=== PATIENT | female | born 1965 | race Caucasian/White ===

== ENCOUNTER 2019-08-25 14:05 | Emergency (ER) | payer BC, SELFPAY ==
[2019-08-25 14:15] VITALS: BP 172/109; PULSE 99; RESP 18; TEMP 37.1; O2SAT 95; BMI 30.7
[2019-08-25 14:26] VITALS: O2SAT 95
--- NOTE | 2019-08-25 14:27 | XRR_ITS ---
PROCEDURE INFORMATION: Exam: XR Chest, 1 View Exam date and time: 08/25/2019 2:28 PM Age: 54 years old Clinical indication: Cough and fever and shortness of breath; Additional info: Fever and productive cough TECHNIQUE: Imaging protocol: XR of the chest Views: 1 view. COMPARISON: CR Chest 1 [place] [id number] 02/24/2019 4:14 PM FINDINGS: Lungs: Unremarkable. No consolidation. Pleural space: Unremarkable. No pleural effusion. No pneumothorax. Heart/Mediastinum: Unremarkable. No cardiomegaly. Bones/joints: Unremarkable. XR/XR chest 1V portable [id number] IMPRESSION: No acute findings.
[2019-08-25 14:41] LABS: Basophils % 0.5 %; Eosinophils # 0.2 10^3/uL (0.0-0.8); Eosinophils % 2.4 %; Hematocrit 46.8 % (37.0-47.0); Hemoglobin 15.8 g/dL (11.5-15.3); Lymphocytes % 23.1 %; Mean Corpuscular HGB Conc 33.8 g/dL (30.0-36.0); Mean Corpuscular Volume 85.9 fL (81-99); Mean Platelet Volume 10.6 fL (7.4-10.4); Monocytes # 0.8 10^3/uL (0.2-0.9); Monocytes % 9.4 %; Neutrophils # 5.6 10^3/uL (1.8-7.7); Neutrophils % 64.5 %; Nucleated Red Blood Cells % 0 %; Platelet Count 261 10^3/cmm (130-400); Red Blood Count 5.45 10^6/uL (4.1-5.3); Red Cell Distribution Width 13.2 % (12.1-15.1); White Blood Count 8.7 10^3/uL (4.0-10.0)
--- NOTE | 2019-08-25 14:46 | ED_ITS ---
Entered by Chelo Baldwin, acting as scribe for Felipe Guzmán DO Aug 25, 2019 14:05 HPI - URI/Sore Throat General: Chief Complaint: Upper Respiratory Infection Stated Complaint: cough Time Seen by Provider: 08/25/19 14:28 Source: patient Mode of arrival: ambulatory Limitations: no limitations History of Present Illness: HPI Narrative: 54 yo Female presents to ED with complaint of upper respiratory symptoms. Pt states that she has been getting sick for a couple of weeks but her symptoms got worse on Monday. Pt states that she has been coughing and had some nasal draining that started on Monday. Pt states that she has been running a fever. Pt states that she had a temp of 103.2 this morning. Pt states that she has had green sputum. MD elicited complaint: fever, cough and rhinorrhea Onset (ago): day(s) Consistency: progressively worsening Pain scale (0-10): 0 Description of mucous: green Able to tolerate fluids by mouth: Yes Exacerbating factors: deep breaths Relieving factors: nothing Associated symptoms: Reports cough, fever(s), rhinorrhea and short of breath; Deny chills or sore throat Treatments prior to arrival: none Review of Systems General: Reports: 10 or more systems reviewed and unremarkable except in HPI and below Const: Reports: fever; Denies: chills ENMT: Reports: nasal discharge Resp: Reports: shortness of breath, productive cough and change in phlegm color [facility] ED PFSH: Medical History (Updated 08/25/19 @ 15:40 by Felipe Guzmán DO) HTN (hypertension) Surgical History (Updated 08/25/19 @ 15:00 by Chelo Baldwin) History of partial hysterectomy S/P ablation of atrial fibrillation Social History Smoking and tobacco status: never smoked Physical Exam Const: COMMON NORMALS: no apparent distress, average body habitus, oriented x3, no limitations, healthy appearing, alert and well nourished HENMT: COMMON NORMALS: normocephalic, head/scalp atraumatic, hearing grossly normal bilaterally, external ears normal, EAC's normal, TM's normal bilaterally, external nose normal, nasal mucous membranes and turbinates normal, moist oral mucous membranes, oropharynx normal, dentition normal and gingiva normal HEAD & SCALP: normocephalic and atraumatic NOSE: external nose normal and nasal mucous membranes and turbinates normal EXTERNAL EAR: Yes external ears normal EXTERNAL AUDITORY CANAL: EAC's normal TYMPANIC MEMBRANE: TM's normal bilaterally Eye: COMMON NORMALS: PERRL, EOMs intact bilaterally, conjunctivae normal, no scleral icterus, no papilledema, normal visual remy by confrontation and fundi normal bilaterally CONJUNCTIVA: Yes conjunctivae normal PUPIL: Yes PERRL DIRECT OPHTHALMOSCOPY: Yes no papilledema and Yes fundi normal bilaterally Neck/C-Spine: COMMON NORMALS: full ROM, no lymphadenopathy, supple, no meningeal signs, no JVD, thyroid normal and no carotid bruits THYROID: thyroid normal Chest: COMMONS NORMALS: inspection of chest normal and palpation of chest normal Resp: COMMON NORMALS: normal respiratory effort, no retractions, no use of accessory muscles, clear to auscultation bilaterally and percussion normal AUSCULTATION: clear to auscultation bilaterally PERCUSSION: percussion normal Cardio: COMMON NORMALS: no JVD, regular rate, regular rhythm, S1 normal heart sound, S2 normal heart sound, no gallops, no clicks, no murmurs, no rub and peripheral pulses 2+ throughout RATE: regular rate RHYTHM: regular rhythm HEART SOUNDS: S1 normal and S2 normal PERIPHERAL PULSES: pulses 2+ throughout GI: COMMON NORMALS: normal to inspection, nondistended, normoactive bowel sounds, soft to palpation, non-tender, no hepatosplenomegaly, no masses and no bruits PALPATION: Yes soft and Yes no hepatosplenomegaly : COMMON NORMALS: Yes no CVA tenderness and Yes external appearance normal BLADDER/KIDNEY EXAM: Yes no CVA tenderness Back/Pelvis: COMMON NORMALS: no CVA tenderness, thoracic and lumbar spine normal to inspection, no thoracic nor lumbar tenderness, thoraco-lumbar ROM normal and straight leg raise negative bilaterally Extremity: COMMON NORMALS: normal to inspection, full ROM, normal capillary refill, no joint enlargement, no clubbing, cyanosis or edema, no calf tenderness and no pedal edema Neuro: COMMON NORMALS: oriented x3 SENSORIUM/ORIENTATION: Yes alert MENINGEAL SIGNS: Yes no meningeal signs Skin: COMMON NORMALS: no rashes or lesions noted, no wounds, skin turgor normal, no jaundice, no petechiae and no mottling GENERAL SKIN EXAM: no rashes or lesions noted and turgor normal Course Vital Signs: Vital signs: Vital Signs Temperature 98.8 F 08/25/19 14:15 Pulse Rate 99 08/25/19 14:15 Respiratory Rate 18 08/25/19 14:15 Blood Pressure 172/109 08/25/19 14:15 Pulse Oximetry 95 08/25/19 14:26 MDM - URI/Sore Throat Lab Data: Labs: Lab Results 08/25/19 08/25/19 08/25/19 Range/Units 14:35 14:35 14:39 WBC 8.7 (4.0-10.0) 10^3/ uL RBC 5.45 H (4.1-5.3) 10^6/u L Hgb 15.8 H (11.5-15.3) g/dL Hct 46.8 (37.0-47.0) % MCV 85.9 (81-99) fL MCH 29.0 (28.0-34.0) pg MCHC 33.8 (30.0-36.0) g/dL RDW 13.2 (12.1-15.1) % Plt Count 261 (130-400) 10^3/c mm MPV 10.6 H (7.4-10.4) fL Neut % (Auto) 64.5 % Lymph % (Auto) 23.1 % [place] % (Auto) 9.4 % Eos % (Auto) 2.4 % Baso % (Auto) 0.5 % Neut # (Auto) 5.6 (1.8-7.7) 10^3/u L Lymph # (Auto) 2.0 (0.8-4.8) 10^3/u L [place] # (Auto) 0.8 (0.2-0.9) 10^3/u L Eos # (Auto) 0.2 (0.0-0.8) 10^3/u L Baso # (Auto) 0.0 (0.0-0.1) 10^3/u L Nucleated RBC % (a uto) 0 % Nucleated RBCs # 0.0 /100WBC Sodium 142 (136-145) mmol/L Potassium 3.5 (3.5-5.1) mmol/L Chloride 103 (98-107) mmol/L Carbon Dioxide 27 (22-29) mmol/L Anion Gap 15.5 (5-19) BUN 11 (6-20) mg/dL Creatinine 0.6 (0.5-0.9) mg/dL GFR Calculation 103.4 (90-130) mL/min Glucose 116 H (65-115) mg/dL Calculated Osmolal ity 291 (285-295) mOsm/k g Calcium 10.2 (8.5-10.5) mg/dL Total Bilirubin 0.6 (0.15-1.2) mg/dL AST 14 (0-32) U/L ALT 18 (0-33) U/L Alkaline Phosphata se 106 H (35-105) IU/L Total Protein 7.2 (6.6-8.7) g/dL Albumin 4.7 (3.5-5.2) g/dL Globulin 2.5 (1.3-4.6) g/dL Influenza Type A A g Negative (Negative) POC Influenza B Ag Negative (Negative) Discharge Plan Discharge Patient Disposition: Home, Self-Care Clinical Impression: Bronchitis Upper respiratory infection Qualifiers: URI type: unspecified URI Qualified Code(s): J06.9 - Acute upper respiratory infection, unspecified Sinusitis Qualifiers: Sinusitis location: maxillary Chronicity: acute Recurrence: non-recurrent Qualified Code(s): J01.00 - Acute maxillary sinusitis, unspecified Condition: Stable Prescriptions: New Augmentin 875-125 mg tablet 1 tab PO Q12H Qty: 20 RF: 0 prednisone 10 mg tablets,dose pack See Rx Instructions .ROUTE .COMPLEX Qty: 21 RF: 0 benzonatate 200 mg capsule 200 mg PO TID PRN (Reason: cough) Qty: 20 RF: 0 Augmentin 875-125 mg tablet 1 tab PO Q12H Qty: 20 RF: 0 No Action Multiple Vitamins Tablet 1 tab PO DAILY RF: 0 losartan 50 mg tablet 50 mg PO QAM RF: 0 triamcinolone acetonide 0.5 % ointment 1 applic TOPICAL BID PRN (Reason: UNKNOWN) RF: 0 amlodipine 5 mg tablet 5 mg PO DAILY RF: 0 Aspir-81 81 mg Tablet,Delayed Release (Dr/Ec) 81 mg PO DAILY RF: 0 Tylenol Extra Strength 500 mg Tablet 500 mg PO PRN RF: 0 metoprolol tartrate 50 mg tablet 50 mg PO BID RF: 0 ibuprofen 200 mg Tablet 400 mg PO PRN RF: 0 rosuvastatin 40 mg tablet 40 mg PO QPM RF: 0 Discharge Orders: Discharge Order (Routine); Ordered 08/25/19 Ordered By: Felipe Guzmán Referrals: Joselito Sylvester DO [Family Provider] - Coding Level of Care Code ED Toll Booth Operator for Chg Fwd Exam Comprehensive The documentation recorded by the Denny doshi Carmen, accurately reflects the service I personally performed and the decisions made by Ramirez sol Donald P, DO Aug 25, 2019 14:05
[2019-08-25 14:56] LABS: Alanine Aminotransferase 18 U/L (0-33); Albumin Level 4.7 g/dL (3.5-5.2); Alkaline Phosphatase 106 IU/L (35-105); Anion Gap 15.5 (5-19); Aspartate Amino Transferase 14 U/L (0-32); Blood Urea Nitrogen 11 mg/dL (6-20); Calcium 10.2 mg/dL (8.5-10.5); Carbon Dioxide 27 mmol/L (22-29); Chloride 103 mmol/L (98-107); Creatinine Clr Calc Pharmacy 115.7824; Globulin 2.5 g/dL (1.3-4.6); Glomerular Filtration Rate 103.4 mL/min (90-130); Glucose 116 mg/dL (65-115); Osmolality Calculated 291 mOsm/kg (285-295); Potassium 3.5 mmol/L (3.5-5.1); Sodium 142 mmol/L (136-145); Total Bilirubin 0.6 mg/dL (0.15-1.2); Total Protein 7.2 g/dL (6.6-8.7)
[2019-08-25 15:24] LABS: Influenza A by IFA Negative (Negative); Influenza B by IFA Negative (Negative)
[2019-08-25] MEDS: sodium chloride 0.9% 1,000 ML 999 ML IV (15:34)
[2019-08-25] MEDS: cefTRIAXone 1,000 MG in sodium chloride 0.9% (plus) 50 ML 100 MG IV (15:56)
[2019-08-25 16:00] VITALS: BP 166/120; PULSE 93; O2SAT 97
[2019-08-25 16:30] VITALS: BP 144/90; PULSE 96; O2SAT 97
== END 2019-08-25 16:30 | disposition home or self-care (01) ==
PROVIDERS: Physician Assistant; Emergency Provider Family Medicine; Family Provider Electrodiagnostic Medicine
DX: J40 Bronchitis, not specified as acute or chronic (principal); J06.9 Acute upper respiratory infection, unspecified; J32.9 Chronic sinusitis, unspecified; I10 Essential (primary) hypertension
CPT/HCPCS: 12345; 36415; 71045; 80053; 85025; 87804; 96360; 96361; 96365; 96375; 99283; J0696; J2930; J7030

== ENCOUNTER 2019-12-15 15:04 | Observation (INO) | payer BC, SELFPAY ==
[2019-12-15] VITALS (8 sets, daily range): BP systolic 128–189; BP diastolic 65–119; PULSE 65–89; RESP 16–18; TEMP 36.1–36.8; O2SAT 95–97; BMI 30.2
--- NOTE | 2019-12-15 15:28 | W.ED.CHESTPA ---
HPI - Chest Pain General: Chief Complaint: Chest Pain Stated Complaint: cp Time Seen by Provider: 12/15/19 15:22 Source: patient Mode of arrival: ambulatory Limitations: no limitations History of Present Illness: HPI narrative: Jessica is a nice 54-year-old female who comes in complaining of chest pain. She describes the chest pain as a pressure sensation that started in her back but then also started in the front and came to meet in the middle. She describes it as a pressure. She has associated nausea and diaphoresis. She denies any shortness of breath, vomiting, radiation on her arms, or near syncopal type symptoms. The patient states that she is had similar symptoms in the past and she has been admitted twice before for cardiac evaluations but both times her stress tests have been negative. Patient states that the pain started just 2 hours ago she is not had anything similar. She is unaware of any exacerbating or alleviating factors. Associated symptoms: Deny abdominal pain, diaphoresis, dyspnea, fever(s), nausea, palpitations, syncope or vomiting Review of Systems Const: Denies: fever(s), chills, body aches, fatigue, malaise or diaphoresis Eyes: Denies: change in vision, blurry vision, blind spots, photophobia, eye discharge or eye redness ENMT: Denies: throat pain, odynophagia, hoarseness, swelling of lips/tongue, oral sores, ear or mastoid pain, ear discharge, change in hearing or nasal discharge Card: Reports: chest pain; Denies: palpitations, irregular heart rhythm, edema, lightheadedness, syncope, pre-syncope, dyspnea on exertion or orthopnea Resp: Denies: dyspnea, productive cough, non-productive cough, wheezing, hemoptysis or chest congestion GI: Denies: abdominal pain, nausea, vomiting, hematemesis, coffee ground emesis, heartburn, diarrhea, constipation, GI cramping, hematochezia or melena : Denies: flank pain, dysuria, urinary frequency, urinary urgency or hematuria Musc: Denies: neck pain, back pain, extremity pain, extremity swelling, joint pain, joint swelling, joint redness, joint warmth or joint stiffness Skin/Breast: Denies: rash, pruritus, erythema, skin tenderness or jaundice Neuro: Denies: headache(s), numbness in extremities, weakness in extremities, sensory changes, lack of coordination, difficulty walking, dizziness, vertigo, confusion, Slurred speech present or seizure-like activity [place]/Lymph: Denies: easy bruising, easy bleeding, petechiae, purpura or enlarged lymph nodes All/Imm: Denies: urticaria, throat swelling, tongue swelling, facial swelling or acute wheezing PFSH ED PFSH: Medical History (Updated 12/15/19 @ 16:54 by Padmini Ledesma) Carotid artery stenosis Bilateral less than 50% from February 2019 CVA (cerebral vascular accident) HTN (hypertension) Hyperlipidemia SVT (supraventricular tachycardia) Surgical History History of partial hysterectomy S/P ablation of atrial fibrillation Social History Smoking and tobacco status: never smoked Physical Exam Const: COMMON NORMALS: no acute distress, patient oriented x3, no limitations, healthy appearing and well nourished GENERAL APPEARANCE: cooperative, well kempt and well developed HENMT: COMMON NORMALS: normocephalic, atraumatic, external ears normal, EAC's normal and Normal external nose present HEAD & SCALP: normal to inspection, normocephalic and atraumatic FACE & SINUS: normal facial exam and face symmetric NOSE: Normal external nose present and Normal nares present EXTERNAL EAR: Yes external ears normal EXTERNAL AUDITORY CANAL: EAC's normal MOUTH: Normal oral and palatal mucosa present, lip normal and tongue normal Eye: COMMON NORMALS: Equal, round and reactive pupils present and conjunctivae normal GENERAL EYE: appearance normal, both eyes and all related structures ALIGNMENT: Yes alignment normal PERIORBITAL: periorbital findings normal EYELID: eyelids normal CONJUNCTIVA: Yes conjunctivae normal SCLERA: sclerae normal PUPIL: Yes Equal, round and reactive pupils present Neck/C-Spine: COMMON NORMALS: full ROM, no lymphadenopathy, supple, no meningeal signs and no JVD GENERAL: Yes normal visual inspection and Yes trachea midline Chest: COMMONS NORMALS: normal inspection of the chest and normal palpation of entire chest wall Resp: COMMON NORMALS: normal respiratory effort, No retractions and No use of accessory muscles EFFORT & INSPECTION: Yes able to speak in complete sentences and Yes symmetric chest movement AUSCULTATION: no crackles, no rales, no rhonchi and no wheezes Cardio: COMMON NORMALS: no JVD, regular rate, regular rhythm, S1 normal heart sound present and S2 normal heart sound present RATE: regular rate RHYTHM: regular rhythm HEART SOUNDS: S1 normal heart sound present, S2 normal heart sound present, no click, no gallops, no murmurs, no rubs and abnormal split S2 GI: COMMON NORMALS: Soft to palpation and No hepatosplenomegaly present PALPATION: Yes Soft to palpation, No Tenderness to palpation present (GI), No Guarding due to palpation present (GI), No Rigid due to palpation, Yes No hepatosplenomegaly present, No Hernia present, No Palpable mass present and No Pulsatile mass present : COMMON NORMALS: Yes no CVA tenderness BLADDER/KIDNEY EXAM: Yes no CVA tenderness EXTERNAL FEMALE EXAM: No Hernia present Back/Pelvis: COMMON NORMALS: no CVA tenderness, thoracic and lumbar spine normal to inspection, no thoracic nor lumbar tenderness and thoraco-lumbar ROM normal Extremity: COMMON NORMALS: normal to inspection, full ROM, capillary refill normal, no joint enlargement, no clubbing, cyanosis or edema and no calf tenderness Neuro: COMMON NORMALS: patient oriented x3, CN's II-XII intact bilaterally, moves all extremities, no focal motor deficits and no sensory deficits noted MENINGEAL SIGNS: Yes no meningeal signs SPEECH: speech normal Psych: COMMON NORMALS: mental status grossly normal, Normal thought process present, cooperative, normal affect, speech normal and activity/motor behavior normal APPEARANCE: Yes well kempt SPEECH: Yes normal speech THOUGHT PROCESS: Normal thought process present Skin: COMMON NORMALS: no rashes or lesions noted, turgor normal, no jaundice, no petechiae and no mottling GENERAL SKIN EXAM: no rashes or lesions noted and turgor normal Course ED course: 1624 -patient was informed that her heart score is 4 and I have formally recommended she stay in the hospital for cardiac rule out and stress testing. At this time she is going to consider this but is informing me at this time she believes she would rather go home. I have informed her of the risks and benefits including the risk of ultimately or severe. Disability after heart attack if she goes home. She is going to talk with her but at this time she is wanting to leave. Vital Signs: Vital signs: Vital Signs Temperature 98.2 F 12/15/19 15:10 Pulse Rate 70 12/15/19 16:20 Respiratory Rate 17 12/15/19 16:20 Blood Pressure 158/88 12/15/19 16:20 Pulse Oximetry 96 12/15/19 16:20 MDM - Chest Pain MDM Narrative: Medical decision making narrative: The patient is decided to go ahead and stay for formal cardiac rule out and stress testing. I reviewed the case in full with Dr. Rosey is agreeable to admission for definitive management and care. Lab Data: Attestation: I reviewed the patient's lab results. Labs: Lab Results 12/15/19 12/15/19 12/15/19 Range/Units 15:45 15:45 15:45 WBC 5.3 (4.0-10.0) 10^3/ uL RBC 4.81 (4.1-5.3) 10^6/u L Hgb 14.0 (11.5-15.3) g/dL Hct 42.3 (37.0-47.0) % MCV 87.9 (81-99) fL MCH 29.1 (28.0-34.0) pg MCHC 33.1 (30.0-36.0) g/dL RDW 13.2 (12.1-15.1) % Plt Count 246 (130-400) 10^3/c mm MPV 10.3 (7.4-10.4) fL Neut % (Auto) 62.6 % Lymph % (Auto) 28.2 % [place] % (Auto) 5.6 % Eos % (Auto) 3.0 % Baso % (Auto) 0.4 % Neut # (Auto) 3.3 (1.8-7.7) 10^3/u L Lymph # (Auto) 1.5 (0.8-4.8) 10^3/u L [place] # (Auto) 0.3 (0.2-0.9) 10^3/u L Eos # (Auto) 0.2 (0.0-0.8) 10^3/u L Baso # (Auto) 0.0 (0.0-0.1) 10^3/u L Nucleated RBC % (a uto) 0 % Nucleated RBCs # 0.0 /100WBC Sodium 144 (136-145) mmol/L Potassium 3.4 L (3.5-5.1) mmol/L Chloride 107 (98-107) mmol/L Carbon Dioxide 24 (22-29) mmol/L Anion Gap 16.4 (5-19) BUN 15 (6-20) mg/dL Creatinine 0.8 (0.5-0.9) mg/dL GFR Calculation 74.2 L (90-130) mL/min Glucose 120 H (65-115) mg/dL Calculated Osmolal ity 295 (285-295) mOsm/k g Calcium 9.6 (8.5-10.5) mg/dL Magnesium 2.1 (1.7-2.3) mg/dL Total Bilirubin 0.2 (0.15-1.2) mg/dL AST 17 (0-32) U/L ALT 19 (0-33) U/L Alkaline Phosphata se 94 (35-105) IU/L Troponin T Baselin e 6 (0-10) ng/L Total Protein 6.1 L (6.6-8.7) g/dL Albumin 4.3 (3.5-5.2) g/dL Globulin 1.8 (1.3-4.6) g/dL Lipase 24 (13-60) U/L Urine Color (Yellow) Urine Appearance (CLEAR) Urine pH (5-7) Ur Specific Gravit y (1.005-1.030) Urine Protein (Negative) Urine Glucose (UA) (Normal) Urine Ketones (Negative) Urine Blood (Negative) Urine Nitrate (Negative) Urine Bilirubin (NEGATIVE) Urine Urobilinogen (Negative) mg/dL Ur Leukocyte Sandie ase (Negative) Urine RBC (0-2) /hpf Urine WBC (0-5) /hpf Ur Squamous Epith Cells (0-5) Urine Bacteria (NONE) Urine Opiates Scre en (Negative) ng/mL Ur Barbiturates Sc reen (Negative) ng/mL Ur Phencyclidine S crn (Negative) ng/mL Ur Amphetamines Sc reen (Negative) ng/mL U Benzodiazepines Scrn (Negative) ng/mL Urine Cocaine Scre en (Negative) ng/mL U Marijuana (THC) Screen (Negative) ng/mL 12/15/19 12/15/19 Range/Units 16:00 16:00 WBC (4.0-10.0) 10^3/ uL RBC (4.1-5.3) 10^6/u L Hgb (11.5-15.3) g/dL Hct (37.0-47.0) % MCV (81-99) fL MCH (28.0-34.0) pg MCHC (30.0-36.0) g/dL RDW (12.1-15.1) % Plt Count (130-400) 10^3/c mm MPV (7.4-10.4) fL Neut % (Auto) % Lymph % (Auto) % [place] % (Auto) % Eos % (Auto) % Baso % (Auto) % Neut # (Auto) (1.8-7.7) 10^3/u L Lymph # (Auto) (0.8-4.8) 10^3/u L [place] # (Auto) (0.2-0.9) 10^3/u L Eos # (Auto) (0.0-0.8) 10^3/u L Baso # (Auto) (0.0-0.1) 10^3/u L Nucleated RBC % (a uto) % Nucleated RBCs # /100WBC Sodium (136-145) mmol/L Potassium (3.5-5.1) mmol/L Chloride (98-107) mmol/L Carbon Dioxide (22-29) mmol/L Anion Gap (5-19) BUN (6-20) mg/dL Creatinine (0.5-0.9) mg/dL GFR Calculation (90-130) mL/min Glucose (65-115) mg/dL Calculated Osmolal ity (285-295) mOsm/k g Calcium (8.5-10.5) mg/dL Magnesium (1.7-2.3) mg/dL Total Bilirubin (0.15-1.2) mg/dL AST (0-32) U/L ALT (0-33) U/L Alkaline Phosphata se (35-105) IU/L Troponin T Baselin e (0-10) ng/L Total Protein (6.6-8.7) g/dL Albumin (3.5-5.2) g/dL Globulin (1.3-4.6) g/dL Lipase (13-60) U/L Urine Color Yellow (Yellow) Urine Appearance Clear (CLEAR) Urine pH 6.5 (5-7) Ur Specific Gravit y 1.020 (1.005-1.030) Urine Protein Neg (Negative) Urine Glucose (UA) Norm (Normal) Urine Ketones Negative (Negative) Urine Blood Neg (Negative) Urine Nitrate Negative (Negative) Urine Bilirubin Neg (NEGATIVE) Urine Urobilinogen Norm (Negative) mg/dL Ur Leukocyte Sandie ase Negative (Negative) Urine RBC None (0-2) /hpf Urine WBC 0-4 H (0-5) /hpf Ur Squamous Epith Cells 0-4 H (0-5) Urine Bacteria Trace (NONE) Urine Opiates Scre en Negative (Negative) ng/mL Ur Barbiturates Sc reen Negative (Negative) ng/mL Ur Phencyclidine S crn Negative (Negative) ng/mL Ur Amphetamines Sc reen Negative (Negative) ng/mL U Benzodiazepines Scrn Negative (Negative) ng/mL Urine Cocaine Scre en Negative (Negative) ng/mL U Marijuana (THC) Screen Negative (Negative) ng/mL Imaging Data^: CXR: My impression: No acute cardiopulmonary findings. EKG Data^: EKG 1: Attestation: I personally reviewed and interpreted this EKG as follows: EKG interpretation date: 12/15/19 EKG interpretation time: 15:22 Interpretation: Normal sinus rhythm at 69 beats a minute, no blocks, normal intervals, no acute ST or T wave changes. Discharge Plan Discharge Patient Disposition: Placed in Observation Admit Provider: Bradley Bejarano Clinical Impression: Chest pain Qualifiers: Chest pain type: unspecified Qualified Code(s): R07.9 - Chest pain, unspecified Condition: Stable Referrals: Joselito Sylvester DO [Primary Care Provider] - Coding Level of Care Code ED Construction Driller for Chg Fwd Exam Comprehensive
--- NOTE | 2019-12-15 15:35 | XRR_ITS ---
PROCEDURE INFORMATION: Exam: XR Chest, 1 View Exam date and time: 12/15/2019 3:37 PM Age: 54 years old Clinical indication: Chest pain TECHNIQUE: Imaging protocol: XR of the chest Views: 1 view. COMPARISON: CR XR chest 1V portable [id number] 08/25/2019 2:49 PM FINDINGS: Lungs: Stable mild COPD . Pleural space: Unremarkable. No pleural effusion. No pneumothorax. Heart/Mediastinum: Unremarkable. No cardiomegaly. Bones/joints: Unremarkable. XR/XR chest 1V portable [id number] IMPRESSION: Stable mild COPD .
[2019-12-15] MEDS: aspirin 325 mg Tablet PO (15:36)
--- NOTE | 2019-12-15 15:36 | ECG_ITS ---
[facility] Test Date: 2019-12-15 Pat Name: Jessica Moon Department: Room: Gender: Female Credit Risk Analyst: : 1965 Requested By: Padmini Doty Order Number: [id number] Deny MD: Tereso Chaudhary M.D. Measurements Intervals [place] Rate: 69 P: 44 MS: 180 QRS: 14 QRSD: 97 T: 24 QT: 407 QTc: 437 Interpretive Statements SINUS RHYTHM Compared to ECG 04/14/2019 00:16:49 Sinus bradycardia no longer present Electronically Signed On 12-15-2019 19:59:51 CDT by Tereso Chaudhary M.D. [id number]
[2019-12-15 15:52] LABS: Basophils % 0.4 %; Eosinophils # 0.2 10^3/uL (0.0-0.8); Hematocrit 42.3 % (37.0-47.0); Lymphocytes # 1.5 10^3/uL (0.8-4.8); Lymphocytes % 28.2 %; Mean Corpuscular HGB Conc 33.1 g/dL (30.0-36.0); Mean Corpuscular Hemoglobin 29.1 pg (28.0-34.0); Mean Corpuscular Volume 87.9 fL (81-99); Mean Platelet Volume 10.3 fL (7.4-10.4); Monocytes # 0.3 10^3/uL (0.2-0.9); Monocytes % 5.6 %; Neutrophils # 3.3 10^3/uL (1.8-7.7); Neutrophils % 62.6 %; Nucleated Red Blood Cells % 0 %; Platelet Count 246 10^3/cmm (130-400); Red Blood Count 4.81 10^6/uL (4.1-5.3); Red Cell Distribution Width 13.2 % (12.1-15.1); White Blood Count 5.3 10^3/uL (4.0-10.0)
[2019-12-15 16:11] LABS: Alanine Aminotransferase 19 U/L (0-33); Albumin Level 4.3 g/dL (3.5-5.2); Alkaline Phosphatase 94 IU/L (35-105); Anion Gap 16.4 (5-19); Aspartate Amino Transferase 17 U/L (0-32); Blood Urea Nitrogen 15 mg/dL (6-20); Calcium 9.6 mg/dL (8.5-10.5); Carbon Dioxide 24 mmol/L (22-29); Chloride 107 mmol/L (98-107); Globulin 1.8 g/dL (1.3-4.6); Glomerular Filtration Rate 74.2 mL/min (90-130); Glucose 120 mg/dL (65-115); Lipase 24 U/L (13-60); Magnesium 2.1 mg/dL (1.7-2.3); Osmolality Calculated 295 mOsm/kg (285-295); Potassium 3.4 mmol/L (3.5-5.1); Sodium 144 mmol/L (136-145); Total Bilirubin 0.2 mg/dL (0.15-1.2); Total Protein 6.1 g/dL (6.6-8.7)
[2019-12-15 16:14] LABS: Troponin(5th) Baseline 6 ng/L (0-10)
[2019-12-15] MEDS: sodium chloride 0.9% 1,000 ML 100 ML IV ×2 (16:18→19:52)
[2019-12-15] MEDS: potassium chloride ER 10 mEq Tablet 40 MEQ PO (16:24)
--- NOTE | 2019-12-15 16:43 | P.HP_ITS ---
Providers/Chief Complaint Primary Care Provider: Joselito Sylvester DO Chief Complaint: cp History of Present Illness Jessica Moon is a 54 year old female past medical history of ischemic CVA, carotid artery stenosis, hypertension noncompliant with medications who presents to the emergency room for complaints of chest pain. She states pain started retrosternal on the left side radiating to back along with dizziness and nausea but no vomiting. During the episode she also had mild diaphoresis. She states last she had pain was in February 2019 when she was checked out and everything came back normal. Since then she has not had similar pain. She denies of having any increased pain on exertion or walking around. She denies of any smoking. Patient does have family history of early CAD in both her parents. She denies of having any difficulty in breathing at rest or on exertion. She is fairly noncompliant with her medications. She states she has not been taking her statins regularly as she started having muscle aches. She states she does not take any aspirin because of concerns of ulcer but she is compliant with Plavix. She states she has been forgetting her antihypertensives for last 2 to 3 days. She denies of having any flulike symptoms, cough, exposure to COVID-19 patients, recent travels, fevers. Review of Systems General: Reports: 10 or more systems reviewed and unremarkable except in HPI and below Const: Denies: fever(s), chills, body aches, change in appetite, malaise, night sweats, diaphoresis, change in sleep pattern, daytime sleepiness or snoring Eyes: Denies: change in vision, blurry vision, photophobia, eye discomfort or eye discharge ENMT: Denies: throat pain, enlarged tonsils, hoarseness, mouth pain, oral sores, dry mouth, tinnitus, nasal congestion or post nasal drip Card: Reports: chest pain; Denies: palpitations, irregular heart rhythm, edema, swelling of feet/ankles, lightheadedness, syncope, pre-syncope, dyspnea on exertion, orthopnea, leg pain with exertion or acrocyanosis Resp: Denies: dyspnea, productive cough, non-productive cough, wheezing, stridor, pain on inspiration, change in phlegm color, hemoptysis or chest congestion GI: Reports: nausea; Denies: abdominal pain, vomiting, hematemesis, coffee ground emesis, dysphagia, heartburn, diarrhea, constipation, bloating, GI cramping, change in bowel habits, pain on defecation, hematochezia or melena : Denies: flank pain, dysuria, urinary frequency, urinary urgency, urinary hesitancy, nocturia or hematuria Musc: Denies: neck pain, back pain, extremity pain, joint pain, joint swelling, joint redness, joint stiffness or limited range of motion Neuro: Denies: headache(s), numbness in extremities, weakness in extremities, sensory changes, lack of coordination, difficulty walking, frequent falls, dizziness, vertigo, confusion, Slurred speech present, difficulty communicating thoughts or seizure-like activity Psych: Denies: anxiety, depression, mood swings, panic attacks, hopelessness or irritability Endo: Denies: polyuria, polydipsia, tired all the time, cold intolerance, excessive sweating, flushing or heat intolerance Jarrell/Lymph: Denies: easy bruising or easy bleeding All/Imm: Denies: tongue swelling, facial swelling or acute wheezing Medications/Allergies Home Medications Medication Instructions Recorded Confirmed Last Taken Type amlodipine 5 mg PO DAILY 08/25/19 12/15/19 12/13/19 History losartan 50 mg PO QAM 08/25/19 12/15/19 12/13/19 History metoprolol tartrate 50 mg PO BID 08/25/19 12/15/19 12/15/19 History clopidogrel [Plavix] 75 mg PO DAILY 12/15/19 12/15/19 12/15/19 History Allergies Allergy/AdvReac Type Severity Reaction Status Date / Time tramadol [From Ultram] Allergy ALGY-Hives Verified 08/25/19 14:21 PFSH Acute PFSH: Medical History Carotid artery stenosis Bilateral less than 50% from February 2019 CVA (cerebral vascular accident) HTN (hypertension) Hyperlipidemia SVT (supraventricular tachycardia) Surgical History History of partial hysterectomy S/P ablation of atrial fibrillation Social History Smoking and tobacco status: never smoked Vitals/I&O/Wt Last Vital Signs Temp 98.2 F 12/15/19 15:10 Pulse 70 12/15/19 16:20 Resp 17 12/15/19 16:20 BP 158/88 12/15/19 16:20 Pulse Ox 96 12/15/19 16:20 Weight last 48 hrs Weight 87.543 kg Physical Exam Narrative: EXAM NARRATIVE: General: No acute distress, AO x3 HEENT: PERRLA, pupils bilaterally equal and reactive Chest: Normal vesicular breath sounds, no added sounds, equal good air entry bilaterally CVS: S1-S2 regular, no murmurs, no tachycardia, no gallops, no rubs Abdomen: Soft, nontender, no organomegaly, bowel sounds present Neuro: No focal deficits, no facial deformity, AO x3, power 5/5 in all limbs Data : 12/15/19 15:45 12/15/19 15:45 A&P Assessment and plan (1) Chest pain: Status: Acute (2) Hyperlipidemia: Status: Acute (3) HTN (hypertension): Status: Acute (4) Carotid artery stenosis: Status: Acute (5) CVA (cerebral vascular accident): Status: Acute Additional A&P Information Chest pain under evaluation: Patient was last admitted with similar complaint in February 2019. Last tested on 2018 was within normal limits without any active signs of ischemia. Echocardiogram 2019 shows an EF 56%, grade 1 diastolic dysfunction, no regional wall Schmorl abnormality, normal pulmonary artery pressures. Patient has been fairly noncompliant with her medications. She is not been taking her antihypertensives for last couple of days. Continue with Plavix and statins for now. Patient already received full dose of aspirin in the ER. First troponin has been a normal limits. Will do every 2 hours and every 6 hours to see delta. If delta is positive will start on full dose Lovenox. It is quite possible that patient symptoms are most likely because of acid hypertension because of noncompliance to medications. But given her significant family history, personal history we will have to rule out CAD so will do stress test tomorrow morning. N.p.o. from midnight. Check lipid panel, TSH, HbA1c, iron panel. Hypertension: Start her on home medication of Lopressor and losartan. It is reported that she also takes amlodipine. For now we will start her on losartan metoprolol and if the blood pressures are more than goal of 140/90 mmHg we will start her on amlodipine. Full code. Cardiac diet, n.p.o. after midnight Low probability of DVT as PERFECTO score is low Attestations Medical Necessity Statement*: Less than 2 midnights for chest pain rule out Time Spent in Patient Care: Greater than 35 minutes (>than 50% of time spent in counselling and/or direct pt care on unit) . 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
[2019-12-15 16:45] LABS: Add Urine Culture? No; Bacteria Urine TRACE; Bilirubin Urine Neg (NEGATIVE); Blood Urine Neg (Negative); Glucose Urine UA Norm (Normal); Ketones Urine Negative (Negative); Leukocyte Esterase Urine Negative (Negative); Nitrate Urine Negative (Negative); Protein Urine Neg (Negative); Squamous Epithelial Cell Urine 0-4 (0-5); Urine Appearance Clear (CLEAR); Urine Color Yellow (Yellow); Urobilinogen Urine Norm (Negative); WBC Urine 0-4 /hpf (0-5); pH Urine 6.5 (5-7)
[2019-12-15 16:53] LABS: Amphetamines Screen Urine Negative (Negative); Barbiturates Screen Urine Negative (Negative); Benzodiazepines Screen Urine Negative (Negative); Cocaine Screen Urine Negative (Negative); Opiate Screen Urine Negative (Negative); PCP Screen Urine Negative (Negative); THC Screen Urine Negative (Negative)
--- NOTE | 2019-12-15 17:36 | ECG_ITS ---
[facility] Test Date: 2019-12-15 Pat Name: Jessica Moon Department: Room: 112 Gender: Female Grants Officer: : 1965 Requested By: Padmini Doty Order Number: [id number] Deny MD: Tereso Chaudhary M.D. Measurements Intervals [place] Rate: 59 P: 52 ME: 178 QRS: 15 QRSD: 93 T: 16 QT: 419 QTc: 415 Interpretive Statements SINUS BRADYCARDIA WITH SINUS ARRHYTHMIA Compared to ECG 12/15/2019 15:22:26 Sinus rhythm no longer present Electronically Signed On 12-15-2019 20:06:46 CDT by Tereso Chaudhary M.D. [id number]
--- NOTE | 2019-12-15 18:00 | PC.NURSE ---
From ER Received pt via wheelchair. Pt is alert, oriented, awake. Denies any pain or discomfort. Up ad yarely to the bathroom x2. voided x2. VS taken. checked orthostatic VS per order. noted orthostatic hypotension. informed of the orthostatic VS. oriented pt to nurse, telemetry. call light within reach. informed her of the cardiac stress test procedure tomorrow. pt verbalizes understanding.
[2019-12-15 19:12] LABS: Troponin 5 2HR Delta 0 ABS# (0-10)
[2019-12-15 19:15] LABS: Ferritin 207 ng/mL (15-150); Iron 39 ug/dL (37-145); NT Pro B Type Natriuretic Pept 268 pg/mL (0-125); Percent Saturation 16.1 % (20-50); Total Iron Binding Capacity 241 mcg/dl; Unsaturated Iron Binding 202 ug/dL (112-347)
[2019-12-15 19:33] LABS: Thyroid Stimulating Hormone 2.41 uIU/mL (0.27-4.20)
[2019-12-15] MEDS: metoprolol tartrate 50 mg Tablet PO (19:52)
[2019-12-15] MEDS: losartan 50 mg Tablet PO (19:53)
--- NOTE | 2019-12-15 20:23 | PC.NURSE ---
Patient complains of pain in neck and head stating I hurt my neck years ago and I take Tylenol and Motrin for it at home. PRN Tylenol given. Patient does not complain of any chest pain. Will monitor.
[2019-12-15] MEDS: acetaminophen 325 mg Tablet 650 MG PO (20:24)
--- NOTE | 2019-12-15 21:36 | ECG_ITS ---
[facility] Test Date: 2019-12-15 Pat Name: Jessica Moon Department: Room: 112 Gender: Female Blast Furnace Supervisor: DORIAN ISAAC: 1965 Requested By: Padmini Doty Order Number: [id number] Deny MD: Tereso Chaudhary M.D. Measurements Intervals [place] Rate: 60 P: 55 AK: 188 QRS: 25 QRSD: 93 T: 31 QT: 421 QTc: 423 Interpretive Statements SINUS RHYTHM Compared to ECG 12/15/2019 17:24:08 Sinus bradycardia no longer present Sinus arrhythmia no longer present Electronically Signed On 12-16-2019 21:45:13 CDT by Tereso Chaudhary M.D. [id number]
[2019-12-15 22:39] LABS: Troponin 5 6HR Delta 0 ng/L (0-12)
--- NOTE | 2019-12-15 23:17 | PC.NURSE ---
Patient states that she does not have any chest pain at this time. Patient states the pain in my neck has eased up. Will monitor.
[2019-12-16] VITALS (10 sets, daily range): BP systolic 125–165; BP diastolic 77–100; PULSE 52–94; RESP 12–18; TEMP 36.4–36.9; O2SAT 94–97
[2019-12-16 03:56] LABS: Basophils % 0.4 %; Eosinophils # 0.2 10^3/uL (0.0-0.8); Eosinophils % 3.6 %; Lymphocytes # 1.6 10^3/uL (0.8-4.8); Lymphocytes % 34.5 %; Mean Corpuscular HGB Conc 32.5 g/dL (30.0-36.0); Mean Corpuscular Hemoglobin 28.6 pg (28.0-34.0); Mean Corpuscular Volume 88.1 fL (81-99); Mean Platelet Volume 10.2 fL (7.4-10.4); Monocytes # 0.4 10^3/uL (0.2-0.9); Monocytes % 7.9 %; Neutrophils # 2.5 10^3/uL (1.8-7.7); Neutrophils % 53.6 %; Nucleated Red Blood Cells % 0 %; Platelet Count 219 10^3/cmm (130-400); Red Blood Count 4.54 10^6/uL (4.1-5.3); Red Cell Distribution Width 13.2 % (12.1-15.1); White Blood Count 4.7 10^3/uL (4.0-10.0)
[2019-12-16 04:13] LABS: Chol HDL Ratio 4.86 mg/dL (0.0-4.40); Cholesterol 204 mg/dL (0-200); HDL Cholesterol 42 mg/dL (60-100); LDL Cholesterol Calculated 138 mg/dL (50-129); Triglycerides 119 mg/dL (0-150); VLDL Cholestrol Calculation 24 mg/dL (0-30)
[2019-12-16 04:16] LABS: Alanine Aminotransferase 17 U/L (0-33); Albumin Level 3.8 g/dL (3.5-5.2); Alkaline Phosphatase 78 IU/L (35-105); Anion Gap 13.9 (5-19); Aspartate Amino Transferase 13 U/L (0-32); Blood Urea Nitrogen 15 mg/dL (6-20); Calcium 9.3 mg/dL (8.5-10.5); Carbon Dioxide 24 mmol/L (22-29); Chloride 110 mmol/L (98-107); Globulin 1.8 g/dL (1.3-4.6); Glomerular Filtration Rate 103.4 mL/min (90-130); Glucose 106 mg/dL (65-115); Osmolality Calculated 295 mOsm/kg (285-295); Potassium 3.9 mmol/L (3.5-5.1); Sodium 144 mmol/L (136-145); Total Bilirubin 0.2 mg/dL (0.15-1.2); Total Protein 5.6 g/dL (6.6-8.7)
[2019-12-16 04:17] LABS: Estmated Average Glucose 100; Hemoglobin A1C 5.1 % (4.0-6.0)
[2019-12-16] MEDS: losartan 50 mg Tablet PO (05:14)
[2019-12-16] MEDS: sodium chloride 0.9% 1,000 ML 100 ML IV (05:14)
--- NOTE | 2019-12-16 06:00 | ECG_ITS ---
[facility] Test Date: 2019-12-16 Pat Name: Jessica Moon Department: Room: 112 Gender: Female College Service Officer: Karyna Lucas : 1965 Requested By: Bradley Bejarano Order Number: [id number] Deny MD: Corby El M.D. Interpretive Statements NAME OF STUDY: LEXISCAN SESTAMIBI STRESS TEST INDICATION: Chest Pain, LEXISCAN STRESS TEST ORDERING PHYSICIAN: Hospitalist CLINICAL INFORMATION: Chest pain INTERPRETATION: 1. The patient was brought to the laboratory where Lexiscan was infused over 20 seconds. The resting blood pressure was 145/75. Maximum blood pressure was 159/93. The resting heart rate was 70 beats per minute. The maximum heart rate is 108 beats per minute. 2. The baseline electrocardiogram reveals sinus rhythm and has a normal tracing 3. With Lexiscan infusion, there were no ST segment changes to suggest ischemia. 4. The patient experienced no symptoms or arrhythmias during the examination. CONCLUSION: 1. Unremarkable Lexiscan infusion. 2. Nuclear imaging to follow. Electronically Signed On 12-16-2019 17:21:29 CDT by Corby El M.D. [id number]
--- NOTE | 2019-12-16 08:26 | PC.NURSE ---
Patient to stress test. VS stable. No needs identified at this time.
[2019-12-16] MEDS: regadenoson 0.4 Mg/5 ml Syringe IVP (09:36)
[2019-12-16] MEDS: metoprolol tartrate 50 mg Tablet PO (09:48)
[2019-12-16] MEDS: clopidogrel 75 mg Tablet PO (09:48)
--- NOTE | 2019-12-16 09:52 | PC.CHAP ---
Pastoral Care Encounter/Spiritual Assessment Type of Contact [] Declined motorcycle mechanic apprentice visit [] Patient/Family/Request visit [] Outpatient visit [] Follow-up visit [] Physician referral [] Code/Alert [x] Routine visit [] Staff referral [] Actively dying [] Patient sleeping [] Family support [] [x] Out of room [] Palliative care [] [] Receiving care in room [] Pre-surgical visit [] Trauma [] Long length of stay [] ICU visit [] Other: stress test Relational/Emotional Strength [] Patient feels connected with others/family/visitors/staff [] Distress [] Loneliness/isolation [] Abandonment Spirituality of Patient [] Person of Khloe [] Attends Rastafarian of their Khloe [] Believes in Prayer [] Reads Bible or Yarsani materials [] There are Spiritual issues to be addressed Generation Mechanic Helper Interventions [] Prayer [] Active listening [] Non-anxious presence [] Spiritual/emotional support [] Crisis/trauma care [] Spiritual counseling [] Bereavement support [] Provided bereavement packet [] Provided Bible/devotional materials [] Provided toy/stuffed animal, coloring book to patient or family member [] Provided Communion [] Anointing/[place] [] Salvation [x] Completed spiritual assessment [] Other: Impact on Illness or Injury [] Angry [] Fearful [] Anxious [] Often cries [] Exhaustion [] Unable to work [] Unable to attend moravian [] Unable to walk/stand [] Unable to read [] Unable to drive [] Unable to eat/drink [] Unable to sleep [] Unable to be with family [] Patient intubated [] Other: Summary Time spent with patient
--- NOTE | 2019-12-16 09:57 | ECG_ITS ---
[facility] Test Date: 2019-12-16 Pat Name: Jessica Moon Department: Room: 112 Gender: Female Patient Care Provider: : 1965 Requested By: Bradley Bejarano Order Number: [id number] Deny MD: Tereso Chaudhary M.D. Measurements Intervals [place] Rate: 69 P: 46 TX: 182 QRS: 11 QRSD: 90 T: 19 QT: 424 QTc: 455 Interpretive Statements SINUS RHYTHM Compared to ECG 12/15/2019 21:20:55 No significant changes Electronically Signed On 12-16-2019 21:45:40 CDT by Tereso Chaudhary M.D. [id number]
--- NOTE | 2019-12-16 10:12 | PC.NURSE ---
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 Patient states that she is having chest pressure similar to what she came to ER for. BP 160/91. Nurse called Dr. Bejarano to notify of findings. 12 lead EKG obtained. Patient now states that pressure in chest has subsided and states it is barely there. BP reassessed, 147/96. Nurse to continue to monitor.
--- NOTE | 2019-12-16 11:08 | PC.NURSE ---
Patient reports having 3 loose stools this morning and requests something for diarrhea. Dr. Bejarano notified via secure messaging. No interventions at this time.
--- NOTE | 2019-12-16 12:05 | PC.NURSE ---
Addendum entered by Priya Sosa 12/16/19 12:25: Dr. Bejarano notified of event. Physician ordered a one time dose of xanax. Nurse to continue to monitor. Original Note: Patient returned from second set of imaging for stress test. Patient states that she had a panic attack while on the table because she was laying on her stomach and felt like she couldn't breathe. Patient currently hypertensive. Nurse to recheck BP and continue to monitor.
[2019-12-16] MEDS: ALPRAZolam 0.25 mg Tablet PO (12:24)
--- NOTE | 2019-12-16 13:58 | P.DS_ITS ---
Discharge Providers Date of Admission: 12/15/19 16:41 Date of Discharge: December 16, 2019 Attending Provider at Admission: rBadley Bejarano MD Attending Provider at Discharge: Bradley Bejarano MD Primary Care Provider: Joselito Sylvester DO Diagnoses at Discharge Discharge Diagnosis (1) Chest pain: Status: Acute Qualifiers: Chest pain type: unspecified Qualified Code(s): R07.9 - Chest pain, unspecified (2) Hyperlipidemia: Status: Acute (3) HTN (hypertension): Status: Acute (4) Carotid artery stenosis: Status: Acute Problem details: Bilateral less than 50% from February 2019 (5) CVA (cerebral vascular accident): Status: Acute Reason for Visit Reason for Visit: cp Hospital Course Discharge Summary: Jessica Moon is a 54 year old female past medical history of ischemic CVA, carotid artery stenosis, hypertension noncompliant with medications who presents to the emergency room for complaints of chest pain. She states pain started retrosternal on the left side radiating to back along with dizziness and nausea but no vomiting. During the episode she also had mild diaphoresis. She states last she had pain was in February 2019 when she was checked out and everything came back normal. Since then she has not had similar pain. She denies of having any increased pain on exertion or walking around. She denies of any smoking. Patient does have family history of early CAD in both her parents. She denies of having any difficulty in breathing at rest or on exertion. She is fairly noncompliant with her medications. She states she has not been taking her statins regularly as she started having muscle aches. She states she does not take any aspirin because of concerns of ulcer but she is compliant with Plavix. She states she has been forgetting her antihypertensives for last 2 to 3 days. She denies of having any flulike symptoms, cough, exposure to COVID-19 patients, recent travels, fevers. She was admitted to the hospital and underwent stress test on December 16, 2019 which was negative for any active ischemia. It is quite possible that her symptoms are because of noncompliance causing her blood pressure to be on the higher side. Once her blood pressures are controlled her symptoms are also relieved. She also suffers from severe anxiety for which she has been asked to follow-up with her primary care provider. She has been started on escitalopram for anxiety. She is been discharged hemodynamically stable condition with advised to follow- up with a primary care provider within next 7 to 10 days. Physical Exam Narrative: EXAM NARRATIVE: General: No acute distress, AO x3 HEENT: PERRLA, pupils bilaterally equal and reactive Chest: Normal vesicular breath sounds, no added sounds, equal good air entry bilaterally CVS: S1-S2 regular, no murmurs, no tachycardia, no gallops, no rubs Abdomen: Soft, nontender, no organomegaly, bowel sounds present Neuro: No focal deficits, no facial deformity, AO x3, power 5/5 in all limbs Discharge Data Data Completed and Pending: Completed Studies During Hospitalization Category Date Time Status Sestamibi Stress Test Request Routi ne Exams 12/16/19 06:00 Draft XR chest 1V ian ble [id number] Stat Exams 12/15/19 15:35 Completed NM vidya perf SPECT r/s* [id number] Routin e Nuc Med 12/16/19 18:24 Completed Pending at discharge Category Date Time Status Sestamibi Stress Test Request Routi ne Exams 12/15/19 18:24 Stop Req Labs from last 24 hours 12/16/19 12/16/19 12/16/19 03:42 03:42 03:42 WBC 4.7 RBC 4.54 Hgb 13.0 Hct 40.0 MCV 88.1 MCH 28.6 MCHC 32.5 RDW 13.2 Plt Count 219 MPV 10.2 Neut % (Auto) 53.6 Lymph % (Auto) 34.5 Hartley % (Auto) 7.9 Eos % (Auto) 3.6 Baso % (Auto) 0.4 Neut # (Auto) 2.5 Lymph # (Auto) 1.6 Hartley # (Auto) 0.4 Eos # (Auto) 0.2 Baso # (Auto) 0.0 Nucleated RBC % (a uto) 0 Nucleated RBCs # 0.0 Sodium Potassium Chloride Carbon Dioxide Anion Gap BUN Creatinine GFR Calculation Glucose Estimat Average Gl ucose 100 Hemoglobin A1c 5.1 Calculated Osmolal ity Calcium Magnesium Iron TIBC % Saturation Unsat Iron Binding Ferritin Total Bilirubin AST ALT Alkaline Phosphata se Troponin I 6 Hour Troponin I Hi Sens Del Troponin T Baselin e Troponin T 120 Min [place] Delta Troponin T NT-Pro-B Natriuret Pep Total Protein Albumin Globulin Triglycerides 119 Cholesterol 204 H LDL Cholesterol, C alc 138 H Total VLDL Cholest edson 24 HDL Cholesterol 42 L Cholesterol/HDL Ra shayy 4.86 H Lipase TSH Urine Color Urine Appearance Urine pH Ur Specific Gravit y Urine Protein Urine Glucose (UA) Urine Ketones Urine Blood Urine Nitrate Urine Bilirubin Urine Urobilinogen Ur Leukocyte Sandie ase Urine RBC Urine WBC Ur Squamous Epith Cells Urine Bacteria Urine Opiates Scre en Ur Barbiturates Sc reen Ur Phencyclidine S crn Ur Amphetamines Sc reen U Benzodiazepines Scrn Urine Cocaine Scre en U Marijuana (THC) Screen 12/16/19 12/15/19 12/15/19 03:42 22:11 18:36 WBC RBC Hgb Hct MCV MCH MCHC RDW Plt Count MPV Neut % (Auto) Lymph % (Auto) Hartley % (Auto) Eos % (Auto) Baso % (Auto) Neut # (Auto) Lymph # (Auto) Hartley # (Auto) Eos # (Auto) Baso # (Auto) Nucleated RBC % (a uto) Nucleated RBCs # Sodium 144 Potassium 3.9 Chloride 110 H Carbon Dioxide 24 Anion Gap 13.9 BUN 15 Creatinine 0.6 GFR Calculation 103.4 Glucose 106 Estimat Average Gl ucose Hemoglobin A1c Calculated Osmolal ity 295 Calcium 9.3 Magnesium Iron TIBC % Saturation Unsat Iron Binding Ferritin Total Bilirubin 0.2 AST 13 ALT 17 Alkaline Phosphata se 78 Troponin I 6 Hour 6.00 Troponin I Hi Sens Del 0 Troponin T Baselin e Troponin T 120 Min [place] Delta Troponin T NT-Pro-B Natriuret Pep Total Protein 5.6 L Albumin 3.8 Globulin 1.8 Triglycerides Cholesterol LDL Cholesterol, C alc Total VLDL Cholest edson HDL Cholesterol Cholesterol/HDL Ra shayy Lipase TSH 2.41 Urine Color Urine Appearance Urine pH Ur Specific Gravit y Urine Protein Urine Glucose (UA) Urine Ketones Urine Blood Urine Nitrate Urine Bilirubin Urine Urobilinogen Ur Leukocyte Sandie ase Urine RBC Urine WBC Ur Squamous Epith Cells Urine Bacteria Urine Opiates Scre en Ur Barbiturates Sc reen Ur Phencyclidine S crn Ur Amphetamines Sc reen U Benzodiazepines Scrn Urine Cocaine Scre en U Marijuana (THC) Screen 12/15/19 12/15/19 12/15/19 18:36 16:00 16:00 WBC RBC Hgb Hct MCV MCH MCHC RDW Plt Count MPV Neut % (Auto) Lymph % (Auto) Hartley % (Auto) Eos % (Auto) Baso % (Auto) Neut # (Auto) Lymph # (Auto) Hartley # (Auto) Eos # (Auto) Baso # (Auto) Nucleated RBC % (a uto) Nucleated RBCs # Sodium Potassium Chloride Carbon Dioxide Anion Gap BUN Creatinine GFR Calculation Glucose Estimat Average Gl ucose Hemoglobin A1c Calculated Osmolal ity Calcium Magnesium Iron TIBC % Saturation Unsat Iron Binding Ferritin Total Bilirubin AST ALT Alkaline Phosphata se Troponin I 6 Hour Troponin I Hi Sens Del Troponin T Baselin e Troponin T 120 Min [place] 6.00 Delta Troponin T 0 NT-Pro-B Natriuret Pep Total Protein Albumin Globulin Triglycerides Cholesterol LDL Cholesterol, C alc Total VLDL Cholest edson HDL Cholesterol Cholesterol/HDL Ra shayy Lipase TSH Urine Color Yellow Urine Appearance Clear Urine pH 6.5 Ur Specific Gravit y 1.020 Urine Protein Neg Urine Glucose (UA) Norm Urine Ketones Negative Urine Blood Neg Urine Nitrate Negative Urine Bilirubin Neg Urine Urobilinogen Norm Ur Leukocyte Sandie ase Negative Urine RBC None Urine WBC 0-4 H Ur Squamous Epith Cells 0-4 H Urine Bacteria Trace Urine Opiates Scre en Negative Ur Barbiturates Sc reen Negative Ur Phencyclidine S crn Negative Ur Amphetamines Sc reen Negative U Benzodiazepines Scrn Negative Urine Cocaine Scre en Negative U Marijuana (THC) Screen Negative 12/15/19 12/15/19 12/15/19 15:45 15:45 15:45 WBC RBC Hgb Hct MCV MCH MCHC RDW Plt Count MPV Neut % (Auto) Lymph % (Auto) Hartley % (Auto) Eos % (Auto) Baso % (Auto) Neut # (Auto) Lymph # (Auto) Hartley # (Auto) Eos # (Auto) Baso # (Auto) Nucleated RBC % (a uto) Nucleated RBCs # Sodium 144 Potassium 3.4 L Chloride 107 Carbon Dioxide 24 Anion Gap 16.4 BUN 15 Creatinine 0.8 GFR Calculation 74.2 L Glucose 120 H Estimat Average Gl ucose Hemoglobin A1c Calculated Osmolal ity 295 Calcium 9.6 Magnesium 2.1 Iron 39 TIBC 241 % Saturation 16.1 L Unsat Iron Binding 202 Ferritin 207 H Total Bilirubin 0.2 AST 17 ALT 19 Alkaline Phosphata se 94 Troponin I 6 Hour Troponin I Hi Sens Del Troponin T Baselin e 6 Troponin T 120 Min [place] Delta Troponin T NT-Pro-B Natriuret Pep 268 H Total Protein 6.1 L Albumin 4.3 Globulin 1.8 Triglycerides Cholesterol LDL Cholesterol, C alc Total VLDL Cholest edson HDL Cholesterol Cholesterol/HDL Ra shayy Lipase 24 TSH Urine Color Urine Appearance Urine pH Ur Specific Gravit y Urine Protein Urine Glucose (UA) Urine Ketones Urine Blood Urine Nitrate Urine Bilirubin Urine Urobilinogen Ur Leukocyte Sandie ase Urine RBC Urine WBC Ur Squamous Epith Cells Urine Bacteria Urine Opiates Scre en Ur Barbiturates Sc reen Ur Phencyclidine S crn Ur Amphetamines Sc reen U Benzodiazepines Scrn Urine Cocaine Scre en U Marijuana (THC) Screen 12/15/19 15:45 WBC 5.3 RBC 4.81 Hgb 14.0 Hct 42.3 MCV 87.9 MCH 29.1 MCHC 33.1 RDW 13.2 Plt Count 246 MPV 10.3 Neut % (Auto) 62.6 Lymph % (Auto) 28.2 Hartley % (Auto) 5.6 Eos % (Auto) 3.0 Baso % (Auto) 0.4 Neut # (Auto) 3.3 Lymph # (Auto) 1.5 Hartley # (Auto) 0.3 Eos # (Auto) 0.2 Baso # (Auto) 0.0 Nucleated RBC % (a uto) 0 Nucleated RBCs # 0.0 Sodium Potassium Chloride Carbon Dioxide Anion Gap BUN Creatinine GFR Calculation Glucose Estimat Average Gl ucose Hemoglobin A1c Calculated Osmolal ity Calcium Magnesium Iron TIBC % Saturation Unsat Iron Binding Ferritin Total Bilirubin AST ALT Alkaline Phosphata se Troponin I 6 Hour Troponin I Hi Sens Del Troponin T Baselin e Troponin T 120 Min [place] Delta Troponin T NT-Pro-B Natriuret Pep Total Protein Albumin Globulin Triglycerides Cholesterol LDL Cholesterol, C alc Total VLDL Cholest edson HDL Cholesterol Cholesterol/HDL Ra shayy Lipase TSH Urine Color Urine Appearance Urine pH Ur Specific Gravit y Urine Protein Urine Glucose (UA) Urine Ketones Urine Blood Urine Nitrate Urine Bilirubin Urine Urobilinogen Ur Leukocyte Sandie ase Urine RBC Urine WBC Ur Squamous Epith Cells Urine Bacteria Urine Opiates Scre en Ur Barbiturates Sc reen Ur Phencyclidine S crn Ur Amphetamines Sc reen U Benzodiazepines Scrn Urine Cocaine Scre en U Marijuana (THC) Screen Vitals: Last Vital Signs Temp 98.4 F 12/16/19 12:04 Pulse 64 12/16/19 12:04 Resp 16 12/16/19 12:04 BP 134/77 12/16/19 12:18 Pulse Ox 97 12/16/19 12:04 Discharge Plan Discharge Patient Disposition: Home, Self-Care Condition: Stable Prescriptions: New escitalopram oxalate 5 mg tablet 5 mg PO DAILY Qty: 14 RF: 0 lovastatin 40 mg tablet 40 mg PO QPM Qty: 30 RF: 0 Continued losartan 50 mg tablet 50 mg PO QAM RF: 0 amlodipine 5 mg tablet 5 mg PO DAILY RF: 0 metoprolol tartrate 50 mg tablet 50 mg PO BID RF: 0 clopidogrel [Plavix] 75 mg Tablet 75 mg PO DAILY RF: 0 Discharge Orders: Discharge Order (Routine); Ordered 12/16/19 Ordered By: Bradley Bejarano Referrals: Joselito Sylvester DO [Primary Care Provider] - 2 weeks Discharge Diet: Cardiac and Low Fat Discharge Activity: Resume usual activity Discharge Attestations Time Spent in Discharge Care*: greater than 30 min Specific Discharge Activities: Specific discharge activities: educating patient, discussing with case investigator/social workers/dc planners, documenting/other paperwork and evaluating patient/reviewing data Status at Discharge: Cognitive status at discharge: cognitively intact , Behavioral status at discharge: cooperative , Functional status at discharge: independent ambulation Overall status at discharge: patient is back to baseline Quality Metrics Clinical Quality Measures During this hospital stay, did patient experience: None Coding Level of Care Code Acute Honing Machine Operator Tool for Jossue Mitchell Diagnoses Chest pain R07.9 Chest pain type: unspecified Hyperlipidemia E78.5 HTN (hypertension) I10 Carotid artery stenosis I65.29 CVA (cerebral vascular accident) I63.9
--- NOTE | 2019-12-16 14:38 | PC.NURSE ---
Discharge instructions given per the physician's orders. Patient verbalized understanding of information and didn't have any further questions. Patient verbalized understanding of the importance of taking medications as prescribed and verbalized compliance to regimen. Patient has already contacted for discharge. Patient up in room dressing self.
--- NOTE | 2019-12-16 18:24 | NMCV_ITS ---
NM vidya perf SPECT r/s* [id number] Jessica Moon Age: 54 Gender: F : 1965 Exam Date: 12/16/2019 08:05 Ordering Phys: Bradley Bejarano MD Technologist: STEPHANI Haddad Exam Location: [facility] Indications: CHEST PAIN STRESS TEST Please see separate stress test report in [facility] for full findings IMAGE PROTOCOL Rest/Stress 1 Lexiscan Day Radiopharmaceutical Dose (mCi) Administration Site Administered by Rest: Tc-99m 10.9 IV Jaleesa Hernandez, MUTUEL DEPARTMENT MANAGER Sestamibi Stress:Tc-99m 32.5 IV Jaleesa Hernandez, MUTUEL DEPARTMENT MANAGER Sestamibi Rest: 16-Dec-2019 60 Discovery 630 Stress: 16-Dec-2019 30 Discovery 630 0.4mg Lexiscan. Images obtained in supine and prone position. SPECT RESULTS Technical Quality: Excellent Raw Data Analysis: Normal Image Corrections: Patient motion artifact - motion correction applied to prone images. Summed Stress Score: 0 Summed Rest Score: 0 Summed Difference Score: 0 PERFUSION FINDINGS SPECT images demonstrate homogeneous tracer distribution throughout the myocardium. FUNCTIONAL RESULTS (calculated via Gated SPECT) Stress Image LV EF (%): 66 Stress EDV (mL):93 TID: 0.98 Stress ESV (mL):32 Rest Image LV EF (%): 66 FUNCTIONAL FINDINGS: There is normal left ventricular systolic function. IMPRESSIONS Myocardial perfusion imaging is normal low probability for obstructive coronary artery disease. EKG segment will be documented separately. Yair Banad MD (Electronically Signed) Final Date: 16 December 2019 13:10 S
== END 2019-12-16 15:32 | disposition home or self-care (01) ==
LOC: ER 17:08 → CSU 17:14
PROVIDERS: Emergency Medicine; Admitting Provider Student in an Organized Health Care Education/Training Program; PCP Electrodiagnostic Medicine; Visit Provider Student in an Organized Health Care Education/Training Program
DX: R07.9 Chest pain, unspecified (principal); E78.5 Hyperlipidemia, unspecified; I10 Essential (primary) hypertension; I65.29 Occlusion and stenosis of unspecified carotid artery; Z86.73 Personal history of transient ischemic attack (TIA), and cerebral infarction without residual deficits; Z91.14 Patient's other noncompliance with medication regimen; Z82.49 Family history of ischemic heart disease and other diseases of the circulatory system; Z79.02 Long term (current) use of antithrombotics/antiplatelets
CPT/HCPCS: 12345; 36415; 71045; 78452; 80053; 80061; 80306; 81001; 82728; 83036; 83540; 83550; 83690; 83735; 83880; 84443; 84484; 85025; 93005; 93017; 96360; 96361; 99284; 99285; A9500; G0378; J2785; J7030

== ENCOUNTER 2020-01-03 07:49 | Outpatient (CLI) | payer BC, SELFPAY ==
--- NOTE | 2020-01-03 07:57 | MR_ITS ---
WS: [id number] MRI BRAIN WITH AND WITHOUT CONTRAST HISTORY: PARESTHESIA, MEMORY LOSS, CVA, CAROTID ARTER STENOSIS COMPARISON: 04/13/2019 and 10/17/2016 TECHNIQUE: Multiplanar imaging performed through the brain with Prohance 17 ml's IV. No acute infarcts are seen. Alford-white matter differentiation is well preserved. Minimal T2 and FLAIR signal hyperintensities in subcortical white matter. No significant progression. No enhancement. No susceptibility artifacts or prior lacunar infarcts. Ventricles and extra-axial spaces are normal. Clivus and pituitary gland are normal. Visualized posterior fossa and brainstem are also normal. Postcontrast images are negative for masses or vascular malformations. Dural venous sinuses are normal. Paranasal sinuses: Well aerated with no significant disease. Mastoid air cells: Normal. Calvarium and scalp: Normal. MR/MR head wo/w con [id number] IMPRESSION: 1. No acute infarct or mass. 2. Mild chronic microvascular ischemic disease similar to the prior study. No progression.
== END 2020-01-03 07:50 | disposition home or self-care (01) ==
LOC: RADSHAW 07:54
PROVIDERS: PCP Electrodiagnostic Medicine; Visit Provider Electrodiagnostic Medicine
DX: R20.9 Unspecified disturbances of skin sensation (principal); R41.3 Other amnesia; I63.9 Cerebral infarction, unspecified; I65.23 Occlusion and stenosis of bilateral carotid arteries; I25.9 Chronic ischemic heart disease, unspecified
CPT/HCPCS: 70553; A9579

== ENCOUNTER 2021-02-02 11:19 | Outpatient (CLI) | payer OTHER, SELFPAY ==
--- NOTE | 2021-02-02 11:31 | XR_ITS ---
WS: [id number] Exam: XR lumbar spine 2-3V* [id number] Date/Time of Exam: 02/02/2021 11:36 AM Reason For Exam: LUMBAR BACK PAIN W/RADICULOPATHY/CHRONIC R HIP PAIN No acute fracture or dislocation. Disc spaces are preserved. Osteopenia. Posterior elements are intac t. Minimal spondylosis. XR/XR lumbar spine 2-3V* [id number] IMPRESSION: 1. No fracture or malalignment. 2. Minimal degenerative change and osteopenia
== END 2021-02-02 11:20 | disposition home or self-care (01) ==
LOC: RAD 11:28
PROVIDERS: PCP Electrodiagnostic Medicine; Visit Provider Electrodiagnostic Medicine
DX: M54.16 Radiculopathy, lumbar region (principal); G62.9 Polyneuropathy, unspecified; R20.9 Unspecified disturbances of skin sensation; M25.551 Pain in right hip; M85.88 Other specified disorders of bone density and structure, other site
CPT/HCPCS: 72100

== ENCOUNTER 2021-03-08 14:45 | Outpatient (CLI) | payer OTHER, SELFPAY ==
--- NOTE | 2021-03-08 14:55 | XR_ITS ---
WS: [id number] Exam: XR abdomen 1V* [id number] Date/Time of Exam: 03/08/2021 2:55 PM Reason For Exam: CHRONIC DIARRHEA, ABD PAIN-EPIGASTRIC ;PUD Comparison 03/08/2021. No sign of bowel obstruction or free air. Mild ileus noted. Signs of prior cholecystectomy. No sign o f organ enlargement. Surgical sutures in the right and left pelvis. Regional bony structures are inta ct. XR/XR abdomen 1V* [id number] IMPRESSION: 1. Mild ileus. No acute abdominal process noted.
== END 2021-03-08 14:46 | disposition home or self-care (01) ==
LOC: RAD 14:52
PROVIDERS: PCP Electrodiagnostic Medicine; Visit Provider Electrodiagnostic Medicine
DX: K52.9 Noninfective gastroenteritis and colitis, unspecified (principal); R10.13 Epigastric pain; K25.9 Gastric ulcer, unspecified as acute or chronic, without hemorrhage or perforation; K29.70 Gastritis, unspecified, without bleeding; N20.0 Calculus of kidney; K56.7 Ileus, unspecified
CPT/HCPCS: 74018

== ENCOUNTER 2021-03-10 11:06 | Outpatient (CLI) | payer OTHER, SELFPAY ==
--- NOTE | 2021-03-10 11:15 | MM_ITS ---
WS: [id number] BILATERAL SCREENING DIGITAL MAMMOGRAM WITH CAD HISTORY: SCREENING COMPARISON: 03/19/2019 and 09/12/2017 Bilateral CC and MLO views submitted. Computer aided detection analyzed. Breast composition: There are scattered areas of fibroglandular density. No suspicious masses, microc alcifications or architectural distortion. Stable calcifications in each breast. MM/[place] [id number] IMPRESSION: BI-RADS: 2-Benign FOLLOW UP: 1 Year Follow-up
== END 2021-03-10 11:07 | disposition home or self-care (01) ==
LOC: RADSHAW 11:12
PROVIDERS: PCP Electrodiagnostic Medicine; Visit Provider Electrodiagnostic Medicine
DX: Z12.31 Encounter for screening mammogram for malignant neoplasm of breast (principal)
CPT/HCPCS: 77067

== ENCOUNTER 2021-03-26 08:33 | Outpatient (CLI) | payer OTHER, SELFPAY ==
--- NOTE | 2021-03-26 08:42 | US_ITS ---
WS: [id number] Complete ABDOMINAL ULTRASOUND HISTORY: CHRONIC PANCREATITIS/EPIGASTRIC ABD PAIN/CHRONIC DIARRHEA COMPARISON: None available. Liver: 17.2 cm in length. Liver is normal size and echogenicity with no mass or intrahepatic dilatati on. Gallbladder: Prior cholecystectomy. Pancreas: Normal size and echogenicity. CBD: 0.4 cm. Right kidney: 12.4 cm x 5.0 cm x 4.4 cm. No mass, cortical thickening or hydronephrosis. Left kidney: 12.6 cm x 4.9 cm x 4.5 cm. No mass, cortical thickening or hydronephrosis. Spleen: Normal size and echogenicity. Abdominal aorta and IVC are within normal limits. No ascites. US/US abdomen complete* [id number] IMPRESSION: 1. Prior cholecystectomy. No bile duct dilatation. 2. Normal pancreas.
== END 2021-03-26 08:34 | disposition home or self-care (01) ==
LOC: US 08:37
PROVIDERS: PCP Electrodiagnostic Medicine; Visit Provider Electrodiagnostic Medicine
DX: K86.1 Other chronic pancreatitis (principal); K56.0 Paralytic ileus; R10.13 Epigastric pain; R19.7 Diarrhea, unspecified
CPT/HCPCS: 76700

== ENCOUNTER 2021-04-16 06:00 | Outpatient (RCR) | payer OTHER, SELFPAY | END 2021-05-11 23:59 | disposition home or self-care (01) | LOC: SPT 06:00 | PROVIDERS: PCP Electrodiagnostic Medicine; Referring Provider Pain Medicine Interventional Pain Medicine; Visit Provider Pain Medicine Interventional Pain Medicine | DX: M54.50 Low back pain, unspecified (principal) | CPT/HCPCS: 97110; 97162 ==

== ENCOUNTER 2021-05-12 06:00 | Outpatient (RCR) | payer OTHER, SELFPAY | END 2021-06-11 23:59 | disposition home or self-care (01) | LOC: SPT 06:00 | PROVIDERS: PCP Electrodiagnostic Medicine; Referring Provider Pain Medicine Interventional Pain Medicine; Visit Provider Pain Medicine Interventional Pain Medicine | DX: M54.50 Low back pain, unspecified (principal) | CPT/HCPCS: 97110 ==

== ENCOUNTER 2021-09-03 12:23 | Outpatient (CLI) | payer OTHER, SELFPAY ==
--- NOTE | 2021-09-03 12:39 | XR_ITS ---
WS: [id number] Right shoulder, 2 views, 09/03/2021 Clinical Data: PAIN IN R SHOULDER Comparison: None. Findings: No fractures or dislocations are seen. The AC joint is normal. The adjacent right clavicle, right sca pula and ribs are normal. The soft tissues are unremarkable. XR/XR shoulder RT min 2V* [id number] Impression: Negative right shoulder.
== END 2021-09-03 12:24 | disposition home or self-care (01) ==
PROVIDERS: PCP Electrodiagnostic Medicine; Visit Provider Clinical Nurse Specialist Adult Health
DX: M25.511 Pain in right shoulder (principal)
CPT/HCPCS: 73030

== ENCOUNTER 2021-12-08 22:36 | Emergency (ER) | payer OTHER, SELFPAY ==
[2021-12-08 22:43] VITALS: BP 225/144; PULSE 128; RESP 20; TEMP 37; O2SAT 97
[2021-12-08] MEDS: famotidine 20 mg/2 mL INJ 40 MG IVP (22:45)
[2021-12-08] MEDS: diphenhydrAMINE 50 mg/mL SDV 1mL IVP (22:45)
--- NOTE | 2021-12-08 22:45 | ED_ITS ---
HPI - Allergic Reaction General: Chief complaint: Allergic Reaction Stated complaint: Allergic Reaction Time Seen by Provider: 12/08/21 22:42 Source: patient and EMS Mode of arrival: EMS Limitations: no limitations History of Present Illness: HPI narrative: 56-year-old female states that roughly 1 year ago started getting in full body rash along with some shortness of breath states that multiple allergic reactions in the past states she is unsure what she came into contact with that is like her previous allergic reaction states she does have epinephrine at home but she did not use it. She took 2 Benadryl and states her rash has been improving. Associated symptoms: Deny abdominal pain, nausea or vomiting Review of Systems Const: Denies: fever(s), chills, body aches or change in appetite Eyes: Denies: blurry vision or eye discomfort ENMT: Denies: throat pain or dental pain Card: Denies: chest pain Resp: Denies: dyspnea GI: Denies: abdominal pain, nausea, vomiting or diarrhea : Denies: dysuria Musc: Denies: neck pain or back pain Skin/Breast: Reports: rash and pruritus Neuro: Denies: headache(s) Psych: Denies: depression Jarrell/Lymph: Denies: easy bruising All/Imm: Denies: urticaria PFSH ED PFSH: Medical History (Updated 12/08/21 @ 23:46 by Fred Duran MD) Carotid artery stenosis Bilateral less than 50% from February 2019 CVA (cerebral vascular accident) HTN (hypertension) Hyperlipidemia SVT (supraventricular tachycardia) Surgical History History of partial hysterectomy S/P ablation of atrial fibrillation Social History Smoking and tobacco status: never smoked Physical Exam Const: COMMON NORMALS: patient oriented x3 HENMT: COMMON NORMALS: normocephalic and atraumatic HEAD & SCALP: normocephalic and atraumatic MOUTH: Normal oral and palatal mucosa present THROAT: posterior oropharynx normal Eye: COMMON NORMALS: Equal, round and reactive pupils present and EOMs intact bilaterally PUPIL: Yes Equal, round and reactive pupils present Neck/C-Spine: COMMON NORMALS: full ROM and supple Chest: COMMONS NORMALS: normal inspection of the chest and normal palpation of entire chest wall Resp: COMMON NORMALS: normal respiratory effort, No retractions, No use of accessory muscles and clear to auscultation bilaterally AUSCULTATION: clear to auscultation bilaterally Cardio: COMMON NORMALS: regular rate, regular rhythm and No murmurs present (Cardio) RATE: regular rate RHYTHM: regular rhythm GI: COMMON NORMALS: Normal to inspection, nondistended, normoactive bowel sounds present, Soft to palpation, non-tender and no masses PALPATION: Yes Soft to palpation Extremity: COMMON NORMALS: normal to inspection and full ROM Neuro: COMMON NORMALS: patient oriented x3, moves all extremities and no focal motor deficits Psych: COMMON NORMALS: mental status grossly normal, Normal thought process present and cooperative THOUGHT PROCESS: Normal thought process present Skin: NARRATIVE SKIN EXAM: urticarial rash to trunk and arms Course Vital Signs: Vital signs: Vital Signs Temperature 98.6 F 12/08/21 22:43 Pulse Rate 128 H 12/08/21 22:43 Respiratory Rate 20 H 12/08/21 22:43 Blood Pressure 225/144 12/08/21 22:43 Pulse Oximetry 97 12/08/21 22:43 MDM - Allergic Reaction Medical Decision Making Patient presents here with an allergic reaction she is much improved here her rash is completely resolved she had no airway involvement she is stable for discharge at this time she is to follow-up with PCP and return if worsening she understands and agrees to plan. Discharge Plan Discharge Patient Disposition: Home Clinical Impression: Allergic reaction Qualifiers: Encounter type: initial encounter Qualified Code(s): T78.40XA - Allergy, unspecified, initial encounter Condition: Stable Prescriptions: New EpiPen 2-Shree 0.3 mg/0.3 mL auto-injector 0.3 mg IM Q15M PRN (Reason: anaphylaxis) Qty: 2 0RF Rx Instructions: not to exceed 6 doses per episode No Action losartan 50 mg tablet 50 mg PO QAM 0RF amlodipine 5 mg tablet 5 mg PO DAILY 0RF metoprolol tartrate 50 mg tablet 50 mg PO BID 0RF clopidogrel [Plavix] 75 mg Tablet 75 mg PO DAILY 0RF Rx Instructions: (PT STATES SHE STARTED TAKING HER OLD SCRIPT FOR ABOUT 6 WEEKS) lovastatin 40 mg tablet 40 mg PO QPM Qty: 30 0RF escitalopram oxalate 5 mg tablet 5 mg PO DAILY Qty: 14 0RF Discharge Orders: Discharge ED (Routine); Ordered 12/08/21 Ordered By: Fred Duran Referrals: Joselito Sylvester, [Primary Care Provider] - 1-3 days Discharge Diet: Advance as tolerated Discharge Activity: Resume usual activity Patient Instructions: General Allergic Reaction (ED) Coding Level of Care Code 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
[2021-12-08 23:15] VITALS: BP 181/139; PULSE 89; RESP 20; O2SAT 98
[2021-12-08 23:45] VITALS: BP 161/105; PULSE 89; RESP 20; O2SAT 98
[2021-12-09 00:14] VITALS: BP 161/105; PULSE 89; RESP 20; O2SAT 98
== END 2021-12-09 00:18 | disposition home or self-care (01) ==
PROVIDERS: Emergency Provider Emergency Medicine; PCP Electrodiagnostic Medicine
DX: T78.40XA Allergy, unspecified, initial encounter (principal); Z79.02 Long term (current) use of antithrombotics/antiplatelets; Z86.73 Personal history of transient ischemic attack (TIA), and cerebral infarction without residual deficits; I10 Essential (primary) hypertension; E78.5 Hyperlipidemia, unspecified
CPT/HCPCS: 96374; 96375; 99284; J1200; J2930; J3490

== ENCOUNTER 2022-07-20 09:24 | Outpatient (CLI) | payer BC, MEDICAID, SELFPAY ==
--- NOTE | 2022-07-20 | US_ITS ---
WS: [id number] Complete ABDOMINAL ULTRASOUND HISTORY: LUQ AND EPIGASTRIC PAIN COMPARISON: 03/26/2021 Liver: 16.1 cm in length. Normal size liver with very mild coarse echotexture. Surface of the liver i s very slightly nodular. No mass or bile duct dilatation. Portal Vein: Normal hepatopetal flow with monophasic waveform. Gallbladder: Prior cholecystectomy. Pancreas: Normal size and echogenicity. CBD: 0.4 cm. Right kidney: 11.6 cm x 5.8 cm x 4.7 cm. No mass, cortical thickening or hydronephrosis. Left kidney: 8.4 cm x 5.9 cm x 4.0 cm. Kidney measures small. No cortical thinning or hydronephrosis . Kidneys probably incompletely imaged and visualized due to obscuration of portion of the kidney. Spleen: Normal size and echogenicity. Abdominal aorta and IVC are within normal limits. No ascites. US/US abdomen complete* [id number] IMPRESSION: 1. Prior cholecystectomy. 2. Mild coarse echotexture throughout the liver. Surface is very slightly nodu lar. 3. Normal size spleen. 4. LEFT kidney is measuring small but this is probably due to incomplete visua lization of the kidney due to position and body habitus.
== END 2022-07-20 09:25 | disposition home or self-care (01) ==
PROVIDERS: PCP Electrodiagnostic Medicine; Visit Provider Nurse Practitioner
DX: R10.13 Epigastric pain (principal)
CPT/HCPCS: 76700

== ENCOUNTER → 2022-11-17 13:58 | Outpatient (BNVA) | payer BC, MEDICAID, SELFPAY | PROVIDERS: PCP Electrodiagnostic Medicine; Visit Provider Internal Medicine | DX: R76.8 Other specified abnormal immunological findings in serum (principal); M25.50 Pain in unspecified joint; R53.83 Other fatigue; R07.9 Chest pain, unspecified | CPT/HCPCS: 36415; 80053; 81003; 82306; 82550; 82607; 83516; 83735; 84100; 84425; 84439; 84443; 85025; 85651; 86140; 86160; 86162; 86235; 86255; 86376; 86704; 86803; 87340 ==

== ENCOUNTER → 2023-03-21 10:31 | Outpatient (BNVA) | payer BC, MEDICAID, SELFPAY | PROVIDERS: PCP Electrodiagnostic Medicine; Referring Provider Nurse Practitioner Family; Visit Provider Student in an Organized Health Care Education/Training Program | DX: G56.01 Carpal tunnel syndrome, right upper limb (principal) | CPT/HCPCS: 73110 ==

== ENCOUNTER 2023-03-24 13:45 | Outpatient (CLI) | payer BC, MEDICAID, SELFPAY ==
--- NOTE | 2023-03-24 13:49 | MM_ITS ---
WS: [id number] BILATERAL 3D TOMOSYNTHESIS DIGITAL SCREENING MAMMOGRAPHY WITH CAD CLINICAL INFORMATION: SCREENING HISTORY: Screening mammogram. No current complaints. COMPARISON: 2020 TECHNIQUE: Bilateral CC and MLO views. FINDINGS: Scattered fibroglandular densities bilaterally. No suspicious focal mass, asymmetry, calcifications, or architectural distortion. No evidence of malignancy. Incidental punctate calcifications. Vascular calcifications. IMPRESSION: MM/[place] [id number] BI-RADS: 2-Benign FOLLOW UP: 1 Year Follow-up Recommend return to annual screening mammography.
== END 2023-03-24 13:46 | disposition home or self-care (01) ==
PROVIDERS: PCP Electrodiagnostic Medicine; Visit Provider Electrodiagnostic Medicine
DX: Z12.31 Encounter for screening mammogram for malignant neoplasm of breast (principal)
CPT/HCPCS: 77063; 77067

== ENCOUNTER 2023-04-19 10:15 | Day surgery (SDC) | payer BC, MEDICAID, SELFPAY ==
[2023-04-19] VITALS (7 sets, daily range): BP systolic 120–167; BP diastolic 74–96; PULSE 57–80; RESP 16–20; TEMP 36.1–36.6; O2SAT 95–97; BMI 30.7
[2023-04-19] MEDS: acetaminophen 1,000 MG/100 ML PIGGYBACK 400 MG IV (10:48)
[2023-04-19] MEDS: sodium chloride 0.9% 1,000 ML 30 ML IV (10:48)
[2023-04-19] MEDS: ketorolac 30 mg/mL INJ IVP (10:48)
--- NOTE | 2023-04-19 11:20 | W.PM.OPSUD ---
Surgery/Procedure H&P Update DATE OF PROCEDURE: April 19, 2023 DATE H&P PERFORMED: 03/21/23 H&P UPDATE INFORMATION: I have reviewed H&P completed within last 30 days, I have examined patient prior to procedure and No changes to prior documentation PREOP DIAGNOSIS: right Carpal Tunnel syndrome PRIMARY INDICATION FOR PROCEDURE: Right carpal tunnel syndrome PLANNED PROCEDURE: Operation Date: 04/19/23 12:00 Proposed Procedures p Carpal Tunnel Release(Right) - Elvin Ramírez DO
[2023-04-19] MEDS: ceFAZolin 2,000 MG in sodium chloride 0.9% (plus) 50 ML 100 MG IV (11:41)
[2023-04-19] MEDS: lidocaine-epi 2% 20 mL INJ 5 ML INJECTION (12:13)
--- NOTE | 2023-04-19 12:13 | P.BOP_ITS ---
Date of Procedure: 04/19/2023 Surgeon: Elvin Ramírez DO Petroleum Refinery Operator(s): Krish Ramírez PA-C Procedure(s) performed: Right carpal tunnel release Findings of the procedure(s): Right carpal tunnel syndrome, procedure went as planned for right carpal tunnel release surgery without complications Estimated blood loss: 1 mL Specimen(s) removed: None Post-operative diagnosis: Right carpal tunnel syndrome
[2023-04-19] MEDS: ROPivacaine 0.5% SDV 30 mL 25 MG INJECTION (12:17)
--- NOTE | 2023-04-19 12:20 | PM.OP ---
Operative Report Date of procedure: April 19, 2023 Surgeon: Elvin Ramírez DO Swimming Coach Or Instructor: Krish Ramírez PA-C: PA was necessary for assistance in this case and execution of his procedure with retraction and protection of neurovascular structures as well as assistance in wound closure. Procedure: Preoperative diagnosis: Right carpal tunnel syndrome Post-op diagnosis: Same Procedure done: 1.?Right?carpal?tunnel?release Surgeon: Elvin Ramírez DO Anesthesia: MAC (Local) Estimated blood loss: 1 mL Tourniquet time 6 minutes IV fluids: See anesthesia record Complications: None Findings: See operative report narrative Condition: stable Disposition: same day Brief History: Patient is a pleasant 58 year-old female with?right?carpal?tunnel?syndrome.? Patient has been worked up in the outpatient setting findings and physical examination consistent with this.? Patient nerve conduction studies consistent with?carpal?tunnel?syndrome.? We detailed out patient's risk benefits complication alternatives with surgical and nonsurgical treatment options. Through shared decision making, patient agrees to proceed with surgical intervention of the right?carpal?tunnel?release .? Patient understands and agrees with current plan.? All questions answered.? Patient elects to proceed with surgical intervention with?carpal?tunnel?release. Procedure: Patient seen and evaluated in the preoperative holding area.? Consent was reviewed and signed with patient.? Correct extremity was marked.? Patient was seen evaluated by the anesthesia department once cleared for surgery was brought back to the operative suite.? Patient was kept on [facility] in supine position all bony prominences were well-padded patient properly secured to the bed.??Right?upper extremity was then placed onto an armboard.? A nonsterile tourniquet was applied to the?RIght?upper arm.? Patient underwent anesthesia per the anesthesia department.? Patient's?Right?upper extremity was then prepped and draped in standard orthopedic fashion.? Final timeout performed.? Patient received appropriate preoperative antibiotics. Under sterile aseptic technique patient received local anesthesia over the preplanned?carpal?tunnel?incision site. Esmarch was used to exsanguinate the?Right?upper extremity and tourniquet was insufflated to 250 mmHg. A standard mini open?Right?carpal?tunnel?incision was made.? Starting distally at Sanders's cardinal line in line with the fourth ray extending proximally distal to the wrist crease centered over the?carpal?tunnel.? Sharp scalpel incision was made through skin and subcutaneous tissue.? Self-retaining retractor was placed and the palmar fascia was identified.? This was then split longitudinally and direct visualization of the transverse?carpal?ligament was then made.? I then utilizing scalpel feathered through the transverse?carpal?ligament until I entered the floor of the transverse?carpal?tunnel?ligament into the?carpal?tunnel.? Next I switched to dissection scissors and completed my release of the transverse?carpal?ligament distally with care to protect the recurrent motor branch.? I completely released into the palmar fat and until no entrapment was noted distally.? Care was made to protect the superficial palmar arch during my distal dissection.?? Next I utilized a nasal speculum placed on top of the transverse?carpal?ligament and utilize this to retract the subcutaneous fat and tissue and under direct loupe magnification was able to identify the transverse?carpal?ligament.? Next I then placed a Renault underneath the transverse?carpal?tunnel?ligament to protect the contents of the?carpal?tunnel?and subsequently utilizing dissection scissors under loupe magnification completely released the transverse?carpal?ligament proximally into the median antebrachial fascia.? Care was made to protect the palmar cutaneous branch by keeping my scissors curved ulnarly.? Once completely released, I then placed my Renault and had appropriate decompression of the?carpal?tunnel?proximally as well as distally.? I then inspected the contents of the?carpal?tunnel?which showed an hourglass shape of the median nerve showing its compression.? No masses were noted.? Tendons appeared healthy.? Wound was then thoroughly irrigated.? Tourniquet deflated.? Hemostasis satisfactory with bipolar electrocautery.? I then closed the incision with interrupted nylon stitches.? Xeroform 4 x 4's and a bulky soft dressing was applied.? Patient was then awakened from anesthesia and taken to PACU in stable condition.? Patient tolerated procedure without complications. Disposition: Patient taken to PACU in stable condition recovering well.? Dressing clean dry and intact.? Patient will receive appropriate discharge instructions as well as pain medication postoperatively.? Patient to follow-up with me in the office in 2 weeks.? They understand they may be weightbearing as tolerated to the?right?hand.? Patient should keep incision clean dry and intact.? Patient understands if any questions or concerns may contact the office.
--- NOTE | 2023-04-19 12:25 | P.PCN_ITS ---
PACU note Narrative: Patient is a 58-year-old female just underwent a right carpal tunnel release. Patient transferred to PACU in stable condition. Pain is well controlled. Dressing on hand is dry and in place. Patient's fingers are warm and well- perfused. Patient can wiggle fingers. normal cap refill under 2 seconds. Patient has normal elbow range of motion. Unable to assess sensation due to residual localized anesthetic. Exam: awake Disposition: discharged
--- NOTE | 2023-04-19 12:34 | ANES.PREANE2 ---
Pre-Anesthetic Assessment Height/Weight: Height 1.68 m Weight 86.183 kg Temp Pulse Resp BP Pulse Ox O2 Del Method 98 F 74 18 137/83 95 Room Air 04/19/23 12:20 04/19/23 12:30 04/19/23 12:30 04/19/23 12:30 04/19/23 12:30 04/19/23 12:30 Preop Diagnosis: right Carpal Tunnel syndrome Operation Date: 04/19/23 12:00 Proposed Procedures p Carpal Tunnel Release(Right) - Elvin Ramírez DO Familial anesthetic complications: none Was Beta Cleopatra taken within 24 hours: Yes Was Clonidine taken within 24 hours: N/A Last intake: Intake Last Liquid Date 04/18/23 Last Liquid Time 21:00 Last Solid Date 04/18/23 Last Solid Time 21:00 Social No alcohol and No tobacco Exam alert, oriented x 3, clear to auscultation bilaterally and regular rate & rhythm Airway Submandibular: within normal limits Cervical ROM: within normal limits Mallampati: Class II Dentition: full CV/HEM Arrythmia (SVT (ablated)), Hypertension and Peripheral Vascular Disease GI Gastroesophageal Reflux Disease Metabolic Morbid Obesity Anesthetic Plan ASA status: 3 Anesthesia: MAC Medications/Allergies Home Medications Medication Instructions Recorded Confirmed Last Taken Type amlodipine 5 mg tablet 5 mg PO DAILY 08/25/19 04/18/23 04/19/23 History metoprolol tartrate 50 mg tablet 50 mg PO BID 08/25/19 04/18/23 04/19/23 History epinephrine 0.3 mg/0.3 mL 0.3 mg (0.3 mL) IM Q15M PRN 12/08/21 04/18/23 Unknown Rx injection, auto-injector (EpiPen anaphylaxis #2 ea 2-Shree) hydrocodone 5 mg-acetaminophen 325 1 tab PO BID PRN Pain 03/21/23 04/19/23 04/16/23 History mg tablet 2.5 ibuprofen 200 mg capsule 200 mg PO Q6H PRN Pain 03/21/23 04/19/23 04/16/23 History valsartan 160 1 tab PO DAILY 03/21/23 04/18/23 04/18/23 History mg-hydrochlorothiazide 12.5 mg tablet pantoprazole 40 mg tablet,delayed 40 mg PO DAILY 04/18/23 04/18/23 04/19/23 History release (Protonix) hydrocodone 5 mg-acetaminophen 325 1 tab PO Q6H PRN pain 5 days #20 04/19/23 Unknown Rx mg tablet tabs ondansetron 4 mg disintegrating 4 mg PO Q8H PRN nausea and 04/19/23 Unknown Rx tablet vomiting 3 days #9 tabs Allergies Allergy/AdvReac Type Severity Reaction Status Date / Time tramadol [From Ultra] Allergy ALGY-Hives Verified 04/18/23 14:42 Current Medications Generic Name Dose Route Start Last Admin Trade Name Freq PRN Reason Stop Dose Admin Sodium Chloride 1,000 mls @ 30 mls/hr 04/19/23 10:30 04/19/23 10:48 Sodium Chloride 0.9% IV 04/20/23 10:29 30 mls/hr .Q24H MIKAELA Administration PFSH Anesthesia Medical History Carotid artery stenosis Bilateral less than 50% from February 2019 CVA (cerebral vascular accident) HTN (hypertension) Hyperlipidemia Low vitamin D level SVT (supraventricular tachycardia) Surgical History History of partial hysterectomy S/P ablation of atrial fibrillation Social History Smoking and tobacco/nicotine status: never used tobacco/nicotine Data Anesthesia Cardiac Studies: Sestamibi Stress Test (Cardiology) 12/16/19
--- NOTE | 2023-04-19 17:37 | ANE.PACU2 ---
Inpatient post-anesthesia follow up: Airway intact: Yes Vital signs: Temperature 97.2 F Pulse Rate 62 Respiratory Rate 18 Blood Pressure 167/96 Pulse Oximetry 97 Oxygen Delivery Me thod Room Air Oxygen Flow Rate Fraction of Inspir ed Oxygen Hydration adequate: Yes Nausea and vomiting: No Pain level: 2 Mental status: Baseline
== END 2023-04-19 13:15 | disposition home or self-care (01) ==
PROVIDERS: PCP Electrodiagnostic Medicine; Visit Provider Student in an Organized Health Care Education/Training Program
PROC: (CPT 64721; principal; 2023-04-19 11:50)
DX: G56.01 Carpal tunnel syndrome, right upper limb (principal); I10 Essential (primary) hypertension; Z86.73 Personal history of transient ischemic attack (TIA), and cerebral infarction without residual deficits; E78.5 Hyperlipidemia, unspecified; K21.9 Gastro-esophageal reflux disease without esophagitis; E66.01 Morbid (severe) obesity due to excess calories; Z68.30 Body mass index [BMI] 30.0-30.9, adult
CPT/HCPCS: 64721; J0131; J0690; J1885; J2250; J2704; J2795; J7030

== ENCOUNTER 2023-05-08 20:00 | Outpatient (CLI) | payer BC, MEDICAID, SELFPAY | END 2023-05-08 20:01 | disposition home or self-care (01) | LOC: SLEEP 05-09 09:53 | PROVIDERS: PCP Electrodiagnostic Medicine; Visit Provider Electrodiagnostic Medicine | DX: G47.33 Obstructive sleep apnea (adult) (pediatric) (principal); G47.36 Sleep related hypoventilation in conditions classified elsewhere; G47.10 Hypersomnia, unspecified | CPT/HCPCS: 95810 ==

== ENCOUNTER → 2023-05-22 15:43 | Outpatient (BNVA) | payer BC, MEDICAID, SELFPAY | PROVIDERS: PCP Electrodiagnostic Medicine; Visit Provider Internal Medicine | DX: M54.2 Cervicalgia (principal); R79.89 Other specified abnormal findings of blood chemistry; E78.5 Hyperlipidemia, unspecified; I47.10 Supraventricular tachycardia, unspecified; R76.8 Other specified abnormal immunological findings in serum; M25.50 Pain in unspecified joint; R53.83 Other fatigue; R51.9 Headache, unspecified; E87.6 Hypokalemia | CPT/HCPCS: 36415; 72040; 80053; 82550; 82607; 83735; 84100; 85025; 85651; 86140 ==

== ENCOUNTER 2023-08-09 13:45 | Outpatient (CLI) | payer BC, MEDICAID, SELFPAY ==
--- NOTE | 2023-08-09 14:45 | USCV_ITS ---
Jessica Moon Age: 58 Gender: F : 1965 Exam Date: 08/09/2023 14:33 Ordering Phys: Lang Mendiola MD Technologist: Eliezer Michael Exam Location: [facility] [place] Indication: cca disease Risk Factors: Previous Vascular Surgery: Right Brachial BP: / Left Brachial BP: / Right Left Velocity (cm/s) Spectral Plaque Velocity (cm/s) Spectral Plaque Syst/Diast Broadening Syst/Diast Broadening 83.80/ 16.50 Prox CCA 70.60 / 25.40 91.50/ 24.30 Mid CCA 75.00 / 18.70 79.40/ 17.60 Hetro Distal CCA 63.30 / 18.80 Hetro 79.40/ 15.40 Hetro Prox ICA 103.10/ 23.50 Hetro 76.00/ 20.00 Mid ICA 80.90 / 15.70 Hetro 75.00/ 23.20 Distal ICA 105.70/ 32.60 123.50 ECA 84.40 0.87 ICA/CCA 1.41 Antegrade Vertebral Antegrade 49.60/ 14.30 cm/s 23.30/ 5.80 cm/s Bi Subclavian Bi 73.90 108.9 0 FINDINGS Comparison:. 02/25/19. No significant elevation of systolic or diastolic velocities. Waveforms are normal. Minimal cattered calcified plaque and intimal thickening throughout the common carotid arteries and extending through the bifurcation. CONCLUSIONS No interval change in stenosis since prior exam. Bilateral ICA stenosis less than 50%. Dr. Darlin Manuel DO (Electronically Signed) Final Date: 09 August 2023 15:54 S
== END 2023-08-09 13:46 | disposition home or self-care (01) ==
LOC: RAD 13:45
PROVIDERS: PCP Electrodiagnostic Medicine; Visit Provider Psychiatry & Neurology Neurology
DX: I65.29 Occlusion and stenosis of unspecified carotid artery (principal); R42 Dizziness and giddiness; R51.9 Headache, unspecified
CPT/HCPCS: 93880

== ENCOUNTER 2023-08-21 15:44 | Emergency (ER) | payer BC, MEDICAID, SELFPAY ==
[2023-08-21 16:12] VITALS: BP 150/85; PULSE 48; RESP 18; TEMP 36.7; O2SAT 98; BMI 32.4
[2023-08-21 17:16] LABS: Basophils % 0.7 %; Eosinophils # 0.2 10^3/uL (0.0-0.8); Eosinophils % 3.9 %; Hematocrit 45.5 % (36-47); Lymphocytes # 1.9 10^3/uL (0.8-4.8); Lymphocytes % 35.1 %; Mean Corpuscular HGB Conc 33.2 g/dL (30-55); Mean Corpuscular Hemoglobin 29.3 pg (27-33); Mean Corpuscular Volume 88.3 fl (85-98); Mean Platelet Volume 10.2 fL (7.4-10.4); Monocytes # 0.3 10^3/uL (0.2-0.9); Monocytes % 6.3 %; Neutrophils # 2.93 10^3/uL (1.8-7.7); Neutrophils % 53.8 %; Nucleated Red Blood Cells % 0 %; Platelet Count 231 10^3/cmm (157-399); Red Blood Count 5.15 10^6/uL (3.85-5.65); Red Cell Distribution Width 13.2 % (12.1-15.1); White Blood Count 5.44 10^3/uL (3.29-11.43)
[2023-08-21 17:21] LABS: Alanine Aminotransferase 19 U/L (0-33); Albumin Level 4.4 g/dL (3.5-5.2); Alkaline Phosphatase 84 U/L (35-105); Anion Gap 14.1 (5-19); Aspartate Amino Transferase 14 U/L (0-32); Blood Urea Nitrogen 14 mg/dL (8-23); Calcium 9.5 mg/dL (8.5-10.5); Carbon Dioxide 28 mmol/L (22-29); Chloride 104 mmol/L (98-107); Creatinine Clr Calc Pharmacy 97.2087; Globulin 1.9 g/dL (1.3-4.6); Glomerular Filtration Rate 85.4 mL/min (90-130); Glucose 95 mg/dL (65-115); Lipase 26 U/L (13-60); Osmolality Calculated 294 mOsm/kg (285-295); Potassium 4.1 mmol/L (3.5-5.1); Sodium 142 mmol/L (136-145); Total Bilirubin 0.3 mg/dL (0.15-1.2); Total Protein 6.3 g/dL (6.6-8.7)
--- NOTE | 2023-08-21 19:35 | ED_ITS ---
HPI - Abdominal Pain 2 General: Chief Complaint: Abdominal Pain Stated Complaint: abd pain Time Seen by Provider: 08/21/23 19:04 History of Present Illness: 58-year-old female presents emergency de partment complaints of epigastric abdominal pain. She states that she went to see her primary care provider today and was advised to come to the emergency department for additional imaging to rule out pancreatitis. Patient states she does have a history of pancreatitis and also stomach ulcers and has had an EGD scheduled previously but was unable to keep that appointment because the preoperative evaluation advised her that she needed to have cardiac clearance she states she does have a cardiology appointment for cardiac clearance scheduled for tomorrow. She states she has been intermittently taking Protonix for her previous ulcers. She states that after she receives cardiac clearance she will reschedule her EGD. She states she has had some burning epigastric pain that she states is a 3 out of 10 worse for the previous several weeks. She denies hematic emesis or hematochezia. She denies fevers chills or night sweats. Associated Symptoms: Reports nausea; Denies hematochezia, melena and vomiting Review of Systems 2 General: Reports: 10 or more systems reviewed and unremarkable except in HPI and below GI: Reports: abdominal pain and nausea; Denies: vomiting, hematochezia or melena PFSH ED 2 PFSH: Medical History Cervical pain Low vitamin D level Carotid artery stenosis Bilateral less than 50% from February 2019 SVT (supraventricular tachycardia) CVA (cerebral vascular accident) Hyperlipidemia HTN (hypertension) Surgical History History of partial hysterectomy S/P ablation of atrial fibrillation Social History (Updated 08/03/23 @ 07:35 by Barb Matthews) Smoking and tobacco/nicotine status: never used tobacco/nicotine Alcohol intake: never Substance/Drug Use: never Physical Exam 2 Narrative: EXAM NARRATIVE: Constitutional: the patient appears well nourished and of normal development. Vital signs as documented. No acute distress at present. Alert and oriented-to person, place, time and situation. Head, eyes, ears, nose, mouth, throat: Normocephalic, atraumatic. Pupils-equal, round, reactive to light. No scleral icterus. Normal-appearing external ears. Normal appearing nasal turbinates, no drainage. No obvious oral lesions, posterior oropharynx without erythema or exudates. Neck: Supple, trachea is midline, no lymphadenopathy, no jugular venous distension, thyromegaly, or carotid bruits. Carotid upstrokes are brisk bilaterally. Lungs: clear to auscultation to all lung remy. Symmetrical rise and fall of chest, no obvious signs of increased work of breathing at present. Cardiac: Regular rate and rhythm, positive S1, S2. No murmurs, rubs or gallops that I can appreciate Abdomen: Soft, non-tender to palpation, normal active bowel sounds to all quadrants. No palpable masses, no organomegaly and abdominal bruits. Extremities: 2+ pulses in the upper extremities that are equal bilaterally, 2+ pulses in the lower extremities that are equal bilaterally. Non-edematous. Moves all extremities well, sensation to all extremities are noted. Skin: Warm, dry, intact. Course 2 Vital Signs: Vital signs: Vital Signs Temperature 98.0 F 08/21/23 16:12 Pulse Rate 48 L 08/21/23 16:12 Respiratory Rate 18 08/21/23 16:12 Blood Pressure 150/85 08/21/23 16:12 Pulse Oximetry 98 08/21/23 16:12 Oxygen Delivery Me thod Room Air 08/21/23 16:12 MDM - Abdominal Pain Medical Decision Making Physical exam completed and documented CBC and CMP as well as her lipase which was normal the CT scan of her abdomen pelvis did not show any acute intra- abdominal or pelvic pathology although it did show nonobstructing renal calculi. I will provide her written prescriptions for Carafate as I suspect most likely that her epigastric pain is from her intermittent Protonix use and is a result of her previous stomach ulcers. Medical Records I reviewed the patient's medical records. Lab Data 08/21/23 16:52 08/21/23 16:52 Labs/Radiology: Radiology Impressions Abdomen/Pelvis CT 08/21/23 19:[address]: [address] evidence of acute intra-abdominal or pelvic pathology. 2. Additional findings, as above. COMMENTS: Consistent with the [employer]'s Incidental Findings Committee white paper (J Am Caridad Radiol 2018): Any incidental renal lesion less than 1 cm or classified as too small to characterize, or any incidental cystic renal lesion characterized as simple-appearing, is likely benign. No follow-up imaging is recommended for these lesions per consensus recommendations based on imaging criteria. Laboratory Results WBC 5.44 10^3/uL (3.29-11.43) 08/21/23 16:52 RBC 5.15 10^6/uL (3.85-5.65) 08/21/23 16:52 Hgb 15.10 g/dL (11.27-16.99) 08/21/23 16:52 Hct 45.5 % (36-47) 08/21/23 16:52 MCV 88.3 fl (85-98) 08/21/23 16:52 MCH 29.3 pg (27-33) 08/21/23 16:52 MCHC 33.2 g/dL (30-55) 08/21/23 16:52 RDW 13.2 % (12.1-15.1) 08/21/23 16:52 Plt Count 231 10^3/cmm (157-399) 08/21/23 16:52 MPV 10.2 fL (7.4-10.4) 08/21/23 16:52 Neut % (Auto) 53.8 % 08/21/23 16:52 Lymph % (Auto) 35.1 % 08/21/23 16:52 Johnston % (Auto) 6.3 % 08/21/23 16:52 Eos % (Auto) 3.9 % 08/21/23 16:52 Baso % (Auto) 0.7 % 08/21/23 16:52 Neut # (Auto) 2.93 10^3/uL (1.8-7.7) 08/21/23 16:52 Lymph # (Auto) 1.9 10^3/uL (0.8-4.8) 08/21/23 16:52 Johnston # (Auto) 0.3 10^3/uL (0.2-0.9) 08/21/23 16:52 Eos # (Auto) 0.2 10^3/uL (0.0-0.8) 08/21/23 16:52 Baso # (Auto) 0.0 10^3/uL (0.0-0.1) 08/21/23 16:52 Nucleated RBC % (auto) 0 % 08/21/23 16:52 Nucleated RBCs # 0.0 /100WBC 08/21/23 16:52 Sodium 142 mmol/L (136-145) 08/21/23 16:52 Potassium 4.1 mmol/L (3.5-5.1) 08/21/23 16:52 Chloride 104 mmol/L (98-107) 08/21/23 16:52 Carbon Dioxide 28 mmol/L (22-29) 08/21/23 16:52 Anion Gap 14.1 (5-19) 08/21/23 16:52 BUN 14 mg/dL (8-23) 08/21/23 16:52 Creatinine 0.7 mg/dL (0.5-0.9) 08/21/23 16:52 GFR Calculation 85.4 mL/min (90-130) L 08/21/23 16:52 Glucose 95 mg/dL (65-115) 08/21/23 16:52 Calculated Osmolality 294 mOsm/kg (285-295) 08/21/23 16:52 Calcium 9.5 mg/dL (8.5-10.5) 08/21/23 16:52 Total Bilirubin 0.3 mg/dL (0.15-1.2) 08/21/23 16:52 AST 14 U/L (0-32) 08/21/23 16:52 ALT 19 U/L (0-33) 08/21/23 16:52 Alkaline Phosphatase 84 U/L (35-105) 08/21/23 16:52 Total Protein 6.3 g/dL (6.6-8.7) L 08/21/23 16:52 Albumin 4.4 g/dL (3.5-5.2) 08/21/23 16:52 Globulin 1.9 g/dL (1.3-4.6) 08/21/23 16:52 Lipase 26 U/L (13-60) 08/21/23 16:52 Urine Color Yellow (Yellow) 08/21/23 19:08 Urine Appearance Clear (CLEAR) 08/21/23 19:08 Urine pH 6 (5-7) 08/21/23 19:08 Ur Specific Hastings 1.015 (1.005-1.030) 08/21/23 19:08 Urine Protein Neg (Negative) 08/21/23 19:08 Urine Glucose (UA) Norm (Normal) 08/21/23 19:08 Urine Ketones Negative (Negative) 08/21/23 19:08 Urine Blood Neg (Negative) 08/21/23 19:08 Urine Nitrate Negative (Negative) 08/21/23 19:08 Urine Bilirubin Neg (Negative) 08/21/23 19:08 Urine Urobilinogen Norm mg/dL (Negative) 08/21/23 19:08 Ur Leukocyte Esterase 1+ (Negative) H 08/21/23 19:08 Urine RBC None /hpf (0-2) 08/21/23 19:08 Urine WBC 0-4 /hpf (0-5) H 08/21/23 19:08 Ur Squamous Epith Cells 0-4 /hpf (0-5) H 08/21/23 19:08 Amorphous Sediment Not Reportable 08/21/23 19:08 Urine Bacteria Trace /hpf (NONE) 08/21/23 19:08 All radiology interpretation(s) finalized by discharge Discharge Plan Discharge Patient Disposition: Home Clinical Impression: Abdominal pain Qualifiers: Abdominal location: epigastric Qualified Code(s): R10.13 - Epigastric pain GERD with esophagitis Qualifiers: Esophagitis bleeding: without hemorrhage Qualified Code(s): K21.00 - Gastro- esophageal reflux disease with esophagitis, without bleeding Condition: Stable Prescriptions: New Carafate 1 gram tablet 1 g PO TID 28 Days Qty: 84 0RF No Action cholecalciferol (vitamin D3) 1,250 mcg (50,000 unit) capsule 50,000 unit PO .qweek Qty: 14 0RF valsartan-hydrochlorothiazide 160-12.5 mg tablet 1 tab PO DAILY ibuprofen 200 mg capsule 200 mg PO Q6H PRN (Reason: Pain) hydrocodone-acetaminophen 5-325 mg tablet 1 tab PO Q6H PRN (Reason: Pain) 5 Days Qty: 20 0RF amlodipine 5 mg tablet 5 mg PO DAILY metoprolol tartrate 50 mg tablet 50 mg PO BID epinephrine [EpiPen 2-Shree] 0.3 mg/0.3 mL auto-injector 0.3 mg IM Q15M PRN (Reason: anaphylaxis) Qty: 2 0RF Rx Instructions: not to exceed 6 doses per episode pantoprazole [Protonix] 40 mg Tablet,Delayed Release (Dr/Ec) 40 mg PO DAILY Discharge Orders: Discharge ED (Routine); Ordered 08/21/23 Ordered By: Jerod Paniagua Referrals: Bogdan Machuca DO [Physician] - (Discuss EGD need) Joselito Sylvester DO [Primary Care Provider] - Discharge Diet: Cardiac and Low Salt Discharge Activity: Resume usual activity Patient Instructions: Abdominal Pain (ED), Opioid Safety, Pain Management Activity Restrictions/Additional Instructions: Activity Restrictions/Additional Instructions: Thank you for choosing [facility] for your healthcare needs today. Please realize that you were seen in the Emergency Department and that we are providing you with an emergency medical screening exam and this may not be a complete and all inclusive of all the testing and or medical work-up that you may need to determine your ailment or severity of your illness. It is very important that you follow-up as instructed with your Primary care provider or Specialist for additional evaluation and to discuss your medical treatment plan. You may return to the Emergency Department should you have concerns or if your condition changes or worsens in any way. Coding Level of Care Code ED Manager Logistic for Jossue Mitchell
--- NOTE | 2023-08-21 19:36 | CTR_ITS ---
PROCEDURE INFORMATION: Exam: CT Abdomen And Pelvis With Contrast Exam date and time: 08/21/2023 8:24 PM Age: 58 years old Clinical indication: Abdominal pain; Epigastric; Additional info: Epigastric pain TECHNIQUE: Imaging protocol: Computed tomography of the abdomen and pelvis with contrast. Axial, coronal and sagittal reformatted images were created and reviewed. Radiation optimization: All CT scans at this facility use at least one of these dose optimization techniques: automated exposure control; mA and/or kV adjustment per patient size (includes targeted exams where dose is matched to clinical indication); or iterative reconstruction. Contrast material: OMNI 350; Contrast volume: 100 ml; Contrast route: INTRAVENOUS (IV); COMPARISON: CT abdomen pelvis w con* [id number] 09/07/2017 3:08 PM RADIATION DOSE METRICS: Total DLP (mGy-cm): 867.83 FINDINGS: Lungs: Linear stranding and groundglass at the lung bases, likely due to atelectasis and/or scarring. Diaphragm: Elevated left hemidiaphragm. Liver: Unremarkable. Gallbladder and bile ducts: No radiodense gallstones. No biliary ductal dilatation. Pancreas: Unremarkable. Spleen: Unremarkable. Adrenal glands: Normal. No mass. Kidneys and ureters: Subcentimeter low-density renal lesions bilaterally, measuring up to 4 mm on the left, too small to characterize. Nonobstructing left renal calculus. No hydronephrosis. Stomach and bowel: Colonic diverticulosis without evidence of diverticulitis. No obstruction. No bowel wall thickening. No pneumatosis. Appendix: Status post appendectomy. Intraperitoneal space: No free fluid. No organized fluid collection. No free air. Vasculature: Mild atherosclerotic disease. No aneurysm or dissection. Lymph nodes: No pathologically enlarged lymph nodes. Urinary bladder: Unremarkable as visualized. Reproductive: Status post hysterectomy. Bones/joints: No acute osseous abnormality. Scattered vertebral body hemangiomata. Soft tissues: Unremarkable. CT/CT abdomen pelvis w con* [id number]: 1[address] No CT evidence of acute intra-abdominal or pelvic pathology. 2. Additional findings, as above. COMMENTS: Consistent with the [employer] [employer]'s Incidental Findings Committee white paper (J Am Caridad Radiol 2018): Any incidental renal lesion less than 1 cm or classified as too small to characterize, or any incidental cystic renal lesion characterized as simple-appearing, is likely benign. No follow-up imaging is recommended for these lesions per consensus recommendations based on imaging criteria.
[2023-08-21 19:46] LABS: Add Urine Microscopic? YES; Bacteria Urine TRACE /hpf; Bilirubin Urine Neg (Negative); Blood Urine Neg (Negative); Glucose Urine UA Norm (Normal); Ketones Urine Negative (Negative); Leukocyte Esterase Urine 1+ (Negative); Nitrate Urine Negative (Negative); Protein Urine Neg (Negative); Specific Gravity, Urine 1.015 (1.005-1.030); Squamous Epithelial Cell Urine 0-4 /hpf (0-5); Urine Appearance Clear (CLEAR); Urine Color Yellow (Yellow); Urobilinogen Urine Norm (Negative); WBC Urine 0-4 /hpf (0-5); pH Urine 6 (5-7)
[2023-08-21 19:47] LABS: Add Urine Culture? No
[2023-08-21] MEDS: iohexol 350 mg/mL 500 mL Btl (per mL) IV (20:25)
[2023-08-21 21:40] VITALS: BP 162/91; PULSE 60; O2SAT 95
== END 2023-08-21 21:41 | disposition home or self-care (01) ==
PROVIDERS: Emergency Medicine; Emergency Provider Internal Medicine; PCP Electrodiagnostic Medicine
DX: K21.00 Gastro-esophageal reflux disease with esophagitis, without bleeding (principal); Z86.73 Personal history of transient ischemic attack (TIA), and cerebral infarction without residual deficits; E78.5 Hyperlipidemia, unspecified; I10 Essential (primary) hypertension
CPT/HCPCS: 36415; 74177; 80053; 81001; 83690; 85025; 99285; Q9967

== ENCOUNTER 2023-09-12 12:14 | Outpatient (CLI) | payer BC, SELFPAY ==
--- NOTE | 2023-09-12 13:00 | MR_ITS ---
WS: [id number] MRI BRAIN WITH AND WITHOUT CONTRAST HISTORY: I65.29 - Occlusion and stenosis of unspecified carotid artery COMPARISON: 01/03/2020 TECHNIQUE: Multiplanar imaging performed through the brain with MultiHance 20 ml's IV. No acute infarcts are seen. Alford-white matter differentiation is well preserved. No hippocampal atrop hy. Minimal small vessel ischemic changes in the periventricular white matter. No obvious progression since the prior examination. No susceptibility artifacts or prior lacunar infarcts. Ventricles and extra-axial spaces are normal. Clivus and pituitary gland are normal. Visualized posterior fossa and brainstem are also normal. 7 mm dural based nodule with intense enhancement centered over the posterior LEFT frontal lobe is mos t consistent with a very small meningioma. Not definitely seen on the prior study. No additional mass es or abnormal enhancement. Dural venous sinuses are normal. Paranasal sinuses: Well aerated with no significant disease. Mastoid air cells: Normal. Calvarium and scalp: Normal. IMPRESSION: 1. No acute infarct. 2. New extradural 7 mm mass over the posterior LEFT frontal lobe consistent with a meningioma. 3. Minimal small vessel ischemic disease without progression.
[2023-09-12] MEDS: gadobenate dimeglumine 20 mL vial IV (13:40)
== END 2023-09-12 12:15 | disposition home or self-care (01) ==
LOC: RAD 12:15
PROVIDERS: PCP Electrodiagnostic Medicine; Visit Provider Psychiatry & Neurology Neurology
DX: I65.29 Occlusion and stenosis of unspecified carotid artery (principal); R42 Dizziness and giddiness; R51.9 Headache, unspecified; D32.0 Benign neoplasm of cerebral meninges; I67.89 Other cerebrovascular disease
CPT/HCPCS: 70553; A9577

== ENCOUNTER 2023-10-29 17:49 | Emergency (ER) | payer BC, MEDICAID, SELFPAY ==
[2023-10-29 17:52] VITALS: BP 106/71; PULSE 103; RESP 18; TEMP 36.6; O2SAT 96
--- NOTE | 2023-10-29 18:24 | CTR_ITS ---
PROCEDURE INFORMATION: Exam: CT Abdomen And Pelvis With Contrast Exam date and time: 10/29/2023 6:47 PM Age: 58 years old Clinical indication: Fever and nausea; Abdominal pain; Prior surgery; Surgery date: 6+ months; Surgery type: Partial hysterectomy; Patient HX: Epigastric pain with fever, nausea, and diarrhea. ; Additional info: Abd pain TECHNIQUE: Imaging protocol: Computed tomography of the abdomen and pelvis with contrast. Axial, coronal and sagittal reformatted images were created and reviewed. Radiation optimization: All CT scans at this facility use at least one of these dose optimization techniques: automated exposure control; mA and/or kV adjustment per patient size (includes targeted exams where dose is matched to clinical indication); or iterative reconstruction. Contrast material: OMNI 350; Contrast volume: 100 ml; Contrast route: INTRAVENOUS (IV); COMPARISON: CT abdomen pelvis w con* [id number] 08/21/2023 8:24 PM RADIATION DOSE METRICS: Total DLP (mGy-cm): 823.33 FINDINGS: Lungs: Linear/discoid stranding at the lung bases, consistent with atelectasis and/or scarring. Pleural spaces: Trace dependent pleural fluid. Heart: Trace pericardial fluid/thickening. Diaphragm: Small hiatal hernia. Liver: Unremarkable. Gallbladder and bile ducts: Status post cholecystectomy. No biliary ductal dilatation. Pancreas: Unremarkable. Spleen: Unremarkable. Adrenal glands: Normal. No mass. Kidneys and ureters: Punctate nonobstructing left renal calculus. No hydronephrosis. Stomach and bowel: Trace nonspecific free pelvic fluid, likely physiologic. No organized fluid collection. No free air. Appendix: Status post appendectomy. Intraperitoneal space: Moderately long segment of distal ileal wall thickening with associated mural and mesenteric edema. No obstruction. No pneumatosis. Vasculature: Mild atherosclerotic disease. No aneurysm or dissection. Lymph nodes: Small mesenteric lymph nodes, likely reactive. No pathologically enlarged lymph nodes. Urinary bladder: Unremarkable as visualized. Reproductive: Status post hysterectomy. Bones/joints: No acute osseous abnormality. Mild degenerative changes. L4 vertebral body hemangioma. Soft tissues: Tiny, fat containing umbilical hernia. CT/CT abdomen pelvis w con* [id number] IMPRESSION: 1. Nonspecific distal ileitis, as described above. No abscess, obstruction or free air. 2. Additional findings, as above.
[2023-10-29 18:38] LABS: Basophils % 0.2 %; Eosinophils # 0.1 10^3/uL (0.0-0.8); Eosinophils % 0.9 %; Hematocrit 40.3 % (36-47); Lymphocytes # 1.4 10^3/uL (0.8-4.8); Lymphocytes % 24.5 %; Mean Corpuscular Hemoglobin 29.1 pg (27-33); Mean Corpuscular Volume 83.3 fl (85-98); Mean Platelet Volume 10.9 fL (7.4-10.4); Monocytes # 0.6 10^3/uL (0.2-0.9); Monocytes % 10.7 %; Neutrophils # 3.48 10^3/uL (1.8-7.7); Neutrophils % 63.3 %; Nucleated Red Blood Cells % 0 %; Platelet Count 153 10^3/cmm (157-399); Red Blood Count 4.84 10^6/uL (3.85-5.65); Red Cell Distribution Width 13.4 % (12.1-15.1)
[2023-10-29] MEDS: iohexol 350 mg/mL 500 mL Btl (per mL) IV (18:45)
[2023-10-29 18:52] LABS: Lactic Sepsis W/Reflex 1.8 mmol/L (0.5-2.2)
[2023-10-29 18:53] LABS: Alanine Aminotransferase 17 U/L (0-33); Albumin Level 3.8 g/dL (3.5-5.2); Alkaline Phosphatase 75 U/L (35-105); Anion Gap 14.8 (5-19); Aspartate Amino Transferase 15 U/L (0-32); Blood Urea Nitrogen 14 mg/dL (8-23); C Reactive Protein 109.9 mg/L (0.0-4.9); Calcium 8.2 mg/dL (8.5-10.5); Carbon Dioxide 25 mmol/L (22-29); Chloride 99 mmol/L (98-107); Creatinine Clr Calc Pharmacy 83.2141; Globulin 2.6 g/dL (1.3-4.6); Glomerular Filtration Rate 73.2 mL/min (90-130); Glucose 118 mg/dL (65-115); Lipase 26 U/L (13-60); Osmolality Calculated 284 mOsm/kg (285-295); Sodium 136 mmol/L (136-145); Total Bilirubin 0.4 mg/dL (0.15-1.2); Total Protein 6.4 g/dL (6.6-8.7)
--- NOTE | 2023-10-29 18:56 | W.ED.ABDPA2 ---
HPI - Abdominal Pain General: Chief Complaint: Abdominal Pain Stated Complaint: abd pain Time Seen by Provider: 10/29/23 17:56 History of Present Illness: 58-year-old female with epigastric pain radiating into her back, and multiple episodes of diarrhea. No vomiting. She had a fever of 1043 nights ago. No fever today. No blood in the stool. No recent surgery or antibiotics. No sick contacts. She notes that she has had multiple belly surgeries including cholecystectomy, hysterectomy, endometriosis, etc. She is also had H. pylori infection in the past. Associated Symptoms: Reports chills, diarrhea, fever(s) and nausea; Denies constipation, hematochezia and vomiting Review of Systems Const: Reports: fever(s) and chills ENMT: Denies: throat pain Card: Denies: chest pain Resp: Denies: dyspnea, productive cough or non-productive cough GI: Reports: abdominal pain, nausea and diarrhea; Denies: vomiting, constipation or hematochezia PFS ED PFSH: Medical History Psychiatric care Cervical pain Low vitamin D level Carotid artery stenosis Bilateral less than 50% from February 2019 SVT (supraventricular tachycardia) CVA (cerebral vascular accident) Hyperlipidemia HTN (hypertension) Surgical History History of partial hysterectomy S/P ablation of atrial fibrillation Social History Smoking and tobacco/nicotine status: never used tobacco/nicotine Alcohol intake: never Substance/Drug Use: never Physical Exam Const: COMMON NORMALS: no acute distress GENERAL APPEARANCE: cooperative; not ill appearing and not frail appearing HENMT: COMMON NORMALS: normocephalic, atraumatic and Normal external nose present HEAD & SCALP: normocephalic and atraumatic FACE & SINUS: normal facial exam and face symmetric NOSE: Normal external nose present Eye: COMMON NORMALS: Equal, round and reactive pupils present and EOMs intact bilaterally PUPIL: Yes Equal, round and reactive pupils present Neck/C-Spine: GENERAL: Yes trachea midline Chest: CHEST: Yes Symmetrical chest wall rise Resp: COMMON NORMALS: normal respiratory effort, No retractions, No use of accessory muscles and clear to auscultation bilaterally AUSCULTATION: clear to auscultation bilaterally Cardio: COMMON NORMALS: regular rate and regular rhythm RATE: regular rate RHYTHM: regular rhythm GI: COMMON NORMALS: Normal to inspection, nondistended, normoactive bowel sounds present PALPATION: Yes Tenderness to palpation present (GI) (Epigastric) Extremity: COMMON NORMALS: no pedal edema Neuro: PEDRO PABLO COMA SCALE: document GCS findings Pedro Pablo coma scale eye opening: Spontaneous [place] coma scale verbal response: Orientated [place] coma scale motor response: Obey commands Pedro Pablo coma scale total score: 15 SENSORY EXAM: Yes extremities (intact) Psych: COMMON NORMALS: speech normal SPEECH: Yes normal speech Skin: COMMON NORMALS: no rashes or lesions noted GENERAL SKIN EXAM: no rashes or lesions noted Course Vital Signs: Vital signs: Vital Signs Temperature 97.8 F 10/29/23 17:52 Pulse Rate 79 10/29/23 21:53 Respiratory Rate 18 10/29/23 21:53 Blood Pressure 120/69 10/29/23 21:53 Pulse Oximetry 93 10/29/23 21:53 Oxygen Delivery Me thod Room Air 10/29/23 21:52 MDM - Abdominal Pain Medical Decision Making White blood cell count is 5. Hemoglobin 14. Platelet count is 153. Liver enzymes are normal. CRP is pending. CT is ordered and is pending. She has received pain medication antiemetics and fluids. CT reveals nonspecific distal ileitis. Her potassium is 2.8. This is repleted. She is received some IV fluids and is feeling improved. Given the focal nature of her ileitis, will treat with antibiotics. She will get pain medicine and Zofran as well. She wishes to go home. She will return for worsening symptoms despite treatment. Lab Data 10/29/23 18:30 10/29/23 18:30 Labs/Radiology: Radiology Impressions Abdomen/Pelvis CT 10/29/23 18:24 IMPRESSION: 1. Nonspecific distal ileitis, as described above. No abscess, obstruction or free air. 2. Additional findings, as above. Laboratory Results WBC 5.50 10^3/uL (3.29-11.43) 10/29/23 18:30 RBC 4.84 10^6/uL (3.85-5.65) 10/29/23 18:30 Hgb 14.10 g/dL (11.27-16.99) 10/29/23 18:30 Hct 40.3 % (36-47) 10/29/23 18:30 MCV 83.3 fl (85-98) L 10/29/23 18:30 MCH 29.1 pg (27-33) 10/29/23 18:30 MCHC 35.0 g/dL (30-55) 10/29/23 18:30 RDW 13.4 % (12.1-15.1) 10/29/23 18:30 Plt Count 153 10^3/cmm (157-399) L 10/29/23 18:30 MPV 10.9 fL (7.4-10.4) H 10/29/23 18:30 Neut % (Auto) 63.3 % 10/29/23 18:30 Lymph % (Auto) 24.5 % 10/29/23 18:30 [place] % (Auto) 10.7 % 10/29/23 18:30 Eos % (Auto) 0.9 % 10/29/23 18: Baso % (Auto) 0.2 % 10/29/23 18:30 Neut # (Auto) 3.48 10^3/uL (1.8-7.7) 10/29/23 18:30 Lymph # (Auto) 1.4 10^3/uL (0.8-4.8) 10/29/23 18:30 [place] # (Auto) 0.6 10^3/uL (0.2-0.9) 10/29/23 18:30 Eos # (Auto) 0.1 10^3/uL (0.0-0.8) 10/29/23 18: Baso # (Auto) 0.0 10^3/uL (0.0-0.1) 10/29/23 18:30 Nucleated RBC % (auto) 0 % 10/29/23 18: Nucleated RBCs # 0.0 /100WBC 10/29/23 18:30 Sodium 136 mmol/L (136-145) 10/29/23 18:30 Potassium 2.8 mmol/L (3.5-5.1) L* 10/29/23 18:30 Chloride 99 mmol/L (98-107) 10/29/23 18: Carbon Dioxide 25 mmol/L (22-29) 10/29/23 18:30 Anion Gap 14.8 (5-19) 10/29/23 18:30 BUN 14 mg/dL (8-23) 10/29/23 18:30 Creatinine 0.8 mg/dL (0.5-0.9) 10/29/23 18:30 GFR Calculation 73.2 mL/min (90-130) L 10/29/23 18:30 Glucose 118 mg/dL (65-115) H 10/29/23 18:30 Calculated Osmolality 284 mOsm/kg (285-295) L 10/29/23 18:30 Lactic Acid 1.8 mmol/L (0.5-2.2) 10/29/23 18:30 Calcium 8.2 mg/dL (8.5-10.5) L 10/29/23 18:30 Total Bilirubin 0.4 mg/dL (0.15-1.2) 10/29/23 18:30 AST 15 U/L (0-32) 10/29/23 18:30 ALT 17 U/L (0-33) 10/29/23 18:30 Alkaline Phosphatase 75 U/L (35-105) 10/29/23 18:30 C-Reactive Protein 109.9 mg/L (0.0-4.9) H 10/29/23 18:30 Total Protein 6.4 g/dL (6.6-8.7) L 10/29/23 18:30 Albumin 3.8 g/dL (3.5-5.2) 10/29/23 18:30 Globulin 2.6 g/dL (1.3-4.6) 10/29/23 18:30 Lipase 26 U/L (13-60) 10/29/23 18:30 Urine Color Yellow (Yellow) 10/29/23 19: Urine Appearance Hazy (CLEAR) A 10/29/23 19: Urine pH 8 (5-7) H 10/29/23 19: Ur Specific [place] 1.005 (1.005-1.030) 10/29/23 19: Urine Protein Neg (Negative) 10/29/23 19: Urine Glucose (UA) Norm (Normal) 10/29/23 19: Urine Ketones Negative (Negative) 10/29/23: Urine Blood 2+ (Negative) H 10/29/23 19:02 Urine Nitrate Negative (Negative) 10/29/23 19:02 Urine Bilirubin Neg (Negative) 10/29/23 19:02 Prot Sulfosalicylic Acd Negative (Negative) 10/29/23 19:02 Urine Urobilinogen Neg mg/dL (Negative) 10/29/23 19:02 Ur Leukocyte Esterase 1+ (Negative) H 10/29/23 19:02 Urine RBC 0-4 /hpf (0-2) H 10/29/23 19:02 Urine WBC 5-10 /hpf (0-5) H 10/29/23 19:02 Ur Squamous Epith Cells 5-10 /hpf (0-5) H 10/29/23 19:02 Amorphous Sediment Not Reportable 10/29/23 19:02 Urine Bacteria 2+ /hpf (NONE) H 10/29/23 19:02 All radiology interpretation(s) finalized by discharge Discharge Plan Discharge Patient Disposition: Home Clinical Impression: Enteritis, Acute hypokalemia Condition: Stable Prescriptions: New ciprofloxacin HCl 500 mg tablet 500 mg PO BID Qty: 14 0RF metronidazole 500 mg tablet 500 mg PO Q8H 7 Days Qty: 21 0RF hydrocodone-acetaminophen 5-325 mg tablet 1 tab PO Q8H PRN (Reason: pain) Qty: 7 0RF ondansetron 4 mg tablet,disintegrating 4 mg PO Q6H PRN (Reason: nausea and vomiting) Qty: 14 0RF No Action cholecalciferol (vitamin D3) 1,250 mcg (50,000 unit) capsule 50,000 unit PO .qweek Qty: 14 0RF valsartan-hydrochlorothiazide 160-12.5 mg tablet 1 tab PO DAILY ibuprofen 200 mg capsule 200 mg PO Q6H PRN (Reason: Pain) duloxetine [Cymbalta] 30 mg capsule,delayed release(DR/EC) 30 mg PO DAILY Qty: 30 0RF duloxetine [Cymbalta] 60 mg capsule,delayed release(DR/EC) 60 mg PO DAILY Qty: 30 1RF Rx Instructions: Start after 1 month on 30 mg. trazodone 50 mg tablet 100 mg PO .HS PRN (Reason: insomnia) Qty: 60 2RF amlodipine 5 mg tablet 5 mg PO DAILY metoprolol tartrate 50 mg tablet 50 mg PO BID epinephrine [EpiPen 2-Shree] 0.3 mg/0.3 mL auto-injector 0.3 mg IM Q15M PRN (Reason: anaphylaxis) Qty: 2 0RF Rx Instructions: not to exceed 6 doses per episode Discharge Orders: Discharge ED (Routine); Ordered 10/29/23 Ordered By: Waqar Hannon Referrals: Joselito Sylvester, DO [Primary Care Provider] - 1-3 days Patient Instructions: Hypokalemia (ED), Enteritis (ED), Opioid Safety, Pain Management Activity Restrictions/Additional Instructions: You may use Lomotil or Imodium [id number] to slow your diarrhea if needed. Do not take more than 3 doses daily. You should have your potassium redrawn in 2 to 3 days to ensure it is staying up. Antibiotics as directed. Push oral liquids, particularly with electrolytes in them. Return for fever despite 3 more doses of antibiotics, worsening pain, worsening diarrhea, blood in the stool, vomiting liquids or medications, any other concerning symptoms. See your doctor this week. Coding Level of Care Code ED Gifts Officer for Jossue Mitchell
[2023-10-29] MEDS: sodium chloride 0.9% 1,000 ML 999 ML IV ×2 (18:57→19:54)
[2023-10-29] MEDS: ondansetron 2 mg/ML SDV 2 mL 4 MG IVP (18:59)
[2023-10-29 19:00] VITALS: RESP 18
[2023-10-29 19:00] LABS: Potassium 2.8 mmol/L (3.5-5.1)
[2023-10-29] MEDS: morphine 4 mg/mL SDV 1 mL IVP (19:00)
[2023-10-29 19:04] VITALS: BP 125/76; PULSE 82; O2SAT 92
[2023-10-29] MEDS: lidocaine 1% 5 ML in potassium chloride premix 100 ML 52.5 ML IV (19:27)
[2023-10-29] MEDS: potassium chloride oral liq 20 mEq/15 mL UDC 40 MEQ PO (19:30)
[2023-10-29 19:36] LABS: Add Urine Microscopic? YES; Bilirubin Urine Neg (Negative); Blood Urine 2+ (Negative); Glucose Urine UA Norm (Normal); Ketones Urine Negative (Negative); Leukocyte Esterase Urine 1+ (Negative); Nitrate Urine Negative (Negative); Protein Urine Neg (Negative); Specific Gravity, Urine 1.005 (1.005-1.030); Urine Appearance Hazy (CLEAR); Urine Color Yellow (Yellow); Urobilinogen Urine Neg (Negative); pH Urine 8 (5-7)
[2023-10-29 19:37] LABS: Add Urine Culture? Yes; Bacteria Urine 2+ /hpf; RBC Urine 0-4 /hpf (0-2); Sulfosalicylic Acid Urine Negative (Negative)
[2023-10-29 19:58] VITALS: BP 118/72; PULSE 80; RESP 18; O2SAT 96
[2023-10-29] MEDS: metroNIDAZOLE 500 MG Tablet PO (20:19)
[2023-10-29] MEDS: ciprofloxacin 500 mg Tablet PO (20:19)
[2023-10-29 21:52] VITALS: BP 120/69; PULSE 79; RESP 18; O2SAT 93
[2023-10-29 21:53] VITALS: BP 120/69; PULSE 79; RESP 18; O2SAT 93
== END 2023-10-29 21:52 | disposition home or self-care (01) ==
PROVIDERS: Emergency Provider Emergency Medicine; PCP Electrodiagnostic Medicine
DX: K52.9 Noninfective gastroenteritis and colitis, unspecified (principal); E87.6 Hypokalemia; Z86.73 Personal history of transient ischemic attack (TIA), and cerebral infarction without residual deficits; E78.5 Hyperlipidemia, unspecified; I10 Essential (primary) hypertension
CPT/HCPCS: 36415; 74177; 80053; 81001; 83605; 83690; 85025; 86140; 87086; 96361; 96374; 96375; 99285; J2270; J2405; J3480; J7030; Q9967

== ENCOUNTER 2023-11-16 10:48 | Outpatient (CLI) | payer BC, MEDICAID, SELFPAY ==
--- NOTE | 2023-11-16 11:00 | MR_ITS ---
WS: [id number] MR CERVICAL SPINE WO/W COMPARISON: MRI 2017 HISTORY: G43.711 - Chronic migraine without aura, intractable, wit... TECHNIQUE: Sagittal T1, T2 and T2 inversion recovery; axial T2, T2 gradient and fiesta. Post gadolini um imaging with fat saturation technique. FINDINGS:Straightening of the normal cervical lordosis. No high grade central canal narrowing. Cord s ignal is normal. No abnormal gadolinium enhancement. No enhancing lesions within the cervical cord. D isc bulging worse at C4-5 and C6-7. C2-3: Spinal canal and foramen are patent. C3-4: Spinal canal and foramen are patent. C4-5: Mild disc bulge with endplate ridging. Mild facet arthropathy. Spinal canal and foramen are pat ent. C5-6: Mild disc bulging with osteophytic ridging. Moderate facet arthropathy. Spinal canal and forame n are patent. C6-7: Mild disc bulge with osteophytic ridging. Tiny annular fissure. Mild LEFT and no significant RI GHT foraminal narrowing. Spinal canal is patent. C7-T1: Spinal canal and foramen are patent. Partially evaluated calcified RIGHT thyroid nodule measuring 1.5 x 1.1 cm. This could be further eval uated with ultrasound. MR/MR cervical spine wo/w [id number] IMPRESSION: 1. Straightening of the normal cervical lordosis. No high-grade central canal narrowing. Cord signal is normal. 2. No enhancing lesions within the cervical cord. 3. Mild disc bulging C4-C5 and C6-C7 with slight effacement of the ventral the rosa m sac. This is unchanged from previous. Tiny annular fissure at C6-7. 4. No significant central canal or foraminal stenosis. 5. Partially evaluated calcified RIGHT thyroid nodule measuring 1.5 x 1.1 cm. This could be further evaluated with ultrasound.
[2023-11-16] MEDS: gadobenate dimeglumine 20 mL vial IV (11:28)
== END 2023-11-16 10:49 | disposition home or self-care (01) ==
LOC: RAD 10:48
PROVIDERS: PCP Electrodiagnostic Medicine; Visit Provider Psychiatry & Neurology Neurology
DX: G43.711 Chronic migraine without aura, intractable, with status migrainosus (principal); R41.3 Other amnesia; R55 Syncope and collapse; E04.1 Nontoxic single thyroid nodule
CPT/HCPCS: 72156; A9577

== ENCOUNTER 2024-02-29 16:08 | Emergency (ER) | payer MEDICARE, MEDICAID, SELFPAY ==
[2024-02-29 16:16] VITALS: BP 123/82; PULSE 91; RESP 18; TEMP 36.8; O2SAT 94; BMI 33.2
--- NOTE | 2024-02-29 16:20 | ECG_ITS ---
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 Measurements Intervals [place] Rate: 86 P: 26 LA: 153 QRS: 33 QRSD: 104 T: 40 QT: 376 QTc: 452 Interpretive Statements SINUS RHYTHM MINIMAL ST DEPRESSION [0.025+ mV ST DEPRESSION] Compared to ECG 12/16/2019 10:06:18 ST (T wave) deviation now present Electronically Signed On 02-29-2024 22:22:09 CDT by Tereso Chaudhary M.D. [email or web address]
[2024-02-29 16:24] LABS: Basophils % 0.3 %; Eosinophils # 0.1 10^3/uL (0.0-0.8); Eosinophils % 0.9 %; Hematocrit 40.8 % (36-47); Lymphocytes % 13.9 %; Mean Corpuscular HGB Conc 34.3 g/dL (30-55); Mean Corpuscular Volume 84.6 fl (85-98); Mean Platelet Volume 9.8 fL (7.4-10.4); Monocytes # 0.4 10^3/uL (0.2-0.9); Monocytes % 5.8 %; Nucleated Red Blood Cells % 0 %; Platelet Count 181 10^3/cmm (157-399); Red Blood Count 4.82 10^6/uL (3.85-5.65); Red Cell Distribution Width 13.7 % (12.1-15.1); White Blood Count 7.47 10^3/uL (3.29-11.43)
[2024-02-29 16:42] LABS: Alanine Aminotransferase 18 U/L (0-33); Albumin Level 4.4 g/dL (3.5-5.2); Alkaline Phosphatase 102 U/L (35-105); Anion Gap 16.3 (5-19); Aspartate Amino Transferase 15 U/L (0-32); Blood Urea Nitrogen 10 mg/dL (8-23); Calcium 9.3 mg/dL (8.5-10.5); Carbon Dioxide 26 mmol/L (22-29); Chloride 101 mmol/L (98-107); Globulin 2.1 g/dL (1.3-4.6); Glomerular Filtration Rate 72.9 mL/min (90-130); Glucose 105 mg/dL (65-115); Lipase 15 U/L (13-60); Osmolality Calculated 289 mOsm/kg (285-295); Potassium 3.3 mmol/L (3.5-5.1); Sodium 140 mmol/L (136-145); Total Bilirubin 0.7 mg/dL (0.15-1.2); Total Protein 6.5 g/dL (6.6-8.7)
[2024-02-29 17:24] LABS: Bacteria Urine None Seen /hpf; Hyaline Casts Urine 1.65 /lpf; RBC Urine 0-2 /hpf (0-2); Squamous Epithelial Cell Urine 0-5 /hpf (0-5); WBC Urine 0-5 /hpf (0-5)
--- NOTE | 2024-02-29 17:24 | CTR_ITS ---
PROCEDURE INFORMATION: Exam: CT Abdomen And Pelvis With Contrast Exam date and time: 02/29/2024 6:14 PM Age: 59 years old Clinical indication: Abdominal pain; Additional info: Diffuse abd pain TECHNIQUE: Imaging protocol: Computed tomography of the abdomen and pelvis with contrast. Radiation optimization: All CT scans at this facility use at least one of these dose optimization techniques: automated exposure control; mA and/or kV adjustment per patient size (includes targeted exams where dose is matched to clinical indication); or iterative reconstruction. Contrast material: OMNI 350; Contrast volume: 100 ml; Contrast route: INTRAVENOUS (IV); COMPARISON: 1. CT abdomen pelvis w con* [id number] 10/29/2023 6:[address] abdomen pelvis w con* [id number] 08/21/2023 8:24 PM RADIATION DOSE METRICS: Total DLP (mGy-cm): 897 FINDINGS: Lungs: Moderate bilateral posterior lower lobe atelectatic change. Borderline cardiomegaly. Liver: The liver is normal. No hepatic masses are identified. Gallbladder and biliary ducts: The gallbladder is surgically absent. There is no ductal dilatation. Pancreas: The pancreas is normal. Spleen: The spleen is normal. Adrenal glands: The adrenal glands are normal. Kidneys and ureters: Stable punctate nonobstructing left lower pole renal calculus. No other renal calcifications are seen. No hydronephrosis. Stomach and bowel: Mild colonic diverticulosis without diverticulitis. Fluid in the right and transverse colon without bowel wall thickening or inflammatory change. Appendix: Postoperative changes in the expected location of the appendix. Intraperitoneal space: No inflammatory changes are identified. There is no free fluid or fluid collection seen. There is no pneumoperitoneum. Vasculature: Atherosclerotic calcifications of the aorta are present. No aneurysm is identified. Lymph nodes: Prominent and mildly enlarged retroperitoneal lymph nodes, gradually increasing in size compared to 08/21/2023. A retrocaval lymph node (image 36, series 3) remains within normal limits in short axis though has slowly increased in size. A left retroperitoneal lymph node (image 38, series 3 measures 1.6 x 1.0 cm increased from 1.2 x 0.7 cm 08/21/2023. A similar pattern is noted with mesenteric lymph nodes. Urinary bladder: The bladder is unremarkable. Reproductive: The uterus is absent. Bones/joints: No acute osseous abnormalities are seen. Soft tissues: The soft tissues are within normal limits. CT/CT abdomen pelvis w con* [id number] IMPRESSION: 1. Fluid in the right and transverse colon without bowel wall thickening or inflammatory change. Diarrheal illness could have this appearance. 2. Prominent and borderline enlarged mesenteric and retroperitoneal lymph nodes, demonstrating gradual increase in size compared to 08/21/2023. Clinical correlation is recommended. Recommend short interval follow-up CT versus PET-CT as indicated. 3. Other nonemergent findings above.
[2024-02-29 17:29] LABS: Add Urine Microscopic? YES; Bilirubin Urine Negative (Negative); Blood Urine Negative (Negative); Glucose Urine UA Negative (Normal); Ketones Urine Negative (Negative); Leukocyte Esterase Urine Negative (Negative); Nitrate Urine Negative (Negative); Protein Urine Negative (Negative); Specific Gravity, Urine 1.016 (1.005-1.030); Urine Appearance Clear (CLEAR); Urine Color Yellow (Yellow); pH Urine 5.5 (5-7)
--- NOTE | 2024-02-29 17:44 | W.ED.ABDPA2 ---
HPI - Abdominal Pain General: Chief Complaint: Abdominal Pain Stated Complaint: Stomach pain, nausea, vomiting, diarreah Time Seen by Provider: 02/29/24 17:22 History of Present Illness: 59-year-old female comes in today with abdominal pain and nausea with vomiting since yesterday. Patient is concerned that she may have a flare of her chronic pancreatitis. Patient appears nontoxic. Patient appears in mild pain. Patient has a history of hypertension, SVT, mitral valve prolapse, CVA in 2016, meningioma, and generalized arthritis. Patient takes [id number] Excedrin and Motrin and occasional prescription hydrocodone for pain. Patient has a history of GERD and takes pantoprazole and Zofran for it. Patient takes medications for blood pressure. Patient takes no blood thinners. Patient does also report a history of hiatal hernia. Associated Symptoms: Reports nausea and vomiting Related Data Home Medications Medication Instructions Recorded Confirmed amlodipine 5 mg tablet 5 mg PO DAILY 08/25/19 02/07/24 metoprolol tartrate 50 mg tablet 50 mg PO BID 08/25/19 02/07/24 ibuprofen 200 mg capsule 200 mg PO Q6H PRN Pain 03/21/23 02/07/24 valsartan 160 1 tab PO DAILY 03/21/23 02/07/24 mg-hydrochlorothiazide 12.5 mg tablet Previous Rx's Medication Instructions Recorded epinephrine 0.3 mg/0.3 mL 0.3 mg (0.3 mL) IM Q15M PRN 12/08/21 injection, auto-injector (EpiPen anaphylaxis #2 ea 2-Shree) duloxetine 60 mg capsule,delayed 60 mg PO DAILY #30 caps 02/07/24 release (Cymbalta) ropinirole 2 mg tablet 2 mg PO .HS #30 tabs 02/07/24 trazodone 100 mg tablet 300 mg (3 x 100 mg) PO .HS PRN 02/07/24 insomnia #90 tabs dicyclomine 20 mg tablet 20 mg PO QID PRN abdominal pain 02/29/24 #30 tabs hydrocodone 5 mg-acetaminophen 325 1 tab PO Q8H PRN pain #7 tabs 02/29/24 mg tablet Allergies Allergy/AdvReac Type Severity Reaction Status Date / Time tramadol [From Ultram] Allergy ALGY-Hives Verified 02/29/24 16:21 Review of Systems General: Reports: 10 or more systems reviewed and unremarkable except in HPI and below GI: Reports: abdominal pain, nausea and vomiting PFSH ED PFSH: Medical History Psychiatric care Cervical pain Low vitamin D level Carotid artery stenosis Bilateral less than 50% from February 2019 SVT (supraventricular tachycardia) CVA (cerebral vascular accident) Hyperlipidemia HTN (hypertension) Surgical History History of partial hysterectomy S/P ablation of atrial fibrillation Social History Smoking and tobacco/nicotine status: never used tobacco/nicotine Alcohol intake: never Substance/Drug Use: never Physical Exam Const: COMMON NORMALS: alert HENMT: COMMON NORMALS: normocephalic HEAD & SCALP: normocephalic THROAT: posterior oropharynx normal Neck/C-Spine: COMMON NORMALS: full ROM Resp: COMMON NORMALS: normal respiratory effort and clear to auscultation bilaterally AUSCULTATION: clear to auscultation bilaterally Cardio: COMMON NORMALS: regular rate RATE: regular rate GI: COMMON NORMALS: Soft to palpation PALPATION: Yes Soft to palpation and Yes Tenderness to palpation present (GI) : COMMON NORMALS: Yes no CVA tenderness BLADDER/KIDNEY EXAM: Yes no CVA tenderness Back/Pelvis: COMMON NORMALS: no CVA tenderness Extremity: COMMON NORMALS: normal to inspection Neuro: SENSORIUM/ORIENTATION: Yes alert Skin: COMMON NORMALS: turgor normal GENERAL SKIN EXAM: turgor normal Course Vital Signs: Vital signs: Vital Signs Temperature 98.3 F 02/29/24 16:16 Pulse Rate 91 02/29/24 16:16 Respiratory Rate 18 02/29/24 16:16 Blood Pressure 123/82 02/29/24 16:16 Pulse Oximetry 94 02/29/24 16:16 Oxygen Delivery Me thod Room Air 02/29/24 16:16 MDM - Abdominal Pain Medical Decision Making 59-year-old female comes in today with generalized abdominal pain along with nausea and vomiting. Patient appears nontoxic. Patient moves all extremities well. Vital signs are normal. Differential diagnosis includes but not limited to pancreatitis, enteritis, gastritis, peptic ulcer disease, diverticulitis, constipation, bowel obstruction. CBC CMP and urinalysis were unremarkable. CT of the abdomen pelvis was performed noting some fluid-filled bowel and some enlargement in lymph nodes. Recommended by the radiologist that patient be monitored and repeat CT scan because of the lymph nodes or to do a PET scan. I reviewed this with patient and reported understanding. Patient will follow-up with primary care for continued care. Patient was written for some hydrocodone for pain. And dicyclomine for diarrhea and abdominal spasms. Lab Data 02/29/24 16:19 02/29/24 16:19 Labs/Radiology: Radiology Impressions Abdomen/Pelvis CT 02/29/24 17:24 IMPRESSION: 1. Fluid in the right and transverse colon without bowel wall thickening or inflammatory change. Diarrheal illness could have this appearance. 2. Prominent and borderline enlarged mesenteric and retroperitoneal lymph nodes, demonstrating gradual increase in size compared to 08/21/2023. Clinical correlation is recommended. Recommend short interval follow-up CT versus PET-CT as indicated. 3. Other nonemergent findings above. Laboratory Results WBC 7.47 10^3/uL (3.29-11.43) 02/29/24 16:19 RBC 4.82 10^6/uL (3.85-5.65) 02/29/24 16:19 Hgb 14.00 g/dL (11.27-16.99) 02/29/24 16:19 Hct 40.8 % (36-47) 02/29/24 16:19 MCV 84.6 fl (85-98) L 02/29/24 16:19 MCH 29.0 pg (27-33) 02/29/24 16:19 MCHC 34.3 g/dL (30-55) 02/29/24 16:19 RDW 13.7 % (12.1-15.1) 02/29/24 16:19 Plt Count 181 10^3/cmm (157-399) 02/29/24 16:19 MPV 9.8 fL (7.4-10.4) 02/29/24 16:19 Neut % (Auto) 79.0 % 02/29/24 16:19 Lymph % (Auto) 13.9 % 02/29/24 16:19 [place] % (Auto) 5.8 % 02/29/24 16:19 Eos % (Auto) 0.9 % 02/29/24 16:19 Baso % (Auto) 0.3 % 02/29/24 16:19 Neut # (Auto) 5.90 10^3/uL (1.8-7.7) 02/29/24 16:19 Lymph # (Auto) 1.0 10^3/uL (0.8-4.8) 02/29/24 16:19 [place] # (Auto) 0.4 10^3/uL (0.2-0.9) 02/29/24 16:19 Eos # (Auto) 0.1 10^3/uL (0.0-0.8) 02/29/24 16:19 Baso # (Auto) 0.0 10^3/uL (0.0-0.1) 02/29/24 16:19 Nucleated RBC % (auto) 0 % 02/29/24 16:19 Nucleated RBCs # 0.0 /100WBC 02/29/24 16:19 Sodium 140 mmol/L (136-145) 02/29/24 16:19 Potassium 3.3 mmol/L (3.5-5.1) L 02/29/24 16:19 Chloride 101 mmol/L (98-107) 02/29/24 16:19 Carbon Dioxide 26 mmol/L (22-29) 02/29/24 16:19 Anion Gap 16.3 (5-19) 02/29/24 16:19 BUN 10 mg/dL (8-23) 02/29/24 16:19 Creatinine 0.8 mg/dL (0.5-0.9) 02/29/24 16:19 GFR Calculation 72.9 mL/min (90-130) L 02/29/24 16:19 Glucose 105 mg/dL (65-115) 02/29/24 16:19 Calculated Osmolality 289 mOsm/kg (285-295) 02/29/24 16:19 Calcium 9.3 mg/dL (8.5-10.5) 02/29/24 16:19 Total Bilirubin 0.7 mg/dL (0.15-1.2) 02/29/24 16:19 AST 15 U/L (0-32) 02/29/24 16:19 ALT 18 U/L (0-33) 02/29/24 16:19 Alkaline Phosphatase 102 U/L (35-105) 02/29/24 16:19 Total Protein 6.5 g/dL (6.6-8.7) L 02/29/24 16:19 Albumin 4.4 g/dL (3.5-5.2) 02/29/24 16:19 Globulin 2.1 g/dL (1.3-4.6) 02/29/24 16:19 Lipase 15 U/L (13-60) 02/29/24 16:19 Urine Color Yellow (Yellow) 02/29/24 16:25 Urine Appearance Clear (CLEAR) 02/29/24 16:25 Urine pH 5.5 (5-7) 02/29/24 16:25 Ur Specific [place] 1.016 (1.005-1.030) 02/29/24 16:25 Urine Protein Negative (Negative) 02/29/24 16:25 Urine Glucose (UA) Negative (Normal) 02/29/24 16:25 Urine Ketones Negative (Negative) 02/29/24 16:25 Urine Blood Negative (Negative) 02/29/24 16:25 Urine Nitrate Negative (Negative) 02/29/24 16:25 Urine Bilirubin Negative (Negative) 02/29/24 16:25 Urine Urobilinogen 1.0 mg/dL (Negative) 02/29/24 16:25 Ur Leukocyte Esterase Negative (Negative) 02/29/24 16:25 Urine RBC 0-2 /hpf (0-2) 02/29/24 16:25 Urine WBC 0-5 /hpf (0-5) 02/29/24 16:25 Ur Squamous Epith Cells 0-5 /hpf (0-5) 02/29/24 16:25 Amorphous Sediment Not Reportable 02/29/24 16:25 Urine Bacteria None seen /hpf (NONE) 02/29/24 16:25 Hyaline Casts 1.65 /lpf 02/29/24 16:25 All radiology interpretation(s) finalized by discharge Discharge Plan Discharge Patient Disposition: Home Clinical Impression: Enteritis, Mesenteric lymphadenopathy Abdominal pain Qualifiers: Abdominal location: generalized Qualified Code(s): R10.84 - Generalized abdominal pain Condition: Stable Prescriptions: New dicyclomine 20 mg tablet 20 mg PO QID PRN (Reason: abdominal pain) Qty: 30 0RF Continued hydrocodone-acetaminophen 5-325 mg tablet 1 tab PO Q8H PRN (Reason: pain) Qty: 7 0RF No Action ropinirole 2 mg tablet 2 mg PO .HS Qty: 30 2RF duloxetine [Cymbalta] 60 mg capsule,delayed release(DR/EC) 60 mg PO DAILY Qty: 30 2RF trazodone 100 mg tablet 300 mg PO .HS PRN (Reason: insomnia) Qty: 90 2RF valsartan-hydrochlorothiazide 160-12.5 mg tablet 1 tab PO DAILY ibuprofen 200 mg capsule 200 mg PO Q6H PRN (Reason: Pain) amlodipine 5 mg tablet 5 mg PO DAILY metoprolol tartrate 50 mg tablet 50 mg PO BID epinephrine [EpiPen 2-Shree] 0.3 mg/0.3 mL auto-injector 0.3 mg IM Q15M PRN (Reason: anaphylaxis) Qty: 2 0RF Rx Instructions: not to exceed 6 doses per episode Discharge Orders: Discharge ED (Routine); Ordered 02/29/24 Ordered By: Vinh Kelly Referrals: Joselito Sylvester DO [Primary Care Provider] - Discharge Diet: Usual diet Discharge Activity: Increase activity as tolerated Patient Instructions: Abdominal Pain (ED), Opioid Safety Activity Restrictions/Additional Instructions: Home and rest. Drink plenty of water and fluids. Use Zofran as needed for nausea. Use hydrocodone as needed for pain. Use dicyclomine as needed for abdominal pain and spasms. May use [id number] Imodium for diarrhea. Follow-up with primary care within 1 week to discuss abnormalities from CT scan and need for follow-up. Return to ER for new concerns or worsening symptoms such as high fever greater than 100.4, blood in vomit or stool, or new concerns. Thank you for choosing [facility] for your healthcare needs today. Please realize this is an emergency room and that we are providing you with a medical screening exam and this may not be complete and all inclusive of all the testing and or work up that you may need to determine your ailment or severity of your illness. You have been screened and evaluated and felt safe for discharge. Health conditions do change or evolve sometimes and as such it is important that you follow up with your Primary Doctor to be re checked, 3-5 days is a general good time frame for follow up. You are always welcome to return to the ED for re assessment if your symptoms are worsening or you have new concerns Coding Level of Care Code ED [employer] Mushroom for Jossue Mitchell
[2024-02-29] MEDS: lactated ringers 1,000 ML 999 ML IV (18:09)
[2024-02-29] MEDS: ondansetron 2 mg/ML SDV 2 mL 4 MG IVP (18:12)
[2024-02-29] MEDS: morphine 4 mg/mL SDV 1 mL IVP (18:12)
[2024-02-29] MEDS: iohexol 350 mg/mL 500 mL Btl (per mL) IV (18:17)
[2024-02-29] MEDS: diphenoxylate/atropine Tablet 2 TAB PO (20:06)
[2024-02-29 20:07] VITALS: BP 127/89; PULSE 97; RESP 20; O2SAT 98
== END 2024-02-29 20:08 | disposition home or self-care (01) ==
PROVIDERS: Emergency Medicine; Emergency Provider Nurse Practitioner Family; PCP Electrodiagnostic Medicine
DX: K52.9 Noninfective gastroenteritis and colitis, unspecified (principal); R59.1 Generalized enlarged lymph nodes; R10.84 Generalized abdominal pain; Z86.73 Personal history of transient ischemic attack (TIA), and cerebral infarction without residual deficits; E78.5 Hyperlipidemia, unspecified; I10 Essential (primary) hypertension
CPT/HCPCS: 36415; 74177; 80053; 81001; 83690; 85025; 93005; 96374; 96375; 99285; J2270; J2405; J7120

== ENCOUNTER 2024-03-07 13:48 | Outpatient (CLI) | payer MEDICARE, MEDICAID, SELFPAY ==
--- NOTE | 2024-03-07 14:00 | US_ITS ---
WS: [email or web address] Thyroid ultrasound, 03/07/2024 Clinical Data: thyroid nodule Comparison: None. Findings: The right lobe of thyroid measures 4.0 cm x 1.9 cm x 1.5 cm. There is a heterogeneous nodule in the m idportion of the right thyroid measuring 1.5 x 1.9 x 4.0 cm. The left lobe measures 2.9 cm x 1.2 cm x 0.7 cm. The left lobe of thyroid shows a uniform echotexture . The isthmus measured 0.3 mm. There is a left cervical lymph node. US/US thyroid [id number] Impression: 1.9 cm heterogeneous nodule of the right lobe of the thyroid.
== END 2024-03-07 13:49 | disposition home or self-care (01) ==
LOC: RAD 13:51
PROVIDERS: PCP Electrodiagnostic Medicine; Visit Provider Internal Medicine
DX: E04.1 Nontoxic single thyroid nodule (principal)
CPT/HCPCS: 76536

== ENCOUNTER → 2024-03-11 11:25 | Outpatient (BNVA) | payer OTHER, SELFPAY | PROVIDERS: PCP Electrodiagnostic Medicine; Visit Provider Psychiatry & Neurology Psychiatry | DX: F41.1 Generalized anxiety disorder (principal); F33.2 Major depressive disorder, recurrent severe without psychotic features; F43.12 Post-traumatic stress disorder, chronic | CPT/HCPCS: 80061; 83036 ==

== ENCOUNTER → 2024-03-12 13:57 | Outpatient (BNVA) | payer MEDICARE, OTHER, MEDICAID, SELFPAY | PROVIDERS: PCP Electrodiagnostic Medicine; Visit Provider Psychiatry & Neurology Neurology | DX: G43.711 Chronic migraine without aura, intractable, with status migrainosus (principal); R41.3 Other amnesia; R55 Syncope and collapse; R13.10 Dysphagia, unspecified; R29.90 Unspecified symptoms and signs involving the nervous system | CPT/HCPCS: 99212 ==

== ENCOUNTER 2024-03-15 08:34 | Outpatient (CLI) | payer MEDICARE, MEDICAID, SELFPAY ==
--- NOTE | 2024-03-15 08:45 | MR_ITS ---
WS: [email or web address] MRI HEAD WITH CONTRAST TECHNIQUE: Sagittal T1, T2 axial, T2 axial FLAIR, axial susceptibility weighted imaging, axial diffus ion weighted images, and coronal T2 images were obtained. Pre and post-T1 axial and post T1 coronal i mages. ADC and FSPGR images. CLINICAL INFORMATION: R13.10 - Dysphagia, unspecified COMPARISON: MRI 09/12/2023 FINDINGS: No evidence of restricted diffusion to suggest acute ischemia. Ventricular system and basilar cistern s are patent. Mild small vessel changes. Mild parenchymal volume loss. Normal posterior fossa. Normal vascular flow voids at the skull base. No extra-axial fluid collections. No evidence of mass or mass effect. Paranasal sinuses are well aerated. Mastoid air cells are well aerated. No hemosiderin on the suscept ibly weighted images. Normal optic chiasm and pituitary infundibulum. Stable previously described 7 mm meningioma overlying the posterior LEFT frontal lobe. No underlying edema. MR/MR head wo/w con [id number] IMPRESSION: 1. No evidence of restricted diffusion to suggest acute ischemia. 2. Stable mild small vessel changes with mild parenchymal volume loss. 3. No hemosiderin on the susceptibly weighted images. 4. Stable previously described meningioma overlying the posterior LEFT frontal lobe. No underlying edema.
[2024-03-15] MEDS: gadobenate dimeglumine 20 mL vial IV (09:50)
== END 2024-03-15 08:35 | disposition home or self-care (01) ==
PROVIDERS: PCP Electrodiagnostic Medicine; Visit Provider Psychiatry & Neurology Neurology
DX: R13.10 Dysphagia, unspecified (principal); R55 Syncope and collapse; G43.711 Chronic migraine without aura, intractable, with status migrainosus; R41.3 Other amnesia; D32.0 Benign neoplasm of cerebral meninges
CPT/HCPCS: 70553; A9577

== ENCOUNTER 2024-04-11 08:04 | Outpatient (CLI) | payer MEDICARE, MEDICAID, SELFPAY ==
[2024-03-15 11:59] VITALS: BP 135/88; BMI 31.7
--- NOTE | 2024-04-11 08:00 | NM_ITS ---
WS: [email or web address] NUCLEAR MEDICINE GASTRIC STUDY CLINICAL INFORMATION: HIATAL HERNIA TECHNIQUE: Following oral ingestion of cooked egg mixed with 989 uCi technetium 99m sulfur colloid, a nterior images of the stomach were obtained over the course of 90 minutes. Activity curve was perform ed over the course of 90 minutes with linear regression analysis. COMPARISON: None. FINDINGS: Technetium 99m labeled sulfur colloid egg mixture was ingested. T1 half emptying 95.99 minutes within normal limits 34% gastric emptying at 60 minutes 69% gastric emptying at 120 minutes NM/[place] [id number] IMPRESSION: Normal gastric emptying *Normal median T1 half 90 minutes for solid egg meal (45-110 minutes). Delayed gastric retention is defined as 90% retained at 1 hour, 60% at 2 hour s, 30% at 3 hours, and 10% at 4 hours (normal percent gastric retention is 37-9 0% at 1 hour, 30-60% at 2 hours, and 0-10% at 4 hours).
== END 2024-04-11 08:05 | disposition home or self-care (01) ==
PROVIDERS: PCP Electrodiagnostic Medicine; Visit Provider Nurse Practitioner Family
DX: K44.9 Diaphragmatic hernia without obstruction or gangrene (principal)
CPT/HCPCS: 78264; A9541

== ENCOUNTER 2024-04-17 11:01 | Outpatient (CLI) | payer MEDICARE, MEDICAID, SELFPAY ==
[2024-03-15 11:59] VITALS: BP 135/88; BMI 31.7
--- NOTE | 2024-04-17 11:45 | US_ITS ---
WS: [email or web address] ULTRASOUND-GUIDED RIGHT THYROID NODULE FNA HISTORY: E04.1 - Nontoxic single thyroid nodule Procedure, risks, and complications were explained to the patient. Consent has been obtained. Comparison: 03/07/2024 The skin is cleansed with ChloraPrep and anesthetized with 1% buffered lidocaine. FNA performed with [address] technologist is present to fix slides. US/US biopsy/FNA thyroid [id number] IMPRESSION: Uncomplicated FNA of a RIGHT thyroid nodule. Final pathology results pending.
== END 2024-04-17 11:02 | disposition home or self-care (01) ==
PROVIDERS: PCP Electrodiagnostic Medicine; Visit Provider Internal Medicine
DX: E04.1 Nontoxic single thyroid nodule (principal)
CPT/HCPCS: 10005; 88173

== ENCOUNTER 2024-04-17 11:31 | Outpatient (CLI) | payer MEDICARE, MEDICAID, SELFPAY ==
[2024-03-15 11:59] VITALS: BP 135/88; BMI 31.7
--- NOTE | 2024-04-17 11:36 | XR_ITS ---
WS: [email or web address] XR chest 2V* [id number] REASON FOR EXAM: CERVICAL LYMPHADENOPATHY FINDINGS: The chest is unchanged compared to 12/15/2019. There is mild tortuosity of the thoracic aorta and normal heart size. Calcified granulomas disease bilaterally. No acute pulmonary parenchymal or pleural abnormality. Mild thoracic levoscoliosis with mild degenerative spondylosis. XR/XR chest 2V* [id number] IMPRESSION: Stable chest without acute abnormality.
== END 2024-04-17 11:32 | disposition home or self-care (01) ==
LOC: RADOUTREAD 04-18 11:33
PROVIDERS: PCP Electrodiagnostic Medicine; Visit Provider Electrodiagnostic Medicine
DX: R50.9 Fever, unspecified (principal)

== ENCOUNTER 2024-04-19 15:55 | Emergency (ER) | payer MEDICARE, MEDICAID, SELFPAY ==
[2024-03-15 11:59] VITALS: BP 135/88; BMI 31.7
--- NOTE | 2024-04-19 16:00 | ECG_ITS ---
[facility] Date: 2024-[facility]19 Pat Name: Jessica Moon Department: Room: Gender: Female Spray Pilot: : 1965 Requested By: Evan Zhang Order Number: [id number] Deny MD: Rea Melvin M.D. Measurements Intervals [place] Rate: 64 P: 53 ND: 184 QRS: 38 QRSD: 94 T: 40 QT: 417 QTc: 432 Interpretive Statements SINUS RHYTHM WITH SINUS ARRHYTHMIA POSSIBLE LEFT ATRIAL ENLARGEMENT [-0.1mV P-WAVE IN V1/V2] Compared to ECG 02/29/2024 16:24:34 ST (T wave) deviation no longer present Electronically Signed On 04-19-2024 17:45:55 PASTEURIZING SUPERVISOR by Rea Melvin M.D. [email or web address]
[2024-04-19 16:02] VITALS: BP 126/81; PULSE 66; RESP 16; TEMP 36.6; O2SAT 96
--- NOTE | 2024-04-19 16:03 | XR_ITS ---
WS: [email or web address] XR chest 1V portable [id number] REASON FOR EXAM: palpitations FINDINGS: Chest is unchanged compared to 04/17/2024. No significant cardiomegaly. Calcified granulomas disease in both hemithoraces. No acute pulmonary parenchymal or pleural abnormality. There is chronic blunting of the right costoph renic angle. Mild degenerative spondylosis in the mid thoracic spine. Moderate tortuosity and ectasia of the thoracic aorta. XR/XR chest 1V portable [id number] IMPRESSION: No acute chest abnormality.
[2024-04-19 16:24] LABS: Bilirubin Urine Negative (Negative); Blood Urine Negative (Negative); Glucose Urine UA Negative (Normal); Ketones Urine Negative (Negative); Leukocyte Esterase Urine Negative (Negative); Nitrate Urine Negative (Negative); Protein Urine Negative (Negative); Specific Gravity, Urine 1.006 (1.005-1.030); Urine Appearance Clear (CLEAR); Urine Color Yellow (Yellow); pH Urine 7.5 (5-7)
[2024-04-19 16:26] LABS: Bacteria Urine None Seen /hpf; Hyaline Casts Urine 0-4 /lpf; RBC Urine 0-2 /hpf (0-2); Squamous Epithelial Cell Urine 0-5 /hpf (0-5); WBC Urine 0-5 /hpf (0-5)
[2024-04-19 16:46] LABS: Basophils % 0.4 %; Eosinophils # 0.1 10^3/uL (0.0-0.8); Eosinophils % 2.6 %; Hematocrit 44.7 % (36-47); Lymphocytes # 1.8 10^3/uL (0.8-4.8); Lymphocytes % 33.5 %; Mean Corpuscular HGB Conc 32.7 g/dL (30-55); Mean Corpuscular Hemoglobin 28.6 pg (27-33); Mean Corpuscular Volume 87.6 fl (85-98); Mean Platelet Volume 9.8 fL (7.4-10.4); Monocytes # 0.3 10^3/uL (0.2-0.9); Monocytes % 6.2 %; Neutrophils # 3.03 10^3/uL (1.8-7.7); Neutrophils % 56.9 %; Nucleated Red Blood Cells % 0 %; Platelet Count 251 10^3/cmm (157-399); Red Cell Distribution Width 13.8 % (12.1-15.1); White Blood Count 5.32 10^3/uL (3.29-11.43)
[2024-04-19 16:55] LABS: Covid PCR NEGATIVE (Negative); Influenza A NEGATIVE (Negative); Influenza B NEGATIVE (Negative); Respiratory Syncytial Virus Ce NEGATIVE (Negative)
[2024-04-19 17:06] LABS: Lactic Sepsis W/Reflex 1.1 mmol/L (0.5-2.2); Troponin(5th) Baseline < 6 ng/L (0-10)
[2024-04-19 17:15] LABS: Alanine Aminotransferase 22 U/L (0-33); Alkaline Phosphatase 94 U/L (35-105); Anion Gap 14.6 (5-19); Aspartate Amino Transferase 12 U/L (0-32); Blood Urea Nitrogen 16 mg/dL (8-23); Calcium 9.5 mg/dL (8.5-10.5); Carbon Dioxide 30 mmol/L (22-29); Chloride 99 mmol/L (98-107); Creatinine Clr Calc Pharmacy 74.4735; Globulin 1.1 g/dL (1.3-4.6); Glomerular Filtration Rate 63.7 mL/min (90-130); Glucose 98 mg/dL (65-115); Magnesium 2.2 mg/dL (1.7-2.3); NT Pro B Type Natriuretic Pept 111 pg/mL (0-125); Osmolality Calculated 291 mOsm/kg (285-295); Potassium 3.6 mmol/L (3.5-5.1); Sodium 140 mmol/L (136-145); Thyroid Stimulating Hormone 1.79 uIU/mL (0.27-4.20); Total Bilirubin 0.3 mg/dL (0.15-1.2); Total Protein 6.1 g/dL (6.6-8.7)
--- NOTE | 2024-04-19 17:59 | ECG_ITS ---
[facility]: [facility]24-[facility]19 Pat Name: Jessica Moon Department: Room: Gender: Female Rattle Leak And Squeak Repairer: : 1965 Requested By: Hillary Zhang Order Number: [id number] Deny MD: Rea Melvin M.D. Measurements Intervals [place] Rate: 62 P: 16 PA: 187 QRS: 27 QRSD: 94 T: 40 QT: 419 QTc: 427 Interpretive Statements SINUS RHYTHM POSSIBLE LEFT ATRIAL ENLARGEMENT [-0.1mV P-WAVE IN V1/V2] Compared to ECG 04/19/2024 16:00:04 Sinus arrhythmia no longer present Electronically Signed On 04-19-2024 18:13:08 FARM TECHNICIAN by Rea Melvin M.D. [email or web address]
[2024-04-19 18:38] VITALS: BP 179/78; PULSE 60; RESP 18; O2SAT 98
[2024-04-19 18:44] LABS: Troponin 5 2HR Delta 0.00001 ABS# (0-10)
--- NOTE | 2024-04-19 18:57 | ED_ITS ---
HPI - Arrhythmia/Palpitations 2 General: Chief Complaint: Arrhythmia/Palpitations Stated Complaint: palpations, light headness Time Seen by Provider: 04/19/24 18:37 History of Present Illness: Patient presents to the ER today with history of palpitations today. This morning lasted 3 hours and stop and approximate hour ago they started up again. They have resolved again by the time patient went to the emergency room. Patient does have a history of SVT with ablation in 2006. Patient has not taken her nighttime dose of blood pressure medicine that does include metoprolol valsartan HCTZ. Patient is in no acute distress and nontoxic at this moment. Related Data Home Medications Medication Instructions Recorded Confirmed amlodipine 5 mg tablet 5 mg PO DAILY 08/25/19 03/12/24 metoprolol tartrate 50 mg tablet 50 mg PO BID 08/25/19 03/12/24 ibuprofen 200 mg capsule 200 mg PO Q6H PRN Pain 03/21/23 03/12/24 valsartan 160 1 tab PO DAILY 03/21/23 03/12/24 mg-hydrochlorothiazide 12.5 mg tablet fcpeueh-fiinrjzwfhppz-bzwnmfou 250 2 tab PO Q6H PRN 03/12/24 03/12/24 mg-250 mg-65 mg tablet (Excedrin Migraine) Previous Rx's Medication Instructions Recorded epinephrine 0.3 mg/0.3 mL 0.3 mg (0.3 mL) IM Q15M PRN 12/08/21 injection, auto-injector (EpiPen anaphylaxis #2 ea 2-Shree) duloxetine 60 mg capsule,delayed 60 mg PO DAILY #30 caps 02/07/24 release (Cymbalta) trazodone 100 mg tablet 300 mg (3 x 100 mg) PO .HS PRN 02/07/24 insomnia #90 tabs Allergies Allergy/AdvReac Type Severity Reaction Status Date / Time adhesive Allergy ALGY-Rash Verified 04/19/24 16:06 tramadol [From Ultram] Allergy ALGY-Hives Verified 04/19/24 16:06 Review of Systems 2 General: Reports: 10 or more systems reviewed and unremarkable except in HPI and below PFSH ED 2 PFSH: Medical History Psychiatric care Cervical pain Low vitamin D level Carotid artery stenosis Bilateral less than 50% from February 2019 SVT (supraventricular tachycardia) CVA (cerebral vascular accident) Hyperlipidemia HTN (hypertension) Surgical History History of partial hysterectomy S/P ablation of atrial fibrillation Social History Smoking and tobacco/nicotine status: never used tobacco/nicotine Alcohol intake: never Substance/Drug Use: never Adopted: No Caregiver/support person: No Lives independently: Yes Household members: other Details: son lives with her Housing: House Marital status: Legally Number of children: 6 Highest education level completed: High School Graduate service: No Current occupational status: disabled Pets and animals: Yes Pets & animals: dog(s) and farm animals Farm Animals: chicken/turkey/other poultry Leisure activites: reading and other Leisure activities details: knitting, and TV Sexually active: Yes Do you think of yourself as: Straight/Heterosexual Current gender identity: Female Khloe/Temple: Yarsanism Special khloe needs: No Agree to transfusion: Yes Female Reproductive History: Para: 6 Spontaneous abortions: No Physical Exam 2 Const: COMMON NORMALS: no acute distress, average body habitus, patient oriented x3, no limitations, healthy appearing, alert and well nourished HENMT: COMMON NORMALS: normocephalic, atraumatic, hearing grossly normal bilaterally, external ears normal, Normal external nose present and moist oral mucous membranes HEAD & SCALP: normocephalic and atraumatic NOSE: Normal external nose present EXTERNAL EAR: Yes external ears normal Neck/C-Spine: COMMON NORMALS: no JVD Chest: COMMONS NORMALS: normal inspection of the chest and normal palpation of entire chest wall Resp: COMMON NORMALS: normal respiratory effort, No retractions, No use of accessory muscles and clear to auscultation bilaterally AUSCULTATION: clear to auscultation bilaterally Cardio: COMMON NORMALS: no JVD, regular rate, regular rhythm, S1 normal heart sound present, S2 normal heart sound present, No gallops present (Cardio), No clicks present (Cardio), No murmurs present (Cardio) and No rub (Cardio) R ATE: regular rate RHYTHM: regular rhythm HEART SOUNDS: S1 normal heart sound present and S2 normal heart sound present GI: COMMON NORMALS: Normal to inspection, nondistended, normoactive bowel sounds present, Soft to palpation, non-tender, No hepatosplenomegaly present and no masses PALPATION: Yes Soft to palpation and Yes No hepatosplenomegaly present Neuro: COMMON NORMALS: patient oriented x3 SENSORIUM/ORIENTATION: Yes alert Course 2 Vital Signs: Vital signs: Vital Signs Temperature 97.9 F 04/19/24 16:02 Pulse Rate 57 L 04/19/24 19:20 Respiratory Rate 18 04/19/24 18:38 Blood Pressure 151/64 04/19/24 19:20 Pulse Oximetry 98 04/19/24 19:20 Oxygen Delivery Me thod Room Air 04/19/24 18:38 MDM - Arrhythmia/Palpitations Medical Decision Making Patient lab work did come back as negative, chest x-ray negative, patient has palpitations, patient be discharged home to follow-up with her PCP Medical Records I reviewed the patient's medical records. Lab Data I reviewed the patient's lab results. 04/19/24 16:29 04/19/24 16:29 Radiology Impressions Chest X-Ray 04/19/24 16:03 IMPRESSION: No acute chest abnormality. Laboratory Results WBC 5.32 10^3/uL (3.29-11.43) 04/19/24 16: RBC 5.10 10^6/uL (3.85-5.65) 04/19/24 16:29 Hgb 14.60 g/dL (11.27-16.99) 04/19/24 16:29 Hct 44.7 % (36-47) 04/19/24 16: MCV 87.6 fl (85-98) 04/19/24 16:29 MCH 28.6 pg (27-33) 04/19/24 16:29 MCHC 32.7 g/dL (30-55) 04/19/24 16:29 RDW 13.8 % (12.1-15.1) 04/19/24 16:29 Plt Count 251 10^3/cmm (157-399) 04/19/24 16:29 MPV 9.8 fL (7.4-10.4) 04/19/24 16: Neut % (Auto) 56.9 % 04/19/24 16: Lymph % (Auto) 33.5 % 04/19/24 16:29 [place] % (Auto) 6.2 % 04/19/24 16: Eos % (Auto) 2.6 % 04/19/24 16: Baso % (Auto) 0.4 % 04/19/24 16: Neut # (Auto) 3.03 10^3/uL (1.8-7.7) 04/19/24 16: Lymph # (Auto) 1.8 10^3/uL (0.8-4.8) 04/19/24 16: [place] # (Auto) 0.3 10^3/uL (0.2-0.9) 04/19/24 16: Eos # (Auto) 0.1 10^3/uL (0.0-0.8) 04/19/24 16: Baso # (Auto) 0.0 10^3/uL (0.0-0.1) 04/19/24 16: Nucleated RBC % (auto) 0 % 04/19/24 16: Nucleated RBCs # 0.0 /100WBC 04/19/24 16:29 Sodium 140 mmol/L (136-145) 04/19/24 16:29 Potassium 3.6 mmol/L (3.5-5.1) 04/19/24 16: Chloride 99 mmol/L (98-107) 04/19/24 16: Carbon Dioxide 30 mmol/L (22-29) H 04/19/24 16:29 Anion Gap 14.6 (5-19) 04/19/24 16:29 BUN 16 mg/dL (8-23) 04/19/24 16: Creatinine 0.9 mg/dL (0.5-0.9) 04/19/24 16:29 GFR Calculation 63.7 mL/min (90-130) L 04/19/24 16:29 Glucose 98 mg/dL (65-115) 04/19/24 16: Calculated Osmolality 291 mOsm/kg (285-295) 04/19/24 16: Lactic Acid 1.1 mmol/L (0.5-2.2) 04/19/24 16:29 Calcium 9.5 mg/dL (8.5-10.5) 04/19/24 16:29 Magnesium 2.2 mg/dL (1.7-2.3) 04/19/24 16:29 Total Bilirubin 0.3 mg/dL (0.15-1.2) 04/19/24 16:29 AST 12 U/L (0-32) 04/19/24 16:29 ALT 22 U/L (0-33) 04/19/24 16:29 Alkaline Phosphatase 94 U/L (35-105) 04/19/24 16:29 Troponin T Baseline < 6 ng/L (0-10) 04/19/24 16:29 Troponin T 120 Minute 6.00 ng/L (0-10) 04/19/24 18:15 Delta Troponin T 0.77079 ABS# (0-10) 04/19/24 18:15 NT-Pro-B Natriuret Pep 111 pg/mL (0-125) 04/19/24 16:29 Total Protein 6.1 g/dL (6.6-8.7) L 04/19/24 16:29 Albumin 5.0 g/dL (3.5-5.2) 04/19/24 16:29 Globulin 1.1 g/dL (1.3-4.6) L 04/19/24 16:29 TSH 1.79 uIU/mL (0.27-4.20) 04/19/24 16:29 Urine Color Yellow (Yellow) 04/19/24 16:15 Urine Appearance Clear (CLEAR) 04/19/24 16:15 Urine pH 7.5 (5-7) 04/19/24 16:15 Ur Specific [place] 1.006 (1.005-1.030) 04/19/24 16:15 Urine Protein Negative (Negative) 04/19/24 16:15 Urine Glucose (UA) Negative (Normal) 04/19/24 16:15 Urine Ketones Negative (Negative) 04/19/24 16:15 Urine Blood Negative (Negative) 04/19/24 16:15 Urine Nitrate Negative (Negative) 04/19/24 16:15 Urine Bilirubin Negative (Negative) 04/19/24 16:15 Urine Urobilinogen 1.0 mg/dL (Negative) 04/19/24 16:15 Ur Leukocyte Esterase Negative (Negative) 04/19/24 16:15 Urine RBC 0-2 /hpf (0-2) 04/19/24 16:15 Urine WBC 0-5 /hpf (0-5) 04/19/24 16:15 Ur Squamous Epith Cells 0-5 /hpf (0-5) 04/19/24 16:15 Amorphous Sediment Not Reportable 04/19/24 16:15 Urine Bacteria None seen /hpf (NONE) 04/19/24 16:15 Hyaline Casts 0-4 /lpf H 04/19/24 16:15 Coronavirus (PCR) Negative (Negative) 04/19/24 16:10 Influenza A (PCR) Negative (Negative) 04/19/24 16:10 Influenza Type B (PCR) Negative (Negative) 04/19/24 16:10 RSV (PCR) Negative (Negative) 04/19/24 16:10 All radiology interpretation(s) finalized by discharge Discharge Plan Discharge Patient Disposition: Home Clinical Impression: Palpitations Condition: Stable Prescriptions: No Action Excedrin Migraine 250-250-65 mg tablet 2 tab PO Q6H PRN duloxetine [Cymbalta] 60 mg capsule,delayed release(DR/EC) 60 mg PO DAILY Qty: 30 2RF trazodone 100 mg tablet 300 mg PO .HS PRN (Reason: insomnia) Qty: 90 2RF valsartan-hydrochlorothiazide 160-12.5 mg tablet 1 tab PO DAILY ibuprofen 200 mg capsule 200 mg PO Q6H PRN (Reason: Pain) amlodipine 5 mg tablet 5 mg PO DAILY metoprolol tartrate 50 mg tablet 50 mg PO BID epinephrine [EpiPen 2-Shree] 0.3 mg/0.3 mL auto-injector 0.3 mg IM Q15M PRN (Reason: anaphylaxis) Qty: 2 0RF Rx Instructions: not to exceed 6 doses per episode Discharge Orders: Discharge ED (Routine); Ordered 04/19/24 Ordered By: Levi Carmona Referrals: Joselito Sylvester DO [Primary Care Provider] - 1 week Patient Instructions: Heart Palpitations (DC) Activity Restrictions/Additional Instructions: Thank you for choosing [facility] for your healthcare needs today. Please realize that you were seen in the emergency department and that we are providing you with an emergency medical screening exam and this may not be a complete and all exclusive of all testing and/or medical workup we may need to determine your element or severity of your illness. It is very important that you follow-up as instructed with your primary care provider or specialist for the additional evaluation and to discuss your medical treatment plan. You may return to the emergency department should you have concerns or if your condition changes or worsens in any way. Coding Level of Care Code ED Allied Health Teacher for Jossue Mitchell
[2024-04-19 19:20] VITALS: BP 151/64; PULSE 57; O2SAT 98
== END 2024-04-19 19:22 | disposition home or self-care (01) ==
PROVIDERS: Emergency Medicine; Emergency Provider Emergency Medicine; PCP Electrodiagnostic Medicine
DX: R00.2 Palpitations (principal); Z11.52 Encounter for screening for COVID-19; E78.5 Hyperlipidemia, unspecified; I10 Essential (primary) hypertension
CPT/HCPCS: 0241U; 36415; 71045; 80053; 81001; 83605; 83735; 83880; 84443; 84484; 85025; 93005; 99285

== ENCOUNTER 2024-05-02 09:31 | Outpatient (CLI) | payer MEDICARE, MEDICAID, SELFPAY ==
[2024-03-15 11:59] VITALS: BP 135/88; BMI 31.7
--- NOTE | 2024-05-02 09:35 | MM_ITS ---
WS: [id number] BILATERAL 3D TOMOSYNTHESIS DIGITAL DIAGNOSTIC MAMMOGRAPHY WITH CAD CLINICAL INFORMATION: LUMP IN ARMPIT HISTORY: Lump in armpit. LEFT nipple tenderness. COMPARISON: 2022 TECHNIQUE: Bilateral CC, MLO, and ML views. FINDINGS: Scattered fibroglandular densities bilaterally. Vascular calcification. A few punctate calcifications . Ultrasound LEFT breast in the areas of concern is pending. RIGHT breast appears unchanged since 2022. ULTRASOUND BREAST LEFT TECHNIQUE: Ultrasound left breast focused area of concern. CLINICAL INFORMATION: LUMP IN ARMPIT FINDINGS: Ultrasound LEFT breast at the axilla and nipple in the areas of concern. No suspicious abnormalities at the areola. Ultrasound LEFT axilla in the area of pain demonstrates normal underlying tissue. Normal-appearing LE FT axillary lymph node. A few slightly prominent LEFT axillary lymph nodes measuring up to 1.9 cm lik hoda reactive with an otherwise normal appearance. No suspicious findings to target for biopsy. MM/MM diag tomosynthesis [id number] IMPRESSION: DENSITY: There are scattered areas of fibroglandular density. BI-RADS: 2 - Benign. FOLLOW UP: 1 Year Follow-up Recommend return to annual screening mammography.
== END 2024-05-02 09:32 | disposition home or self-care (01) ==
LOC: RAD 09:32
PROVIDERS: PCP Electrodiagnostic Medicine; Visit Provider Electrodiagnostic Medicine
DX: N63.32 Unspecified lump in axillary tail of the left breast (principal)
CPT/HCPCS: 76642; 77062; G0279

== ENCOUNTER 2024-05-07 07:44 | Outpatient (CLI) | payer MEDICARE, MEDICAID, SELFPAY ==
[2024-03-15 11:59] VITALS: BP 135/88; BMI 31.7
--- NOTE | 2024-05-07 07:46 | CTR_ITS ---
PROCEDURE INFORMATION: Exam: CT Neck With Contrast Exam date and time: 05/07/2024 8:26 AM Age: 59 years old Clinical indication: Enlarged lymph nodes; Generalized; Patient HX: Follow up to enlarged lymp nodes in neck, armpits, . patient couldn't pinpoint one in neck. ; Additional info: Cervical lymphadenopathy TECHNIQUE: Imaging protocol: Computed tomography of the neck with contrast. Radiation optimization: All CT scans at this facility use at least one of these dose optimization techniques: automated exposure control; mA and/or kV adjustment per patient size (includes targeted exams where dose is matched to clinical indication); or iterative reconstruction. Contrast material: OMNI 350; Contrast volume: 100 ml; Contrast route: INTRAVENOUS (IV); COMPARISON: MR cervical spine wo/w [id number] 11/16/2023 11:04 AM RADIATION DOSE METRICS: Total DLP (mGy-cm): 179.12 FINDINGS: Salivary glands: Normal. Glands are normal in size. Pharynx: Unremarkable. No significant tonsillar enlargement. Prevertebral and retropharyngeal spaces: Unremarkable. Larynx: Unremarkable. Epiglottis is normal. Thyroid: There is a right lobe thyroid nodule measuring 18 mm in size. Please refer to report from ultrasound thyroid exam performed on 03/07/2024. The left lobe of the thyroid gland has a normal CT appearance. Trachea: Visualized trachea is unremarkable. Lungs: Unremarkable as visualized. Lymph nodes: There are multiple small lymph nodes within the neck bilaterally. No enlarged lymph nodes are appreciated. Bones/joints: Unremarkable. No acute fracture. Soft tissues: Unremarkable. No significant soft tissue swelling. CT/CT neck w con* [id number] IMPRESSION: 1. Right lobe thyroid nodule. Please refer to report from ultrasound thyroid exam performed on 03/07/2024. 2. Multiple small nodes within the neck bilaterally. No enlarged nodes are appreciated. COMMENTS: Consistent with the [employer]'s Incidental Findings Committee white paper (J Am Caridad Radiol 2015): In patients aged 35 years and older with an incidental thyroid nodule equal to or greater than 1.[address], MRI or extrathyroidal US, further evaluation with dedicated thyroid US is recommended for patients with normal life expectancy and without comorbidities. For smaller nodules without suspicious features, no further evaluation or follow up is recommended.
[2024-05-07] MEDS: iohexol 350 mg/mL 500 mL Btl (per mL) IV (08:39)
== END 2024-05-07 07:45 | disposition home or self-care (01) ==
LOC: RAD 07:44
PROVIDERS: PCP Electrodiagnostic Medicine; Visit Provider Electrodiagnostic Medicine
DX: R59.0 Localized enlarged lymph nodes (principal); E04.1 Nontoxic single thyroid nodule
CPT/HCPCS: 70491

== ENCOUNTER 2024-05-23 15:19 | Outpatient (CLI) | payer MEDICARE, MEDICAID, SELFPAY ==
[2024-03-15 11:59] VITALS: BP 135/88; BMI 31.7
--- NOTE | 2024-05-23 15:23 | CT_ITS ---
WS: [id number] CT chest w con* [id number] HISTORY: CALCIFIED LUNG GRANULOMA TECHNIQUE: Axial imaging performed through the thorax. Coronal and sagittal reformats are submitted. All CT scans at [facility] use at least one of these dose optimization techniques: automated exposure control; mA and/or kV adjustment per patient size (includes targeted exams where dose is mat ched to clinical indication); or iterative reconstruction. CONTRAST: Omnipaque 350; 100 mL IV. DLP: 379.35 mGy.cm COMPARISON: Chest radiograph 04/19/2024 Lungs and central airway: Lungs are well-aerated. Benign 5 mm granuloma medial RIGHT lower lobe. Thin linear atelectasis at the RIGHT lung base. No mass or pneumonia. Pleura: Normal. No pleural effusion. Heart and pericardium: Normal size heart with no pericardial effusion. Mediastinum and blair: No mediastinum or hilar adenopathy. Vessels: Minimal atherosclerosis aorta. No aneurysm. Normal size pulmonary artery. Chest wall and lower neck: RIGHT thyroid nodule 1.2 x 1.2 cm. These were recently described in the [facility] CT on 05/07/2024. No chest wall abnormality. Upper abdomen: Prior cholecystectomy. No adrenal mass. Visualized liver is normal. Osseous structures: No destructive bone lesions. CT/CT chest w con* [id number] IMPRESSION: 1. No pulmonary mass or noncalcified nodule. No pneumonia. 2. Benign 5 mm calcified granuloma medial RIGHT lower lobe. 3. Prior cholecystectomy. 4. Mild atherosclerosis thoracic aorta.
[2024-05-23] MEDS: iohexol 350 mg/mL 500 mL Btl (per mL) IV (16:00)
== END 2024-05-23 15:20 | disposition home or self-care (01) ==
PROVIDERS: PCP Electrodiagnostic Medicine; Visit Provider Electrodiagnostic Medicine
DX: J84.10 Pulmonary fibrosis, unspecified (principal); J98.11 Atelectasis; E04.1 Nontoxic single thyroid nodule; Z90.49 Acquired absence of other specified parts of digestive tract
CPT/HCPCS: 71260

== ENCOUNTER → 2024-07-15 15:12 | Outpatient (BNVA) | payer MEDICARE, SELFPAY ==
[2024-03-15 11:59] VITALS: BP 135/88; BMI 31.7
== END ==
PROVIDERS: PCP Electrodiagnostic Medicine; Visit Provider Psychiatry & Neurology Neurology
DX: G43.711 Chronic migraine without aura, intractable, with status migrainosus (principal); R41.3 Other amnesia; R55 Syncope and collapse; R13.10 Dysphagia, unspecified; R29.90 Unspecified symptoms and signs involving the nervous system
CPT/HCPCS: 99212

== ENCOUNTER → 2024-11-12 13:40 | Outpatient (BNVA) | payer MEDICARE, MEDICAID, SELFPAY ==
[2024-03-15 11:59] VITALS: BP 135/88; BMI 31.7
== END ==
PROVIDERS: PCP Electrodiagnostic Medicine; Visit Provider Physician Assistant
DX: M79.641 Pain in right hand (principal); M65.4 Radial styloid tenosynovitis [de Quervain]; M65.341 Trigger finger, right ring finger
CPT/HCPCS: 20600; 73130; 99203; J3301; J3490

== ENCOUNTER → 2024-11-13 14:51 | Outpatient (BNVA) | payer MEDICARE, MEDICAID, SELFPAY ==
[2024-03-15 11:59] VITALS: BP 135/88; BMI 31.7
== END ==
PROVIDERS: PCP Electrodiagnostic Medicine; Visit Provider Psychiatry & Neurology Neurology
DX: G43.711 Chronic migraine without aura, intractable, with status migrainosus (principal); R41.3 Other amnesia; R55 Syncope and collapse; R13.10 Dysphagia, unspecified; R29.90 Unspecified symptoms and signs involving the nervous system
CPT/HCPCS: 99212

== ENCOUNTER → 2024-12-10 12:35 | Outpatient (BNVA) | payer MEDICARE, MEDICAID, SELFPAY ==
[2024-03-15 11:59] VITALS: BP 135/88; BMI 31.7
== END ==
PROVIDERS: PCP Electrodiagnostic Medicine; Visit Provider Nurse Practitioner Women's Health
DX: Z01.419 Encounter for gynecological examination (general) (routine) without abnormal findings (principal)
CPT/HCPCS: 87255

== ENCOUNTER → 2025-02-06 09:56 | Outpatient (BNVA) | payer MEDICARE, SELFPAY ==
[2024-03-15 11:59] VITALS: BP 135/88; BMI 31.7
== END ==
PROVIDERS: PCP Electrodiagnostic Medicine; Visit Provider Internal Medicine
DX: E04.1 Nontoxic single thyroid nodule (principal)
CPT/HCPCS: 84439; 84443

== ENCOUNTER → 2025-02-18 13:20 | Outpatient (BNVA) | payer MEDICARE, MEDICAID, SELFPAY ==
[2024-03-15 11:59] VITALS: BP 135/88; BMI 31.7
== END ==
PROVIDERS: PCP Electrodiagnostic Medicine; Visit Provider Physician Assistant
DX: M65.341 Trigger finger, right ring finger (principal); M65.4 Radial styloid tenosynovitis [de Quervain]
CPT/HCPCS: 20600; 99213; J3301; J3490

== ENCOUNTER 2025-04-17 16:46 | Emergency (ER) | payer MEDICARE, MEDICAID, SELFPAY ==
[2024-03-15 11:59] VITALS: BP 135/88; BMI 31.7
--- OUTSIDE RECORDS SUMMARY | 2025-04-17 16:51 | XMS_ITS | Encounter Summary ---
Author Organization [facility] Address [address] [place] [address] Care Team Providers Care Senior Managing Director Name Role Phone Non-Staff, Physician Primary Care Provider Unava ilable Encounter Details Date Type Department Care Team (Late st Contact Info) Description 08/05/2013 Ancillary Orders [facility] Services [place] [address] [place] [address] Sick Social History Tobacco Use Types Packs/Day Years Used Date Smoking Tobacco: Never Assessed Comments Unknown Sex and Gender Information Value Date Recorded Sex Assigned at Not on file 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 Gender Identity Not on file Sexual Orientation Not on file documented as of this encounter Plan of Treatment Not on file documented as of this encounter Procedures Procedure Name Priority Date/Time Associated Diagnosis Comments LIPID PANEL Routine 08/05/2013 8:07 PM HOTSHOT SUPERINTENDENT Sick [ICD-9-CM] COMPREHENSIVE METABOLIC PANEL Routine 08/05/2013 8:07 PM HOTSHOT SUPERINTENDENT Sick [ICD-9-CM] documented in this encounter Results * (ABNORMAL) LIPID PANEL (08/05/2013 8:07 PM HOTSHOT SUPERINTENDENT) CHOLESTEROL 268(H) 130 - 200 mg/dL 08/05/2013 9:32 PM HOTSHOT SUPERINTENDENT [facility] [place] TRIGLYCERIDE 95 30 - 200 mg/dL 08/05/2013 9:32 PM HOTSHOT SUPERINTENDENT [facility] [place] HDL 54 35 - 80 mg/dL 08/05/2013 9:32 PM [facility] LDL CALCULATED 195(H) 0 - 100 mg/dL 08/05/2013 9:32 PM [facility] [employer] [facility] Blood specimen (specimen) Collection / Unknown 08/05/2013 8:07 PM HOTSHOT SUPERINTENDENT 08/05/2013 9:06 PM HOTSHOT SUPERINTENDENT [facility] [employer] [facility] [place] - 08/05/2013 9:32 PM HOTSHOT SUPERINTENDENT TOTAL CHOLESTEROL mg/dL Desirable <200 Borderline high 200-239 High >=240 TRIGLYCERIDES mg/dL Normal <150 Borderline high 150-199 High 200-499 Very high >=500 HDL CHOLESTEROL mg/dL Low <40 Normal 40-60 Desirable >60 LDL CHOLESTEROL mg/dL Optimal <100 Low risk 100-129 Borderline high 130-159 High 160-189 Very high >=190 Based on AHA/NCEP Guidelines Radha Pathak [facility] CHEMISTRY ORDERABLES Final Resu lt [facility] [employer] [facility] CLIA # [id number] [address] [address] * COMPREHENSIVE METABOLIC PANEL (08/05/2013 8:07 PM HOTSHOT SUPERINTENDENT) SODIUM 138 136 - 145 mmol/L 08/05/2013 9:32 PM [facility] [employer] [facility] [place] [place] POTASSIUM 3.8 3.5 - 5.1 mmol/L 08/05/2013 9:32 PM [facility] [employer] [facility] CHLORIDE 101 98 - 107 mmol/L 08/05/2013 9:32 PM [facility] [employer] [facility] CO2 31 21 - 32 mmol/L 08/05/2013 9:32 PM [facility] [employer] [facility] CALCIUM 9.2 8.5 - 10.1 mg/dL 08/05/2013 9:32 PM [facility] [employer] [facility] BUN 9 7 - 18 mg/dL 08/05/2013 9:32 PM [facility] [employer] [facility] CREATININE 0.70 0.60 - 1.30 mg/dL 08/05/2013 9:32 PM [facility] [employer] [facility] GLUCOSE 102 74 - 106 mg/dL 08/05/2013 9:32 PM [facility] [employer] [facility] TOTAL PROTEIN 7.9 6.4 - 8.2 g/dL 08/05/2013 9:32 PM [facility] [employer] [facility] ALBUMIN 4.3 3.4 - 5.0 g/dL 08/05/2013 9:32 PM [facility] BILIRUBIN TOTAL 0.5 0.2 - 1.0 mg/dL 08/05/2013 9:32 PM [facility] ALKALINE PHOSPHATASE 136 50 - 136 U/L 08/05/2013 9:32 PM [facility] AST 22 15 - 37 U/L 08/05/2013 9:32 PM [facility] ALT 34 30 - 65 U/L 08/05/2013 9:32 PM [facility] GFR >60 >=60 mL/min/1.7 3 sq meter 08/05/2013 9:32 PM [facility] Comment: eGFR has not been validated for use in the elderly (> 70 years of age), women, patients with serious co-morbid conditions, or persons with extremes of body size or muscle mass and should also be interpreted with caution in patients with acute kidney failure, dialysis dependent patients, patients reporting exceptional dietary intake (e.g. vegetarian diet, high protein diets, creatine supplementation), and patients with severe liver disease. Based on National Kidney Disease Education Program If patient is , please refer to the GFR result. GFR, >60 >=60 mL/min/1.7 3 sq meter 08/05/2013 9:32 PM [facility] Blood specimen (specimen) Collection / Unknown 08/05/2013 8:07 PM HOTSHOT SUPERINTENDENT 08/05/2013 9:06 PM HOTSHOT SUPERINTENDENT us Radha Pathak TECHNICAL SUPPORT ENGINEER CHEMISTRY ORDERABLES Final Resu lt [facility] [employer] [facility] CLIA # [id number] 100 [facility] [address] [place] [address] documented in this encounter Visit Diagnoses Diagnosis Sick Other unknown and unspecified cause of morbidity or mortality documented in this encounter Care Teams Senior Managing Director Relationship Specialty Start Date End Date Non-Staff, Physician NO ADDRESS ON FILE PCP - General 07/09/14 documented as of this encounter
--- OUTSIDE RECORDS SUMMARY | 2025-04-17 16:51 | XMS_ITS | Encounter Summary ---
Author Organization [facility] Address [address] [place] [address] Care Team Providers Care Traffic Control Flagger Name Role Phone Non-Staff, Physician Primary Care Provider Unava ilable Encounter Details Date Type Department Care Team (Latest Contact Info) Description 11/02/2001 Outpatient Historical [facility] Pal Russell MD [address] [place] [address] CARDIAC DYSRHYTHMIAS NEC (Primary Dx); HYPERTENSION NOS Social History Tobacco Use Types Packs/Day Years Used Date Smoking Tobacco: Never Assessed Comments Unknown Sex and Gender Information Value Date Recorded Sex Assigned at Not on file Legal 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
--- OUTSIDE RECORDS SUMMARY | 2025-04-17 16:51 | XMS_ITS | Encounter Summary ---
Author Organization [facility] Address [address] [place] [address] Care Team Providers Care Construction Manager Name Role Phone Non-Staff, Physician Primary Care Provider Unava ilable Encounter Details Date Type Department Care Team (Latest Contact Info) Description 04/02/2002 Outpatient [facility] [place] [address] Robert Bear, PhD NO ADDRESS ON FILE SURGERY FOLLOWUP, UNSPEC (Primary Dx) Social History Tobacco Use Types Packs/Day Years Used Date Smoking Tobacco: Never Assessed Comments Unknown Sex and Gender Information Value Date Recorded Sex Assigned at Not on file 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
--- OUTSIDE RECORDS SUMMARY | 2025-04-17 16:51 | XMS_ITS | Encounter Summary ---
Author Organization [facility] Address [address] [place] [address] Care Team Providers Care Candy Roller Name Role Phone Non-Staff, Physician Primary Care Provider Unava ilable Encounter Details Date Type Department Care Team (Latest Contact Info) Description 05/29/2001 Outpatient Historical [facility] Pal Russell MD [address] [place] [address] HEADACHE (Primary Dx); TMJ arthralgia Social History Tobacco Use Types Packs/Day Years Used Date Smoking Tobacco: Never Assessed Comments Unknown Sex and Gender Information Value Date Recorded Sex Assigned at Not on file Legal 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
--- OUTSIDE RECORDS SUMMARY | 2025-04-17 16:51 | XMS_ITS | Encounter Summary ---
Author Organization [facility] Address [address] [place] [address] Care Team Providers Care Drawer In Hand Name Role Phone Non-Staff, Physician Primary Care Provider Unava ilable Encounter Details Date Type Department Care Team (Latest Contact Info) Description 03/24/2000 Outpatient Historical [facility] Santana Serrano NO ADDRESS ON FILE Endometriosis, site unspecified (Primary Dx); Dyspepsia and other specified disorders of function of stomach Social History Tobacco Use Types Packs/Day Years Used Date Smoking Tobacco: Never Assessed Comments Unknown Sex and Gender Information Value Date Recorded Sex Assigned at Not on file Legal Sex Female 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
--- OUTSIDE RECORDS SUMMARY | 2025-04-17 16:51 | XMS_ITS | Encounter Summary ---
Author Organization [facility] Address [address] [place] [address] Care Team Providers Care Emblem Cutter Name Role Phone Non-Staff, Physician Primary Care Provider Unava ilable Encounter Details Date Type Department Care Team (Latest Contact Info) Description 03/13/2000 Outpatient Historical [facility] Santana Serrano NO ADDRESS ON FILE Gynecologic examination (Primary Dx); Special screening for malignant neoplasms of other sites; Dysmenorrhea; Hypertrophy of uterus Social History Tobacco Use Types Packs/Day Years Used Date Smoking Tobacco: Never Assessed Comments Unknown Sex and Gender Information Value Date Recorded Sex Assigned at Not on file Legal Sex Female 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
--- OUTSIDE RECORDS SUMMARY | 2025-04-17 16:51 | XMS_ITS | Encounter Summary ---
Author Organization [facility] Address [address] [place] [address] Care Team Providers Care Ceo & Co Founder Name Role Phone Non-Staff, Physician Primary Care Provider Unava ilable Encounter Details Date Type Department Care Team (Latest Contact Info) Description 09/06/2001 Outpatient Historical [facility] Pal Russell MD [address] [place] [address] HYPERTENSION NOS (Primary Dx); POSTMENOPAUSAL HORMONAL REPLACMT Social History Tobacco Use Types Packs/Day Years Used Date Smoking Tobacco: Never Assessed Comments Unknown Sex and Gender Information Value Date Recorded Sex Assigned at Not on file Legal Sex Female 2:46 AM TOW 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
--- OUTSIDE RECORDS SUMMARY | 2025-04-17 16:51 | XMS_ITS | Encounter Summary ---
Author Organization [facility] Address [address] [place] [address] Care Team Providers Care Aitchbone Breaker Name Role Phone Non-Staff, Physician Primary Care Provider Unava ilable Encounter Details Date Type Department Care Team (Latest Contact Info) Description 11/13/2006 Outpatient Historical [facility] Cardiology[facility] [address] [place] [address] Ann Mejia MD [address] [facility] [address] [place] [address] Paroxysmal Supraventricular Tachycardia (Primary Dx); Overweight Social History Tobacco Use Types Packs/Day Years Used Date Smoking Tobacco: Never Assessed Comments Unknown Sex and Gender Information Value Date Recorded Sex Assigned at Not on file Legal Sex Female 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
--- OUTSIDE RECORDS SUMMARY | 2025-04-17 16:51 | XMS_ITS | Encounter Summary ---
Author Organization [facility] Address [address] [place] [address] Care Team Providers Care Service Vehicle Operator Name Role Phone Non-Staff, Physician Primary Care Provider Unava ilable Encounter Details Date Type Department Care Team (Latest Contact Info) Description 03/16/2001 Outpatient Historical [facility] Pal Russell MD [address] [place] [address] Injury, other and unspecified, knee, leg, ankle, and foot (Primary Dx) Social History Tobacco Use Types Packs/Day Years Used Date Smoking Tobacco: Never Assessed Comments Unknown Sex and Gender Information Value Date Recorded Sex Assigned at Not on file Legal Sex Female 2: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
--- OUTSIDE RECORDS SUMMARY | 2025-04-17 16:51 | XMS_ITS | Encounter Summary ---
Author Organization [facility] Address [address] [place] [address] Care Team Providers Care Tutoring Assistant Name Role Phone Non-Staff, Physician Primary Care Provider Unava ilable Encounter Details Date Type Department Care Team (Latest Contact Info) Description 04/16/2001 Outpatient Historical [facility] Pal Russell MD [address] [place] [address] ACUTE SINUSITIS NOS (Primary Dx); LOWER LEG INJURY NOS; POSTMENOPAUSAL HORMONAL REPLACMT Social History Tobacco Use Types Packs/Day Years Used Date Smoking Tobacco: Never Assessed Comments Unknown Sex and Gender Information Value Date Recorded Sex Assigned at Not on file Legal Sex Female 

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
--- OUTSIDE RECORDS SUMMARY | 2025-04-17 16:51 | XMS_ITS | Encounter Summary ---
Author Organization [facility] Address [address] [place] [address] Care Team Providers Care Hr Director Name Role Phone Non-Staff, Physician Primary Care Provider Unava ilable Encounter Details Date Type Department Care Team (Latest Contact Info) Description 12/21/2000 Outpatient Historical [facility] Harley Petersen MD [address] [place] [address] Constipation (Primary Dx); Allergic rhinitis, cause unspecified Social History Tobacco Use Types Packs/Day Years Used Date Smoking Tobacco: Never Assessed Comments Unknown Sex and Gender Information Value Date Recorded Sex Assigned at Not on file Legal 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
--- OUTSIDE RECORDS SUMMARY | 2025-04-17 16:51 | XMS_ITS | Encounter Summary ---
Author Organization [facility] Address [address] [place] [address] Care Team Providers Care Chef Head Name Role Phone Non-Staff, Physician Primary Care Provider Unava ilable Reason for Referral * Outpatient Services (Routine) - Closed Specialty Diagnoses / Procedures Referred By Contac t Referred To Contact Radiology Diagnoses Recurrent cystitis Procedures US RENAL AND BLADDER Adonis Campos DO [facility] [address] [place] [address] Phone: tel: fax: Referral ID Status Reason Start Date Expiration Date V isits Requested Visits Authorized [id number] Closed [facility] CTS to Schedule (SGF) 02/10/2015 03/12/2016 1 1 Encounter Details Date Type Department Care Team (Latest Contact Info) Description 02/10/2015 Ancillary Orders [facility] Centralized Scheduling [address] [place] [address] Adonis Campos DO NO ADDRESS ON FILE Recurrent cystitis (Primary Dx) Social History Tobacco Use Types Packs/Day Years Used Date Smoking Tobacco: Never Smokeless Tobacco: Never Alcohol Use Standard Drinks/Week Comments Yes 0 (1 standard drink = 0.6 oz pur e alcohol) rare Comments No Sex and Gender Information Value Date Recorded Sex Assigned at Not on file Legal Sex Female 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 Right renal span is 11.8 cm and left renal span is 12.3 cm. There is mild prominence of the right renal pelvis. Otherwise no renal masses, cysts, or hydronephrosis are seen. No cortical thinning is evident. The urinary bladder is moderately distended. There is artifact posteriorly possibly representing gain setting versus sediment. Otherwise no focal abnormal internal echogenicity is appreciated. Bilateral ureteral jet phenomenon is demonstrated. IMPRESSION 1. prominent right renal pelvis 2. possible bladder sediment 3. otherwise unremarkable bladder and bilateral renal ultrasound Procedure Note Deshaun Fleming MD - 02/13/2015 PROCEDURE BILATERAL RENAL ULTRASOUND, 13 February 2015 DESCRIPTION Bilateral renal sonography was obtained. Right renal span is 11.8 cm and left renal span is 12.3 cm. There is mild prominence of the right renal pelvis. Otherwise no renal masses, cysts, or hydronephrosis are seen. No cortical thinning is evident. The urinary bladder is moderately distended. There is artifact posteriorly possibly representing gain setting versus sediment. Otherwise no focal abnormal internal echogenicity is appreciated. Bilateral ureteral jet phenomenon is demonstrated. IMPRESSION 1. prominent right renal pelvis 2. possible bladder sediment 3. otherwise unremarkable bladder and bilateral renal ultrasound us Adonis Campos DO US ORDERABLES Final Result documented in this encounter Visit Diagnoses Diagnosis Recurrent cystitis- Primary Cystitis, unspecified Recurrent cystitis Cystitis, unspecified documented in this encounter Care Teams Chef Head Relationship Specialty Start Date End Date Non-Staff, Physician NO ADDRESS ON FILE PCP - General 07/09/14 documented as of this encounter
--- OUTSIDE RECORDS SUMMARY | 2025-04-17 16:51 | XMS_ITS | Encounter Summary ---
Author Organization [facility] Address [address] [place] [address] Care Team Providers Care Nut Processing Supervisor Name Role Phone Non-Staff, Physician Primary Care Provider Unava ilable Encounter Details Date Type Department Care Team (Latest Contact Info) Description 03/26/2002 Outpatient Historical [facility] Oral and Maxillo Surgery[address] [place] [address] Robert Bear, PhD NO ADDRESS ON FILE TOOTH POSITION ANOMALY (Primary Dx); UNSPEC DENTAL CARIES Social History Tobacco Use Types Packs/Day Years Used Date Smoking Tobacco: Never Assessed Comments Unknown Sex and Gender Information Value Date Recorded Sex Assigned at Not on file Legal 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
--- OUTSIDE RECORDS SUMMARY | 2025-04-17 16:51 | XMS_ITS | Encounter Summary ---
Author Organization [facility] Address [address] [place] [address] Care Team Providers Care Back Tender Fourdrinier Name Role Phone Non-Staff, Physician Primary Care Provider Unava ilable Encounter Details Date Type Department Care Team (Latest Contact Info) Description 11/03/2000 Outpatient Historical [facility] Harley Petersen MD [address] [place] [address] Hemorrhage of gastrointestinal tract, unspecified (Primary Dx) Social History Tobacco Use Types Packs/Day Years Used Date Smoking Tobacco: Never Assessed Comments Unknown Sex and Gender Information Value Date Recorded Sex Assigned at Not on file Legal Sex Female 2:46 AM SWING 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
--- OUTSIDE RECORDS SUMMARY | 2025-04-17 16:51 | XMS_ITS | Clinical Summary ---
Author Organization [employer] [facility] Address [address] [place]: Epic Prelude ADT [place] [address] Care Team Providers Care Tax Agent Name Role Phone Non-Staff, Physician Primary Care Provider Unava ilable Allergies Active Allergy Reactions Criticality Noted Date Comments Tramadol Hives High 12/16/2013 Medications amLODIPine (NORVASC) 2.5 mg tablet Take 1 Tab (2.5 mg) by mouth daily. 30 Tablet 3 01/08/2015 Active traZODone (DESYREL) 150 mg tablet Take 150 mg by mouth daily at bedtime. 07/07/2014 Active metoprolol tartrate (LOPRESSOR) 50 mg tablet Take 50 mg by mouth 2 times daily. Active DULoxetine (CYMBALTA) 30 mg Capsule, Delayed Release(E.C.) Take 30 mg by mouth daily. Active albuterol sulfate HFA 90 mcg/actuation aerosol inhaler inhale 2 puffs by mouth daily 04/10/2024 Active pantoprazole (PROTONIX) 40 mg Tablet, Delayed Release (E.C.) 04/24/2024 Acti ve valsartan-hydroC HLOROthiazide (DIOVAN HCT) 160-12.5 mg tablet Take 1 Tablet by mouth daily. 01/21/2024 Active Active Problems Problem Noted Date Diagnosed Date HTN (hypertension) Depression SVT (supraventricular tachycardia) Hyperlipidemia Fibromyalgia Encounters Date Type Department Care Team Description 04/09/2025 External Device Data ST[facility] ABSTRACTION Provider, Abstract 04/08/2025 External Device Data [facility] ABSTRACTION Provider, Abstract from Last 3 Months Social History Tobacco Use Types Packs/Day Years Used Date Smoking Tobacco: Never Smokeless Tobacco: Never Tobacco Cessation:Counseling Given: Not Answered Alcohol Use Standard Drinks/Week Comments Yes 0 (1 standard drink = 0.6 oz pur e alcohol) Comments Unknown Sex and Gender Information Value Date Recorded Sex Assigned at Not on file Legal Sex Female 1:10 AM CONTINUOUS MINING OPERATOR Gender Identity Not on file Sexual Orientation Not on file Last Filed Vital Signs Vital Sign Reading Time Taken Comments Blood Pressure 112/80 04/26/2024 3:05 PM CONTINUOUS MINING OPERATOR Pulse 56 07/22/2014 1:45 PM CONTINUOUS MINING OPERATOR Temperature 36.9 C (98.5 F) 07/07/2014 8:58 PM CONTINUOUS MINING OPERATOR Respiratory Rate 15 07/07/2014 8:58 PM CONTINUOUS MINING OPERATOR Oxygen Saturation - - Inhaled Oxygen Concentration - - Weight 91.2 kg (201 lb) 04/26/2024 3:05 PM CONTINUOUS MINING OPERATOR Height 167.6 cm (5' 6 ) 04/26/2024 3:05 PM CONTINUOUS MINING OPERATOR Body Mass Index 32.44 04/26/2024 3:05 PM CONTINUOUS MINING OPERATOR Plan of Treatment Upcoming Encounters Date Type Department Care Team (Late st Contact Info) Description 04/24/2026 1:00 PM CONTINUOUS MINING OPERATOR Office Visit [facility] Neuro[facility] [address] [place] [address] Patricio Christianson MD [address] [place] [address] Health Maintenance Due Date Last Done Comments Pre-Diabetes and Diabetes Screening 1963 DTAP/TDAP/TD VACCINES (1 - Tdap) 1982 HPV/Cotest (21-29) 01/15/1984 CERVICAL CANCER SCREENING 1993 HPV/Cotest (30-65) 1993 PAP SMEAR 1993 BREAST CANCER SCREENING 2003 COLORECTAL SCREENING 01/15/2008 Colorectal Cancer Screening 01/15/2008 FIT-DNA Q 3 years 01/15/2008 FIT/FOBT Q 1 year 01/15/2008 Flex Sig/CT Colonography Q 5 years 01/15/2008 ZOSTER VACCINE (1 of 2) 2013 INFLUENZA VACCINE (#1) 2025 RSV VACCINE (60+ or ) (1 - 1-dose 75+ series) 2038 Insurance MEDICAID [facility] Care Teams Tax Agent Relationship Specialty Start Date End Date Non-Staff, Physician NO ADDRESS ON FILE PCP - General 07/09/14
--- OUTSIDE RECORDS SUMMARY | 2025-04-17 16:51 | XMS_ITS | Data Portability ---
Author Organization [facility], January, [facility] Address [address] [address] Care Team Providers Care Packing Inspector Name Role Phone JOHN DICKINSON Primary Care Provider Unavailabl e Assessment Encounter Date Assessment Date Assessment LastModified by Organization Details LastModified Time 05/13/2024 05/13/2024 Pt is here today for a FACE-2-FACE evaluation for SHAHEEN with CPAP. [email or web address] Not available 05/13/2024 14:24:57 05/15/2024 05/15/2024 Document scribed by Ryan [employer]. I was present during interview and exam. I have reviewed and agree with above documentation. Dr. John Dickinson. [email or web address] Not available 05/15/2024 16:29:23 10/29/2024 10/29/2024 Document scribed by Ryan H[employer]ron [employer]. I was present during interview and exam. I have reviewed and agree with above documentation. Dr. John Dickinson. A Care Coordination Assessment form was filled out as part of this patient's office visit today. [email or web address] Not available 10/29/2024 11:14:12 Plan of Treatment Reminders Order Date Submit Date Provider Last Modified By Organization Details Last Modified Time Details Appointments None recorded. Lab urinalysis, dipstick 2024 025 [email or web address] [facility] ([facility]), [address] [place] [address], [address], 17:34:43 culture, urine 2024 025 KOURTNEYPicovico [facility], [address] [place] [address] 248, [address], [place], [address], 5 16:07:55 culture, urine 2024 025 [facility]NEYGlobal [facility], [address] [place] [address] 248, [address], [place], [address], 5 16:25:32 urinalysis, dipstick 2024 025 [facility] ([facility]), [address] [place], [address], 5 13:53:00 PPD (purified protein derivative) , skin test 2023 024 [facility] ([facility]), [address] [place], [address], 4 16:09:56 Referral gynecologis t referral - Nancy Gudino, [facility] [address], [address] [place] [address], [address], 5 16:44:51 orthopedic surgeon referral - Dr. Ramírez, [facility] [address], [address] [place], [address], 5 10:20:57 Procedures colonoscopy procedure (PROC) [email or web address], [address] , [place], [address], 5 12:17:34 colonoscopy , with removal of tumor, polyp or lesion (PROC) 2023 024 asurface [facility], [address] , [place], [address], 4 12:07:03 Surgeries None recorded. Imaging CT, chest, w/ contrast [email or web address] [facility], [address], [place], [address], 4 16:50:00 Medication Orders Macrobid 100 mg capsule 2024 025 [id number], [address], [address], [place], [address], 5 05:01:56 ciprofloxac in 500 mg tablet 2024 025 [facility], [address], [place], [address], 5 05:01:41 hydrocodone 5 mg-acetamin ophen 325 mg tablet 2024 025 [id number], [address], [address], [place], [address], 5 11:38:30 prednisone 20 mg tablet 2024 025 [id number], [address], [address], [place], [address], 5 05:01:26 prednisone 20 mg tablet 2023 025 [id number], [address], [address], [place], [address], 5 05:01:26 acyclovir 800 mg tablet 2023 025 [id number], [address], [address], [place], [address], 5 10:52:41 prednisolon e acetate 1 % eye drops,suspe nsion 2023 025 [id number], [address], [place], [address], 5 10:53:13 cephalexin 500 mg capsule 2023 025 [id number], [address], [place], [address], 5 10:52:33 erythromyci n 5 mg/gram (0.5 %) eye ointment 2023 025 [id number], [address] [facility], [address], [place], [address], 10:52:52 Patient TargetsNo targets recorded. Patient InstructionsNo instructions recorded. Reason for Referral Orthopedic Surgeon Referral for Trigger finger of right hand NELLY Taylor [facility]: 10/29/2024 Managing Consultant Clinical Professor Referral for Ca ncer cervix screening status NELLY Higgins Referring Physician[facility], Encounter Date: 10/29/2024 Results Created Date Observation Date Name Description Value Unit Range Abnormal Flag Note LastModifiedBy Organization Detail LastModifiedTime 11/20/1911/19/2024 CULTU RE, URINE , ROUTI NE culture, urine, routine SEE NOTE abnormal CULTU RE, URINE , ROUTI NE Micro Numbe r: [id number] Test Statu s: Final Speci men Sourc e: Not given Speci men Quali ty: Adequ ate Resul t: Great er than 100,0 00 CFU/m L of Esche azam a coli Comme nt: No colle ction date was provi ded. The speci men is gener ally defin ed as stabl e up to 48 hours . The resul t(s) need( s) to be inter prete d cauti ously . Clini copat holog ic corre latio n is requi red. Repea t testi ng is recom jasmyne d as clini len indic ated. [employer] ce is avail able with quest ions or comme nts based on your area of inter est: [phone]-M HE T ([phone]) E.col i ----- ----- ----- - INT GABI AMOX/ CLAVU LANAT E S <=2 AMP/S ULBAC SINGH S <=2 CEFAZ AMA NR <=4 2 CEFEP KARIS S <=0.1 2 CEFTA ZIDIM E S <=1 CEFTR IAXON E S <=0.2 5 CIPRO FLOXA RICK S <=0.0 6 GENTA MICIN S <=1 IMIPE NEM S <=0.2 5 LEVOF LOXAC IN S <= 0.12 MEROP ENEM S <=0.2 5 NITRO FURAN TOIN S 32 PIP/T AZOBA CTAM S <=4 TRIME THOPR IM/ÁLVAREZ LFA S <=20 S = Susce ptibl e I = Inter media te R = Resis tant NS = Not susce ptibl e SDD = Susce ptibl e Dose Depen dent * = Not Teste d NR = Not Repor angeline NN = See Thera py Comme nts THERA PY COMME NTS Note 1: For infec tions other than uncom plica angeline UTI cause d by E. coli, K. pneum oniae or P. mirab ilis: Cefaz ama is resis tant if GABI > or = 8 mcg/m L. (Dist ingui shing susce ptibl e versu s inter media te for isola kaylene with GABI < or = 4 mcg/m L requi res addit ional testi ng.) Note 2: For uncom plica angeline UTI cause d by E. coli, K. pneum oniae or P. mirab ilis: Cefaz ama is susce ptibl e if GABI <32 mcg/m L and predi cts susce ptibl e to the oral agent s cefac fer, cefdi serafin, cefpo doxim e, cefpr ozil, cefur oxime , cepha lexin and lorac arbef . NO COLLE CTION DATE RECEI CRUZ. WE HAVE USED THE DATE THE SPECI MEN WAS RECEI CRUZ BY THIS LABOR ATORY THE COLLE CTION DATE. IF THIS IS INCOR RECT, PLEAS E CONTA CT CLIEN T SERVI KERI. PHONE AISSATOUE R: [phone] [phone] Not Available [facility] [address] [place], [address], 11/19/2024 16:25:32 05/07/2005/07/2024 CBC WBC 6.5 x10 4.0-10 .5 Not Available [facility] [address], [place], [address], 05/07/2024 11:35:46 05/07/2005/07/2024 CBC RBC 5.07 x10 3.50-5 .50 Not Available [facility] [address] [facility] 1, [place], [address], 05/07/2024 11:35:46 05/07/2005/07/2024 CBC HGB 14.9 g/dL 12.0-1 6.0 Not Available [facility] [address], [place], [address], 05/07/2024 11:35:46 05/07/2005/07/2024 CBC HCT 43.6 % 37.0-4 7.0 Not Available [facility] [address] [facility] 1, [place], [address], 05/07/2024 11:35:46 05/07/2005/07/2024 CBC MCV 86.0 fL 80.0-9 9.9 Not Available [facility] [address], [place], [address], 05/07/2024 11:35:46 05/07/2005/07/2024 CBC MCH 29.4 pg 27.0-3 2.0 Not Available [facility] [address] [facility] [address], [place], [address], 05/07/2024 11:35:46 05/07/2005/07/2024 CBC MCHC 34.2 g/dL 32.0-3 6.0 Not Available [facility] [address] [facility], [place], [address], 05/07/2024 11:35:46 05/07/2005/07/2024 CBC RDW 15.1 % 11.5-1 4.5 high Not Available [facility] [address], [place], [address], 05/07/2024 11:35:46 05/07/2005/07/2024 CBC plt 203.1 x10 140.0- 451.0 Not Available [facility] [address] [facility], [place], [address], 05/07/2024 11:35:46 05/07/2005/07/2024 CBC lymphocytes % 25.5 % 20.0-5 0.0 Not Available [facility] [address], [place], [address], 05/07/2024 11:35:46 05/07/2005/07/2024 CBC granulcytes % 66.7 % 30.0-7 0.0 Not Available [facility] [address] [facility], [place], [address], 05/07/2024 11:35:46 05/07/2005/07/2024 CBC monocytes % 6.0 % 2.0-16 .0 Not Available [facility] [address] [facility], [place], [address], 05/07/2024 11:35:46 05/07/20 24 05/07/2024 CBC granulcytes# 4.3 x10 Not Ruth ilable [facility] [address] [address], [place], [address], 05/07/2024 11:35:46 05/07/20 24 05/07/2024 CBC lymphocytes # 1.7 x10 Not Available [address] [address], [place], [address], 05/07/2024 11:35:46 05/07/20 24 05/07/2024 CBC monocytes # 0.4 x10 Not Avai lable [address] [address], [place], [address], 05/07/2024 11:35:46 05/07/20 24 05/07/2024 CMP (FEMA LE) glucose 98.0 mg/dL 60.0-9 9.0 Not Available [facility] [address] [address], [place], [address], 05/07/2024 11:50:03 05/07/20 24 05/07/2024 CMP (FEMA LE) BUN (blood urea nitrogen) 13.0 mg/dL 10.0-2 6.0 Not Available [address] [address], [place], [address], 05/07/2024 11:50:03 05/07/20 24 05/07/2024 CMP (FEMA LE) creatinine (serum) 0.7 mg/dL 0.4-1. 5 Not Available [address] [address], [place], [address], 05/07/2024 11:50:03 05/07/20 24 05/07/2024 CMP (FEMA LE) BUN/creatini ne ratio 18.57 ratio Not Available [address], [place], [address], 05/07/2024 11:50:03 05/07/2005/07/2024 CMP (FEMA LE) eGFR calculated 90.4 Not Available [facility] [address], [place], [address], 05/07/2024 11:50:03 05/07/2005/07/2024 CMP (FEMA LE) total protein 7.0 g/dL 6.0-8. 5 Not Available [facility] [address] [facility], [place], [address], 05/07/2024 11:50:03 05/07/2005/07/2024 CMP (FEMA LE) total bilirubin 0.4 mg/dL 0.2-1. 3 Not Available [facility] [address] [facility], [place], [address], 05/07/2024 11:50:03 05/07/2005/07/2024 CMP (FEMA LE) albumin 4.7 g/dL 3.5-5. 5 Not Available [facility] [address] [facility], [place], [address], 05/07/2024 11:50:03 05/07/2005/07/2024 CMP (FEMA LE) globulin 2.3 calc Not Available [facility] [address] [facility] [address], [place], [address], 05/07/2024 11:50:03 05/07/2005/07/2024 CMP (FEMA LE) AST (SGOT) 21.0 U/L 0.0-46 .0 Not Available [facility] [address] [facility], [place], [address], 05/07/2024 11:50:03 11/26/20 24 05/07/2024 CMP (FEMA LE) altv (SGPT) 25.0 U/L 13.0-6 9.0 normal Not Available [facility] [address] [facility], [place], [address], 05/07/2024 11:50:03 05/07/2005/07/2024 CMP (FEMA LE) A/G ratio 2.0 ratio Not Available [facility] [address], [place], [address], 05/07/2024 11:50:03 05/07/2005/07/2024 CMP (FEMA LE) ALP phos 81.0 U/L 30.0-1 40.0 normal Not Available [facility] [address] [facility] 1, [place], [address], 05/07/2024 11:50:03 05/07/20 24 05/07/2024 CMP (FEMA LE) calcium 9.3 mg/dL 8.4-10 .5 Not Available [facility] [address] [facility] 1, [place], [address], 05/07/2024 11:50:03 05/07/20 24 05/07/2024 CMP (FEMA LE) sodium 140.0 mmol/ L 136.0- 145.0 Not Available [facility] [address] [facility] 1, [place], [address], 05/07/2024 11:50:03 05/07/20 24 05/07/2024 CMP (FEMA LE) potassium 3.8 mmol/ L 3.5-5. 1 Not Available [facility] [address] [facility] 1, [place], [address], 05/07/2024 11:50:03 05/07/20 24 05/07/2024 CMP (FEMA LE) chloride 103.0 mmol/ L 98.0-1 10.0 normal Not Available [facility] [address] [facility] 1, [place], [address], 05/07/2024 11:50:03 05/07/20 24 05/07/2024 CMP (FEMA LE) C02 28.0 mmol/ L 22.0-3 1.0 Not Available [facility] [address] [facility] 1, [place], [address], 05/07/2024 11:50:03 05/07/20 24 05/07/2024 CMP (FEMA LE) anion gap 9.0 calc Not Available [facility] [address] [facility] 1, [place], [address], 05/07/2024 11:50:03 05/07/20 24 05/07/2024 CMP (FEMA LE) osmolality 289.2 calc Not Available [facility] [address] [facility] 1, [place], [address], 05/07/2024 11:50:03 05/07/2005/08/2024 GGT GGT 17 U/L 3-65 normal Not Available [facility] [address] [place], [address], 05/08/2024 05:05:46 05/07/2005/07/2024 ESR (eryt hrocy te sedim entat ion rate) , blood SedRate 3 Not Available [facility] ([facility]) [address] [place], [address], 05/07/2024 10:55:49 05/07/2005/07/2024 PT/IN R Protime 11.6 Not Available [facility] ([facility]) [address] [place], [address], 05/07/2024 10:55:18 05/07/20 24 05/07/2024 PT/IN R INR 1.0 Not Available [facility] ([facility]) [address] [place], [address], 05/07/2024 10:55:18 05/15/20 24 05/15/2024 PPD (aly fied prote in deriv ative ), skin test TB negati ve Not Available [facility] ([facility]) [address] [place], [address], 05/13/2024 14:36:43 11/18/19 25 11/17/2024 urina lysis , dipst ick Leukocytes Trace Not Available [facility] [address] [place], [address], 11/17/2024 13:38:41 11/18/19 25 11/17/2024 urina lysis , dipst ick Nitrite positi ve Not Available [facility] ([facility]) [address] [place], [address], 11/17/2024 13:38:41 11/18/19 25 11/17/2024 urina lysis , dipst ick Urobilinogen 4 Not Available [facility] ([facility]) [address] [place], [address], 11/17/2024 13:38:41 11/18/19 25 11/17/2024 urina lysis , dipst ick Protein 100 Not Available [facility] ([facility]) [address] [place], [address], 11/17/2024 13:38:41 11/18/19 25 11/17/2024 urina lysis , dipst ick pH 5.0 Not Available [facility] ([facility]) [address] [place], [address], 11/17/2024 13:38:41 11/18/19 25 11/17/2024 urina lysis , dipst ick Blood Negati ve Not Available [facility] ([facility]) [address] [place], [address], 11/17/2024 13:38:41 11/18/19 25 11/17/2024 urina lysis , dipst ick Specific Gobler 1.020 Not Available [facility] ( [facility]) [address] [place], [address], 11/17/2024 13:38:41 11/18/19 25 11/17/2024 urina lysis , dipst ick Ketone Trace Not Available [facility] ([facility]) [address] [place], [address], 11/17/2024 13:38:41 11/18/19 25 11/17/2024 urina lysis , dipst ick Bilirubin Modera te Not Available [facility] ([facility]) [address] [place], [address], 11/17/2024 13:38:41 11/18/19 25 11/17/2024 urina lysis , dipst ick Glucose 100 Not Available [facility] ([facility]) [address] [place], [address], 11/17/2024 13:38:41 11/18/19 25 11/17/2024 urina lysis , dipst ick Appearance Clear Not Available [facility] ([facility]) [address] [place], [address], 11/17/2024 13:38:41 11/18/19 25 11/17/2024 urina lysis , dipst ick Color [place] Not Available [facility] ([facility]) [address] [place], [address], 11/17/2024 13:38:41 01/18/20 25 01/20/2025 CULTU RE, URINE , ROUTI NE culture, urine, routine SEE NOTE abnormal CULTU RE, URINE , ROUTI NE Micro Numbe r: [id number] Test Statu s: Final Speci men Sourc e: Urine , clean catch Speci men Quali ty: Adequ ate Resul t: Great er than 100,0 00 CFU/m L of Esche azam a coli E.col i ----- ----- ----- - INT GABI AMOX/ CLAVU LANAT E S <=2 AMP/S ULBAC SINGH S <=2 CEFAZ AMA NR <=1 2 CEFEP KARIS S <=0.1 2 CEFTA ZIDIM E S <=0.5 CEFTR IAXON E S <=0.2 5 CIPRO FLOXA RICK S <=0.0 6 GENTA MICIN S <= 1 IMIPE NEM S <=0.2 5 LEVOF LOXAC IN S <=0.1 2 MEROP ENEM S <=0.2 5 NITRO FURAN TOIN S <=16 PIP/T AZOBA CTAM S <=4 TRIME THOPR IM/ÁLVAREZ LFA S <=20 S = Susce ptibl e I = Inter media te R = Resis tant NS = Not susce ptibl e SDD = Susce ptibl e Dose Depen dent * = Not Teste d NR = Not Repor angeline NN = See Thera py Comme nts THERA PY COMME NTS Note 1: For infec tions other than uncom plica angeline UTI cause d by E. coli, K. pneum oniae or P. mirab ilis: Cefaz ama is resis tant if GABI > or = 8 mcg/m L. (Dist ingui shing susce ptibl e versu s inter media te for isola kaylene with GABI < or = 4 mcg/m L requi res addit ional testi ng.) Note 2: For uncom plica angeline UTI cause d by E. coli, K. pneum oniae or P. mirab ilis: Cefaz ama is susce ptibl e if GABI <32 mcg/m L and predi cts susce ptibl e to the oral agent s cefac fer, cefdi serafin, cefpo doxim e, cefpr ozil, cefur oxime , cepha lexin and lorac arbef . Not Available [facility] [address] [place], [address], 01/20/2025 16:07:55 01/18/20 25 01/17/2025 urina lysis , dipst ick Color Yellow Not Available [facility] ([facility]) [address] [place] [address], [address], 01/17/2025 16:19:02 01/18/20 25 01/17/2025 urina lysis , dipst ick Appearance Clear Not Available [facility] ([facility]) [address] [place] [address], [address], 01/17/2025 16:19:02 01/18/20 25 01/17/2025 urina lysis , dipst ick Blood Non-He molyze d: Trace Not Available [facility] ([facility]) [address] [place] [address], [address], 01/17/2025 16:19:02 01/18/20 25 01/17/2025 urina lysis , dipst ick Leukocytes Small Not Available [facility] ([facility]) [address] [place] [address], [address], 01/17/2025 16:19:02 01/18/20 25 01/17/2025 urina lysis , dipst ick Nitrite negati ve Not Available [facility] ([facility]) [address] [place] [address], [address], 01/17/2025 16:19:02 01/18/20 25 01/17/2025 urina lysis , dipst ick Urobilinogen 1 Not Available [facility] ([facility]) [address] [place], [address], 01/17/2025 16:19:02 01/18/20 25 01/17/2025 urina lysis , dipst ick Protein Negati ve Not Available [facility] ([facility]) [address] [place], [address], 01/17/2025 16:19:02 01/18/20 25 01/17/2025 urina lysis , dipst ick pH 5.5 Not Available [facility] ([facility]) [address] [place], [address], 01/17/2025 16:19:02 01/18/20 25 01/17/2025 urina lysis , dipst ick Specific Gobler 1.005 Not Available [facility] ( [facility]) [address] [place], [address], 01/17/2025 16:19:02 01/18/20 25 01/17/2025 urina lysis , dipst ick Ketone Negati ve Not Available [facility] ([facility]) [address] [place], [address], 01/17/2025 16:19:02 01/18/20 25 01/17/2025 urina lysis , dipst ick Bilirubin Negati ve Not Available [facility] ([facility]) [address] [place], [address], 01/17/2025 16:19:02 01/18/20 25 01/17/2025 urina lysis , dipst ick Glucose Negati ve Not Available [facility] ([facility]) [address] [place], [address], 01/17/2025 16:19:02 04/17/20 24 04/17/2024 XR, chest , 2 view No observ ation record ed. [email or web address] [facility] ([facility]) [address] [place], [address], 09/01/2024 16:05:24 04/18/20 24 04/17/2024 XR, chest , 2 view No observ ation record ed. [address] [place], [address], 04/18/2024 13:28:08 05/02/20 24 05/02/2024 MAMMO , scree anibal, digit al, bilat eral No observ ation record ed. [address] [place], [address], 05/07/2024 12:52:23 05/02/20 24 05/02/2024 MAMMO , scree anibal, digit al, bilat eral No observ ation record ed. [address] [place], [address], 05/07/2024 11:54:31 05/07/20 24 05/07/2024 CT, neck, soft tissu e, w/ contr ast No observ ation record ed. [email or web address] [place], [address], 05/13/2024 14:31:59 05/24/20 24 05/23/2024 CT, chest , w/ contr ast No observ ation record ed. [address] [place], [address], 05/28/2024 16:43:18 12/11/19 25 11/21/2024 colon oscop y proce dure (PROC ) No observ ation record ed. [email or web address] [facility] [address] , [place], [address], 12/11/2024 07:58:18 Result Notes None recorded. Problems Name Problem SNOMED Code Status Onset Date Resolution Date Notes Provider Name and Address Organization Details Recorded Time Gastroeso phageal reflux disease 954953429 Active 2022 GERD (GASTROES OPHAGEAL REFLUX DISEASE) Katherine elliott [facility], Vicente.L.CSarita 5 10:55:43 Degenerat ion of intervert ebral disc 00508396 Active 2022 Degenerat margarita Disc Disease Katherine elliott [facility], L.L.CSarita 5 10:55:44 Completed stroke 26655194 Active 2022 Katherine elliott [facility], AntioneL.CSarita 5 10:55:44 Essential hypertens ion 36310635 Active 2022 Katherine elliott [facility], L.L.CSarita 5 10:55:44 Carpal tunnel syndrome of right wrist 514226290295 108 Active 2022 Katherine elliott [facility], L.L.C. 5 10:55:44 Chronic headache disorder 868046053 Active 2022 Katherine elliott [facility], [facility] 5 10:55:44 Polymyalg ia rheumatic a 76303581 Active 2022 Katherine elliott [facility], L.L.CSarita 5 10:55:44 Excessive daytime sleepines s - normal night sleep 623798314 Active 2022 Katherine elliott [facility], L.L.[facility]. 5 10:55:43 Atypical chest pain 661714323 Active 2022 Katherine elliott [facility], L.L.CSarita 5 10:55:43 Epigastri c pain 00242434 Active 2022 Katherine elliott [facility], L.L.C. 5 10:55:44 Obstructi ve sleep apnea syndrome 23993190 Active 2022 Katherine elliott, [facility], L.L.C. 5 10:55:[address] pylori gastroint estinal tract infection 963785728 Active 2023 Katherineparas Burte [facility], [facility], L.L[facility]C. 5 10:55:44 Intracran ial meningiom a 233269693 Active 2023 Katherine Pierce [facility], [facility], LSaritaL.C. 5 10:55:44 Ileitis 44173892 Active 2023 Katherine Pierce [facility], LSaritaL.CSarita 5 10:55:44 Hypokalem ia 85065390 Active 2023 Katherine Pierce [facility], [facility], L.L.C. 5 10:55:44 Contact dermatiti s 97383995 Active 2023 Katherine Pierce [facility], [facility], L.L.C. 5 10:55:44 Thyroid nodule 885582866 Active 2023 Katherine Pierce [facility], L.L.C. 5 10:55:43 Spontaneo us ecchymosi s 396696537 Active 2023 Katherine Pierce [facility], [facility], [facility] 5 10:55:44 Screening for malignant neoplasm of colon Active 2023 Katherine Pierce [facility] 5 10:55:44 Acute blepharit is [id number] Active 2023 Katherine Pierce [facility], [facility] 5 10:55:44 Fibrosis of lung [id number] Active 2024 Ryan Huitron [facility] 5 11:14:35 Trigger finger of right hand [id number] [facility] 11:27:09 Problem Notes None recorded. Procedures Surgical History Date Name Laterality Status Provider Name and Address Organization Details Recorded Time [facility] 15:14:53 Hysterectomy completed [facility], LSaritaL.CSarita 02/09/2024 15:15:01 Cholecystectomy completed [facility], AntioneLSaritaCSarita 02/09/2024 15:15:12 Carpal Tunnel Surgery completed [facility], L.L.CSarita 02/09/2024 15:15:39 Imaging Results None recorded. Procedure Notes None recorded. Medical Equipment None Reported. Allergies Allergen ID Allergen Name Allergen Category Reaction Reaction Severity Criticality Documentation Date Start Date Code Code System Note Provider Name and Address Organization Details Recorded Time 1800 tramadol medicatio n Not available Not available Not available 09/28/2022 89368 RxNorm MIGUEL ANGEL CEDEÑO [facility], LSaritaLSaritaCSarita 3 16:24:24 31480 tramadol hydrochlo ride medicatio n Not available Not available Not available 01/07/2023 32562 RxNorm Barb Chaudhry [facility], L.L.CSarita 4 08:02:50 Medications Name Sig Start Date Stop Date Status Note LastModified by Organization Details LastModified Time losartan 50 mg tablet TAKE 1 TABLET BY MOUTH EVERY DAY 05/11 completed Not Available Not Available Not Available amoxicill in 500 mg capsule TAKE 2 TABLETS BY MOUTH TWICE A DAY FOR 14 DAYS 10/11 completed Not Available Not Available Not Available trazodone 50 mg tablet TAKE 2 TABLETS BY MOUTH AT BEDTIME NEEDED FOR INSOMNIA 02/08 completed Not Available Not Available Not Available benzonata te 200 mg capsule three times daily, as needed for cough 01/20 completed DM/ky; Recorded 08/17/19 12:50PM by Devon Powers al Summary; Refill Quantity : 0; Not Available Not Available Not Available chlorzoxa zone 500 mg tablet TAKE 1/2 (ONE-JASMINA F) TABLET BY MOUTH THREE TIMES DAILY NEEDED 02/07 completed Not Available Not Available Not Available clarithro mycin 500 mg tablet TAKE 1 TABLET BY MOUTH TWICE A DAY FOR 14 DAYS 10/11 completed Not Available Not Available Not Available hydrocodo ne 5 mg-acetam inophen 325 mg tablet Take 1 tablet twice a day by oral route as needed. 2024 active Not Available Not Available Not Avai lable sucralfat e 1 gram tablet TAKE 1 TABLET BY MOUTH THREE TIMES A DAY FOR 4 WEEKS 02/08 completed Not Available Not Available Not Available prednison e 20 mg tablet Take 2 tablets every day by oral route in the morning for 7 days. 11/12 completed Not Available Not Available Not Available valsartan 160 mg-hydroc hlorothia zide 12.5 mg tablet TAKE 1 TABLET BY MOUTH EVERY DAY active Not Available Not Available No t Available potassium chloride ER 10 mEq tablet,ex tended release TAKE 1 TABLET BY MOUTH EVERY DAY 02/08 completed Not Available Not Available Not Available metronida zole 500 mg tablet TAKE 1 TABLET BY MOUTH EVERY 8 HOURS FOR 7 DAYS 12/06 completed Not Available Not Available Not Available hydroxyzi ne HCl 50 mg tablet TAKE 1 TABLET ORALLY FOUR TIMES DAILY NEEDED FOR INSOMNIA active Not Available Not Available No t Available amlodipin e 5 mg tablet TAKE 1 TABLET BY MOUTH EVERY DAY active Not Available Not Available No t Available ciproflox acin 500 mg tablet Take 1 tablet every 12 hours by oral route for 5 days. 11/29 completed Not Available Not Available Not Available omeprazol e 40 mg capsule,d elayed release TAKE 1 CAPSULE BY MOUTH EVERY DAY 03/12 completed Not Available Not Available Not Available amoxicill in 500 mg tablet Take 2 tablets twice a day by oral route for 14 days. 10/11 completed Not Available Not Available Not Available acyclovir 800 mg tablet Take 1 tablet 5 times a day by oral route for 7 days, for Shingles .. 10/29 completed Not Available Not Available Not Available Macrobid 100 mg capsule Take 1 capsule every 12 hours by oral route for 5 days. 01/29 completed Not Available Not Available Not Available prednisol one acetate 1 % eye drops,rayne pension INSTILL 1 DROP INTO AFFECTED EYE(S) BY OPHTHALM IC ROUTE 2 TIMES PER DAY for 1 week 10/29 completed Not Available Not Available Not Available trazodone 100 mg tablet TAKE 3 TABLETS BY MOUTH AT BEDTIME NEEDED FOR INSOMNIA active Not Available Not Available No t Available dicyclomi ne 20 mg tablet TAKE 1 TAB ORALLY FOUR TIMES DAILY NEEDED FOR ABDOMINA L PAIN 03/12 completed Not Available Not Available Not Available meclizine 25 mg tablet TAKE 1 TABLET BY MOUTH THREE TIMES A DAY NEEDED FOR 7 DAYS 02/07 completed Not Available Not Available Not Available ropinirol e 2 mg tablet TAKE 1 TABLET BY MOUTH AT BEDTIME active Not Available Not Available No t Available cephalexi n 500 mg capsule Take 1 capsule 3 times a day by oral route for 10 days. 10/29 completed Not Available Not Available Not Available pantopraz ole 40 mg tablet,de layed release TAKE 1 TABLET BY MOUTH EVERY DAY IN THE MORNING 2024 active Not Available Not Available Not Avai lable erythromy rick 5 mg/gram (0.5 %) eye ointment APPLY 1 CM RIBBON INTO THE LOWER CONJUNCT IVAL SAC(S) IN THE AFFECTED EYE(S) BY OPHTHALM IC ROUTE 3 TIMES PER DAY 10/29 completed Not Available Not Available Not Available metoprolo l tartrate 50 mg tablet TAKE 1 TABLET BY MOUTH TWICE A DAY active Not Available Not Available No t Available gabapenti n 100 mg capsule TAKE ONE CAPSULE BY MOUTH at bedtime 02/08 completed Not Available Not Available Not Available epinephri ne 0.3 mg/0.3 mL injection , auto-inje ctor INJECT 1 PEN NEEDED active Not Available Not Available No t Available albuterol sulfate HFA 90 mcg/actua tion aerosol inhaler INHALE 2 PUFFS BY MOUTH EVERY DAY 2024 active Not Available Not Available Not Oswaldai labmoi ondansetr on 4 mg disintegr ating tablet TAKE 1 TABLET BY MOUTH EVERY 6 HOURS NEEDED FOR NAUSEA AND VOMITING 03/12 completed Not Available Not Available Not Available amoxicill in 875 mg-potass ium clavulana te 125 mg tablet TAKE 1 TABLET BY MOUTH EVERY 12 HOURS FOR 10 DAYS 08/20 completed Not Available Not Available Not Available Ventolin 90 mcg/actua tion aerosol inhaler every four hours, as needed 01/20 completed DM/ky; Recorded 08/17/19 23 12:46PM by Meagan Powersic al Summary; Refill Quantity : 0; Not Available Not Available Not Available duloxetin e 30 mg capsule,d elayed release TAKE 1 CAPSULE BY MOUTH DAILY. TAKE WITH 60 MG FOR TOTAL OF 90 MG DAILY. active Not Available Not Available No t Available duloxetin e 60 mg capsule,d elayed release TAKE 1 CAPSULE BY MOUTH EVERY DAY active Not Available Not Available No t Available metoprolo l tartrate two times daily 01/20 completed DM/sd; Recorded 06/27/19 23 12:35PM by Meagan Ashleyic al Summary; Refill Quantity : 0; Not Available Not Available Not Available cholecalc iferol (vitamin D3) 1,250 mcg (50,000 unit) capsule TAKE ONE CAPSULE BY MOUTH EVERY WEEK 02/08 completed Not Available Not Available Not Available amlodipin e besylate (bulk) daily 01/20 completed DM/sd; Recorded 06/27/19 23 12:33PM by Meagan Ashleyic al Summary; Refill Quantity : 0; Not Available Not Available Not Available Narcan 4 mg/actuat ion nasal spray call 911. administ er a single spray of narcan in one nostril. repeat every 2-3 minutes as needed if no or minimal response active Not Available Not Available No t Available Emgality Pen 120 mg/mL subcutane ous pen injector Inject ONE pen UNDER THE SKIN once monthly active Not Available Not Available No t Available [facility] ODT 75 mg disintegr ating tablet Dissolve ONE tablet by mouth once as needed for migraine headache , do not exceed ONE tablet in a 24 hour period. active Not Available Not Available No t Available Vitals Date Recorded Body height Body mass index (BMI) Body weight Heart rate Oxygen saturation Oxygen saturation in Arterial blood by Pulse oximetry Respiratory rate Systolic And Diastolic Provider Name and Address Organization Details Last Updated DateTime 5 167.64 cm 32.6 kg/m2 65695.0 6 g 77 /min 95 % 95 % 18 /min 130/70 mm[Hg] Katherine [facility] 5 11:04:25 Date Recorded Body height Body mass index (BMI) Body weight Body temperature Heart rate Oxygen saturation Oxygen saturation in Arterial blood by Pulse oximetry Systolic And Diastolic Provider Name and Address Organization Details Last Updated DateTime 5 167.64 cm 32 kg/m2 61696.2 9 g 97.8 [degF] 81 /min 97 % 97 % 142/70 mm[Hg] Dana Raza [facility] 5 13:51:37 Date Recorded Body height Body mass index (BMI) Body weight Oxygen saturation Oxygen saturation in Arterial blood by Pulse oximetry Heart rate Body temperature Systolic And Diastolic Provider Name and Address Organization Details Last Updated DateTime 5 167.64 cm 32 kg/m2 46866.2 9 g 97 % 97 % 61 /min 98.7 [degF] 115/74 mm[Hg] Chio Rizo [facility] 5 16:28:52 Date Recorded Body height Body mass index (BMI) Body weight Oxygen saturation Oxygen saturation in Arterial blood by Pulse oximetry Heart rate Respiratory rate Systolic And Diastolic Provider Name and Address Organization Details Last Updated DateTime 4 167.64 cm 32.1 kg/m2 31777.5 8 g 98 % 98 % 73 /min 18 /min 138/82 mm[Hg] Katherine Pierce [facility] 4 14:03:12 Date Recorded Body height Body mass index (BMI) Body weight Oxygen saturation Oxygen saturation in Arterial blood by Pulse oximetry Heart rate Respiratory rate Systolic And Diastolic Provider Name and Address Organization Details Last Updated DateTime 4 167.64 cm 32.1 kg/m2 73588.8 8 g 96 % 96 % 72 /min 18 /min 110/70 mm[Hg] Katherine Pierce [facility] 4 15:52:57 Social History Question Answer Notes LastModified by [employer] Details LastModified Time Tobacco Smoking Status Never Smoker Becky Camacho eral [facility] 12/07/2023 18:17:41 What Was The Date Of Your Most Recent Tobacco Screening? 01/17/2025 [email or web address] Information not available 01/17/2025 Sex: Unknown Functional Status Question Answer Note LastModified by [employer] Details LastModified Time Do you use any illicit or recreational drugs? No [email or web address] Information not available 02/07/2023 Do you or have you ever used any other forms of tobacco or nicotine? No [email or web address] Information not available 02/07/2023 What is your level of alcohol consumption? None [email or web address] Information not available 02/07/2023 Mental Status None recorded. Family History Nothing Reported. Medical History No medical history recorded. Gynecological HistoryNo gynecological history recorded. Obstetrics History GPAL:G 0 P 0 0 0 0 Immunizations Vaccine Type Date Status Note Provider Nam e and Address Organization Details Recorded Time pneumococcal polysaccharide PPV23 3 completed Katherine elliott [facility] 04/17/2024 11:19:17 Tdap 3 completed Katherine elliott [facility] 04/17/2024 11:19:17 Tdap 4 completed John Dickinson DO [address] [place] [address], [phone], [facility] 09/23/2023 19:37:42 Past Encounters Encounter ID Performer Location Encounter Start Date Encounter Closed Date Diagnosis/Indication Diagnosis SNOMED-CT Code Diagnosis ICD10 Code Diagnosis IMO Codes Diagnosis Note [id number] GUSTABO YOU PA-C [facility] ([facility]) [address] [place] [id number] 5 09/28/2022 12:44:50 10/04/2022 08:31:36 Benign paroxysmal positional vertigo 601592489 H81.11 [id number] JEWEL ADAMS [facility] ([facility]) [address] [place] [address] [id number] 5 01/20/2023 16:02:54 01/26/2023 13:54:34 Essential hypertension 45655459 I10 Pressures at home have been up and down. Yesterday reading was 118/63. Dr. Naidu discussed with her increasing her blood pressure medication . Irregular heart beat 361 833680 R00.8 Carpal bradford jose syndrome of right wrist 4131577504 58920 G56.01 currently wearing brace [id number] John Dickinson DO [facility] ([facility]) [address] [place] [address] [id number] 5 02/07/2023 10:12:14 02/14/2023 12:49:25 Gastroesophageal reflux disease 090774546 K21.9 Stable. Essential hypertension 54581632 I10 Poorly controlled . Will change losartan to valsartan with hydrochlor othiazide. Continue amlodipine and metoprolol . Monitor blood pressure and heart rate. Carpal bradford jose syndrome of right wrist 3701668620 26003 G56.01 Continue with plan for referral to Dr. Ramírez, [facility] orthopedic s. Counseled on wrist brace. [id number] John Dickinson DO [facility] ([facility]) [address] [place] [address] [id number] 5 04/06/2023 10:29:50 04/06/2023 18:35:19 Carpal tunnel syndrome of right wrist 3052367792 37548 G56.01 Scheduled for surgery with Dr. Ramírez 04/19/23. Essential hypertension 51747972 I10 Tolerating Valsartan HCTZ, continue current treatment. Continue amlodipine and metoprolol . Monitor blood pressure and heart rate. F/u 3 months. Gastroesop hageal reflux disease 383512700 K21.9 Deteriorat ing. Will start Pantoprazo le, has taken in the past and tolerated well. Will schedule EGD at [facility], last 6-7 years ago. No h/o H. Pylori. We discussed the patients' current symptoms as well as treatment options. We discussed EGD in detail using handouts and illustrati ons. The patient is agreeable to proceeding with EGD at [facility]. We discussed pre op process, risks, benefits, expectatio ns, aftercare, and other aspects of the procedure in great detail. Handouts were given and discussed. The patient provided Verbal understand ing and verbally expressed desire to proceed. We will schedule EGD at [facility]. Chronic he adache disorder 235331586 G44.89 Referral to Neurology. Sample of [facility] provided, pt to let us know if helping and will send in script when she needs it. Degenerati on of intervertebral disc 10300690 M51.9 Polymyalgi a rheumatica 58276092 M35.3 Excessive daytime sleepiness - normal night sleep 035325148 G47.19 [id number] John Dickinson DO [facility] ([facility]) [address] [place] [address] [id number] 5 04/24/2023 16:18:19 04/24/2023 19:22:34 Atypical chest pain 386074878 R07.89 The pain she is describing does not appear to be chest pain or cardiac pain but epigastric abdominal pain. I reviewed hospital records, last cardiac stress test which showed no significan t coronary artery disease. Recommend we proceed with EGD. Epigastric pain 66886725 R10.13 Progressin g. The pain she is describing does not appear to be chest pain or cardiac pain but epigastric abdominal pain. I reviewed hospital records, last cardiac stress test which showed no significan t coronary artery disease. Recommend we proceed with EGD. Gastroesop hageal reflux disease 832123930 K21.9 Deteriorat ing. Proceed with EGD as scheduled this week [id number] John Dickinson DO [facility] ([facility]) [address] [place] [address] [id number] 5 05/03/2023 13:15:40 05/03/2023 14:20:03 Carpal tunnel syndrome of right wrist 4455848308 53029 G56.01 S/p sx with Dr. Ramírez. Counseled sutures look well, will take these out, monitor for signs of infection, be cautious, avoid overworkin g the wrist for the next couple weeks. [id number] John Dickinson DO [facility] ([facility]) [address] [place] [address] [id number] 5 06/07/2023 09:56:17 06/07/2023 13:23:02 Obstructive sleep apnea syndrome 03211446 G47.33 I reviewed recent sleep study results with patient. This showed severe sleep apnea with is consistent with her symptoms. We will start auto titrating CPAP at recommende d 6 to 16 mm water. She will follow-up with me 6 weeks after starting her CPAP. Counseled on need to see report prior. Call or come in sooner with any problems. Counseled patient on sleep hygiene, weight loss. [id number] John Dickinson DO [facility] ([facility]) [address] [place] [address] [phone] 5 08/02/2023 15:40:23 08/02/2023 16:25:59 Active or passive immunization 381602703 Z23 Cellulitis of skin 55832 1002 L03.90 left palm. Abx. Counseled. [id number] SIDDHARTHA MALDONADO [facility] ([facility]) [address] [place] [address] [id number] 5 08/21/2023 16:03:56 08/21/2023 17:17:14 Abdominal pain 27338986 R10.9 Due to significan ce of pain and distention , patient referred to ED for further evaluation . Patient agreeable to go and will go via private vehicle driven by her . Patient is stable at this time. Report was called by JEWEL Merchant to SHELBI Sterling at [facility] ED. [id number] John Dickinson DO [facility] ([facility]) [address] [place] [address] [id number] 5 08/29/2023 11:40:16 08/29/2023 14:05:39 Obstructive sleep apnea syndrome 58944018 G47.33 Continue CPAP, tolerating well, feels better using it. Epigastric pain 96134952 R10.13 Progressin g. The pain she is describing does not appear to be chest pain or cardiac pain but epigastric abdominal pain. I reviewed hospital records, last cardiac stress test which showed no significan t coronary artery disease. Recommend we proceed with EGD. Gastric ulcer 859895250 K25.9 I have reviewed and discussed EGD. Discussed risks vs benefits including risk of infection and bleeding, perforatio n, possible need for surgery, reaction to medication s, and sever injury or . We discussed pt requiring sedation and possible general anesthesia . Pt agrees to proceed with EGD at [facility]. Preliminar y procedure date will be 09/14/23. [id number] John Dickinson DO [facility] ([facility]) [address] [place] [address] [id number] 5 10/12/2023 10:19:36 10/12/2023 11:19:44 Helicobacter pylori gastrointestinal tract infection 400462497 B96.81 + rodriguez test with EGD 09/14/23. s/p quadrople therapy treatment. symptoms currently resolved. will get breath test today. continue PPI for at least 2 more weeks. counseled on diet Chronic he adache disorder 242441958 G44.89 pt has been referred to neurology. continue with prn edgar minor. counseled Intracrani al meningioma 950751159 D32.0 evaluated by Neurosurge ry [id number] John Dickinson DO [facility] ([facility]) [address] [place] [address] [id number] 5 10/31/2023 11:04:59 10/31/2023 13:18:42 Hypokalemia 51698508 E87.6 2.8 from ER on 10/29/23. will repeat labs today. counseled on diet, supplement s. Ileitis 90054015 K52.[address] scan from ER on 10/29/23, appeared focal and acute. [id number] John Dickinson DO [facility] ([facility]) [address] [place] [address] [id number] 5 11/29/2023 14:42:25 11/30/2023 09:11:42 Essential hypertension 22717908 I10 Tolerating Valsartan HCTZ, continue current treatment. Continue amlodipine and metoprolol . Monitor blood pressure and heart rate. F/u 3 months. [id number] Dwayne Luan MD [facility] ([facility]) [address] [place] [address] [id number] 5 12/07/2023 18:14:32 12/08/2023 11:38:51 Contact dermatitis 06628202 L25.9 Exam is consistent with contact dermatitis . Recommend steroid taper. Antihistam gabrielle to help with the itch. History of anaphylaxis [id number] 8827246 Z87.892 States that she has had a history of anaphylaxi s and needs a refill on her EpiPen. [id number] JEWEL JONES [facility] ([facility]) [address] [place] [address] [id number] 5 02/09/2024 14:34:39 02/13/2024 13:32:22 Hiatal hernia 28429876 K44.9 Discussed with PCP. Agree on imaging and f/u with PCP 3-7 days after the study.If you develop increased pain, cannot get the swelling to reduce, then f/u in ER [id number] John Dickinson DO [facility] ([facility]) [address] [place] [address] [id number] 5 03/12/2024 11:50:48 03/12/2024 13:12:54 Thyroid nodule 732035233 E04.[address] Meza, Thyroid US 03/07/24. Polymyalgi a rheumatica 93585054 M35.3 Stable, following up with Neurology and Endocrinol ogy. Essential hypertension 45818008 I10 Tolerating Valsartan HCTZ, continue current treatment. Continue amlodipine and metoprolol . Monitor blood pressure and heart rate. Mesenteric lymphadenitis 06645422 I88.0 03/12/24- Reviewed and discussed ER visit, imaging. Lab today, referral to GI, pt ok with Mtn. Home. Seasonal allergy 1904664 04 J30.2 Obesity 870034588 E66.9 Counseled on diet and exercise. [id number] John Dickinson DO [facility] ([facility]) [address] [place] [address] [id number] 5 04/17/2024 10:38:29 04/20/2024 14:10:56 Thyroid nodule 111368998 E04.[address] Meza, Thyroid US 03/07/24. Bx scheduled 04/17/24. Cervical lymphadenopathy 365318461 R59.0 04/17/24- counseled will order CT neck today. F/u with me 4-[address] is done. [id number] JEWEL JONES [facility] ([facility]) [address] [place] [address] [id number] 5 04/19/2024 16:38:55 04/19/2024 16:55:15 Intermittent palpitations 220596519 R00.2 Sent to ER for work up regarding palpitatio ns that are causing pt to feel light headed. [id number] John Dickinson DO [facility] ([facility]) [address] [place] [address] [id number] 5 05/07/2024 09:50:47 05/07/2024 12:00:39 Spontaneous ecchymosis 702623707 R23.3 sigificant with no known cause. will get labs, counseled [id number] John Dickinson DO [facility] ([facility]) [address] [place] [address] [id number] 5 05/13/2024 13:41:46 05/13/2024 15:16:48 Screening for malignant neoplasm of colon 531163062 Z12.11 I have reviewed and discussed colon cancer screening options, including colonoscop y. Discussed risks vs benefits including risk of infection and bleeding, perforatio n, possible need for surgery, reaction to medication s, and sever injury or . We discussed pt requiring sedation and possible general anesthesia . Pt agrees to proceed with Colonoscop y at [facility]. Preliminar y procedure date will be 05/30/24 Obstructiv e sleep apnea syndrome 44809182 G47.33 Pt is compliant with CPAP, wearing more than 6hrs/night and missing less than 1 night/90da ys. I counseled on SHAHEEN, CPAPs, and sleep hygeine. Acute blepharitis 485378 04 H01.009 abx: topical and oral. warm compresses s. Return to office with no improvemen t or any problems. Go to ER with severe worsening or severe problems. Calcified granuloma of lung 1071199099 6440940 J84.10 one 2 CXRs, appears progressin g. Pt is very concerned. no hx of smoking. has been exposed to TB in the past. will get PPD and CT chest. counseled [id number] John Dickinson DO [facility] ([facility]) [address] [place] [address] 05/15/2024 15:42:08 05/16/2024 13:05:35 Herpes zoster 1640158 B02.9 05/15/24- counseled Prednisone and Acyclovir. [id number] John Dickinson DO [facility] ([facility]) [address] [place] [address] 5 10/29/2024 10:44:16 10/29/2024 15:11:33 Polymyalgia rheumatica 75620289 M35.3 Stable, following up with Neurology and Endocrinol ogy. Essential hypertension 16327285 I10 Tolerating Valsartan HCTZ, continue current treatment. Continue amlodipine and metoprolol . Monitor blood pressure and heart rate. Fibrosis of lung 0940094 [id number] chest and PPD May 2024. Intracrani al meningioma 173527704 D32.0 evaluated by Neurosurge ry Severe rec urrent major depression without psychotic features 15106504 F33.2 [id number] Taking Duloxetine 50mg daily. Gastroesop hageal reflux disease [id number] K21.9 Continue Pantoprazo le. Obstructiv e sleep apnea syndrome [id number] G47.33 Pt is compliant with CPAP, wearing more than 6hrs/night and missing less than 1 night/90da ys. I counseled on SHAHEEN, CPAPs, and sleep hygeine. Body mass index 30+ - obesity [id number] E66.9 [id number] Counseled on diet and exercise, to follow no sugar/ no gluten diet. Thyroid nodule [id number] E04.[address] Meza, Thyroid US 03/07/24. Bx scheduled 04/17/24. Allergic c ontact dermatitis caused by plant material [id number] L23.7 [id number] 10/29/24: Oral steroid today, counseled. Screening for malignant neoplasm of colon [id number] Z12.11 I have reviewed and discussed colon cancer screening options, including colonoscop y. Discussed risks vs benefits including risk of infection and bleeding, perforatio n, possible need for surgery, reaction to medication s, and sever injury or . We discussed pt requiring sedation and possible general anesthesia . Pt agrees to proceed with Colonoscop y at [facility]. Preliminar y procedure date will be to use Mag Citrate prep. Trigger fi nger of right hand [id number] M65.30 [id number] 10/29/24: Referral to Dr. Ramírez. Cancer cer vix screening status [id number] Z12.4 [id number] Referral to Nancy Gudino with [facility] for PAP. [id number] JEWEL ANDERSON [facility] ([facility]) [address] [place] [phone] 11/17/2024 13:36:44 11/18/2024 15:46:06 Dysuria [id number] R30.0 60536 Acute urin clary tract infection [id number] N39.0 [id number] Discussed to take antibiotic as prescribed until completedU rine culture ordered - will notify of any resultsEdu cated patient on increasing PO fluids of water, decreasing caffeine (coffee) and sugary drinks.Dis cussed importance of avoiding baths, scented soaps, douching, perfumes.M ay take OTC AZO for 1-2 days as box directs for burning sensation. Discussed if developmen t of worsening abdominal pain, flank pain, fever, vomiting, worsening symptoms return to walk-in, PCP or ED for re-evaluat ion. Return to clinic if any changes, any worsening, any concernsPa tient verbalized understand ing of plan. [id number] JEWEL JONES [facility] ([facility]) [address] [place] [phone] 01/17/2025 16:17:11 01/17/2025 17:29:59 Dysuria [id number] R30.0 62215 UA results reviewed and discussed with pt. We will start antibiotic s. Pt will increase oral fluids. Return to office with no improvemen t or any problems. Go to ER with severe worsening or severe problems.W e will obtain urine culture Health Concerns Section Related Observation LastModified by Organization Detai ls LastModified Time None Recorded Concern Status LastModified by Organization Details LastModified Time None Recorded Advance Directives Directive None Recorded Payers Insurance Date Sequence Insurance Name Policy Number Policy Muse Covered Member ID Muse Member ID Guarantor Name 10/29/2024 1 AETNA [id number] Jessica L Red [id number] Jessica L Red 10/29/2024 2 [place] Jessica L Red [id number] Jessica L Red 10/29/2024 4 [place] Jessica L Red [id number] Jesisca L Red 01/17/2025 [place] [employer] [place]IT[place] L[place] Jessica L Red [id number] Jessica L Red 01/20/2025 1 [employer]ET[employer] - [place] (MEDICARE REPLACEMENT/A DVANTAGE - HMO) [id number] Jessica L Red [id number] Jessica L Red 10/29/2024 2 [place] [id number] Jessica L Red [id number] Jessica L Red 01/17/2025 2 [place] Jessica L Red [id number] Jessica L Red Notes Date Note Type Note Provider Name and Address Organization Details Recorded Time 05/13/2024 text/html Colonoscopy ScreeningReported by PatientColonoscopy ScreeningFor gi symptoms, patient reportschange in the stoolandcolor change in stoolbut reportsno abdominal pain,no diarrhea,no constipation,no recent change in bowel movements, andno rectal bleeding. For family history, patient reportscolon cancerbut reportsno polypsandno colon cancer(brother). For associated symptoms, patient reportsnormal appetite,no fever,no chills,no nausea, andno vomiting. For context, patient reportsno prior examination,no history of colon polyps, andno history of ulcerative colitis or crohn's disease.ROS as noted in the HPI pt presents for recheck on SHAHEEN and FTF visit for cpap needs letter of compliance on CPAP sent to HOME she is using her cpap every night for at least 6 hrs a night, she has not missed any nights in the last 2 months. She wakes feeling rested with good energy. She has less daytime sleepiness, but she still naps during the day she is having an allergic reaction to something, her left eye is red and swollen. It started Monday morning with a stinging burning feeling and small spot that is now spread. She is having difficulty with her vision and it was swollen shut this am wants to schedule colonoscopyalso requesting tb test. her 2 recent CXRs have some old gramshe c/o sore throat that started today The patient presents today for evaluation and discussion of colonoscopy for colon cancer screening d/t some stomach issues and bm's are thin. She reports wei color to BM's at times. The patient denies any recent abdominal pain, persistent diarrhea, persistent constipation, bloody or dark tarry stools, or mucusy stools. Last Colon Cancer screenin yrs ago Problems with anesthesia in the past: NONE Family History of Colon cancers: Brother Blood Thinners: NONE - does take NSAID's daily motrin and Excedrin Co-morbidities: SHAHEEN John Dickinson, [address] [place] [address], [phone], [facility] 05/13/2024 14:42:34 05/15/2024 text/html ROS as noted in the HPI Pt presents for recheck of left eye Her left eye has gotten worse since Monday, now it almost swollen shut, involving upper and lower lids. It is painful, itching and burning with redness presentshe has taken 6 doses of the abt tx and is not improving yet, her vision is blurred and sensitive to lightshe states the pain is at 5/10 right now but gets to 8/10 at times No vision change. she still has a cough that is bothering her at night John Dickinson, [address] [place] [address], [phone], [facility] 05/15/2024 22:13:58 10/29/2024 text/html ROS as noted in the HPI Pt presents for recheck She is requesting med for poison darrell, she was exposed yesterday when she had to go in a different door at home when she locked her keys in the houseShe prefers oral steroid instead of injection.She doesn't have a rash at this point, however she is itching all over. She wants to discuss hiatal hernia, recently with increased discomfort.She last had EGD 09/14/23.C/o right upper quad pain and right kidney pain needs colonoscopy scheduledThe patient denies any recent persistent diarrhea, persistent constipation, bloody or dark tarry stools, or mucusy stools.Last Colon Cancer screenin yrs agoProblems with anesthesia in the past: NONEFamily History of Colon cancers: BrotherBlood Thinners: NONE - does take NSAID's daily motrin and ExcedrinCo-morbidities: SHAHEEN Increased SOB this week, has used her inhaler frequently, more than usual.She has noted increased SOB when having issues with her hernia. She brings with her today her card for CPAP review.Wearing CPAP nightly for at least 6 hours per night. She reports she is sleeping a lot better. Requesting referral to female GRAPHIC DESIGN MANAGER to update annual female screening. Also requesting referral to Dr. Ramírez.She is having a lot of issues with pain in her right thumb and wrist, trigger finger.She reports her Carpal tunnel is really bothering her s/p surgery Apr 2024. Voicing interest in medication for wt loss. She is not having any wt loss with diet changes and she finds she is unable to exercise d/t balance and pain problems.However, she has recently has increased her outdoor activities John Dickinson DO [address] [place], [phone], [facility], [place]. 10/31/2024 14:25:53 11/17/2024 text/html ROS as noted in the HPI walk in ptPt is having urinary burning, increased urinary frequency, right sided flank pain, and lower abdominal pain that started laat night. Hx of renal stones. Patient states that she did fall yesterday as well. JEWEL ANDERSON [address] [place], [address], [facility], [place]. 11/17/2024 14:19:48 01/17/2025 text/html ROS as noted in the HPI walk inx3 days urinary urgency and burning. denies fever, abd pain, or back pain. states she has a sebaceous cyst to her inner thigh that recently ruptured. wondering if the drainage caused her UTI YANNICK VALENTIN, [address]EW[address] [place], [address], [facility], [place] 01/17/2025 18:07:13 OBGyn Episode No OBEpisode recorded.
--- OUTSIDE RECORDS SUMMARY | 2025-04-17 16:51 | XMS_ITS | Encounter Summary ---
Author Organization [facility] Address [address] [place] [address] Care Team Providers Care Editor Map Name Role Phone Non-Staff, Physician Primary Care Provider Unava ilable Encounter Details Date Type Department Care Team (Latest Contact Info) Description 04/22/2002 Outpatient Historical [facility] Pal Russell MD [address] [place] [address] SYMPTOMATIC FEMALE CLIMACTERIC STATE (Primary Dx); Pure hypercholesterolem Social History Tobacco Use Types Packs/Day Years Used Date Smoking Tobacco: Never Assessed Comments Unknown Sex and Gender Information Value Date Recorded Sex Assigned at Not on file Legal Sex Female 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
--- OUTSIDE RECORDS SUMMARY | 2025-04-17 16:51 | XMS_ITS | Encounter Summary ---
Author Organization [facility] Address [address] [place] [address] Care Team Providers Care Lpta Name Role Phone Non-Staff, Physician Primary Care Provider Unava ilable Encounter Details Date Type Department Care Team (Latest Contact Info) Description 11/16/2001 Outpatient Historical [facility] Pal Russell MD [address] [place] [address] Pure hypercholesterolem (Primary Dx); Dietary surveil/certified travel counselor Social History Tobacco Use Types Packs/Day Years Used Date Smoking Tobacco: Never Assessed Comments Unknown Sex and Gender Information Value Date Recorded Sex Assigned at Not on file Legal Sex Female 2: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
--- OUTSIDE RECORDS SUMMARY | 2025-04-17 16:51 | XMS_ITS | Encounter Summary ---
Author Organization [facility] Address [address] [place] [address] Care Team Providers Care Cell Stripper Name Role Phone Non-Staff, Physician Primary Care Provider Unava ilable Encounter Details Date Type Department Care Team (Latest Contact Info) Description 03/14/2002 Outpatient Historical [facility] Maxillo Surgery[address] [place] [address] Robert Bear, PhD NO ADDRESS ON FILE TOOTH POSITION ANOMALY (Primary Dx) Social History Tobacco Use Types Packs/Day Years Used Date Smoking Tobacco: Never Assessed Comments Unknown Sex and Gender Information Value Date Recorded Sex Assigned at Not on file Legal Sex Female 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
--- OUTSIDE RECORDS SUMMARY | 2025-04-17 16:51 | XMS_ITS | Encounter Summary ---
Author Organization [facility] Address [address] [facility] Attn: [place] [address] Care Team Providers Care Iv Rn Name Role Phone Non-Staff, Physician Primary Care Provider Unava ilable Encounter Details Date Type Department Care Team (Late st Contact Info) Description 11/14/2000 Outpatient Historical Felipe Richey MD [address] [facility] [address] [place] [phone] Social History Tobacco Use Types Packs/Day Years Used Date Smoking Tobacco: Never Assessed Comments Unknown Sex and Gender Information Value Date Recorded Sex Assigned at Not on file Legal Sex Female 2:46 AM MAINFRAME 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
--- OUTSIDE RECORDS SUMMARY | 2025-04-17 16:51 | XMS_ITS | Encounter Summary ---
Author Organization [facility] Address [address] [place] [address] Care Team Providers Care Endoscopic Technician Name Role Phone Non-Staff, Physician Primary Care Provider Unava ilable Encounter Details Date Type Department Care Team (Latest Contact Info) Description 03/28/2002 Outpatient Historical [facility] Pal Russell MD [address] [place] [address] MASTODYNIA (Primary Dx); AFTERCARE SKILLED NURSING USE MEDICATN Social History Tobacco Use Types Packs/Day Years Used Date Smoking Tobacco: Never Assessed Comments Unknown Sex and Gender Information Value Date Recorded Sex Assigned at Not on file Legal Sex Female 2: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
--- OUTSIDE RECORDS SUMMARY | 2025-04-17 16:51 | XMS_ITS | Encounter Summary ---
Author Organization [facility] Address [address] [place] [address] Care Team Providers Care Budget Counselor Name Role Phone Non-Staff, Physician Primary Care Provider Unava ilable Encounter Details Date Type Department Care Team (Late st Contact Info) Description 01/25/2007 Inpatient Historical [facility] Ann Mejia MD [address] [facility] [address] [place] [address] Paroxysmal Supraventricular Tachycardia (Primary Dx) Social History Tobacco Use Types Packs/Day Years Used Date Smoking Tobacco: Never Assessed Comments Unknown Sex and Gender Information Value Date Recorded Sex Assigned at Not on file Legal 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 INR 1.1 INTERFACE SYSTEM Comment: Expected Values for INR: DVT/PE Goal INR 2.5; range 2.0 - 3.0 Valve Replacement Tissue Goal INR 2.5; range 2.0 - 3.0 Mechanical Goal INR 3.0; range 2.5 - 3.5 POST-OR Goal INR 2.5; range 2.0 - 3.0 or Goal 3.0; range 2.5 - 3.5 Atrial Fibrillation Goal INR 2.5; range 2.0 - 3.0 Ischemic Stroke Goal INR 2.5; range 2.0 - 3.0 For additional information see Guidelines for Anticoagulation available from the pharmacy Juan Cochran PTT 27.5 21.6 - 35.6 Secs INTERFACE SYSTEM Comment: Therapeutic Range: Hi-level PE/DVT heparin protocol 80.1 -95.0 sec Lo-level PE/DVT heparin protocol 67.1 - 80.0 sec Cardiac Heparin Protocol 67.1 - 85.0 sec Neuro Heparin Protocol 67.1 - 80.0 sec As of 05/18/2006 note change in APTT Normal Range. 01/25/2007 10:1 5 AM CDT us Ann Mejia MD HEMATOLOGY ORDERABLES Edited INTERFACE SYSTEM Refer to clinic/hospital department * CBC WITHOUT DIFFERENTIAL (01/25/2007 10:15 AM CDT) WBC 4.8 4.5 - 11.0 K/ul INTERFACE SYSTEM RBC 4.77 4.20 - 5.40 Mil/ul INTERFACE SYSTEM HEMOGLOBIN 14.0 12.0 - 16.0 g/dL INTERFACE SYSTEM HEMATOCRIT 40.9 36.0 - 46.0 % INTERFACE SYSTEM MCV 85.7 84.0 - 103.0 Fl INTERFACE SYSTEM MCH 29.4 27.0 - 34.0 pg INTERFACE SYSTEM MCHC 34.2 30.0 - 35.0 g/dL INTERFACE SYSTEM RDW 13.4 11.0 - 14.5 % INTERFACE SYSTEM PLATELETS 231 140 - 440 K/ul INTERFACE SYSTEM MPV 11.0 8.9 - 12.8 Fl INTERFACE SYSTEM NEUTROPHILS 47.5 42.2 - 75.2 % INTERFACE SYSTEM LYMPHOCYTES 41.1 24.0 - 44.0 % INTERFACE SYSTEM MONOCYTES 6.0 2.0 - 10.0 % INTERFACE SYSTEM EOSINOPHILS 4.8 0.0 - 7.0 % INTERFACE SYSTEM BASOPHILS 0.6 0.0 - 1.0 % INTERFACE SYSTEM NEUTROPHIL ABSOLUTE 2.3 2.0 - 8.0 K/ul INTERFACE SYSTEM LYMPHOCYTE ABSOLUTE 2.0 1.2 - 4.0 K/ul INTERFACE SYSTEM MONOCYTE ABSOLUTE 0.3 0.1 - 0.6 K/ul INTERFACE SYSTEM EOSINOPHIL ABSOLUTE 0.2 0.0 - 0.7 K/ul INTERFACE SYSTEM BASOPHILS ABSOLUTE 0.0 0.0 - 0.2 K/ul INTERFACE SYSTEM 01/25/2007 10:1 5 AM CDT Ann Mejia MD HEMATOLOGY ORDERABLES Edited Performing Organization Address [facility] Phone Number INTERFACE SYSTEM Refer to clinic/hospital department * (ABNORMAL) BASIC METABOLIC PANEL (01/25/2007 10:15 AM CDT) GLUCOSE 124(H) 70 - 110 mg/dL INTERFACE SYSTEM BUN 16 7 - 17 mg/dL INTERFACE SYSTEM CREATININE 0.7 0.7 - 1.2 mg/dL INTERFACE SYSTEM SODIUM 143 136 - 145 mEq/L INTERFACE SYSTEM POTASSIUM 4.1 3.5 - 5.0 mEq/L INTERFACE SYSTEM CHLORIDE 107 95 - 110 mEq/L INTERFACE SYSTEM CO2 29 22 - 32 mmol/l INTERFACE SYSTEM CALCIUM 9.5 8.4 - 10.5 mg/dL INTERFACE SYSTEM ANION GAP 11 9 - 20 mEq/L INTERFACE SYSTEM OSMOLALITY, CALCULATED 296(H) 275 - 295 mOsm/Kg INTERFACE SYSTEM 01/25/2007 10:1 5 AM CDT Ann Mejia MD CHEMISTRY ORDERABLES Edited Performing Organization Address City/[facility] Co de Phone Number INTERFACE SYSTEM Refer to clinic/hospital department documented in this encounter Visit Diagnoses Diagnosis Paroxysmal supraventricular tachycardia- Primary documented in this encounter Care Teams Budget Counselor Relationship Specialty Start Date End Date Non-Staff, Physician NO ADDRESS ON FILE PCP - General 07/09/14 documented as of this encounter
--- OUTSIDE RECORDS SUMMARY | 2025-04-17 16:51 | XMS_ITS | Encounter Summary ---
Author Organization [facility] Address [address] [place] [address] Care Team Providers Care Molded Rubber Goods Cutter Name Role Phone Non-Staff, Physician Primary Care Provider Unava ilable Encounter Details Date Type Department Care Team (Late st Contact Info) Description 04/09/2025 External Device Data ST[facility] ABSTRACTION Provider, Abstract NO ADDRESS ON FILE Social History Tobacco Use Types Packs/Day Years Used Date Smoking Tobacco: Never Smokeless Tobacco: Never Alcohol Use Standard Drinks/Week Comments Yes 0 (1 standard drink = 0.6 oz pur e alcohol) Comments Unknown Sex and Gender Information Value Date Recorded Sex Assigned at Not on file Legal Sex Female 1:10 AM ROTO GRAVURE PRESS OPERATOR Gender Identity Not on file Sexual Orientation Not on file documented as of this encounter Plan of Treatment Upcoming Encounters Date Type Department Care Team (Late st Contact Info) Description 04/24/2026 1:00 PM ROTO GRAVURE PRESS OPERATOR Office Visit [facility] Neurosurgery [address] [place] [address] Patricio Christianson MD [address] [place] [address] documented as of this encounter Visit Diagnoses Not on filedocumented in this encounter Care Teams Molded Rubber Goods Cutter Relationship Specialty Start Date End Date Non-Staff, Physician NO ADDRESS ON FILE PCP - General 07/09/14 documented as of this encounter
--- OUTSIDE RECORDS SUMMARY | 2025-04-17 16:51 | XMS_ITS | Encounter Summary ---
Author Organization [facility] Address [address] [place] [address] Care Team Providers Care Food Mixer Assembler Name Role Phone Non-Staff, Physician Primary Care Provider Unava ilable Encounter Details Date Type Department Care Team (Latest Contact Info) Description 08/09/1999 Outpatient Historical [facility] Santana Serrano NO ADDRESS ON FILE Urinary tract infection, site not specified (Primary Dx); Premenstrual tension Social History Tobacco Use Types Packs/Day Years Used Date Smoking Tobacco: Never Assessed Comments Unknown Sex and Gender Information Value Date Recorded Sex Assigned at Not on file Legal Sex Female 2:46 AM DINKEY 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
--- OUTSIDE RECORDS SUMMARY | 2025-04-17 16:51 | XMS_ITS | Encounter Summary ---
Author Organization [facility] Address [address] [place] [address] Care Team Providers Care Ironing Machine Operator Name Role Phone Non-Staff, Physician Primary Care Provider Unava ilable Encounter Details Date Type Department Care Team (Late st Contact Info) Description 11/16/1999 Outpatient Historical [facility] Social History Tobacco Use Types Packs/Day Years Used Date Smoking Tobacco: Never Assessed Comments Unknown Sex and Gender Information Value Date Recorded Sex Assigned at Not on file Legal Sex Female 2:46 AM BOOM TENDER Gender Identity Not on file Sexual Orientation Not on file documented as of this encounter Plan of Treatment Not on file documented as of this encounter Visit Diagnoses Not on filedocumented in this encounter Care Teams Ironing Machine Operator Relationship Specialty Start Date End Date Non-Staff, Physician NO ADDRESS ON FILE PCP - General 07/09/14 documented as of this encounter
--- OUTSIDE RECORDS SUMMARY | 2025-04-17 16:51 | XMS_ITS | Encounter Summary ---
Author Organization [facility] Address [address] [place] [address] Care Team Providers Care Yarder Name Role Phone Non-Staff, Physician Primary Care Provider Unava ilable Encounter Details Date Type Department Care Team (Latest Contact Info) Description 04/12/2002 Outpatient [facility] Oral and Maxillo Surgery[address] [place] [address] Robert Bear, PhD NO ADDRESS ON FILE SURGERY FOLLOWUP, UNSPEC (Primary Dx) Social History Tobacco Use Types Packs/Day Years Used Date Smoking Tobacco: Never Assessed Comments Unknown Sex and Gender Information Value Date Recorded Sex Assigned at Not on file Legal Sex Female 2:46 AM MUSEUM 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
--- OUTSIDE RECORDS SUMMARY | 2025-04-17 16:51 | XMS_ITS | Encounter Summary ---
Author Organization [facility] Address [address] [place] [address] Care Team Providers Care Business Development Recruiter Name Role Phone Non-Staff, Physician Primary Care Provider Unava ilable Encounter Details Date Type Department Care Team (Latest Contact Info) Description 02/25/2002 Outpatient Historical [facility] WanJonh MD [address] [address] SURGERY FOLLOWUP, UNSPEC (Primary Dx) Social History Tobacco Use Types Packs/Day Years Used Date Smoking Tobacco: Never Assessed Comments Unknown Sex and Gender Information Value Date Recorded Sex Assigned at Not on file Legal Sex Female 2: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
--- OUTSIDE RECORDS SUMMARY | 2025-04-17 16:51 | XMS_ITS | Encounter Summary ---
Author Organization [facility] Address [address] [place] [address] Care Team Providers Care Clinical Project Leader Name Role Phone Non-Staff, Physician Primary Care Provider Unava ilable Encounter Details Date Type Department Care Team (Latest Contact Info) Description 01/22/1999 Outpatient Historical [facility] Santana Serrano NO ADDRESS ON FILE Urinary tract infection, site not specified (Primary Dx) Social History Tobacco Use Types Packs/Day Years Used Date Smoking Tobacco: Never Assessed Comments Unknown Sex and Gender Information Value Date Recorded Sex Assigned at Not on file Legal Sex Female 2:46 AM PE MANAGER Gender Identity Not on file Sexual Orientation Not on file documented as of this encounter Plan of Treatment Not on file documented as of this encounter Visit Diagnoses Diagnosis Urinary tract infection, site not specified- Primary documented in this encounter Care Teams Clinical Project Leader Relationship Specialty Start Date End Date Non-Staff, Physician NO ADDRESS ON FILE PCP - General 07/09/14 documented as of this encounter
--- OUTSIDE RECORDS SUMMARY | 2025-04-17 16:51 | XMS_ITS | Encounter Summary ---
Author Organization [facility] Address [address] [place] [address] Care Team Providers Care Taxicab Dispatcher Name Role Phone Non-Staff, Physician Primary Care Provider Unava ilable Encounter Details Date Type Department Care Team (Latest Contact Info) Description 04/15/2002 Outpatient [facility] Oral and Maxillo Surgery[address] [place] [address] Chace Meeks, RON NO ADDRESS ON FILE SURGERY FOLLOWUP, UNSPEC (Primary Dx) Social History Tobacco Use Types Packs/Day Years Used Date Smoking Tobacco: Never Assessed Comments Unknown Sex and Gender Information Value Date Recorded Sex Assigned at Not on file Legal Sex Female 2: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
--- OUTSIDE RECORDS SUMMARY | 2025-04-17 16:51 | XMS_ITS | Encounter Summary ---
Author Organization [facility] Address [address] [place] [address] Care Team Providers Care Brake Lining Finisher Name Role Phone Non-Staff, Physician Primary Care Provider Unava ilable Encounter Details Date Type Department Care Team (Latest Contact Info) Description 04/20/2001 Outpatient Historical [facility] Pal Russell MD [address] [place] [address] HYPERLIPIDEMIA NEC/NOS (Primary Dx) Social History Tobacco Use Types Packs/Day Years Used Date Smoking Tobacco: Never Assessed Comments Unknown Sex and Gender Information Value Date Recorded Sex Assigned at Not on file Legal Sex Female 2:46 AM JEWELRY CONSULTANT Gender Identity Not on file Sexual Orientation Not on file documented as of this encounter Plan of Treatment Not on file documented as of this encounter Visit Diagnoses Diagnosis Other and unspecified hyperlipidemia- Primary documented in this encounter Care Teams Brake Lining Finisher Relationship Specialty Start Date End Date Non-Staff, Physician NO ADDRESS ON FILE PCP - General 07/09/14 documented as of this encounter
--- OUTSIDE RECORDS SUMMARY | 2025-04-17 16:51 | XMS_ITS | Encounter Summary ---
Author Organization [facility] Address [address] [place] [address] Care Team Providers Care Packaging Operator Name Role Phone Non-Staff, Physician Primary Care Provider Unava ilable Encounter Details Date Type Department Care Team (Latest Contact Info) Description 05/15/2001 Outpatient Historical [facility] Pal Russell MD [address] [place] [address] HEADACHE (Primary Dx); VOMITING ALONE Social History Tobacco Use Types Packs/Day Years Used Date Smoking Tobacco: Never Assessed Comments Unknown Sex and Gender Information Value Date Recorded Sex Assigned at Not on file Legal Sex Female 2:46 AM RETAIL DELIVERY DRIVER Gender Identity Not on file Sexual Orientation Not on file documented as of this encounter Plan of Treatment Not on file documented as of this encounter Visit Diagnoses Diagnosis Headache(784.0)- Primary Headache Vomiting alone documented in this encounter Care Teams Packaging Operator Relationship Specialty Start Date End Date Non-Staff, Physician NO ADDRESS ON FILE PCP - General 07/09/14 documented as of this encounter
--- OUTSIDE RECORDS SUMMARY | 2025-04-17 16:51 | XMS_ITS | Clinical Summary ---
Author Organization [facility] Address [address] [place] [address] Care Team Providers Care Soiled Linen Distributor Name Role Phone Non-Staff, Physician Primary Care Provider Unava ilable Allergies Active Allergy Reactions Criticality Noted Date Comments Tramadol Hives High 12/16/2013 Medications diphenhydrAMINE (BENADRYL) 50 mg Tablet Take 25 mg by mouth every 6 hours as needed for Allergies. Active aspirin (ECOTRIN EC) 81 mg Tablet, Delayed Release (E.C.) Take 81 mg by mouth. Active traZODone (DESYREL) 150 mg tablet Take 150 mg by mouth daily at bedtime. Active amLODIPine (NORVASC) 2.5 mg tablet Take 1 Tab (2.5 mg) by mouth daily. 30 Tab 3 01/08/2015 Active atenolol (TENORMIN) 25 mg tablet Take 1 Tab (25 mg) by mouth daily. 30 Tab 3 01/08/2015 Active Active Problems Problem Noted Date Diagnosed Date Hyperlipidemia SVT (supraventricular tachycardia) HTN (hypertension) Depression Fibromyalgia Social History Tobacco Use Types Packs/Day Years Used Date Smoking Tobacco: Never Smokeless Tobacco: Never Alcohol Use Standard Drinks/Week Comments Yes 0 (1 standard drink = 0.6 oz pur e alcohol) rare Comments No Sex and Gender Information Value Date Recorded Sex Assigned at Not on file Legal Sex Female 2:46 AM HEALTH CARE ANALYST Gender Identity Not on file Sexual Orientation Not on file Last Filed Vital Signs Vital Sign Reading Time Taken Comments Blood Pressure 100/68 07/22/2014 1:45 PM HEALTH CARE ANALYST Pulse 56 07/22/2014 1:45 PM HEALTH CARE ANALYST Temperature 36.9 C (98.5 F) 07/07/2014 8:58 PM HEALTH CARE ANALYST Respiratory Rate 15 07/07/2014 8:58 PM HEALTH CARE ANALYST Oxygen Saturation 97% 07/07/2014 8:58 PM HEALTH CARE ANALYST Inhaled Oxygen Concentration - - Weight 86.6 kg (191 lb) 07/22/2014 1:45 PM HEALTH CARE ANALYST Height 167.6 cm (5' 6 ) 07/22/2014 1:45 PM HEALTH CARE ANALYST Body Mass Index 30.83 07/22/2014 1:45 PM HEALTH CARE ANALYST Plan of Treatment Health Maintenance Due Date Last Done Comments DTAP/TDAP/TD VACCINES (1 - Tdap) 1982 HPV/Cotest (21-29) 01/15/1984 CERVICAL CANCER SCREENING 1993 HPV/Cotest (30-65) 1993 PAP SMEAR 1993 BREAST CANCER SCREENING 2003 COLORECTAL SCREENING 01/15/2008 Colorectal Cancer Screening 01/15/2008 FIT-DNA Q 3 years 01/15/2008 FIT/FOBT Q 1 year 01/15/2008 03/13/2000 Flex Sig/CT Colonography Q 5 years 01/15/2008 ZOSTER VACCINE (1 of 2) 2013 INFLUENZA VACCINE (#1) 2025 RSV VACCINE (60+ or ) (1 - 1-dose 75+ series) 2038 Care Teams Soiled Linen Distributor Relationship Specialty Start Date End Date Non-Staff, Physician NO ADDRESS ON FILE PCP - General 07/09/14
--- OUTSIDE RECORDS SUMMARY | 2025-04-17 16:51 | XMS_ITS | Encounter Summary ---
Author Organization [facility] Address [address] [place] [address] Care Team Providers Care Administration Physician Name Role Phone Non-Staff, Physician Primary Care Provider Unava ilable Encounter Details Date Type Department Care Team (Latest Contact Info) Description 04/02/2002 Outpatient Historical [facility] Pal Russell MD [address] [place] [address] Pure hypercholesterolem (Primary Dx); SURGERY FOLLOWUP, UNSPEC Social History Tobacco Use Types Packs/Day Years Used Date Smoking Tobacco: Never Assessed Comments Unknown Sex and Gender Information Value Date Recorded Sex Assigned at Not on file Legal Sex Female 2:46 AM RELIEF CAPTAIN Gender Identity Not on file Sexual Orientation Not on file documented as of this encounter Plan of Treatment Not on file documented as of this encounter Visit Diagnoses Diagnosis Pure hypercholesterolem- Primary Pure hypercholesterolemia Follow-up examination, following unspecified surgery documented in this encounter Care Teams Administration Physician Relationship Specialty Start Date End Date Non-Staff, Physician NO ADDRESS ON FILE PCP - General 07/09/14 documented as of this encounter
--- OUTSIDE RECORDS SUMMARY | 2025-04-17 16:51 | XMS_ITS | Encounter Summary ---
Author Organization [facility] Address [address] [place] [address] Care Team Providers Care Compensation And Benefits Analyst Name Role Phone Non-Staff, Physician Primary Care Provider Unava ilable Encounter Details Date Type Department Care Team (Late st Contact Info) Description 09/09/2013 Ancillary Orders [facility] [address] [place] [address] Sick Social History Tobacco Use Types Packs/Day Years Used Date Smoking Tobacco: Never Assessed Comments Unknown Sex and Gender Information Value Date Recorded Sex Assigned at Not on file Legal Sex Female 2:46 AM IRON WORKER Gender Identity Not on file Sexual Orientation Not on file documented as of this encounter Plan of Treatment Not on file documented as of this encounter Procedures Procedure Name Priority Date/Time Associated Diagnosis Comments POTASSIUM LEVEL Routine 09/09/2013 6:47 PM CDT Sick [ICD-9-CM] documented in this encounter Results * (ABNORMAL) POTASSIUM LEVEL (09/09/2013 6:47 PM CDT) POTASSIUM 3.4(L) 3.5 - 5.1 mmol/L 09/09/2013 11:20 PM CDT [facility] [employer] [facility] Blood specimen (specimen) 09/09/2013 6:47 PM CDT 09/09/2013 10:21 PM CDT us Carmen Cleaning NP CHEMISTRY ORDERABLES Final R esult [facility] [employer] - [facility] # [id number] [address] [place] [address] documented in this encounter Visit Diagnoses Diagnosis Sick Other unknown and unspecified cause of morbidity or mortality documented in this encounter Care Teams Compensation And Benefits Analyst Relationship Specialty Start Date End Date Non-Staff, Physician NO ADDRESS ON FILE PCP - General 07/09/14 documented as of this encounter
--- OUTSIDE RECORDS SUMMARY | 2025-04-17 16:52 | XMS_ITS | Encounter Summary ---
Author Organization [facility] Address [address] [place]: Epic Prelude ADT [place] [address] Care Team Providers Care Process Manufacturing Engineer Name Role Phone Non-Staff, Physician Primary Care Provider Unava ilable Encounter Details Date Type Department Care Team (Late st Contact Info) Description 03/13/2000 Outpatient Historical Santana Serrano NO ADDRESS ON FILE Social History Tobacco Use Types Packs/Day Years Used Date Smoking Tobacco: Never Assessed Comments Unknown Sex and Gender Information Value Date Recorded Sex Assigned at Not on file Legal Sex Female 2:46 AM HOSE WRAPPER Gender Identity Not on file Sexual Orientation Not on file documented as of this encounter Plan of Treatment Not on file documented as of this encounter Visit Diagnoses Not on filedocumented in this encounter Care Teams Process Manufacturing Engineer Relationship Specialty Start Date End Date Non-Staff, Physician NO ADDRESS ON FILE PCP - General 07/09/14 documented as of this encounter
--- OUTSIDE RECORDS SUMMARY | 2025-04-17 16:52 | XMS_ITS | Encounter Summary ---
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); Metrorrhagia Social History Tobacco Use Types Packs/Day Years Used Date Smoking Tobacco: Never Assessed Comments Unknown Sex and Gender Information Value Date Recorded Sex Assigned at Not on file Legal Sex Female 2:46 AM SLIP MIXER Gender Identity Not on file Sexual Orientation Not on file documented as of this encounter Plan of Treatment Not on file documented as of this encounter Visit Diagnoses Diagnosis Unspecified disorder resulting from impaired renal function- Primary Metrorrhagia documented in this encounter Care Teams Animal Husbandry Professor Relationship Specialty Start Date End Date Non-Staff, Physician NO ADDRESS ON FILE PCP - General 07/09/14 documented as of this encounter
--- OUTSIDE RECORDS SUMMARY | 2025-04-17 16:52 | XMS_ITS | Encounter Summary ---
Author Organization [facility] Address [address] [place] [address] Care Team Providers Care Gravel Inspector Name Role Phone Non-Staff, Physician Primary Care Provider Unava ilable Encounter Details Date Type Department Care Team (Late st Contact Info) Description 11/10/2014 Lab Requisition [facility] [place] [address] [place] [address] Dejon Franks DO NO ADDRESS ON FILE Social History Tobacco Use Types Packs/Day Years Used Date Smoking Tobacco: Never Smokeless Tobacco: Never Alcohol Use Standard Drinks/Week Comments Yes 0 (1 standard drink = 0.6 oz pur e alcohol) rare Comments No Sex and Gender Information Value Date Recorded Sex Assigned at Not on file Legal Sex Female 2:46 AM MEDICINE ASSISTANT Gender Identity Not on file Sexual Orientation Not on file documented as of this encounter Plan of Treatment Not on file documented as of this encounter Procedures Procedure Name Priority Date/Time Associated Diagnosis Comments MELBA TITER Routine 11/10/2014 9:00 PM CDT SEDIMENTATION RATE Routine 11/10/2014 9: 00 PM CDT MELBA SCREEN W/REFLEX Routine 11/10/2014 9 :00 PM CDT documented in this encounter Results * (ABNORMAL) MELBA TITER (11/10/2014 9:00 PM CDT) MELBA TITER 1:80(A) 11/12/2014 1:29 PM CDT [facility] MELBA PATTERN Homogeneou s(A) 11/12/2014 1:[address] [facility] Blood specimen (specimen) 11/10/2014 9:00 PM CDT 11/10/2014 11:49 PM CDT us Dejon Franks DO CHEMISTRY ORDERABLES Final R esult Performing Organization Address [facility] Co de Phone Number [facility] CLIA# [id number] [address] [place] [address] [facility] CLIA# [id number] [address] [place] [address] * SEDIMENTATION RATE (11/10/2014 9:00 PM CDT) Pathologist [facility] ESR (SEDIMENTATION RATE) 6 0 - 30 mm/Hr 11/11/2014 12:51 AM CDT [facility] Blood 11/10/2014 9:00 PM CDT 11/10/2014 11:49 PM CDT us Dejon Franks DO HEMATOLOGY ORDERABLES Final Result Performing Organization Address [facility] Co de Phone Number [facility] CLIA # [id number] [address] [place] [address] * (ABNORMAL) MELBA SCREEN W/REFLEX (11/10/2014 9:00 PM CDT) MELBA Positive(A ) Negative 11/12/2014 1:[address] [facility] Blood specimen (specimen) 11/10/2014 9:00 PM CDT 11/10/2014 11:49 PM CDT us Dejon Franks DO CHEMISTRY ORDERABLES Final R esult Performing Organization Address City/[facility]/ZIP Co de Phone Number [facility] CLIA# [id number] [address] [place] [address] [id number] [address] [place] [address] documented in this encounter Visit Diagnoses Not on filedocumented in this encounter Care Teams Gravel Inspector Relationship Specialty Start Date End Date Non-Staff, Physician NO ADDRESS ON FILE PCP - General 07/09/14 documented as of this encounter
--- OUTSIDE RECORDS SUMMARY | 2025-04-17 16:52 | XMS_ITS | Encounter Summary ---
Author Organization [facility] Address [address] [place] [address] Care Team Providers Care Seed Potato Arranger Name Role Phone Non-Staff, Physician Primary Care Provider Unava ilable Reason for Referral * Outpatient Services (Routine) - Closed Specialty Diagnoses / Procedures Referred By Contac t Referred To Contact Radiology Diagnoses Chest pain Mitral valve prolapse Procedures ECHO COMPLETE Adonis Campos DO [facility] [address] [facility] [address] [place] [address] Phone: tel: fax: Referral ID Status Reason Start Date Expiration Date V isits Requested Visits Authorized [id number] Closed [facility] CTS to Schedule (SGF) 07/08/2014 08/08/2015 1 1 GER COMPENSATION Encounter Details Date Type Department Care Team (Latest Contact Info) Description 07/08/2014 Ancillary Orders [facility] Centralized Scheduling [address] [facility] [address] [place] [address] Adonis Campos DO NO ADDRESS ON FILE Chest pain (Primary Dx); Mitral valve prolapse Social History Tobacco Use Types Packs/Day Years Used Date Smoking Tobacco: Never Alcohol Use Standard Drinks/Week Comments Yes 0 (1 standard drink = 0.6 oz pur e alcohol) rare Comments No Sex and Gender Information Value Date Recorded Sex Assigned at Not on file Legal Sex Female 2: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 COMPENSATION Gender Identity Not on file Sexual Orientation Not on file documented as of this encounter Plan of Treatment Not on file documented as of this encounter Results * ECHO COMPLETE (07/09/2014 11:02 AM [facility]) EJECTION FRACTION 65 INTERFACE SYSTEM 07/09/2014 10:2 9 AM [facility] Narrative INTERFACE SYSTEM - 07/09/2014 11:58 AM [facility] Radiology Services - Echocardiology [address] [facility] [address] [place] [address] Transthoracic Echocardiography Patient: Jessica Moon Study ID: [id number] Gender: F : 1965 Age: 49 Room: Study Date: 07/09/2014 Pt Status: Study Time: 10:29 AM Ordering:Adonis Campos Interpreting:Rojelio Gallegos Indications and History: SOB. Procedure information: Study status: Routine. Procedure: Transthoracic echocardiography. Image quality was good. Scanning was performed from the parasternal, apical, subcostal, and suprasternal notch acoustic windows. Study components: M-mode, 2D, complete spectral Doppler, and color Doppler. Height: Height: 170cm. Height: 66.9in. Weight: Weight: 83.7kg. Weight: 184.1lb. Body mass index: BMI: 29kg/m\S\2. Body surface area: BSA: 2.01m\S\2. Study date: Study date: July 09, 2014. Summary and Conclusion: - Left ventricle: The cavity size was normal. Wall thickness was increased in a pattern of mild LVH. Systolic function was normal. The left ventricular ejection fraction was 65%. The estimated ejection fraction was in the range of 60% to 65%. No diagnostic regional wall motion abnormality identified. Features are consistent with a pseudonormal left ventricular filling pattern, with concomitant abnormal relaxation and increased filling pressure (grade 2 diastolic dysfunction). - Right ventricle: The cavity size was normal. Systolic function was normal. Systolic pressure was within the normal range. RV systolic pressure: 22mm Hg (S, est). - Aortic valve: Valve area: 2.26cm\S\2(VTI). Valve area: 2.42cm\S\2 (Vmax). - Mitral valve: Trivial to mild regurgitation. - Pulmonic valve: Trivial to mild regurgitation. Peak gradient: 5mm Hg (S). - Pericardium: A trivial pericardial effusion was identified. Cardiac Anatomy: LEFT VENTRICLE: The cavity size was normal. Wall thickness was increased in a pattern of mild LVH. Systolic function was normal. The left ventricular ejection fraction was 65%. The estimated ejection fraction was in the range of 60% to 65%. No diagnostic regional wall motion abnormality identified. Features are consistent with a pseudonormal left ventricular filling pattern, with concomitant abnormal relaxation and increased filling pressure (grade 2 diastolic dysfunction). RIGHT VENTRICLE: The cavity size was normal. Systolic function was normal. Systolic pressure was within the normal range. LEFT ATRIUM: The atrium was normal in size. RIGHT ATRIUM: The atrium was normal in size. ATRIAL SEPTUM: No defect or patent foramen ovale was identified. AORTIC VALVE: Trileaflet; normal thickness leaflets. Mobility was not restricted. Doppler: There was no stenosis. No significant regurgitation. VTI ratio of LVOT to aortic valve: 0.68. Valve area: 2.26cm\S\2(VTI). Indexed valve area: 1.12cm\S\2/m\S\2 (VTI). Peak velocity ratio of LVOT to aortic valve: 0.73. Valve area: 2.42cm\S\2 (Vmax). Indexed valve area: 1.2cm\S\2/m\S\2 (Vmax). Mean gradient: 3mm Hg (S). Peak gradient: 6mm Hg (S). MITRAL VALVE: Structurally normal valve. Mobility was not restricted. No echocardiographic evidence for prolapse. Doppler: There was no evidence for stenosis. Trivial to mild regurgitation. Valve area by pressure half-time: 2.99cm\S\2. Indexed valve area by pressure half-time: 1.49cm\S\2/m\S\2. Mean gradient: 1mm Hg (D). Peak gradient: 3mm Hg (D). TRICUSPID VALVE: Structurally normal valve. Mobility was not restricted. Doppler: There was no evidence for stenosis. No significant regurgitation. PULMONIC VALVE: Not well visualized. Doppler: There was no evidence for stenosis. Trivial to mild regurgitation. Mean gradient: 2mm Hg (S). Peak gradient: 5mm Hg (S). PERICARDIUM: A trivial pericardial effusion was identified. AORTA: Aortic root: The aortic root was normal in size. Aortic arch: The aortic arch was normal in size. SYSTEMIC VEINS: Inferior vena cava: The vessel was normal in size. INTRACARDIAC MASS THROMBUS: No intracavitary masses or thrombi detected. 2D measurements Adult Normal Range Left ventricle LVID ED, chord, PLAX *39.23 mm 43-52 LVID ES, chord, PLAX 31.58 mm 23-38 FS, chord, PLAX *20 % >29 LVPW, ED 11.86 mm LVPW, ES 15.82 mm Post wall thickening 33 % IVS/LVPW ratio, ED 1.09 <1.3 Vol ED, MOD1 55.5 ml Vol ES, MOD1 18 ml EF, MOD1 67.63 % Stroke vol, MOD1 37.5 ml Vol index, ED, MOD1 28 ml/m\S\2 Vol index, ES, MOD1 9 ml/m\S\2 Stroke index, MOD1 18.7 ml/m\S\2 Vol ED, MOD2 55.4 ml 55-101 Vol ES, MOD2 19.6 ml EF, MOD2 64.65 % Vol index, ED, MOD2 28 ml/m\S\2 Vol index, ES, MOD2 10 ml/m\S\2 Ventricular septum IVS, ED 12.87 mm IVS, ES 15.88 mm Septal thickening 23 % LVOT Diam, S 20.6 mm AP diam 20.55 mm Area 3.33 cm\S\2 Aortic valve Leaflet separation 18.13 mm 15-26 Aorta Root diam, ED 32.8 mm Left atrium AP dim 22.03 mm AP dim index 1.1 cm/m\S\2 <2.2 SI dim, A4C 41.35 mm 29-53 Right ventricle RVID ED, PLAX 27.3 mm 19-38 M-mode measurements Adult Normal Range Left ventricle LVID, ED 47.44 mm 37-56 LVID, ES 25.84 mm FS *46 % 29-45 LVPW, ED 8.48 mm 6-11 LVPW, ES 11.96 mm Post wall thickening 41 % 39-82 IVS/LVPW ratio, ED 1.14 Rel wall thickness, ED 0.36 <0.45 Vol ED, Teichholz 104.6 ml Vol ES, Teichholz 24.2 ml EF, Teichholz 76.83 % 64-83 Stroke vol, Teichholz 80.4 ml Vol index ED, Teichholz 52 ml/m\S\2 Vol index ES, Teichholz 12 ml/m\S\2 Stroke index, Teichholz 40 ml/m\S\2 Mass 146.2 g Mass index 72.8 g/m\S\2 Mass/height 0.86 g/cm Ventricular septum IVS, ED 9.64 mm IVS, ES 21.21 mm Septal thickening *120 % 18-53 Aortic valve Leaflet separation 18.13 mm 15-26 Aorta Root diam, ED 27.38 mm 20-37 Mitral valve E-septal separation 4.24 mm E-F slope 4.62 cm/s Right ventricle RVID, ED 14.27 mm Doppler measurements Adult Normal Range Main pulmonary artery Pressure, S 18 mm Hg <=30 Left ventricle IVRT *109 ms 60-100 LVOT Peak melvin, S 92.56 cm/s VTI, S 16.3 cm Aortic valve Peak melvin, S 126.82 cm/s Mean melvin, S 77.74 cm/s VTI, S 23.92 cm Mean gradient, S 3 mm Hg Peak gradient, S 6 mm Hg VTI ratio LVOT/AV 0.68 Area, VTI 2.26 cm\S\2 Area index (VTI) 1.12 cm\S\2/m\S\2 Peak melvin ratio, LVOT/AV 0.73 Area, Vmax 2.42 cm\S\2 Area index (Vmax) 1.2 cm\S\2/m\S\2 Mitral valve Peak E melvin 84.72 cm/s Peak A melvin 70.99 cm/s Mean melvin, D 33.09 cm/s Deceleration time *3798 ms 150-230 Pressure half-time 74 ms Mean gradient, D 1 mm Hg Peak gradient, D 3 mm Hg Peak E/A ratio 1.19 Area (PHT) 2.99 cm\S\2 Area index (PHT) 1.49 cm\S\2/m\S\2 Tricuspid valve Regurg peak melvin 174.51 cm/s Peak RV-RA gradient, S 12 mm Hg Max regurg melvin 174.51 cm/s Systemic veins Estimated CVP 10 mm Hg Right ventricle Pressure, S 22 mm Hg <30 Pulmonic valve Peak melvin, S 106.5 cm/s Mean gradient, S 2 mm Hg Peak gradient, S 5 mm Hg Legend: Mean values are shown as u=mean value. Asterisk (*) terrazas values outside specified normal range. Prepared and Electronically Authenticated Rojelio Gallegos Confirmed 07/09/2014 11:57 Procedure Note Rojelio Gallegos MD - 07/09/2014 [facility] Radiology Services - Echocardiology [address] [place] [id number] Transthoracic Echocardiography Patient: Jessica Moon Study ID: [id number] Gender: F : 1965 Age: 49 Room: Study Date: 07/09/2014 Pt Status: Study Time: 10:29 AM Ordering:Adonis Campos Interpreting:Rojelio Gallegos Indications and History: SOB. Procedure information: Study status: Routine. Procedure: Transthoracic echocardiography. Image quality was good. Scanning was performed from the parasternal, apical, subcostal, and suprasternal notch acoustic windows. Study components: M-mode, 2D, complete spectral Doppler, and color Doppler. Height: Height: 170cm. Height: 66.9in. Weight: Weight: 83.7kg. Weight: 184.1lb. Body mass index: BMI: 29kg/m\S\2. Body surface area: BSA: 2.01m\S\2. Study date: Study date: July 09, 2014. Summary and Conclusion: - Left ventricle: The cavity size was normal. Wall thickness was increased in a pattern of mild LVH. Systolic function was normal. The left ventricular ejection fraction was 65%. The estimated ejection fraction was in the range of 60% to 65%. No diagnostic regional wall motion abnormality identified. Features are consistent with a pseudonormal left ventricular filling pattern, with concomitant abnormal relaxation and increased filling pressure (grade 2 diastolic dysfunction). - Right ventricle: The cavity size was normal. Systolic function was normal. Systolic pressure was within the normal range. RV systolic pressure: 22mm Hg (S, est). - Aortic valve: Valve area: 2.26cm\S\2(VTI). Valve area: 2.42cm\S\2 (Vmax). - Mitral valve: Trivial to mild regurgitation. - Pulmonic valve: Trivial to mild regurgitation. Peak gradient: 5mm Hg (S). - Pericardium: A trivial pericardial effusion was identified. Cardiac Anatomy: LEFT VENTRICLE: The cavity size was normal. Wall thickness was increased in a pattern of mild LVH. Systolic function was normal. The left ventricular ejection fraction was 65%. The estimated ejection fraction was in the range of 60% to 65%. No diagnostic regional wall motion abnormality identified. Features are consistent with a pseudonormal left ventricular filling pattern, with concomitant abnormal relaxation and increased filling pressure (grade 2 diastolic dysfunction). RIGHT VENTRICLE: The cavity size was normal. Systolic function was normal. Systolic pressure was within the normal range. LEFT ATRIUM: The atrium was normal in size. RIGHT ATRIUM: The atrium was normal in size. ATRIAL SEPTUM: No defect or patent foramen ovale was identified. AORTIC VALVE: Trileaflet; normal thickness leaflets. Mobility was not restricted. Doppler: There was no stenosis. No significant regurgitation. VTI ratio of LVOT to aortic valve: 0.68. Valve area: 2.26cm\S\2(VTI). Indexed valve area: 1.12cm\S\2/m\S\2 (VTI). Peak velocity ratio of LVOT to aortic valve: 0.73. Valve area: 2.42cm\S\2 (Vmax). Indexed valve area: 1.2cm\S\2/m\S\2 (Vmax). Mean gradient: 3mm Hg (S). Peak gradient: 6mm Hg (S). MITRAL VALVE: Structurally normal valve. Mobility was not restricted. No echocardiographic evidence for prolapse. Doppler: There was no evidence for stenosis. Trivial to mild regurgitation. Valve area by pressure half-time: 2.99cm\S\2. Indexed valve area by pressure half-time: 1.49cm\S\2/m\S\2. Mean gradient: 1mm Hg (D). Peak gradient: 3mm Hg (D). TRICUSPID VALVE: Structurally normal valve. Mobility was not restricted. Doppler: There was no evidence for stenosis. No significant regurgitation. PULMONIC VALVE: Not well visualized. Doppler: There was no evidence for stenosis. Trivial to mild regurgitation. Mean gradient: 2mm Hg (S). Peak gradient: 5mm Hg (S). PERICARDIUM: A trivial pericardial effusion was identified. AORTA: Aortic root: The aortic root was normal in size. Aortic arch: The aortic arch was normal in size. SYSTEMIC VEINS: Inferior vena cava: The vessel was normal in size. INTRACARDIAC MASS THROMBUS: No intracavitary masses or thrombi detected. 2D measurements Adult Normal Range Left ventricle LVID ED, chord, PLAX *39.23 mm 43-52 LVID ES, chord, PLAX 31.58 mm 23-38 FS, chord, PLAX *20 % >29 LVPW, ED 11.86 mm LVPW, ES 15.82 mm Post wall thickening 33 % IVS/LVPW ratio, ED 1.09 <1.3 Vol ED, MOD1 55.5 ml Vol ES, MOD1 18 ml EF, MOD1 67.63 % Stroke vol, MOD1 37.5 ml Vol index, ED, MOD1 28 ml/m\S\2 Vol index, ES, MOD1 9 ml/m\S\2 Stroke index, MOD1 18.7 ml/m\S\2 Vol ED, MOD2 55.4 ml 55-101 Vol ES, MOD2 19.6 ml EF, MOD2 64.65 % Vol index, ED, MOD2 28 ml/m\S\2 Vol index, ES, MOD2 10 ml/m\S\2 Ventricular septum IVS, ED 12.87 mm IVS, ES 15.88 mm Septal thickening 23 % LVOT Diam, S 20.6 mm AP diam 20.55 mm Area 3.33 cm\S\2 Aortic valve Leaflet separation 18.13 mm 15-26 Aorta Root diam, ED 32.8 mm Left atrium AP dim 22.03 mm AP dim index 1.1 cm/m\S\2 <2.2 SI dim, A4C 41.35 mm 29-53 Right ventricle RVID ED, PLAX 27.3 mm 19-38 M-mode measurements Adult Normal Range Left ventricle LVID, ED 47.44 mm 37-56 LVID, ES 25.84 mm FS *46 % 29-45 LVPW, ED 8.48 mm 6-11 LVPW, ES 11.96 mm Post wall thickening 41 % 39-82 IVS/LVPW ratio, ED 1.14 Rel wall thickness, ED 0.36 <0.45 Vol ED, Teichholz 104.6 ml Vol ES, Teichholz 24.2 ml EF, Teichholz 76.83 % 64-83 Stroke vol, Teichholz 80.4 ml Vol index ED, Teichholz 52 ml/m\S\2 Vol index ES, Teichholz 12 ml/m\S\2 Stroke index, Teichholz 40 ml/m\S\2 Mass 146.2 g Mass index 72.8 g/m\S\2 Mass/height 0.86 g/cm Ventricular septum IVS, ED 9.64 mm IVS, ES 21.21 mm Septal thickening *120 % 18-53 Aortic valve Leaflet separation 18.13 mm 15-26 Aorta Root diam, ED 27.38 mm 20-37 Mitral valve E-septal separation 4.24 mm E-F slope 4.62 cm/s Right ventricle RVID, ED 14.27 mm Doppler measurements Adult Normal Range Main pulmonary artery Pressure, S 18 mm Hg <=30 Left ventricle IVRT *109 ms 60-100 LVOT Peak melvin, S 92.56 cm/s VTI, S 16.3 cm Aortic valve Peak melvin, S 126.82 cm/s Mean melvin, S 77.74 cm/s VTI, S 23.92 cm Mean gradient, S 3 mm Hg Peak gradient, S 6 mm Hg VTI ratio LVOT/AV 0.68 Area, VTI 2.26 cm\S\2 Area index (VTI) 1.12 cm\S\2/m\S\2 Peak melvin ratio, LVOT/AV 0.73 Area, Vmax 2.42 cm\S\2 Area index (Vmax) 1.2 cm\S\2/m\S\2 Mitral valve Peak E melvin 84.72 cm/s Peak A melvin 70.99 cm/s Mean melvin, D 33.09 cm/s Deceleration time *3798 ms 150-230 Pressure half-time 74 ms Mean gradient, D 1 mm Hg Peak gradient, D 3 mm Hg Peak E/A ratio 1.19 Area (PHT) 2.99 cm\S\2 Area index (PHT) 1.49 cm\S\2/m\S\2 Tricuspid valve Regurg peak melvin 174.51 cm/s Peak RV-RA gradient, S 12 mm Hg Max regurg melvin 174.51 cm/s Systemic veins Estimated CVP 10 mm Hg Right ventricle Pressure, S 22 mm Hg <30 Pulmonic valve Peak melvin, S 106.5 cm/s Mean gradient, S 2 mm Hg Peak gradient, S 5 mm Hg Legend: Mean values are shown as u=mean value. Asterisk (*) terrazas values outside specified normal range. Prepared and Electronically Authenticated Rojelio Gallegos Confirmed 07/09/2014 11:57 us Adonis Campos DO US ORDERABLES Final Result INTERFACE SYSTEM Refer to clinic/hospital department documented in this encounter Visit Diagnoses Diagnosis Chest pain- Primary Chest pain, unspecified Mitral valve prolapse Mitral valve disorders Chest pain Chest pain, unspecified Mitral valve prolapse Mitral valve disorders documented in this encounter Care Teams Seed Potato Arranger Relationship Specialty Start Date End Date Non-Staff, Physician NO ADDRESS ON FILE PCP - General 07/09/14 documented as of this encounter
--- OUTSIDE RECORDS SUMMARY | 2025-04-17 16:52 | XMS_ITS | Encounter Summary ---
Author Organization [facility] Address [address] [place] [address] Care Team Providers Care Devulcanizer Charger Name Role Phone Non-Staff, Physician Primary Care Provider Unava ilable Encounter Details Date Type Department Care Team (Late st Contact Info) Description 09/15/2014 Lab Requisition [facility] Laboratory Services [place] [address] [place] [address] Robert Cisse PA [address] [place] [id number] Social History Tobacco Use Types Packs/Day Years Used Date Smoking Tobacco: Never Smokeless Tobacco: Never Alcohol Use Standard Drinks/Week Comments Yes 0 (1 standard drink = 0.6 oz pur e alcohol) rare Comments No Sex and Gender Information Value Date Recorded Sex Assigned at Not on file 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 Gender Identity Not on file Sexual Orientation Not on file documented as of this encounter Plan of Treatment Not on file documented as of this encounter Procedures Procedure Name Priority Date/Time Associated Diagnosis Comments CBC WITH DIFFERENTIAL Routine 09/15/2014 10:48 PM CDT documented in this encounter Results * (ABNORMAL) CBC WITH DIFFERENTIAL (09/15/2014 10:48 PM CDT) WBC 6.0 4.0 - 10.0 K/uL 09/15/2014 11:21 PM CDT [facility] RBC 4.78 3.93 - 5.22 M/uL 09/15/2014 11:21 PM CDT [facility] [place] HEMOGLOBIN 14.4 11.2 - 15.7 g/dL 09/15/2014 11:21 PM CDT [facility] [place] HEMATOCRIT 40.8 34.1 - 44.9 % 09/15/2014 11:21 PM [facility] [place] MCV 85.4 79.4 - 94.8 fL 09/15/2014 11:21 PM [facility] [place] MCH 30.1 25.6 - 32.2 pg 09/15/2014 11:21 PM [facility] [place] MCHC 35.3 32.2 - 35.5 g/dL 09/15/2014 11:21 PM [facility] [place] RDW 14.3 11.0 - 14.5 % 09/15/2014 11:21 PM [facility] [place] RDW-STDEV 43.8 37.0 - 54.0 fL 09/15/2014 11:21 PM [facility] [place] PLATELETS 238 163 - 337 K/uL 09/15/2014 11:21 PM T [facility] [place] MPV 11.5 10.0 - 14.8 fL 09/15/2014 11:21 PM [facility] [place] NEUTROPHILS 48 34 - 71 % 09/15/2014 11:21 PM [facility] [place] LYMPHOCYTES 40 19 - 52 % 09/15/2014 11:21 PM CDT [facility] [place] MONOCYTES 7 5 - 13 % 09/15/2014 11:21 PM CDT [facility] [place] EOSINOPHILS 5 1 - 6 % 09/15/2014 11:21 PM CDT [facility] [place] BASOPHILS 0 0 - 1 % 09/15/2014 11:21 PM CDT [facility] [place] NEUTROPHIL ABSOLUTE 2.90 1.56 - 6.13 K/uL 09/15/2014 11:21 PM CDT [facility] [place] LYMPHOCYTE ABSOLUTE 2.40 1.20 - 3.40 K/uL 09/15/2014 11:21 PM CDT [facility] [place] MONOCYTE ABSOLUTE 0.40(H) 0.24 - 0.36 K/uL 09/15/2014 11:21 PM CDT [facility] [place] EOSINOPHIL ABSOLUTE 0.27 0.04 - 0.36 K/uL 09/15/2014 11:21 PM CDT [facility] [place] BASOPHILS ABSOLUTE 0.02 0.01 - 0.08 K/uL 09/15/2014 11:21 PM CDT [facility] Blood 09/15/2014 10:4 8 PM CDT 09/15/2014 10:48 PM CDT Robert CALIX HEMATOLOGY ORDERABLES Final Result [facility] [place] CLIA # [id number] [address] [place] [id number] documented in this encounter Visit Diagnoses Not on filedocumented in this encounter Care Teams Devulcanizer Charger Relationship Specialty Start Date End Date Non-Staff, Physician NO ADDRESS ON FILE PCP - General 07/09/14 documented as of this encounter
--- OUTSIDE RECORDS SUMMARY | 2025-04-17 16:52 | XMS_ITS | Encounter Summary ---
Author Organization [facility] Address [address] [place] [address] Care Team Providers Care Capacitor Assembler Name Role Phone Non-Staff, Physician Primary Care Provider Unava ilable Encounter Details Date Type Department Care Team (Late st Contact Info) Description 11/17/2014 Lab Requisition [facility] Laboratory Services [place] [address] [place] [address] Adonis Campos, DO NO ADDRESS ON FILE Sick Social History Tobacco Use Types Packs/Day Years Used Date Smoking Tobacco: Never Smokeless Tobacco: Never Alcohol Use Standard Drinks/Week Comments Yes 0 (1 standard drink = 0.6 oz pur e alcohol) rare Comments No Sex and Gender Information Value Date Recorded Sex Assigned at Not on file Legal Sex Female 2:46 AM [employer] Gender Identity Not on file Sexual Orientation Not on file documented as of this encounter Plan of Treatment Not on file documented as of this encounter Procedures Procedure Name Priority Date/Time Associated Diagnosis Comments SJOGREN'S ANTIBODIES Routine 11/17/2014 10:30 PM CDT Sick [ICD-9-CM] DNA AUTOABS DOUBLE STRANDED Routine 11/17/2014 10:30 PM CDT Sick [ICD-9-CM] RHEUMATOID FACTOR Routine 11/17/2014 10: 30 PM CDT Sick [ICD-9-CM] TSH Routine 11/17/2014 10:30 PM CDT Sick [ICD-9-CM] BASIC METABOLIC PANEL Routine 11/17/2014 10:30 PM CDT Sick [ICD-9-CM] documented in this encounter Results * SJOGREN'S ANTIBODIES (11/17/2014 10:30 PM CDT) Pathologist [facility] SJOGRENS ABS (SSA) <0.2 <1.0 (Negative) U 11/20/2014 3:33 PM CDT [facility] SJOGRENS ABS (SSB) <0.2 <1.0 (Negative) U 11/20/2014 3:33 PM CDT [facility] Comment: Test Performed by: [place] [address] Furniture Reproducer: Vinh Vo II, M.D., Ph.D. Blood specimen (specimen) Collection / Unknown 11/17/2014 10:30 PM CDT 11/18/2014 3:16 PM CDT Adonis Campos DO CHEMISTRY ORDERABLES Final Resu lt Performing Organization Address City/[facility]/ZIP Co de Phone Number [facility] CLIA# [id number] [address] [place] [address] CLIA# [id number] [address] [place] [address] * TSH (11/17/2014 10:30 PM CDT) Pathologist [facility] TSH 2.17 0.30 - 4.80 uIU/mL 11/17/2014 11:56 PM CDT [facility] Blood 11/17/2014 10:3 0 PM CDT 11/17/2014 10:30 PM CDT Adonis Campos DO CHEMISTRY ORDERABLES Final Resu lt [facility] [employer] [facility] CLIA # [id number] [address] [place], [place] [address] * RHEUMATOID FACTOR (11/17/2014 10:30 PM CDT) [facility] RF TITER <10.0 0.0 - 15.0 IU/mL 11/18/2014 9:19 PM CDT [facility] Blood specimen (specimen) 11/17/2014 10:30 PM CDT 11/17/2014 10:30 PM CDT Adonis Campos DO CHEMISTRY ORDERABLES Final Resu lt Performing Organization Address [facility]/ZIP Co de Phone Number [facility] CLIA# [id number] [address] [place], [place] [id number] [place] [address] CLIA# [id number] [address] [place] [address] * DNA AUTOABS DOUBLE STRANDED (11/17/2014 10:30 PM CDT) [facility] DNA ABS Negative Negative 11/19/2014 1:26 PM CDT [facility] Blood specimen (specimen) 11/17/2014 10:30 PM CDT 11/17/2014 10:30 PM CDT Adonis Campos DO CHEMISTRY ORDERABLES Final Resu lt Performing Organization Address [facility]/ZIP Co de Phone Number [facility] CLIA# [id number] [address] [place], [place] [id number] [place] [address] CLIA# [id number] [address] [place] [address] * (ABNORMAL) BASIC METABOLIC PANEL (11/17/2014 10:30 PM CDT) [facility] SODIUM 144 136 - 145 mmol/L 11/17/2014 11:56 PM CDT [facility] POTASSIUM 3.6 3.5 - 5.1 mmol/L 11/17/2014 11:56 PM CDT [facility] CHLORIDE 106 98 - 107 mmol/L 11/17/2014 11:56 PM CDT [facility] CO2 29 21 - 32 mmol/L 11/17/2014 11:56 PM CDT [facility] CALCIUM 8.4(L) 8.5 - 10.1 mg/dL 11/17/2014 11:56 PM T [facility] BUN 17 7 - 18 mg/dL 11/17/2014 11:56 PM T [facility] CREATININE 0.94 0.60 - 1.30 mg/dL 11/17/2014 11:56 PM T [facility] GLUCOSE 119(H) 74 - 106 mg/dL 11/17/2014 11:56 PM [facility] GFR >60 >=60 mL/min/1.7 3 sq meter 11/17/2014 11:56 PM [facility] Comment: eGFR has not been validated for [...] GFR, >60 >=60 mL/min/1.7 3 sq meter 11/17/2014 11:56 PM CDT [facility] [employer] [facility] ANION GAP 9(L) 12 - 20 mmol/L 11/17/2014 11:56 PM CDT [facility] [employer] [facility] Blood 11/17/2014 10:3 0 PM CDT 11/17/2014 10:30 PM CDT us Adonis Campos DO CHEMISTRY ORDERABLES Final Resu lt [facility] [employer] [facility] CLIA # [id number] [address] [address] documented in this encounter Visit Diagnoses Diagnosis Sick Other unknown and unspecified cause of morbidity or mortality documented in this encounter Care Teams Capacitor Assembler Relationship Specialty Start Date End Date Non-Staff, Physician NO ADDRESS ON FILE PCP - General 07/09/14 documented as of this encounter
--- OUTSIDE RECORDS SUMMARY | 2025-04-17 16:52 | XMS_ITS | Encounter Summary ---
Author Organization [facility] Address [address] [place] [address] Care Team Providers Care Meter Tester Primary Name Role Phone Non-Staff, Physician Primary Care Provider Unava ilable Encounter Details Date Type Department Care Team (Late st Contact Info) Description 07/14/2014 Lab Requisition [facility] Laboratory Services [place] [address] [place] [address] Georgia Aguillon, HYDROELECTRIC SYSTEMS TECHNICIAN [address] [place] [address] Social History Tobacco Use Types Packs/Day Years Used Date Smoking Tobacco: Never Alcohol Use Standard Drinks/Week Comments Yes 0 (1 standard drink = 0.6 oz pur e alcohol) rare Comments No Sex and Gender Information Value Date Recorded Sex Assigned at Not on file Legal Sex Female 2:46 AM ELEMENTARY SCHOOL REGISTRAR Gender Identity Not on file Sexual Orientation Not on file documented as of this encounter Plan of Treatment Not on file documented as of this encounter Procedures Procedure Name Priority Date/Time Associated Diagnosis Comments SEDIMENTATION RATE Routine 07/14/2014 11 :13 PM ELEMENTARY SCHOOL REGISTRAR TROPONIN Routine 07/14/2014 11:13 PM ELEMENTARY SCHOOL REGISTRAR documented in this encounter Results * TROPONIN (07/14/2014 11:13 PM ELEMENTARY SCHOOL REGISTRAR) TROPONIN I <0.02 <=0.06 ng/mL 07/15/2014 12:44 AM ELEMENTARY SCHOOL REGISTRAR [facility] LABORATORY SERVICES [facility] Comment: Troponin I assay performed on Dimension EXL with LM (99%URL =0.06 ng/mL) Elevated cardiac markers alone cannot define acute myocardial injury. Increased Troponin concentrations may be found in other conditions including,but not limited to: sepsis, congestive heart failure, hypertension with left ventricular hypertrophy, hemodynamic compromise, myocarditis, chronic renal failure, cardiac toxins (i.e. chemotherapeutics), chest trauma and mechanical injury including cardiac surgery/defibrillation. Blood 07/14/2014 11:1 3 PM ELEMENTARY SCHOOL REGISTRAR 07/14/2014 11:13 PM ELEMENTARY S[employer]OL REGISTRAR Georgia Aguillon [facility] CHEMISTRY ORDERABLES Final Result Performing Organization Address City/[facility]/ZIP Co de Phone Number [facility] [id number] [address] [place] [address] * SEDIMENTATION RATE (07/14/2014 11:13 PM ELEMENTARY SCHOOL REGISTRAR) ESR (SEDIMENTATION RATE) 7 0 - 30 mm/Hr 07/14/2014 11:52 PM ELEMENTARY SCHOOL REGISTRAR [facility] LABORATORY [facility] Blood 07/14/2014 11:1 3 PM ELEMENTARY SCHOOL REGISTRAR 07/14/2014 11:13 PM ELEMENTARY SCHOOL REGISTRAR [place] [employer] [facility] HEMATOLOGY ORDERABLES Final Result Performing Organization Address City/[facility] Co de Phone Number [facility] [employer] [facility] CLIA # [id number] [address] [place] [address] documented in this encounter Visit Diagnoses Not on filedocumented in this encounter Care Teams Meter Tester Primary Relationship Specialty Start Date End Date Non-Staff, Physician NO ADDRESS ON FILE PCP - General 07/09/14 documented as of this encounter
[2025-04-17 16:53] VITALS: BP 160/98; PULSE 80; RESP 17; TEMP 36.8; O2SAT 97; BMI 30.7
--- NOTE | 2025-04-17 16:57 | W.ED.ANIMALB ---
HPI - Animal Bite General: Chief Complaint: Animal Bite Stated Complaint: dog bite Time Seen by Provider: 04/17/25 16:56 Source: patient Mode of arrival: ambulatory Limitations: no limitations History of Present Illness: Patient is a 60-year-old female presents to ED today for evaluation of a dog bite. Patient states she got in between her son's pitbull and a stray dog and believes that the pitbull bit her to her right forearm and left breast. She does believe the pitbull is up-to-date on immunizations. She states her last tetanus was 2 years ago. She states she believes that is possible that the stray dog was the one that bit her but is almost certain it was her son's dog. She is wanting to hold off on rabies PEP at this time. complaint: animal bite Onset (ago): hour(s) Animal: dog Description of animal: immunizations UTD Mechanism: bite Location: chest (L breast) Location - Extremities: Right: forearm Context: animals fighting Associated symptoms: Reports bleeding Related Data Home Medications ?Medication ?Instructions ?Recorded ?Confirmed amlodipine 5 mg tablet 5 mg PO DAILY 08/25/19 03/04/25 metoprolol tartrate 50 mg tablet 50 mg PO BID 08/25/19 03/04/25 ibuprofen 200 mg capsule 200 mg PO Q6H PRN Pain 03/21/23 03/04/25 valsartan 160 1 tab PO DAILY 03/21/23 03/04/25 mg-hydrochlorothiazide 12.5 mg tablet wcwwhxq-mkuxlkvkvjxxf-asobqbxh 250 2 tab PO Q6H PRN 03/12/24 03/04/25 mg-250 mg-65 mg tablet (Excedrin Migraine) pantoprazole 20 mg tablet,delayed 20 mg PO DAILY 04/25/24 03/04/25 release Previous Rx's ?Medication ?Instructions ?Recorded epinephrine 0.3 mg/0.3 mL 0.3 mg (0.3 mL) IM Q15M PRN 12/08/21 injection, auto-injector (EpiPen anaphylaxis #2 ea 2-Shree) duloxetine 60 mg capsule,delayed 60 mg PO DAILY #30 caps 10/25/24 release (Cymbalta) trazodone 100 mg tablet 300 mg (3 x 100 mg) PO .HS PRN 05/16/25 insomnia #90 tabs estradiol 0.01% (0.1 mg/gram) 1 g vaginal DAILY #42.5 grams 12/10/24 vaginal cream galcanezumab-gnlm 120 mg/mL 120 mg SUBCUT ONCE #1 mL 12/11/24 subcutaneous pen injector (Emgality Pen) duloxetine 30 mg capsule,delayed 30 mg PO DAILY #30 caps 01/24/25 release hydroxyzine HCl 50 mg tablet 50 mg PO QID PRN insomnia #120 tabs 01/24/25 amoxicillin 875 mg-potassium 1 tab PO BID #14 tabs 04/17/25 clavulanate 125 mg tablet hydrocodone 5 mg-acetaminophen 325 1 tab PO Q6H PRN pain #14 tabs 04/17/25 mg tablet Allergies Allergy/AdvReac Type Severity Reaction Status Date / Time adhesive Allergy ALGY-Rash Verified 03/04/25 09:40 tramadol (From Ultram) Allergy ALGY-Hives Verified 03/04/25 09:40 Review of Systems Musc: Reports: extremity pain (R forearm) and extremity swelling (R distal forearm); Denies: joint pain or joint swelling Skin/Breast: Reports: breast pain (dog bite L breast) and other (multiple dog bites) PFSH ED PFSH: Medical History Psychiatric care Cervical pain Low vitamin D level Carotid artery stenosis Bilateral less than 50% from February 2019 SVT (supraventricular tachycardia) CVA (cerebral vascular accident) Hyperlipidemia HTN (hypertension) Surgical History History of partial hysterectomy S/P ablation of atrial fibrillation Family History Mother Breast cancer Uterine cancer Diabetes Hyperlipidemia Sister Breast cancer Grandmother Breast cancer Brother Colon cancer Hyperlipidemia Father Heart disease Hypertension Denies family history of Ovarian cancer Thyroid disease Stroke Social History Smoking and tobacco/nicotine status: never used tobacco/nicotine Alcohol intake: never Substance/Drug Use: never Adopted: No Caregiver/support person: No Lives independently: Yes Household members: other Details: son lives with her Housing: House Marital status: Legally Number of children: 6 Highest education level completed: High School Graduate service: No Current occupational status: disabled Pets and animals: Yes Pets & animals: dog(s) and farm animals Farm Animals: chicken/turkey/other poultry Leisure activites: reading and other Leisure activities details: knitting, and TV Sexually active: Yes Do you think of yourself as: Straight/Heterosexual Current gender identity: Female Khloe/Quaker: Pentecostal Special khloe needs: No Agree to transfusion: Yes Female Reproductive History: Para: 6 Spontaneous abortions: No Physical Exam Const: COMMON NORMALS: average body habitus, no limitations, healthy appearing, alert and well nourished GENERAL APPEARANCE: cooperative and in distress (appears uncomfortable) ORIENTATION/CONSCIOUSNESS: Yes awake, Yes oriented to person, Yes oriented to place and Yes oriented to time Chest: Chest images (female):  1. 2. puncture wound/dog bite L breast/edema Resp: COMMON NORMALS: normal respiratory effort and clear to auscultation bilaterally AUSCULTATION: clear to auscultation bilaterally Cardio: COMMON NORMALS: regular rate and regular rhythm RATE: regular rate RHYTHM: regular rhythm Extremity: COMMON NORMALS: capillary refill normal GENERAL: Yes normal exam except as noted RIGHT UPPER EXTREMITY: Yes lower arm (two puncture wounds R forearm/edema) Right lower arm: Yes neurovascular exam (normal) Neuro: COMMON NORMALS: moves all extremities, no focal motor deficits and no sensory deficits noted SENSORIUM/ORIENTATION: Yes alert, Yes oriented to person, Yes oriented to place and Yes oriented to time Skin: NARRATIVE SKIN EXAM: dog bites present to R forearm and L breast Procedures Laceration Laceration 1: Site: upper extremity Side (If applicable): right Size (cm): 0.75 Description: linear Depth: simple, single layer Local Anesthetic: lidocaine 1% Amount of anesthesia used (mL): 1.0 Pre-repair: wound explored and irrigated extensively Skin layer closed with: nylon Size (cm): 5-0 Number of sutures: 1 Technique: simple, interrupted Laceration 2: Site: chest (L breast) Side (If applicable): left Size (cm): 1.5 Description: irregular Depth: simple, single layer Local Anesthetic: lidocaine 1% Amount of anesthesia used (mL): 1.0 Pre-repair: wound explored Skin layer closed with: nylon Size (cm): 4-0 Number of sutures: 2 Technique: simple, interrupted Laceration 3: Site: chest (L breast) Side (If applicable): left Size (cm): 3.0 Description: linear Depth: simple, single layer Local Anesthetic: lidocaine 1% Amount of anesthesia used (mL): 2.0 Pre-repair: wound explored and irrigated extensively Skin layer closed with: nylon Size (cm): 4-0 Number of sutures: 4 Technique: simple, interrupted Course Vital Signs: Vital signs: Vital Signs Temperature 98.3 F 04/17/25 16:53 Pulse Rate 65 04/17/25 18:48 Respiratory Rate 18 04/17/25 17:15 Blood Pressure 144/93 04/17/25 18:48 Pulse Oximetry 98 04/17/25 18:48 Oxygen Delivery Me thod Room Air 04/17/25 16:53 MDM - Animal Bite Medical Decision Making Patient is going to call the chief lock tender operator tomorrow to verify dog's immunization status. She is declining rabies PEP. Her tetanus is updated. Wounds were copiously irrigated. The majority of small puncture wounds to her right forearm were left open to decrease risk of infection. Patient was given IV antibiotics prior to discharge. She will be placed on prophylactic Augmentin and given pain medications. Wound care/infection precautions discussed. Differential Diagnosis Likely bite by animal and dog bite Medical Records I reviewed the patient's medical records. Lab Data Radiology Impressions Forearm X-Ray 04/17/25 17:04 IMPRESSION: Moderate soft tissue swelling overlies the dorsal aspect of the distal forearm. No radiopaque foreign bodies noted. All radiology interpretation(s) finalized by discharge Discharge Plan Discharge Patient Disposition: Home Clinical Impression: Dog bite of right forearm Qualifiers: Encounter type: initial encounter Qualified Code(s): S51.851A - Open bite of right forearm, initial encounter Animal bite of chest Qualifiers: Encounter type: initial encounter Qualified Code(s): S21.95XA - Open bite of unspecified part of thorax, initial encounter Condition: Stable Prescriptions: New hydrocodone-acetaminophen 5-325 mg tablet 1 tab PO Q6H PRN (Reason: pain) Qty: 14 0RF amoxicillin-pot clavulanate 875-125 mg tablet 1 tab PO BID Qty: 14 0RF No Action Excedrin Migraine 250-250-65 mg tablet 2 tab PO Q6H PRN duloxetine [Cymbalta] 60 mg capsule,delayed release(DR/EC) 60 mg PO DAILY Qty: 30 11RF trazodone 100 mg tablet 300 mg PO .HS PRN (Reason: insomnia) Qty: 90 11RF valsartan-hydrochlorothiazide 160-12.5 mg tablet 1 tab PO DAILY ibuprofen 200 mg capsule 200 mg PO Q6H PRN (Reason: Pain) pantoprazole 20 mg tablet,delayed release (DR/EC) 20 mg PO DAILY hydroxyzine HCl 50 mg tablet 50 mg PO QID PRN (Reason: insomnia) Qty: 120 2RF duloxetine 30 mg capsule,delayed release(DR/EC) 30 mg PO DAILY Qty: 30 11RF Rx Instructions: Take with 60 mg for total of 90 mg. estradiol 0.01 % (0.1 mg/gram) cream 1 g vaginal DAILY Qty: 42.5 3RF Rx Instructions: once daily for 14 days and then apply twice weekly Emgality Pen 120 mg/mL pen injector 120 mg SUBCUT ONCE Qty: 1 11RF Rx Instructions: Administer according to package directions once monthly amlodipine 5 mg tablet 5 mg PO DAILY metoprolol tartrate 50 mg tablet 50 mg PO BID epinephrine [EpiPen 2-Shree] 0.3 mg/0.3 mL auto-injector 0.3 mg IM Q15M PRN (Reason: anaphylaxis) Qty: 2 0RF Rx Instructions: not to exceed 6 doses per episode Discharge Orders: Discharge ED (Routine); Ordered 04/17/25 Ordered By: Dona Vilchis Referrals: Joselito Sylvester DO [Primary Care Provider, [facility]] Patient Instructions: Animal Bite (ED), Opioid Safety, Pain Management, Patient Portal & Leilani Instructions Activity Restrictions/Additional Instructions: As we discussed, you need to ice breast for 20 to 30 minutes every other hour to help with swelling. You may elevate your right arm to help with any swelling. Some of the bite terrazas have been left open/others were loosely closed to help prevent infection. You need to fill your antibiotics and start them immediately. You were given IV antibiotics prior to discharge. Your tetanus is up-to-date. If you discover the dog is not up-to-date on immunizations, we discussed returning to start rabies postexposure prophylaxis. Keep wound/laceration clean with warm soap and water twice daily. Monitor for signs of infection such as redness, swelling, increased pain, or drainage. Please seek medical re-evaluation if these occur. If you received sutures today these will need to be removed (unless you were told by the provider that they are absorbable). The provider should have discussed with you the length of time until removal-7 to 10 days. Print Language: Maltese Coding Level of Care Code ED Supervisor Customer Records Division for Jossue Mitchell
--- NOTE | 2025-04-17 17:04 | XRR_ITS ---
PROCEDURE INFORMATION: Exam: XR Right Forearm Exam date and time: 04/17/2025 5:27 PM Age: 60 years old Clinical indication: Injury or trauma; Other: Dog bite; Arm, lower; Right TECHNIQUE: Imaging protocol: Radiologic exam of the right forearm. Views: 2 views. COMPARISON: No relevant prior studies available. FINDINGS: Bones/joints: Normal. Soft tissues: Moderate soft tissue swelling overlies the dorsal aspect of the distal forearm. XR/XR forearm RT 2V [id number] IMPRESSION: Moderate soft tissue swelling overlies the dorsal aspect of the distal forearm. No radiopaque foreign bodies noted.
[2025-04-17 17:15] VITALS: RESP 18; O2SAT 97
[2025-04-17] MEDS: ondansetron 2 mg/ML SDV 2 mL 4 MG IVP (17:15)
[2025-04-17] MEDS: morphine 4 mg/mL SDV 1 mL IVP ×2 (17:15→19:00)
[2025-04-17] MEDS: ampicillin-sulbactam 3 GM in sodium chloride 0.9% (plus) 50 ML IV (17:17)
[2025-04-17 18:48] VITALS: BP 144/93; PULSE 65; O2SAT 98
[2025-04-17 19:00] VITALS: RESP 16; O2SAT 98
[2025-04-17] MEDS: HYDROcodone-acetaminophen 5-325 mg Tablet 2 TAB PO (19:00)
[2025-04-17 19:10] VITALS: BP 144/93; PULSE 68; RESP 16; O2SAT 98
== END 2025-04-17 19:13 | disposition home or self-care (01) ==
PROVIDERS: Emergency Provider Physician Assistant; PCP Electrodiagnostic Medicine
DX: S51.851A Open bite of right forearm, initial encounter (principal); S21.052A Open bite of left breast, initial encounter; W54.0XXA Bitten by dog, initial encounter; E78.5 Hyperlipidemia, unspecified; I10 Essential (primary) hypertension; Z86.73 Personal history of transient ischemic attack (TIA), and cerebral infarction without residual deficits
CPT/HCPCS: 12002; 73090; 96365; 96375; 96376; 99284; J0295; J2270; J2405; J9999

== ENCOUNTER 2025-04-18 13:13 | Emergency (ER) | payer MEDICARE, MEDICAID, SELFPAY ==
[2024-03-15 11:59] VITALS: BP 135/88; BMI 31.7
--- OUTSIDE RECORDS SUMMARY | 2025-04-18 13:19 | XMS_ITS | Encounter Summary ---
Author Organization [facility] Address [address] [place] [address] Care Team Providers Care Metal Weather Stripper Name Role Phone Non-Staff, Physician Primary Care Provider Unava ilable Encounter Details Date Type Department Care Team (Latest Contact Info) Description 04/20/2001 Outpatient Historical [facility] Pal Russell MD [address] [place] [address] HYPERLIPIDEMIA NEC/NOS (Primary Dx) Social History Tobacco Use Types Packs/Day Years Used Date Smoking Tobacco: Never Assessed Comments Unknown Sex and Gender Information Value Date Recorded Sex Assigned at Not on file Legal Sex Female 2:46 AM ROLLING MILL PLUGGER Gender Identity Not on file Sexual Orientation Not on file documented as of this encounter Plan of Treatment Not on file documented as of this encounter Visit Diagnoses Diagnosis Other and unspecified hyperlipidemia- Primary documented in this encounter Care Teams Metal Weather Stripper Relationship Specialty Start Date End Date Non-Staff, Physician NO ADDRESS ON FILE PCP - General 07/09/14 documented as of this encounter
--- OUTSIDE RECORDS SUMMARY | 2025-04-18 13:19 | XMS_ITS | Encounter Summary ---
Author Organization [facility] Address [address] [place] [address] Care Team Providers Care Front Office Help Name Role Phone Non-Staff, Physician Primary Care Provider Unava ilable Encounter Details Date Type Department Care Team (Latest Contact Info) Description 04/16/2001 Outpatient Historical [facility] Pal Russell MD [address] [place] [address] ACUTE SINUSITIS NOS (Primary Dx); LOWER LEG INJURY NOS; POSTMENOPAUSAL HORMONAL REPLACMT Social History Tobacco Use Types Packs/Day Years Used Date Smoking Tobacco: Never Assessed Comments Unknown Sex and Gender Information Value Date Recorded Sex Assigned at Not on file Legal Sex Female 2:46 AM AUTOMATION SPECIALIST Gender Identity Not on file Sexual Orientation Not on file documented as of this encounter Plan of Treatment Not on file documented as of this encounter Visit Diagnoses Diagnosis Acute sinusitis, unspecified- Primary Injury, other and unspecified, knee, leg, ankle, and foot Need for prophylactic hormone replacement therapy (postmenopausal) documented in this encounter Care Teams Front Office Help Relationship Specialty Start Date End Date Non-Staff, Physician NO ADDRESS ON FILE PCP - General 07/09/14 documented as of this encounter
--- OUTSIDE RECORDS SUMMARY | 2025-04-18 13:19 | XMS_ITS | Encounter Summary ---
Author Organization [facility] Address [address] [place] [address] Care Team Providers Care Senior Lead Java Developer Name Role Phone Non-Staff, Physician Primary Care Provider Unava ilable Encounter Details Date Type Department Care Team (Latest Contact Info) Description 03/16/2001 Outpatient Historical [facility] Pal Russell MD [address] [place] [address] Injury, other and unspecified, knee, leg, ankle, and foot (Primary Dx) Social History Tobacco Use Types Packs/Day Years Used Date Smoking Tobacco: Never Assessed Comments Unknown Sex and Gender Information Value Date Recorded Sex Assigned at Not on file Legal Sex Female 2:46 AM SENIOR BUSINESS ARCHITECT Gender Identity Not on file Sexual Orientation Not on file documented as of this encounter Plan of Treatment Not on file documented as of this encounter Visit Diagnoses Diagnosis Injury, other and unspecified, knee, leg, ankle, and foot- Primary documented in this encounter Care Teams Senior Lead Java Developer Relationship Specialty Start Date End Date Non-Staff, Physician NO ADDRESS ON FILE PCP - General 07/09/14 documented as of this encounter
--- OUTSIDE RECORDS SUMMARY | 2025-04-18 13:19 | XMS_ITS | Clinical Summary ---
Author Organization [employer] [facility] Address [address] [place]: Epic Prelude ADT [place] [address] Care Team Providers Care Laboratory Development Technician Name Role Phone Non-Staff, Physician Primary [...] on file Legal Sex Female 1:10 AM COST REDUCTION ENGINEER Gender Identity Not on file Sexual Orientation Not on file Last Filed Vital Signs Vital Sign Reading Time Taken Comments Blood Pressure 112/80 04/26/2024 3:05 PM COST REDUCTION ENGINEER Pulse 56 07/22/2014 1:45 PM COST REDUCTION ENGINEER Temperature 36.9 C (98.5 F) 07/07/2014 8:58 PM COST REDUCTION ENGINEER Respiratory Rate 15 07/07/2014 8:58 PM COST REDUCTION ENGINEER Oxygen Saturation - - Inhaled Oxygen Concentration - - Weight 91.2 kg (201 lb) 04/26/2024 3:05 PM COST REDUCTION ENGINEER Height 167.6 cm (5' 6 ) 04/26/2024 3:05 PM COST REDUCTION ENGINEER Body Mass Index 32.44 04/26/2024 3:05 PM COST REDUCTION ENGINEER Plan of Treatment Upcoming Encounters Date Type Department Care Team (Late st Contact Info) Description 04/24/2026 1:00 PM COST REDUCTION ENGINEER Office Visit [facility] Neurosurgery [address] [place] [address] Patricio Christianson MD [address] [place] [address] Health Maintenance Due Date Last [...] 1-dose 75+ series) 2038 Insurance MEDICAID [place] [facility] Care Teams Laboratory Development Technician Relationship Specialty Start Date End Date Non-Staff, Physician NO ADDRESS ON FILE PCP - General 07/09/14
[2025-04-18 13:20] VITALS: BP 120/80; PULSE 81; RESP 16; TEMP 36.8; O2SAT 98; BMI 30.7
--- OUTSIDE RECORDS SUMMARY | 2025-04-18 13:20 | XMS_ITS | Encounter Summary ---
Author Organization [facility] Address [address] [place] [address] Care Team Providers Care Accuracy Expert Name Role Phone Non-Staff, Physician Primary Care Provider Unava ilable Encounter Details Date Type Department Care Team (Latest Contact Info) Description 05/29/2001 Outpatient Historical [facility] Pal Russell MD [address] [place] [address] HEADACHE (Primary Dx); TMJ arthralgia Social History Tobacco Use Types Packs/Day Years Used Date Smoking Tobacco: Never Assessed Comments Unknown Sex and Gender Information Value Date Recorded Sex Assigned at Not on file Legal Sex Female 2:46 AM CLIMBING GUIDE Gender Identity Not on file Sexual Orientation Not on file documented as of this encounter Plan of Treatment Not on file documented as of this encounter Visit Diagnoses Diagnosis Headache(784.0)- Primary Headache TMJ arthralgia Arthralgia of temporomandibular joint documented in this encounter Care Teams Accuracy Expert Relationship Specialty Start Date End Date Non-Staff, Physician NO ADDRESS ON FILE PCP - General 07/09/14 documented as of this encounter
--- OUTSIDE RECORDS SUMMARY | 2025-04-18 13:20 | XMS_ITS | Encounter Summary ---
Author Organization [facility] Address [address] [place] [address] Care Team Providers Care Screen Making Supervisor Name Role Phone Non-Staff, Physician Primary Care Provider Unava ilable Encounter Details Date Type Department Care Team (Late st Contact Info) Description 09/09/2013 Ancillary Orders [facility] Laboratory Services [place] [address] [place] [address] Sick Social History Tobacco Use Types Packs/Day Years Used Date Smoking Tobacco: Never Assessed Comments Unknown Sex and Gender Information Value Date Recorded Sex Assigned at Not on file Legal Sex Female 2:46 AM LEAK INSPECTOR Gender Identity Not on file Sexual Orientation [...] - 5.1 mmol/L 09/09/2013 11:20 PM CDT [facility] [employer] [facility] Blood specimen (specimen) 09/09/2013 6:47 PM CDT 09/09/2013 10:21 PM CDT us Carmen Cleaning NP CHEMISTRY ORDERABLES Final R esult [facility] [employer] - [facility] # [id number] [address] [place] [address] documented in this encounter Visit Diagnoses Diagnosis Sick Other unknown and unspecified cause of morbidity or mortality documented in this encounter Care Teams Screen Making Supervisor Relationship Specialty Start Date End Date Non-Staff, Physician NO ADDRESS ON FILE PCP - General 07/09/14 documented as of this encounter
--- OUTSIDE RECORDS SUMMARY | 2025-04-18 13:20 | XMS_ITS | Encounter Summary ---
Author Organization [facility] Address [address] [place] [address] Care Team Providers Care Fashion Design Professor Name Role Phone Non-Staff, Physician Primary Care Provider Unava ilable Encounter Details Date Type Department Care Team (Latest Contact Info) Description 03/24/2000 Outpatient Historical [facility] Santana Serrano NO ADDRESS ON FILE Endometriosis, site unspecified (Primary Dx); Dyspepsia and other specified disorders of function of stomach Social History Tobacco Use Types Packs/Day Years Used Date Smoking Tobacco: Never Assessed Comments Unknown Sex and Gender Information Value Date Recorded Sex Assigned at Not on file Legal Sex Female 2:46 AM BLUEPRINT BLOCKER Gender Identity Not on file Sexual Orientation Not on file documented as of this encounter Plan of Treatment Not on file documented as of this encounter Visit Diagnoses Diagnosis Endometriosis, site unspecified- Primary Dyspepsia and other specified disorders of function of stomach documented in this encounter Care Teams Fashion Design Professor Relationship Specialty Start Date End Date Non-Staff, Physician NO ADDRESS ON FILE PCP - General 07/09/14 documented as of this encounter
--- OUTSIDE RECORDS SUMMARY | 2025-04-18 13:20 | XMS_ITS | Encounter Summary ---
Author Organization [facility] Address [address] [place] [address] Care Team Providers Care Stone Cleaner Name Role Phone Non-Staff, Physician Primary Care Provider Unava ilable Encounter Details Date Type Department Care Team (Late st Contact Info) Description 11/17/2014 Lab Requisition [facility] Laboratory Services [place] [address] [place] [address] Adonis Campos, DO NO ADDRESS ON FILE Sick Social History Tobacco Use Types Packs/Day Years Used Date Smoking Tobacco: Never Smokeless Tobacco: Never Alcohol Use Standard Drinks/Week Comments Yes 0 (1 standard drink = 0.6 oz pur e alcohol) rare Comments No Sex and Gender Information Value Date Recorded Sex Assigned at Not on file Legal Sex Female 2:46 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 Blood specimen (specimen) Collection / Unknown 11/17/2014 10:30 PM CDT 11/18/2014 3:16 PM CDT Adonis Campos DO CHEMISTRY ORDERABLES Final Resu lt Performing Organization Address City/[facility]/ZIP Co de Phone Number [facility] CLIA# [id number] [address] [place] [address] CLIA# [id number] [address] [place] [address] * TSH (11/17/2014 10:30 PM CDT) Pathologist [facility] TSH 2.17 0.30 - 4.80 uIU/mL 11/17/2014 11:56 PM CDT [facility] Blood 11/17/2014 10:3 0 PM CDT 11/17/2014 10:30 PM CDT Adonis Campos DO CHEMISTRY ORDERABLES Final Resu lt [facility] [employer] [facility] CLIA # [id number] [address] [place], [place] [address] * RHEUMATOID FACTOR (11/17/2014 10:30 PM CDT) [facility] RF TITER <10.0 0.0 - 15.0 IU/mL 11/18/2014 9:19 PM CDT [facility] Blood specimen (specimen) 11/17/2014 10:30 PM CDT 11/17/2014 10:30 PM CDT Adonis Campos DO CHEMISTRY ORDERABLES Final Resu lt Performing Organization Address [facility]/ZIP Co de Phone Number [facility] CLIA# [id number] [address] [place], [place] [id number] [place] [address] CLIA# [id number] [address] [place] [address] * DNA AUTOABS DOUBLE STRANDED (11/17/2014 10:30 PM CDT) [facility] DNA ABS Negative Negative 11/19/2014 1:26 PM CDT [facility] Blood specimen (specimen) 11/17/2014 10:30 PM CDT 11/17/2014 10:30 PM CDT Adonis Campos DO CHEMISTRY ORDERABLES Final Resu lt Performing Organization Address [facility]/ZIP Co de Phone Number [facility] CLIA# [id number] [address] [place], [place] [id number] [place] [address] CLIA# [id number] [address] [place] [address] * (ABNORMAL) BASIC METABOLIC PANEL (11/17/2014 10:30 PM CDT) [facility] SODIUM 144 136 - 145 mmol/L 11/17/2014 11:56 PM CDT [facility] POTASSIUM 3.6 3.5 - 5.1 mmol/L 11/17/2014 11:56 PM CDT [facility] CHLORIDE 106 98 - 107 mmol/L 11/17/2014 11:56 PM CDT [facility] CO2 29 21 - 32 mmol/L 11/17/2014 11:56 PM CDT [facility] CALCIUM 8.4(L) 8.5 - 10.1 mg/dL 11/17/2014 11:56 PM T [facility] BUN 17 7 - 18 mg/dL 11/17/2014 11:56 PM T [facility] CREATININE 0.94 0.60 - 1.30 mg/dL 11/17/2014 11:56 PM T [facility] GLUCOSE 119(H) 74 - 106 mg/dL 11/17/2014 11:56 PM [facility] GFR >60 >=60 mL/min/1.7 3 sq meter 11/17/2014 11:56 PM [facility] Comment: eGFR has not been validated for [...] 3 sq meter 11/17/2014 11:56 PM CDT [facility] [employer] [facility] ANION GAP 9(L) 12 - 20 mmol/L 11/17/2014 11:56 PM CDT [facility] [employer] [facility] Blood 11/17/2014 10:3 0 PM CDT 11/17/2014 10:30 PM CDT us Adonis Campos DO CHEMISTRY ORDERABLES Final Resu lt [facility] [employer] [facility] CLIA # [id number] [address] [address] documented in this encounter Visit Diagnoses Diagnosis Sick Other unknown and unspecified cause of morbidity or mortality documented in this encounter Care Teams Stone Cleaner Relationship Specialty Start Date End Date Non-Staff, Physician NO ADDRESS ON FILE PCP - General 07/09/14 documented as of this encounter
--- OUTSIDE RECORDS SUMMARY | 2025-04-18 13:20 | XMS_ITS | Encounter Summary ---
Author Organization [facility] Address [address] [place] [address] Care Team Providers Care Clinical Education Assistant Name Role Phone Non-Staff, Physician Primary Care Provider Unava ilable Encounter Details Date Type Department Care Team (Latest Contact Info) Description 11/02/2001 Outpatient Historical [facility] Pal Russell MD [address] [place] [address] CARDIAC DYSRHYTHMIAS NEC (Primary Dx); HYPERTENSION NOS Social History Tobacco Use Types Packs/Day Years Used Date Smoking Tobacco: Never Assessed Comments Unknown Sex and Gender Information Value Date Recorded Sex Assigned at Not on file 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
--- OUTSIDE RECORDS SUMMARY | 2025-04-18 13:20 | XMS_ITS | Encounter Summary ---
Author Organization [facility] Address [address] [place] [address] Care Team Providers Care Dope Mixer Name Role Phone Non-Staff, Physician Primary Care Provider Unava ilable Encounter Details Date Type Department Care Team (Latest Contact Info) Description 04/22/2002 Outpatient Historical [facility] Pal Russell MD [address] [place] [address] SYMPTOMATIC FEMALE CLIMACTERIC STATE (Primary Dx); Pure hypercholesterolem Social History Tobacco Use Types Packs/Day Years Used Date Smoking Tobacco: Never Assessed Comments Unknown Sex and Gender Information Value Date Recorded Sex Assigned at Not on file Legal Sex Female 2: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 ASSISTED LIVING Gender Identity Not on file Sexual Orientation Not on file documented as of this encounter Plan of Treatment Not on file documented as of this encounter Visit Diagnoses Diagnosis Symptomatic menopausal or female climacteric states- Primary Pure hypercholesterolem Pure hypercholesterolemia documented in this encounter Care Teams Dope Mixer Relationship Specialty Start Date End Date Non-Staff, Physician NO ADDRESS ON FILE PCP - General 07/09/14 documented as of this encounter
--- OUTSIDE RECORDS SUMMARY | 2025-04-18 13:20 | XMS_ITS | Encounter Summary ---
Author Organization [facility] Address [address] [place] [address] Care Team Providers Care Certified Wellness Program Coordinator Name Role Phone Non-Staff, Physician Primary Care Provider Unava ilable Reason for Referral * Outpatient Services (Routine) - Closed Specialty Diagnoses / Procedures Referred By Contac t Referred To Contact Radiology Diagnoses Recurrent cystitis Procedures US RENAL AND BLADDER Adonis Campos DO [facility] [address] [facility] [address] [place] [address] Phone: tel: fax: Referral ID Status Reason Start Date Expiration Date V isits Requested Visits Authorized [id number] Closed [facility] CTS to Schedule (SGF) 02/10/2015 03/12/2016 1 1 Encounter Details Date Type Department Care Team (Latest Contact Info) Description 02/10/[address] 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
--- OUTSIDE RECORDS SUMMARY | 2025-04-18 13:20 | XMS_ITS | Encounter Summary ---
Author Organization [facility] Address [address] [place] [address] Care Team Providers Care Consumer Loan Officer Name Role Phone Non-Staff, Physician Primary Care Provider Unava ilable Encounter Details Date Type Department Care Team (Latest Contact Info) Description 03/28/2002 Outpatient Historical [facility] Pal Russell MD [address] [place] [address] MASTODYNIA (Primary Dx); AFTERCARE HALFWAY USE MEDICATN Social History Tobacco Use Types Packs/Day Years Used Date Smoking Tobacco: Never Assessed Comments Unknown Sex and Gender Information Value Date Recorded Sex Assigned at Not on file Legal Sex Female 2:46 AM CATH LAB NURSE Gender Identity Not on file Sexual Orientation Not on file documented as of this encounter Plan of Treatment Not on file documented as of this encounter Visit Diagnoses Diagnosis Mastodynia- Primary Encounter for long-term (current) use of other medications documented in this encounter Care Teams Consumer Loan Officer Relationship Specialty Start Date End Date Non-Staff, Physician NO ADDRESS ON FILE PCP - General 07/09/14 documented as of this encounter
--- OUTSIDE RECORDS SUMMARY | 2025-04-18 13:20 | XMS_ITS | Encounter Summary ---
Author Organization [facility] Address [address] [place] [address] Care Team Providers Care Permanent Waver Name Role Phone Non-Staff, Physician Primary Care Provider Unava ilable Encounter Details Date Type Department Care Team (Latest Contact Info) Description 04/02/2002 Outpatient Historical [facility] Pal Russell MD [address] [place] [address] Pure hypercholesterolem (Primary Dx); SURGERY FOLLOWUP, UNSPEC Social History Tobacco Use Types Packs/Day Years Used Date Smoking Tobacco: Never Assessed Comments Unknown Sex and Gender Information Value Date Recorded Sex Assigned at Not on file 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
--- OUTSIDE RECORDS SUMMARY | 2025-04-18 13:20 | XMS_ITS | Encounter Summary ---
Author Organization [facility] Address [address] [place] [address] Care Team Providers Care Manager Of Recruiting Name Role Phone Non-Staff, Physician Primary Care Provider Unava ilable Encounter Details Date Type Department Care Team (Latest Contact Info) Description 02/25/2002 Outpatient Historical [facility] WanJonh MD [address] [address] SURGERY FOLLOWUP, UNSPEC (Primary Dx) Social History Tobacco Use Types Packs/Day Years Used Date Smoking Tobacco: Never Assessed Comments Unknown Sex and Gender Information Value Date Recorded Sex Assigned at Not on file Legal Sex Female 2:46 AM 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
--- OUTSIDE RECORDS SUMMARY | 2025-04-18 13:20 | XMS_ITS | Encounter Summary ---
Author Organization [facility] Address [address] [place] [address] Care Team Providers Care Edi Coordinator Name Role Phone Non-Staff, Physician Primary Care Provider Unava ilable Encounter Details Date Type Department Care Team (Late st Contact Info) Description 01/25/2007 Inpatient Historical [facility] Ann Mejia MD [address] [facility] [address] [place] [address] Paroxysmal Supraventricular Tachycardia (Primary Dx) Social History Tobacco Use Types Packs/Day Years Used Date Smoking Tobacco: Never Assessed Comments Unknown Sex and Gender Information Value Date Recorded Sex Assigned at Not on file Legal Sex Female 2:46 AM SHORT ORDER FRY COOK Gender Identity Not on file Sexual Orientation [...] Goal INR 3.0; range 2.5 - 3.5 POST-LA Goal INR 2.5; range 2.0 - 3.0 [...] MD HEMATOLOGY ORDERABLES Edited Performing Organization Address [facility] Phone Number INTERFACE SYSTEM Refer to clinic/hospital [...] MD CHEMISTRY ORDERABLES Edited Performing Organization Address City/[facility] Co de Phone Number INTERFACE SYSTEM Refer to clinic/hospital department documented in this encounter Visit Diagnoses Diagnosis Paroxysmal supraventricular tachycardia- Primary documented in this encounter Care Teams Edi Coordinator Relationship Specialty Start Date End Date Non-Staff, Physician NO ADDRESS ON FILE PCP - General 07/09/14 documented as of this encounter
--- OUTSIDE RECORDS SUMMARY | 2025-04-18 13:20 | XMS_ITS | Encounter Summary ---
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
--- OUTSIDE RECORDS SUMMARY | 2025-04-18 13:20 | XMS_ITS | Encounter Summary ---
Author Organization [facility] Address [address] [place] [address] Care Team Providers Care Wharf Tally Clerk Name Role Phone Non-Staff, Physician Primary Care Provider Unava ilable Encounter Details Date Type Department Care Team (Latest Contact Info) Description 05/15/2001 Outpatient Historical [facility] Pal Russell MD [address] [place] [address] HEADACHE (Primary Dx); VOMITING ALONE Social History Tobacco Use Types Packs/Day Years Used Date Smoking Tobacco: Never Assessed Comments Unknown Sex and Gender Information Value Date Recorded Sex Assigned at Not on file Legal Sex Female 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
--- OUTSIDE RECORDS SUMMARY | 2025-04-18 13:20 | XMS_ITS | Encounter Summary ---
Author Organization [facility] Address [address] [place] [address] Care Team Providers Care Steelworker Name Role Phone Non-Staff, Physician Primary Care Provider Unava ilable Encounter Details Date Type Department Care Team (Late st Contact Info) Description 08/05/2013 Ancillary Orders [facility] Laboratory Services [place] [address] [place] [address] Sick Social History Tobacco Use Types Packs/Day Years Used Date Smoking Tobacco: Never Assessed Comments Unknown Sex and Gender Information Value Date Recorded Sex Assigned at Not on file Legal Sex Female 2:46 AM HORTICULTURE SUPERINTENDENT Gender Identity Not on file Sexual Orientation Not on file documented as of this encounter Plan of Treatment Not on file documented as of this encounter Procedures Procedure Name Priority Date/Time Associated Diagnosis Comments LIPID PANEL Routine 08/05/2013 8:07 PM HORTICULTURE SUPERINTENDENT Sick [ICD-9-CM] COMPREHENSIVE METABOLIC PANEL Routine 08/05/2013 8:07 PM HORTICULTURE SUPERINTENDENT Sick [ICD-9-CM] documented in this encounter Results * (ABNORMAL) LIPID PANEL (08/05/2013 8:07 PM HORTICULTURE SUPERINTENDENT) CHOLESTEROL 268(H) 130 - 200 mg/dL 08/05/2013 9:32 PM HORTICULTURE SUPERINTENDENT [facility] LABORATORY SERVICES - [place] TRIGLYCERIDE 95 30 - 200 mg/dL 08/05/2013 9:32 PM HORTICULTURE SUPERINTENDENT [facility] LABORATORY SERVICES - [place] HDL 54 35 - 80 mg/dL 08/05/2013 9:32 PM [facility] LABORATORY [facility] [place] LDL CALCULATED 195(H) 0 - 100 mg/dL 08/05/2013 9:32 PM [facility] [employer] [facility] Blood specimen (specimen) Collection / Unknown 08/05/2013 8:07 PM HORTICULTURE SUPERINTENDENT 08/05/2013 9:06 PM HORTICULTURE SUPERINTENDENT [facility] [employer] LABORATORY SERVICES - [place] - 08/05/2013 9:32 PM HORTICULTURE SUPERINTENDENT TOTAL CHOLESTEROL mg/dL Desirable <200 Borderline high 200-239 High >=240 TRIGLYCERIDES mg/dL Normal <150 Borderline high 150-199 High 200-499 Very high >=500 HDL CHOLESTEROL mg/dL Low <40 Normal 40-60 Desirable >60 LDL CHOLESTEROL mg/dL Optimal <100 Low risk 100-129 Borderline high 130-159 High 160-189 Very high >=190 Based on AHA/NCEP Guidelines Radha Pathak [facility] CHEMISTRY ORDERABLES Final Resu lt [facility] [employer] [facility] CLIA # [id number] [address] [address] * COMPREHENSIVE METABOLIC PANEL (08/05/2013 8:07 PM HORTICULTURE SUPERINTENDENT) SODIUM 138 136 - 145 mmol/L 08/05/2013 9:32 PM [facility] [employer] [facility] [place] POTASSIUM 3.8 3.5 - 5.1 mmol/L 08/05/2013 9:32 PM [facility] [employer] [facility] CHLORIDE 101 98 - 107 mmol/L 08/05/2013 9:32 PM [facility] [employer] [facility] CO2 31 21 - 32 mmol/L 08/05/2013 9:32 PM [facility] [employer] [facility] CALCIUM 9.2 8.5 - 10.1 mg/dL 08/05/2013 9:32 PM [facility] [employer] [facility] BUN 9 7 - 18 mg/dL 08/05/2013 9:32 PM [facility] [employer] [facility] CREATININE 0.70 0.60 - 1.30 mg/dL 08/05/2013 9:32 PM [facility] [employer] [facility] GLUCOSE 102 74 - 106 mg/dL 08/05/2013 9:32 PM [facility] [employer] [facility] TOTAL PROTEIN 7.9 6.4 - 8.2 g/dL 08/05/2013 9:32 PM [facility] [employer] [facility] ALBUMIN 4.3 3.4 - 5.0 g/dL 08/05/2013 9:32 PM [facility] BILIR[facility] TOTAL 0.5 0.2 - 1.0 mg/dL 08/05/2013 9:32 PM [facility] ALKALINE PHOSPHATASE 136 50 - 136 U/L 08/05/2013 9:32 PM [facility] AST 22 15 - 37 U/L 08/05/2013 9:32 PM [facility] ALT 34 30 - 65 U/L 08/05/2013 9:32 PM [facility] GFR >60 >=60 mL/min/1.7 3 sq meter 08/05/2013 9:32 PM [facility] Comment: eGFR has not been validated [...] mL/min/1.7 3 sq meter 08/05/2013 9:32 PM [facility] Blood specimen (specimen) Collection / Unknown 08/05/2013 8:07 PM HORTICULTURE SUPERINTENDENT 08/05/2013 9:06 PM HORTICULTURE SUPERINTENDENT us Radha Pathak [facility] CHEMISTRY ORDERABLES Final Resu lt [facility] [employer] [facility] CLIA # [id number] [address] [facility] [address] [place] [address] documented in this encounter Visit Diagnoses Diagnosis Sick Other unknown and unspecified cause of morbidity or mortality documented in this encounter Care Teams Steelworker Relationship Specialty Start Date End Date Non-Staff, Physician NO ADDRESS ON FILE PCP - General 07/09/14 documented as of this encounter
--- OUTSIDE RECORDS SUMMARY | 2025-04-18 13:20 | XMS_ITS | Encounter Summary ---
Author Organization [facility] Address [address] [facility] Attn: [place] [address] Care Team Providers Care Mental Health Orderly Name Role Phone Non-Staff, Physician Primary Care Provider Unava ilable Encounter Details Date Type Department Care Team (Late st Contact Info) Description 11/14/2000 Outpatient Historical Felipe Richey MD [address] [facility] [address] [place] [id number] Social History Tobacco Use Types Packs/Day Years Used Date Smoking Tobacco: Never Assessed Comments Unknown Sex and Gender Information Value Date Recorded Sex Assigned at Not on file Legal 

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
--- OUTSIDE RECORDS SUMMARY | 2025-04-18 13:20 | XMS_ITS | Encounter Summary ---
Author Organization [facility] Address [address] [place] [address] Care Team Providers Care Banker Mason Name Role Phone Non-Staff, Physician Primary Care Provider Unava ilable Encounter Details Date Type Department Care Team (Latest Contact Info) Description 11/16/2001 Outpatient Historical [facility] Pal Russell MD [address] [place] [address] Pure hypercholesterolem (Primary Dx); Dietary surveil/career technical counselor Social History Tobacco Use Types Packs/Day Years Used Date Smoking Tobacco: Never Assessed Comments Unknown Sex and Gender Information Value Date Recorded Sex Assigned at Not on file Legal Sex Female 2: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
--- OUTSIDE RECORDS SUMMARY | 2025-04-18 13:20 | XMS_ITS | Encounter Summary ---
Author Organization [facility] Address [address] [place] [address] Care Team Providers Care Griddle Attendant Name Role Phone Non-Staff, Physician Primary Care Provider Unava ilable Encounter Details Date Type Department Care Team (Latest Contact Info) Description 04/02/2002 Outpatient [facility] Oral and Maxillo Surgery[address] [place] [address] Robert Bear, PhD NO ADDRESS ON FILE SURGERY FOLLOWUP, UNSPEC (Primary Dx) Social History Tobacco Use Types Packs/Day Years Used Date Smoking Tobacco: Never Assessed Comments Unknown Sex and Gender Information Value Date Recorded Sex Assigned at Not on file Legal Sex Female 2:46 AM MELT HELPER Gender Identity Not on file Sexual Orientation Not on file documented as of this encounter Plan of Treatment Not on file documented as of this encounter Visit Diagnoses Diagnosis Follow-up examination, following unspecified surgery- Primary documented in this encounter Care Teams Griddle Attendant Relationship Specialty Start Date End Date Non-Staff, Physician NO ADDRESS ON FILE PCP - General 07/09/14 documented as of this encounter
--- OUTSIDE RECORDS SUMMARY | 2025-04-18 13:20 | XMS_ITS | Encounter Summary ---
Author Organization [facility] Address [address] [place] [address] Care Team Providers Care Branch Examiner Name Role Phone Non-Staff, Physician Primary Care Provider Unava ilable Encounter Details Date Type Department Care Team (Latest Contact Info) Description 03/14/2002 Outpatient Historical [facility] Oral and Maxillo Surgery[address] [place] [address] Robert Bear, PhD NO ADDRESS ON FILE TOOTH POSITION ANOMALY (Primary Dx) Social History Tobacco Use Types Packs/Day Years Used Date Smoking Tobacco: Never Assessed Comments Unknown Sex and Gender Information Value Date Recorded Sex Assigned at Not on file Legal Sex Female 2:46 AM TAI CHI INSTRUCTOR Gender Identity Not on file Sexual Orientation Not on file documented as of this encounter Plan of Treatment Not on file documented as of this encounter Visit Diagnoses Diagnosis 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
--- OUTSIDE RECORDS SUMMARY | 2025-04-18 13:20 | XMS_ITS | Encounter Summary ---
Author Organization [facility] Address [address] [place] [address] Care Team Providers Care Care Services Manager Name Role Phone Non-Staff, Physician Primary [...] on file Legal Sex Female 1:10 AM REAL ESTATE ATTORNEY Gender Identity Not on file Sexual Orientation Not on file documented as of this encounter Plan of Treatment Upcoming Encounters Date Type Department Care Team (Late st Contact Info) Description 04/24/2026 1:00 PM REAL ESTATE ATTORNEY Office Visit [facility] Neurosurgery [address] [place] [address] Patricio Christianson MD [address] [place] [address] documented as of this encounter Visit Diagnoses Not on filedocumented in this encounter Care Teams Care Services Manager Relationship Specialty Start Date End Date Non-Staff, Physician NO ADDRESS ON FILE PCP - General 07/09/14 documented as of this encounter
--- OUTSIDE RECORDS SUMMARY | 2025-04-18 13:20 | XMS_ITS | Encounter Summary ---
Author Organization [facility] Address [address] [place] [address] Care Team Providers Care Watch Train Assembler Name Role Phone Non-Staff, Physician Primary Care Provider Unava ilable Encounter Details Date Type Department Care Team (Latest Contact Info) Description 01/22/1999 Outpatient Historical [facility] Santana Serrano NO ADDRESS ON FILE Urinary tract infection, site not specified (Primary Dx) Social History Tobacco Use Types Packs/Day Years Used Date Smoking Tobacco: Never Assessed Comments Unknown Sex and Gender Information Value Date Recorded Sex Assigned at Not on file Legal Sex Female 2:46 AM SLATE 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
--- OUTSIDE RECORDS SUMMARY | 2025-04-18 13:20 | XMS_ITS | Encounter Summary ---
Author Organization [facility] Address [address] [place] [address] Care Team Providers Care Gear Inspector Name Role Phone Non-Staff, Physician Primary Care Provider Unava ilable Encounter Details Date Type Department Care Team (Latest Contact Info) Description 08/09/1999 Outpatient Historical [facility] Santana Serrano NO ADDRESS ON FILE Urinary tract infection, site not specified (Primary Dx); Premenstrual tension Social History Tobacco Use Types Packs/Day Years Used Date Smoking Tobacco: Never Assessed Comments Unknown Sex and Gender Information Value Date Recorded Sex Assigned at Not on file Legal Sex Female 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
--- OUTSIDE RECORDS SUMMARY | 2025-04-18 13:20 | XMS_ITS | Encounter Summary ---
Author Organization [facility] Address [address] [place] [address] Care Team Providers Care Entry Level Account Executive Name Role Phone Non-Staff, Physician Primary Care Provider Unava ilable Encounter Details Date Type Department Care Team (Latest Contact Info) Description 04/15/2002 Outpatient [facility] Oral and Maxillo Surgery[address] [place] [address] Chace Meeks, RON NO ADDRESS ON FILE SURGERY FOLLOWUP, UNSPEC (Primary Dx) Social History Tobacco Use Types Packs/Day Years Used Date Smoking Tobacco: Never Assessed Comments Unknown Sex and Gender Information Value Date Recorded Sex Assigned at Not on file Legal Sex Female 2:46 AM COOK PRESSURE Gender Identity Not on file Sexual Orientation Not on file documented as of this encounter Plan of Treatment Not on file documented as of this encounter Visit Diagnoses Diagnosis Follow-up examination, following unspecified surgery- Primary documented in this encounter Care Teams Entry Level Account Executive Relationship Specialty Start Date End Date Non-Staff, Physician NO ADDRESS ON FILE PCP - General 07/09/14 documented as of this encounter
--- OUTSIDE RECORDS SUMMARY | 2025-04-18 13:20 | XMS_ITS | Encounter Summary ---
Author Organization [facility] Address [address] [place] [address] Care Team Providers Care Vibration Technician Name Role Phone Non-Staff, Physician Primary Care Provider Unava ilable Encounter Details Date Type Department Care Team (Latest Contact Info) Description 03/26/2002 Outpatient Historical [facility] Oral and Maxillo Surgery[address] [place] [address] Robert Bear, PhD NO ADDRESS ON FILE TOOTH POSITION ANOMALY (Primary Dx); UNSPEC DENTAL CARIES Social History Tobacco Use Types Packs/Day Years Used Date Smoking Tobacco: Never Assessed Comments Unknown Sex and Gender Information Value Date Recorded Sex Assigned at Not on file Legal Sex Female 2:46 AM CONE FORMER Gender Identity Not on file Sexual Orientation Not on file documented as of this encounter Plan of Treatment Not on file documented as of this encounter Visit Diagnoses Diagnosis 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
--- OUTSIDE RECORDS SUMMARY | 2025-04-18 13:20 | XMS_ITS | Encounter Summary ---
Author Organization [facility] Address [address] [place] [address] Care Team Providers Care Wet Milling Wheel Operator Name Role Phone Non-Staff, Physician Primary Care Provider Unava ilable Encounter Details Date Type Department Care Team (Latest Contact Info) Description 03/13/2000 Outpatient Historical [facility] Santana Serrano NO ADDRESS ON FILE Gynecologic examination (Primary Dx); Special screening for malignant neoplasms of other sites; Dysmenorrhea; Hypertrophy of uterus Social History Tobacco Use Types Packs/Day Years Used Date Smoking Tobacco: Never Assessed Comments Unknown Sex and Gender Information Value Date Recorded Sex Assigned at Not on file Legal Sex Female 2:46 AM ASSEMBLY LINE LEADER Gender Identity Not on file Sexual Orientation Not on file documented as of this encounter Plan of Treatment Not on file documented as of this encounter Visit Diagnoses Diagnosis Gynecologic examination- Primary Gynecological examination Special screening for malignant neoplasms of other sites Dysmenorrhea Hypertrophy of uterus documented in this encounter Care Teams Wet Milling Wheel Operator Relationship Specialty Start Date End Date Non-Staff, Physician NO ADDRESS ON FILE PCP - General 07/09/14 documented as of this encounter
--- OUTSIDE RECORDS SUMMARY | 2025-04-18 13:20 | XMS_ITS | Clinical Summary ---
Author Organization [facility] Address [address] [place] [address] Care Team Providers Care Die Try Out Worker Name Role Phone Non-Staff, Physician Primary Care [...] on file Legal Sex Female 2:46 AM FISH CULTURIST Gender Identity Not on file Sexual Orientation Not on file Last Filed Vital Signs Vital Sign Reading Time Taken Comments Blood Pressure 100/68 07/22/2014 1:45 PM FISH CULTURIST Pulse 56 07/22/2014 1:45 PM FISH CULTURIST Temperature 36.9 C (98.5 F) 07/07/2014 8:58 PM FISH CULTURIST Respiratory Rate 15 07/07/2014 8:58 PM FISH CULTURIST Oxygen Saturation 97% 07/07/2014 8:58 PM FISH CULTURIST Inhaled Oxygen Concentration - - Weight 86.6 kg (191 lb) 07/22/2014 1:45 PM FISH CULTURIST Height 167.6 cm (5' 6 ) 07/22/2014 1:45 PM FISH CULTURIST Body Mass Index 30.83 07/22/2014 1:45 PM FISH CULTURIST Plan of Treatment Health Maintenance Due Date [...] - 1-dose 75+ series) 2038 Care Teams Die Try Out Worker Relationship Specialty Start Date End Date Non-Staff, Physician NO ADDRESS ON FILE PCP - General 07/09/14
--- OUTSIDE RECORDS SUMMARY | 2025-04-18 13:20 | XMS_ITS | Encounter Summary ---
Author Organization [facility] Address [address] [place] [address] Care Team Providers Care Corrective Therapist Name Role Phone Non-Staff, Physician Primary Care Provider Unava ilable Encounter Details Date Type Department Care Team (Latest Contact Info) Description 09/06/2001 Outpatient Historical [facility] Pal Russell MD [address] [place] [address] HYPERTENSION NOS (Primary Dx); POSTMENOPAUSAL HORMONAL REPLACMT Social History Tobacco Use Types Packs/Day Years Used Date Smoking Tobacco: Never Assessed Comments Unknown Sex and Gender Information Value Date Recorded Sex Assigned at Not on file Legal Sex Female 2:46 AM EXCELLENCE LEADER Gender Identity Not on file Sexual Orientation Not on file documented as of this encounter Plan of Treatment Not on file documented as of this encounter Visit Diagnoses Diagnosis Unspecified essential hypertension- Primary Need for prophylactic hormone replacement therapy (postmenopausal) documented in this encounter Care Teams Corrective Therapist Relationship Specialty Start Date End Date Non-Staff, Physician NO ADDRESS ON FILE PCP - General 07/09/14 documented as of this encounter
--- OUTSIDE RECORDS SUMMARY | 2025-04-18 13:20 | XMS_ITS | Encounter Summary ---
Author Organization [facility] Address [address] [place] [address] Care Team Providers Care Jumpbasting Canvas Baster Name Role Phone Non-Staff, Physician Primary Care Provider Unava ilable Encounter Details Date Type Department Care Team (Latest Contact Info) Description 04/12/2002 Outpatient [facility] Oral and Maxillo Surgery[address] [place] [address] Robert Bear, PhD NO ADDRESS ON FILE SURGERY FOLLOWUP, UNSPEC (Primary Dx) Social History Tobacco Use Types Packs/Day Years Used Date Smoking Tobacco: Never Assessed Comments Unknown Sex and Gender Information Value Date Recorded Sex Assigned at Not on file Legal Sex Female 2:46 AM ANALYTICS LEAD Gender Identity Not on file Sexual Orientation Not on file documented as of this encounter Plan of Treatment Not on file documented as of this encounter Visit Diagnoses Diagnosis Follow-up examination, following unspecified surgery- Primary documented in this encounter Care Teams Jumpbasting Canvas Baster Relationship Specialty Start Date End Date Non-Staff, Physician NO ADDRESS ON FILE PCP - General 07/09/14 documented as of this encounter
--- OUTSIDE RECORDS SUMMARY | 2025-04-18 13:20 | XMS_ITS | Encounter Summary ---
Author Organization [facility] Address [address] [place] [address] Care Team Providers Care Sampling Theory Teacher Name Role Phone Non-Staff, Physician Primary Care Provider Unava ilable Encounter Details Date Type Department Care Team (Latest Contact Info) Description 11/03/2000 Outpatient Historical [facility] Harley Petersen MD [address] [place] [address] Hemorrhage of gastrointestinal tract, unspecified (Primary Dx) Social History Tobacco Use Types Packs/Day Years Used Date Smoking Tobacco: Never Assessed Comments Unknown Sex and Gender Information Value Date Recorded Sex Assigned at Not on file Legal Sex Female 2:46 AM COATER BRAKE LININGS Gender Identity Not on file Sexual Orientation Not on file documented as of this encounter Plan of Treatment Not on file documented as of this encounter Visit Diagnoses Diagnosis Hemorrhage of gastrointestinal tract, unspecified- Primary documented in this encounter Care Teams Sampling Theory Teacher Relationship Specialty Start Date End Date Non-Staff, Physician NO ADDRESS ON FILE PCP - General 07/09/14 documented as of this encounter
--- OUTSIDE RECORDS SUMMARY | 2025-04-18 13:20 | XMS_ITS | Encounter Summary ---
Author Organization [facility] Address [address] [place] [address] Care Team Providers Care Electronic Imager Name Role Phone Non-Staff, Physician Primary Care Provider Unava ilable Encounter Details Date Type Department Care Team (Latest Contact Info) Description 11/13/2006 Outpatient Historical [facility] Cardiology- [place] [address] [place] [address] Ann Mejia MD [address] [facility] [address] [address] Paroxysmal Supraventricular Tachycardia (Primary Dx); Overweight Social History Tobacco Use Types Packs/Day Years Used Date Smoking Tobacco: Never Assessed Comments Unknown Sex and Gender Information Value Date Recorded Sex Assigned at Not on file Legal Sex Female 2:46 AM IRON POURER Gender Identity Not on file Sexual Orientation Not on file documented as of this encounter Plan of Treatment Not on file documented as of this encounter Visit Diagnoses Diagnosis Paroxysmal supraventricular tachycardia- Primary Overweight(278.02) Overweight documented in this encounter Care Teams Electronic Imager Relationship Specialty Start Date End Date Non-Staff, Physician NO ADDRESS ON FILE PCP - General 07/09/14 documented as of this encounter
--- OUTSIDE RECORDS SUMMARY | 2025-04-18 13:20 | XMS_ITS | Encounter Summary ---
Author Organization [facility] Address [address] [place] [address] Care Team Providers Care Irrigation District Manager Name Role Phone Non-Staff, Physician Primary Care Provider Unava ilable Encounter Details Date Type Department Care Team (Latest Contact Info) Description 12/21/2000 Outpatient Historical [facility] Harley Petersen MD [address] [place] [address] Constipation (Primary Dx); Allergic rhinitis, cause unspecified Social History Tobacco Use Types Packs/Day Years Used Date Smoking Tobacco: Never Assessed Comments Unknown Sex and Gender Information Value Date Recorded Sex Assigned at Not on file Legal Sex Female 2:46 AM 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
--- OUTSIDE RECORDS SUMMARY | 2025-04-18 13:21 | XMS_ITS | Encounter Summary ---
Author Organization [facility] Address [address] [place] [address] Care Team Providers Care Heavy Forger Helper Name Role Phone Non-Staff, Physician Primary Care Provider Unava ilable Encounter Details Date Type Department Care Team (Late st Contact Info) Description 11/10/2014 Lab Requisition [facility] Laboratory Services [place] [address] [place] [address] Dejon Franks DO NO ADDRESS ON FILE Social History Tobacco Use Types Packs/Day Years Used Date Smoking Tobacco: Never Smokeless Tobacco: Never Alcohol Use Standard Drinks/Week Comments Yes 0 (1 standard drink = 0.6 oz pur e alcohol) rare Comments No Sex and Gender Information Value Date Recorded Sex Assigned at Not on file Legal Sex Female 2:46 AM SOCK IRONER Gender Identity Not on file Sexual Orientation [...] MELBA TITER 1:80(A) 11/12/2014 1:29 PM CDT [facility] MELBA PATTERN Homogeneou s(A) 11/12/2014 1:29 PM CDT [facility] Blood specimen (specimen) 11/10/2014 9:00 PM CDT 11/10/2014 11:49 PM CDT us Dejon Franks DO CHEMISTRY ORDERABLES Final R esult Performing Organization Address [facility] Co de Phone Number [facility] CLIA# [id number] [address] [place] [address] [facility] CLIA# [id number] [address] [place] [address] * SEDIMENTATION RATE (11/10/2014 9:00 PM CDT) Pathologist [facility] ESR (SEDIMENTATION RATE) 6 0 - 30 mm/Hr 11/11/2014 12:51 AM CDT [facility] Blood 11/10/2014 9:00 PM CDT 11/10/2014 11:49 PM CDT us Dejon Franks DO HEMATOLOGY ORDERABLES Final Result Performing Organization Address [facility] Co de Phone Number [facility] CLIA # [id number] [address] [place] [address] * (ABNORMAL) MELBA SCREEN W/REFLEX (11/10/2014 9:00 PM CDT) MELBA Positive(A ) Negative 11/12/2014 1:29 PM CDT [facility] Blood specimen (specimen) 11/10/2014 9:00 PM CDT 11/10/2014 11:49 PM CDT us Dejon Franks DO CHEMISTRY ORDERABLES Final R esult Performing Organization Address City/[facility]/ZIP Co de Phone Number [facility] CLIA# [id number] [address] [place] [address] [id number] [address] [place] [address] documented in this encounter Visit Diagnoses Not on filedocumented in this encounter Care Teams Heavy Forger Helper Relationship Specialty Start Date End Date Non-Staff, Physician NO ADDRESS ON FILE PCP - General 07/09/14 documented as of this encounter
--- OUTSIDE RECORDS SUMMARY | 2025-04-18 13:21 | XMS_ITS | Encounter Summary ---
Author Organization [facility] Address [address] [place] [address] Care Team Providers Care Construction Inspector Name Role Phone Non-Staff, Physician Primary Care Provider Unava ilable Reason for Referral * Outpatient Services (Routine) - Closed Specialty Diagnoses / Procedures Referred By Contac t Referred To Contact Radiology Diagnoses Chest pain Mitral valve prolapse Procedures ECHO COMPLETE Adonis Campos DO [facility] [address] [facility] [address] [place] [address] Phone: tel: fax: Referral ID Status Reason Start Date Expiration Date V isits Requested Visits Authorized [id number] Closed [facility] CTS to Schedule (SGF) 07/08/2014 08/08/2015 1 1 BW DEVELOPER Encounter Details Date Type Department Care Team (Latest Contact Info) Description 07/08/2014 Ancillary Orders [facility] Centralized Scheduling [address] [facility] [address] [place] [address] Adonis Campos DO NO ADDRESS [...] on file Legal Sex Female 2:46 AM SAP BW DEVELOPER Gender Identity Not on file Sexual Orientation Not on file documented as of this encounter Plan of Treatment Not on file documented as of this encounter Results * ECHO COMPLETE (07/09/2014 11:02 AM [facility]) EJECTION FRACTION 65 INTERFACE SYSTEM 07/09/2014 10:2 9 AM [facility] Narrative INTERFACE SYSTEM - 07/09/2014 11:58 AM [facility] Radiology Services - Echocardiology [address] [facility] [address] [place] [address] Transthoracic Echocardiography Patient: Jessica Moon Study ID: [id number] Gender: F : 1965 Age: 49 Room: [...] Procedure Note Rojelio Gallegos MD - 07/09/2014 [facility] Radiology Services - Echocardiology [address] [place] [address] Transthoracic Echocardiography Patient: Jessica Moon Study ID: [id number] Gender: F : 1965 Age: 49 Room: [...] disorders documented in this encounter Care Teams Construction Inspector Relationship Specialty Start Date End Date Non-Staff, Physician NO ADDRESS ON FILE PCP - General 07/09/14 documented as of this encounter
--- OUTSIDE RECORDS SUMMARY | 2025-04-18 13:21 | XMS_ITS | Encounter Summary ---
[facility] Organization [facility] Address [address] [place] [address] Care Team Providers Care Vp Packaging Name Role Phone Non-Staff, Physician Primary Care Provider Unava ilable Encounter Details Date Type Department Care Team (Late st Contact Info) Description 09/15/2014 Lab Requisition [facility] Laboratory Services [place] [address] [place] [address] Robert Cisse PA [address] [place] [address] Social History Tobacco Use Types Packs/Day Years Used Date Smoking Tobacco: Never Smokeless Tobacco: Never Alcohol Use Standard Drinks/Week Comments Yes 0 (1 standard drink = 0.6 oz pur e alcohol) rare Comments No Sex and Gender Information Value Date Recorded Sex Assigned at Not on file Legal Sex Female 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 Gender Identity Not on file Sexual Orientation [...] - 10.0 K/uL 09/15/2014 11:21 PM CDT [facility] RBC 4.78 3.93 - 5.22 M/uL 09/15/2014 11:21 PM CDT [facility] [place] HEMOGLOBIN 14.4 11.2 - 15.7 g/dL 09/15/2014 11:21 PM CDT [facility] [place] HEMATOCRIT 40.8 34.1 - 44.9 % 09/15/2014 11:21 PM [facility] [employer] [facility]ATORY SERVICES [facility] [place] MCV 85.4 79.4 - 94.8 fL 09/15/2014 11:21 PM [facility] [employer] [facility]ATORY [facility] - [place] MCH 30.1 25.6 - 32.2 pg 09/15/2014 11:21 PM [facility] [employer] [facility]ATORY SERVICES - [place] MCHC 35.3 32.2 - 35.5 g/dL 09/15/2014 11:21 PM [facility] [employer] [facility]ATORY SERVICES [facility] [place] RDW 14.3 11.0 - 14.5 % 09/15/2014 11:21 PM [facility] [employer] [facility] - [place] RDW-STDEV 43.8 37.0 - 54.0 fL 09/15/2014 11:21 PM [facility] [employer] [facility] [place] PLATELETS 238 163 - 337 K/uL 09/15/2014 11:21 PM T [employer] [facility] [place] MPV 11.5 10.0 - 14.8 fL 09/15/2014 11:21 PM T [facility] [place] NEUTROPHILS 48 34 - 71 % 09/15/2014 11:21 PM T [employer] [place] LYMPHOCYTES 40 19 - 52 % 09/15/2014 11:21 PM CDT [employer] [facility] [place] MONOCYTES 7 5 - 13 % 09/15/2014 11:21 PM CDT [employer] [facility] [place] EOSINOPHILS 5 1 - 6 % 09/15/2014 11:21 PM CDT [facility] [place] BASOPHILS 0 0 - 1 % 09/15/2014 11:21 PM CDT [facility] [place] NEUTROPHIL ABSOLUTE 2.90 1.56 - 6.13 K/uL 09/15/2014 11:21 PM CDT [employer] [facility] [place] LYMPHOCYTE ABSOLUTE 2.40 1.20 - 3.40 K/uL 09/15/2014 11:21 PM CDT [employer] [facility] [place] MONOCYTE ABSOLUTE 0.40(H) 0.24 - 0.36 K/uL 09/15/2014 11:21 PM CDT [facility] [place] EOSINOPHIL ABSOLUTE 0.27 0.04 - 0.36 K/uL 09/15/2014 11:21 PM CDT [facility] [place] BASOPHILS ABSOLUTE 0.02 0.01 - 0.08 K/uL 09/15/2014 11:21 PM CDT [facility] Blood 09/15/2014 10:4 8 PM CDT 09/15/2014 10:48 PM CDT Robert CALIX HEMATOLOGY ORDERABLES Final Result [facility] [place] CLIA # [id number] [address] [place] [address] documented in this encounter Visit Diagnoses Not on filedocumented in this encounter Care Teams Vp Packaging Relationship Specialty Start Date End Date Non-Staff, Physician NO ADDRESS ON FILE PCP - General 07/09/14 documented as of this encounter
--- OUTSIDE RECORDS SUMMARY | 2025-04-18 13:21 | XMS_ITS | Encounter Summary ---
Author Organization [facility] Address [address] [place] [address] Care Team Providers Care Dust Collector Name Role Phone Non-Staff, Physician Primary Care Provider Unava ilable Encounter Details Date Type Department Care Team (Late st Contact Info) Description 07/14/2014 Lab Requisition [facility] Laboratory Services [place] [address] [place] [address] Georgia Aguillon, BIOLOGICAL TECHNICAL OFFICER [address] [place] [address] Social History Tobacco Use Types Packs/Day Years Used Date Smoking Tobacco: Never Alcohol Use Standard Drinks/Week Comments Yes 0 (1 standard drink = 0.6 oz pur e alcohol) rare Comments No Sex and Gender Information Value Date Recorded Sex Assigned at Not on file Legal Sex Female 2:46 AM CHECK PILOT Gender Identity Not on file Sexual Orientation Not on file documented as of this encounter Plan of Treatment Not on file documented as of this encounter Procedures Procedure Name Priority Date/Time Associated Diagnosis Comments SEDIMENTATION RATE Routine 07/14/2014 11 :13 PM CHECK PILOT TROPONIN Routine 07/14/2014 11:13 PM CHECK PILOT documented in this encounter Results * TROPONIN (07/14/2014 11:13 PM CHECK PILOT) TROPONIN I <0.02 <=0.06 ng/mL 07/15/2014 12:44 AM CHECK PILOT [facility] Comment: Troponin I assay performed on [...] cardiac surgery/defibrillation. Blood 07/14/2014 11:1 3 PM CHECK PILOT 07/14/2014 11:13 PM CHECK PILOT Georgia Aguillon [facility] CHEMISTRY ORDERABLES Final Result Performing Organization Address City/[facility]/ZIP Co de Phone Number [facility] [id number] [address] [place] [address] * SEDIMENTATION RATE (07/14/2014 11:13 PM CHECK PILOT) ESR (SEDIMENTATION RATE) 7 0 - 30 mm/Hr 07/14/2014 11:52 PM CHECK PILOT [facility] Blood 07/14/2014 11:1 3 PM CHECK PILOT 07/14/2014 11:13 PM CHECK PILOT Georgia Glythera Pal [facility] HEMATOLOGY ORDERABLES Final Result Performing Organization Address City/[facility] Co de Phone Number [facility] [employer] [facility] CLIA # [id number] [address] [place] [address] documented in this encounter Visit Diagnoses Not on filedocumented in this encounter Care Teams Dust Collector Relationship Specialty Start Date End Date Non-Staff, Physician NO ADDRESS ON FILE PCP - General 07/09/14 documented as of this encounter
--- OUTSIDE RECORDS SUMMARY | 2025-04-18 13:21 | XMS_ITS | Encounter Summary ---
Author Organization [facility] Address [address] 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
--- OUTSIDE RECORDS SUMMARY | 2025-04-18 13:21 | XMS_ITS | Encounter Summary ---
Author Organization [facility] Address [address] [place] [address] Care Team Providers Care Health Advocate Name Role Phone Non-Staff, Physician Primary Care Provider Unava ilable Encounter Details Date Type Department Care Team (Latest Contact Info) Description 03/10/2000 Outpatient Historical [facility] Harley Petersen MD [address] [place] [address] Unspecified disorder resulting from impaired renal function (Primary Dx); Metrorrhagia Social History Tobacco Use Types Packs/Day Years Used Date Smoking Tobacco: Never Assessed Comments Unknown Sex and Gender Information Value Date Recorded Sex Assigned at Not on file 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
--- NOTE | 2025-04-18 14:07 | W.ED.ANIMALB ---
HPI - Animal Bite General: Chief Complaint: Animal Bite Stated Complaint: dog bite rabie shot Time Seen by Provider: 04/18/25 14:07 Source: patient Mode of arrival: ambulatory Limitations: no limitations History of Present Illness: Patient is a nice 60-year-old female that I saw yesterday evening, who is returning to start rabies postexposure prophylaxis. Patient was offered this yesterday evening but declined as she thought the animal was up-to-date on immunizations, however after reaching out to the food and nutrition services assistant today, the animal has not had his rabies shots in over 4 years. She did fill her antibiotics prescribed yesterday and has started taking them. She has no new complaints today. complaint: animal bite Onset (ago): day(s) (yesterday) Animal: dog Description of animal: appeared well Mechanism: bite Location: chest (L breast) Location - Extremities: Right: forearm Context: animals fighting Associated symptoms: Reports no associated symptoms; Deny fever(s) Related Data Home Medications ?Medication ?Instructions ?Recorded ?Confirmed amlodipine 5 mg tablet 5 mg PO DAILY 08/25/19 03/04/25 metoprolol tartrate 50 mg tablet 50 mg PO BID 08/25/19 03/04/25 ibuprofen 200 mg capsule 200 mg PO Q6H PRN Pain 03/21/23 03/04/25 valsartan 160 1 tab PO DAILY 03/21/23 03/04/25 mg-hydrochlorothiazide 12.5 mg tablet jickmxm-oxyndjjuurcev-czgdrvda 250 2 tab PO Q6H PRN 03/12/24 03/04/25 mg-250 mg-65 mg tablet (Excedrin Migraine) pantoprazole 20 mg tablet,delayed 20 mg PO DAILY 04/25/24 03/04/25 release Previous Rx's ?Medication ?Instructions ?Recorded epinephrine 0.3 mg/0.3 mL 0.3 mg (0.3 mL) IM Q15M PRN 12/08/21 injection, auto-injector (EpiPen anaphylaxis #2 ea 2-Shree) duloxetine 60 mg capsule,delayed 60 mg PO DAILY #30 caps 10/25/24 release (Cymbalta) trazodone 100 mg tablet 300 mg (3 x 100 mg) PO .HS PRN 10/25/24 insomnia #90 tabs estradiol 0.01% (0.1 mg/gram) 1 g vaginal DAILY #42.5 grams 12/10/24 vaginal cream galcanezumab-gnlm 120 mg/mL 120 mg SUBCUT ONCE #1 mL 12/11/24 subcutaneous pen injector (Emgality Pen) duloxetine 30 mg capsule,delayed 30 mg PO DAILY #30 caps 01/24/25 release hydroxyzine HCl 50 mg tablet 50 mg PO QID PRN insomnia #120 tabs 01/24/25 amoxicillin 875 mg-potassium 1 tab PO BID #14 tabs 04/17/25 clavulanate 125 mg tablet hydrocodone 5 mg-acetaminophen 325 1 tab PO Q6H PRN pain #14 tabs 04/17/25 mg tablet Allergies Allergy/AdvReac Type Severity Reaction Status Date / Time adhesive Allergy ALGY-Rash Verified 03/04/25 09:40 tramadol (From Ultram) Allergy ALGY-Hives Verified 03/04/25 09:40 Review of Systems Const: Denies: fever(s) Musc: Reports: extremity pain (bites to R forearm-feeling as expected) Skin/Breast: Reports: other (ecchymosis to L breast) PFSH ED PFSH: Medical History Psychiatric care Cervical pain Low vitamin D level Carotid artery stenosis Bilateral less than 50% from February 2019 SVT (supraventricular tachycardia) CVA (cerebral vascular accident) Hyperlipidemia HTN (hypertension) Surgical History History of partial hysterectomy S/P ablation of atrial fibrillation Family History Mother Breast cancer Uterine cancer Diabetes Hyperlipidemia Sister Breast cancer Grandmother Breast cancer Brother Colon cancer Hyperlipidemia Father Heart disease Hypertension Denies family history of Ovarian cancer Thyroid disease Stroke Social History Smoking and tobacco/nicotine status: never used tobacco/nicotine Alcohol intake: never Substance/Drug Use: never Adopted: No Caregiver/support person: No Lives independently: Yes Household members: other Details: son lives with her Housing: House Marital status: Legally Number of children: 6 Highest education level completed: High School Graduate service: No Current occupational status: disabled Pets and animals: Yes Pets & animals: dog(s) and farm animals Farm Animals: chicken/turkey/other poultry Leisure activites: reading and other Leisure activities details: knitting, and TV Sexually active: Yes Do you think of yourself as: Straight/Heterosexual Current gender identity: Female Khloe/Mandaeism: Anabaptist Special khloe needs: No Agree to transfusion: Yes Female Reproductive History: Para: 6 Spontaneous abortions: No Physical Exam Const: COMMON NORMALS: no acute distress, average body habitus, patient oriented x3, no limitations, healthy appearing, alert and well nourished GENERAL APPEARANCE: cooperative Chest: OTHER: significant ecchymosis to L breast but overall this is less edematous than it was yesterday Resp: COMMON NORMALS: normal respiratory effort and clear to auscultation bilaterally AUSCULTATION: clear to auscultation bilaterally Cardio: COMMON NORMALS: regular rate and regular rhythm RATE: regular rate RHYTHM: regular rhythm Extremity: COMMON NORMALS: full ROM and capillary refill normal GENERAL: Yes normal exam except as noted RIGHT UPPER EXTREMITY: Yes lower arm OTHER: most of the puncture wounds involving her right forearm were left open; these appear as expected with mild edema and surrounding ecchymosis; there is no erythema, warmth, discharge, streaking at this time; no tendon involvement; NV intact Neuro: COMMON NORMALS: patient oriented x3, moves all extremities, no focal motor deficits and no sensory deficits noted SENSORIUM/ORIENTATION: Yes alert Skin: NARRATIVE SKIN EXAM: see above Course Vital Signs: Vital signs: Vital Signs Temperature 98.2 F 04/18/25 13:20 Pulse Rate 81 04/18/25 13:20 Respiratory Rate 16 04/18/25 13:20 Blood Pressure 120/80 04/18/25 13:20 Pulse Oximetry 98 04/18/25 13:20 Oxygen Delivery Me thod Room Air 04/18/25 13:20 MDM - Animal Bite Medical Decision Making Wounds appear as expected. She has filled her antibiotics and has started taking these. Will start rabies PEP today. Her tetanus is up-to-date. Continued wound care/infection precautions discussed. Differential Diagnosis Likely bite by animal and dog bite Medical Records I reviewed the patient's medical records. No radiology studies performed this visit Discharge Plan Discharge Patient Disposition: Home Clinical Impression: Need for post exposure prophylaxis for rabies Condition: Stable Prescriptions: No Action Excedrin Migraine 250-250-65 mg tablet 2 tab PO Q6H PRN duloxetine [Cymbalta] 60 mg capsule,delayed release(DR/EC) 60 mg PO DAILY Qty: 30 11RF trazodone 100 mg tablet 300 mg PO .HS PRN (Reason: insomnia) Qty: 90 11RF valsartan-hydrochlorothiazide 160-12.5 mg tablet 1 tab PO DAILY ibuprofen 200 mg capsule 200 mg PO Q6H PRN (Reason: Pain) pantoprazole 20 mg tablet,delayed release (DR/EC) 20 mg PO DAILY hydroxyzine HCl 50 mg tablet 50 mg PO QID PRN (Reason: insomnia) Qty: 120 2RF duloxetine 30 mg capsule,delayed release(DR/EC) 30 mg PO DAILY Qty: 30 11RF Rx Instructions: Take with 60 mg for total of 90 mg. estradiol 0.01 % (0.1 mg/gram) cream 1 g vaginal DAILY Qty: 42.5 3RF Rx Instructions: once daily for 14 days and then apply twice weekly Emgality Pen 120 mg/mL pen injector 120 mg SUBCUT ONCE Qty: 1 11RF Rx Instructions: Administer according to package directions once monthly amlodipine 5 mg tablet 5 mg PO DAILY metoprolol tartrate 50 mg tablet 50 mg PO BID epinephrine [EpiPen 2-Shree] 0.3 mg/0.3 mL auto-injector 0.3 mg IM Q15M PRN (Reason: anaphylaxis) Qty: 2 0RF Rx Instructions: not to exceed 6 doses per episode hydrocodone-acetaminophen 5-325 mg tablet 1 tab PO Q6H PRN (Reason: pain) Qty: 14 0RF amoxicillin-pot clavulanate 875-125 mg tablet 1 tab PO BID Qty: 14 0RF Discharge Orders: Discharge ED (Routine); Ordered 04/18/25 Ordered By: Dona Vilchis Referrals: Joselito Sylvester DO [Primary Care Provider, Family Practice] Patient Instructions: Patient Portal & Leilani Instructions Activity Restrictions/Additional Instructions: Continue antibiotic course. You should have been discharged home with a schedule for the remainder of your rabies immunizations. We will try to complete these through our infusion center. Continue to keep wounds clean and monitor for signs of infection as we discussed yesterday. Print Language: Czech Coding Level of Care Code ED Milieu Therapist for Jossue Mitchell
[2025-04-18] MEDS: rabies IG 300 unit/mL SDV 1 mL 1710 UNIT IM (15:06)
[2025-04-18] MEDS: rabies vaccine 2.5 unit SDV IM (15:16)
[2025-04-18 15:40] VITALS: BP 137/90; PULSE 61; O2SAT 97
== END 2025-04-18 15:41 | disposition home or self-care (01) ==
PROVIDERS: Emergency Provider Physician Assistant; PCP Electrodiagnostic Medicine
DX: Z20.3 Contact with and (suspected) exposure to rabies (principal); Z29.14 Encounter for prophylactic rabies immune globulin; E78.5 Hyperlipidemia, unspecified; I10 Essential (primary) hypertension; Z86.73 Personal history of transient ischemic attack (TIA), and cerebral infarction without residual deficits
CPT/HCPCS: 90375; 90471; 90675; 99283

== ENCOUNTER → 2025-05-01 09:19 | Outpatient (BNVA) | payer MEDICARE, MEDICAID, SELFPAY ==
[2025-05-01 10:35] VITALS: BP 135/88; BMI 31.7
== END ==
PROVIDERS: PCP Electrodiagnostic Medicine; Visit Provider Student in an Organized Health Care Education/Training Program
DX: S20.02XA Contusion of left breast, initial encounter (principal); X58.XXXA Exposure to other specified factors, initial encounter
CPT/HCPCS: 99204

== ENCOUNTER 2025-05-02 10:30 | Oncology outpatient (recurring) (ONCR) | payer MEDICARE, MEDICAID, SELFPAY ==
[2024-03-15 11:59] VITALS: BP 135/88; BMI 31.7
[2025-04-21 15:05] VITALS: BP 147/85; PULSE 76
[2025-04-21] MEDS: rabies vaccine 2.5 unit SDV IM (15:18)
[2025-04-25] MEDS: rabies vaccine 2.5 unit SDV IM (10:01)
[2025-05-02 10:27] VITALS: BP 125/83; PULSE 67; TEMP 36.3
[2025-05-02] MEDS: rabies vaccine 2.5 unit SDV IM (10:39)
== END 2025-05-11 23:59 | disposition home or self-care (01) ==
PROVIDERS: PCP Electrodiagnostic Medicine; Visit Provider Physician Assistant
DX: Z23 Encounter for immunization; Z20.3 Contact with and (suspected) exposure to rabies; W54.0XXA Bitten by dog, initial encounter; Z53.9 Procedure and treatment not carried out, unspecified reason
CPT/HCPCS: 90471; 90675

== ENCOUNTER 2025-05-05 15:43 | Observation (INO) | payer MEDICARE, MEDICAID, SELFPAY ==
[2025-05-01 10:35] VITALS: BP 135/88; BMI 31.7
[2025-05-05] VITALS (24 sets, daily range): BP systolic 91–181; BP diastolic 54–99; PULSE 56–77; RESP 7–18; TEMP 36.1–37.1; O2SAT 91–98; BMI 30.7
[2025-05-05] MEDS: midazolam 1 mg/mL INJ 2 mL 2 MG IVP (12:43)
--- NOTE | 2025-05-05 13:29 | ANES.PREANE2 ---
Pre-Anesthetic Assessment Height/Weight: Height 1.68 m Weight 86.183 kg O2 Del Method Room Air 05/05/25 12:10 Operation Date: 05/05/25 13:15 Proposed Procedures p Decompression of LEFT Breast Hematoma 70377 T14.8XXA(Left) - Chuck Connor MD Familial anesthetic complications: woke up Was Beta Cleopatra taken within 24 hours: N/A Was Clonidine taken within 24 hours: N/A Last intake: Intake Last Liquid Date 05/04/25 Last Liquid Time 23:00 Last Solid Date 05/04/25 Last Solid Time 22:00 Social No alcohol and No tobacco Exam alert, oriented x 3, clear to auscultation bilaterally and regular rate & rhythm CV/HEM Hypertension GI Gastroesophageal Reflux Disease Neuropsych Cerebrovascular Accident Anesthetic Plan ASA status: 3 Anesthesia: General Risk of > 500 ml blood loss (7ml/kg in children): No Medications/Allergies Home Medications ?Medication ?Instructions ?Recorded ?Confirmed ?Last Taken ?Type amlodipine 5 mg tablet 5 mg PO DAILY 08/25/19 05/02/25 05/05/25 History metoprolol tartrate 50 mg tablet 50 mg PO BID 08/25/19 05/02/25 05/05/25 History epinephrine 0.3 mg/0.3 mL 0.3 mg (0.3 mL) IM Q15M PRN 12/08/21 05/02/25 05/02/25 Rx injection, auto-injector (EpiPen anaphylaxis #2 ea 2-Shree) ibuprofen 200 mg capsule 200 mg PO Q6H PRN Pain 03/21/23 05/02/25 04/16/23 History valsartan 160 1 tab PO DAILY 03/21/23 05/02/25 05/02/25 History mg-hydrochlorothiazide 12.5 mg tablet atmosjk-nwagwnvkbpznm-ljbxsaea 250 2 tab PO Q6H PRN Headache 03/12/24 05/02/25 05/02/25 History mg-250 mg-65 mg tablet (Excedrin Migraine) pantoprazole 20 mg tablet,delayed 20 mg PO DAILY 04/25/24 05/02/25 05/02/25 History release duloxetine 60 mg capsule,delayed 60 mg PO DAILY #30 caps 10/25/24 05/02/25 05/02/25 Rx release (Cymbalta) trazodone 100 mg tablet 300 mg (3 x 100 mg) PO .HS PRN 10/25/24 05/02/25 05/02/25 Rx insomnia #90 tabs estradiol 0.01% (0.1 mg/gram) 1 g vaginal DAILY #42.5 grams 12/10/24 05/02/25 05/02/25 Rx vaginal cream galcanezumab-gnlm 120 mg/mL 120 mg SUBCUT ONCE #1 mL 12/11/24 05/02/25 05/02/25 Rx subcutaneous pen injector (Emgality Pen) duloxetine 30 mg capsule,delayed 30 mg PO DAILY #30 caps 01/24/25 05/02/25 05/02/25 Rx release hydroxyzine HCl 50 mg tablet 50 mg PO QID PRN insomnia #120 tabs 01/24/25 05/02/25 05/02/25 Rx amoxicillin 875 mg-potassium 1 tab PO BID #14 tabs 04/17/25 05/02/25 05/02/25 Rx clavulanate 125 mg tablet hydrocodone 5 mg-acetaminophen 325 1 tab PO Q6H PRN pain #14 tabs 04/17/25 05/02/25 Unknown Rx mg tablet amoxicillin 875 mg-potassium 1 tab PO BID 7 days #14 tabs 05/01/25 05/02/25 05/05/25 Rx clavulanate 125 mg tablet Allergies Allergy/AdvReac Type Severity Reaction Status Date / Time adhesive Allergy ALGY-Rash Verified 05/01/25 09:30 tramadol (From Ultram) Allergy ALGY-Hives Verified 05/01/25 09:30 Current Medications Generic Name Dose Route Start Last Admin Trade Name Freq PRN Reason Stop Dose Admin Sodium Chloride 1,000 mls @ 30 mls/hr 05/05/25 12:00 05/05/25 12:39 Sodium Chloride 0.9% IV 05/06/25 11:59 30 mls/hr .Q24H MIKAELA Administration Midazolam HCl 2 mg 05/05/25 11:48 05/05/25 12:43 Midazolam 1 Mg/Ml Inj 2 Ml IVP 2 mg Q5M PRN Administration Preop Anxiety PFSH Anesthesia Medical History (Updated 05/01/25 @ 12:06 by Chuck Connor MD) Psychiatric care Cervical pain Low vitamin D level Carotid artery stenosis Bilateral less than 50% from February 2019 SVT (supraventricular tachycardia) CVA (cerebral vascular accident) Hyperlipidemia HTN (hypertension) Surgical History History of partial hysterectomy S/P ablation of atrial fibrillation Family History Mother Breast cancer Uterine cancer Diabetes Hyperlipidemia Sister Breast cancer Grandmother Breast cancer Brother Colon cancer Hyperlipidemia Father Heart disease Hypertension Denies family history of Ovarian cancer Thyroid disease Stroke Social History Smoking and tobacco/nicotine status: never used tobacco/nicotine Alcohol intake: never Substance/Drug Use: never Adopted: No Caregiver/support person: No Lives independently: Yes Household members: other Details: son lives with her Housing: House Marital status: Legally Number of children: 6 Highest education level completed: High School Graduate service: No Current occupational status: disabled Pets and animals: Yes Pets & animals: dog(s) and farm animals Farm Animals: chicken/turkey/other poultry Leisure activites: reading and other Leisure activities details: knitting, and TV Sexually active: Yes Do you think of yourself as: Straight/Heterosexual Current gender identity: Female Khloe/Buddhist: Religion Special khloe needs: No Agree to transfusion: Yes Female Reproductive History Para: 6 Spontaneous abortions: No Data Anesthesia Cardiac Studies: Sestamibi Stress Test (Cardiology) 12/16/19
--- NOTE | 2025-05-05 13:37 | W.PM.OPSUD ---
Surgery/Procedure H&P Update DATE OF PROCEDURE: May 05, 2025 DATE H&P PERFORMED: 05/01/25 H&P UPDATE INFORMATION: I have reviewed H&P completed within last 30 days, I have examined patient prior to procedure, No changes to prior documentation and Risks and benefits of the procedure reviewed CHANGES TO PREVIOUS DOCUMENTATION: Left breast marked in preop with patient's input PLANNED PROCEDURE: Operation Date: 05/05/25 13:15 Proposed Procedures p Decompression of LEFT Breast Hematoma 53792 T14.8XXA(Left) - Chuck Connor MD
[2025-05-05] MEDS: piperacillin-tazobactam 3.375 GM in sodium chloride 0.9% (plus) 50 ML IV ×3 (13:40→22:35)
--- NOTE | 2025-05-05 14:04 | P.OP_ITS ---
Operative Report Date of procedure: May 05, 2025 Pre-op diagnosis: Infected left breast hematoma Post-op diagnosis: same Post-op findings: Old hematoma evacuated approximately 100 cc. Hematoma cavity 8 x 6 x 4 cm. Cultures obtained. Wound packed. Old nylon sutures removed. Applied fluffs and sports bra. Procedure done: Incision and drainage of left breast hematoma Implants: N/A Specimens removed/disposition: Cultures sent to pathology Pathology: N/A Surgeon: Chuck Connor MD Livery Car Driver: N/A Anesthesia: MAC Estimated blood loss (mL): 10 Complications: N/A Findings: Old hematoma evacuated approximately 100 cc. Hematoma cavity 8 x 6 x 4 cm. Cultures obtained. Wound packed. Old nylon sutures removed. Applied fluffs and sports bra. Condition: stable Disposition: same day Brief History: 60-year-old female who presented with an infected left breast hematoma after being bit by dog. ER close a couple wounds and subsequently patient presented to the surgery clinic. Discussed risk benefits and patient agreed to proceed with left breast hematoma incision and drainage. Patient understands that she is prone to wound complications. She understands that the appearance of the breast will change. She decides to proceed. Procedure: Consent obtained in preop area. Left breast marked in the preop area. SCDs on and working. Prophylactic antibiotics administered. MAC induced. Left breast was prepped and draped in the usual sterile fashion. Old nylon sutures were removed. Wound was opened up bluntly. 100 cc of old hematoma was evacuated. Cultures were obtained. The wound was irrigated with 2 L warm normal saline. Hemostasis was confirmed. Cavity measured 8 x 6 x 4 cm. The wound cavity was packed using 1 inch Nu Gauze. Adequate hemostasis was achieved. Fluffs applied. Sports bra applied. The patient woke up from anesthesia with any complications.
[2025-05-05] MEDS: fentaNYL 50 mcg/mL INJ 2mL IVP ×2 (14:30→14:47)
--- NOTE | 2025-05-05 14:36 | PC.NURSE ---
1436 - noted increase in surgical site bleeding - saturated 4x4 and surgical bra - Brenda RN notified - per Brenda notified Dr Connor - Dr Connor will return to pacu to assess pt
--- NOTE | 2025-05-05 14:49 | PC.NURSE ---
1445 - Dr Connor at side to repack left breast - silver nitrate sticks x5 used at bedside as well as bedside zaid - pt tolerated well - replaced surgical bra
--- NOTE | 2025-05-05 14:57 | PM.HP ---
Providers/Chief Complaint Primary Care Provider: Joselito Sylvester DO Chief Complaint: [id number] History of Present Illness Jessica Moon is a 60 year old female who presented with an infected left breast hematoma. Perform incision and drainage of left breast hematoma. Patient staying for assistance with wound care also for IV antibiotics. Medications/Allergies Home Medications ?Medication ?Instructions ?Recorded ?Confirmed ?Last Taken ?Type amlodipine 5 mg tablet 5 mg PO DAILY 08/25/19 05/02/25 05/05/25 History metoprolol tartrate 50 mg tablet 50 mg PO BID 08/25/19 05/02/25 05/05/25 History epinephrine 0.3 mg/0.3 mL 0.3 mg (0.3 mL) IM Q15M PRN 12/08/21 05/02/25 05/02/25 Rx injection, auto-injector (EpiPen anaphylaxis #2 ea 2-Shree) ibuprofen 200 mg capsule 200 mg PO Q6H PRN Pain 03/21/23 05/02/25 04/16/23 History valsartan 160 1 tab PO DAILY 03/21/23 05/02/25 05/02/25 History mg-hydrochlorothiazide 12.5 mg tablet yrmvpcy-ychyrgweuobpx-fmimyhxg 250 2 tab PO Q6H PRN Headache 03/12/24 05/02/25 05/02/25 History mg-250 mg-65 mg tablet (Excedrin Migraine) pantoprazole 20 mg tablet,delayed 20 mg PO DAILY 04/25/24 05/02/25 05/02/25 History release duloxetine 60 mg capsule,delayed 60 mg PO DAILY #30 caps 10/25/24 05/02/25 05/02/25 Rx release (Cymbalta) trazodone 100 mg tablet 300 mg (3 x 100 mg) PO .HS PRN 10/25/24 05/02/25 05/02/25 Rx insomnia #90 tabs estradiol 0.01% (0.1 mg/gram) 1 g vaginal DAILY #42.5 grams 12/10/24 05/02/25 05/02/25 Rx vaginal cream galcanezumab-gnlm 120 mg/mL 120 mg SUBCUT ONCE #1 mL 12/11/24 05/02/25 05/02/25 Rx subcutaneous pen injector (Emgality Pen) duloxetine 30 mg capsule,delayed 30 mg PO DAILY #30 caps 01/24/25 05/02/25 05/02/25 Rx release hydroxyzine HCl 50 mg tablet 50 mg PO QID PRN insomnia #120 tabs 01/24/25 05/02/25 05/02/25 Rx amoxicillin 875 mg-potassium 1 tab PO BID #14 tabs 04/17/25 05/02/25 05/02/25 Rx clavulanate 125 mg tablet amoxicillin 875 mg-potassium 1 tab PO BID 7 days #14 tabs 05/01/25 05/02/25 05/05/25 Rx clavulanate 125 mg tablet oxycodone 5 mg tablet 5 mg PO Q6H PRN pain 10 days #30 05/05/25 Unknown Rx tabs Allergies Allergy/AdvReac Type Severity Reaction Status Date / Time adhesive Allergy ALGY-Rash Verified 05/01/25 09:30 tramadol (From Ultram) Allergy ALGY-Hives Verified 05/01/25 09:30 PFSH Acute PFSH: Medical History (Updated 05/05/25 @ 14:58 by Chuck Connor MD) Psychiatric care Cervical pain Low vitamin D level Carotid artery stenosis Bilateral less than 50% from February 2019 SVT (supraventricular tachycardia) CVA (cerebral vascular accident) Hyperlipidemia HTN (hypertension) Surgical History History of partial hysterectomy S/P ablation of atrial fibrillation Family History Mother Breast cancer Uterine cancer Diabetes Hyperlipidemia Sister Breast cancer Grandmother Breast cancer Brother Colon cancer Hyperlipidemia Father Heart disease Hypertension Denies family history of Ovarian cancer Thyroid disease Stroke Social History Smoking and tobacco/nicotine status: never used tobacco/nicotine Alcohol intake: never Substance/Drug Use: never Adopted: No Caregiver/support person: No Lives independently: Yes Household members: other Details: son lives with her Housing: House Marital status: Legally Number of children: 6 Highest education level completed: High School Graduate service: No Current occupational status: disabled Pets and animals: Yes Pets & animals: dog(s) and farm animals Farm Animals: chicken/turkey/other poultry Leisure activites: reading and other Leisure activities details: knitting, and TV Sexually active: Yes Do you think of yourself as: Straight/Heterosexual Current gender identity: Female Khloe/Caodaism: Judaism Special khloe needs: No Agree to transfusion: Yes Female Reproductive History: Para: 6 Spontaneous abortions: No Vitals/I&O/Wt Last Vital Signs Temp 97.0 F L 05/05/25 14:16 Pulse 61 05/05/25 14:46 Resp 17 05/05/25 14:47 BP 159/89 05/05/25 14:46 Pulse Ox 96 05/05/25 14:47 O2 Del Method Room Air 05/05/25 14:46 05/04/25 05/05/25 05/05/25 22:59 06:59 14:59 Intake Total 50 / 50 Output Total 5 / 5 Balance 45 / 45 Weight last 48 hrs Weight 190 lb Physical Exam Narrative: Chest: Unlabored breathing room air. Left breast hematoma in size. Wound packed. Fluffs and sports bra placed. Heart: Regular rate and rhythm. Abdomen: Soft, nontender, nondistended. A&P Assessment and plan 1. Hematoma of left breast: Plan: 60-year-old female who presented with a left wrist hematoma secondary to a dog bite. Status post incision and drainage of hematoma. Will stay for IV antibiotics and assistance with wound care. Okay for regular diet. IV Zosyn. As needed oxycodone, tramadol allergy is not a true allergy on further discussion with patient. Will change packing in the morning. PDMP PDMP Reviewed: Last Reviewed 05/05/25 15:15 EST by Chuck Connor MD Attestations Medical Necessity Statement*: IV pain meds, IV antibiotic, wound care Coding Level of Care Code 36541 Diagnoses Hematoma of left breast N64.89
--- NOTE | 2025-05-05 15:00 | PM.MISC ---
Miscellaneous Note Note: Asked to evaluate wound in PACU. Skin bleeder present. Cauterized using nitric oxide sticks and Bovie. Change packing. Adequate hemostasis achieved. Will stay for IV antibiotics and wound care.
--- NOTE | 2025-05-05 15:34 | PC.NURSE ---
1537 - left breast dressing noted to have saturation to 4x4 - surgical bra - Dr Connor notified - reinforced with 4x4
--- NOTE | 2025-05-05 15:45 | ANE.PACU2 ---
Inpatient post-anesthesia follow up: Airway intact: Yes Vital signs: Temperature 98.7 F Pulse Rate 58 Respiratory Rate 7 Blood Pressure 128/78 Pulse Oximetry 93 Oxygen Delivery Me thod Room Air Oxygen Flow Rate Fraction of Inspir ed Oxygen Hydration adequate: Yes Nausea and vomiting: No Pain level: 1 Mental status: Baseline
[2025-05-06 03:37] VITALS: BP 98/72; PULSE 68; RESP 16; TEMP 36.7; O2SAT 96
[2025-05-06 05:34] LABS: Hematocrit 39.3 % (36-47); Hemoglobin 12.90 g/dL (11.27-16.99); Mean Corpuscular HGB Conc 32.8 g/dL (30-55); Mean Corpuscular Hemoglobin 29.2 pg (27-33); Mean Corpuscular Volume 88.9 fl (85-98); Nucleated Red Blood Cells % 0 %; Platelet Count 255 10^3/cmm (157-399); Red Blood Count 4.42 10^6/uL (3.85-5.65); White Blood Count 7.25 10^3/uL (3.29-11.43)
[2025-05-06 07:45] VITALS: BP 122/67; PULSE 73; RESP 16; TEMP 36.7; O2SAT 93
[2025-05-06] MEDS: piperacillin-tazobactam 3.375 GM in sodium chloride 0.9% (plus) 50 ML IV (08:13)
[2025-05-06 08:20] VITALS: RESP 17
[2025-05-06] MEDS: oxyCODONE 5 mg IR Tab/Cap PO (08:20)
--- NOTE | 2025-05-06 10:50 | PC.CHAP ---
Pastoral Care Encounter/Spiritual Assessment Type of Contact [] Declined synthetic resin operator visit [] Patient/Family/Request visit [] Outpatient visit [] Follow-up visit [] Physician referral [] Code/Alert [x] Routine visit [] Staff referral [] Actively dying [] Patient sleeping [] Family support [] [] Out of room [] Palliative care [] [] Receiving care in room [] Pre-surgical visit [] Trauma [] Long length of stay [] ICU visit [] Other: Relational/Emotional Strength [x] Patient feels connected with others/family/visitors/staff [] Distress [] Loneliness/isolation [] Abandonment Spirituality of Patient [x] Person of Khloe [] Attends Anabaptist of their Khloe [x] Believes in Prayer [x] Reads Bible or Lutheran materials [] There are Spiritual issues to be addressed Hone Operator Interventions [x] Prayer [x] Active listening [] Non-anxious presence [x] Spiritual/emotional support [] Crisis/trauma care [] Spiritual counseling [] Bereavement support [] Provided bereavement packet [] Provided Bible/devotional materials [] Provided toy/stuffed animal, coloring book to patient or family member [] Provided Communion [] Anointing/[place] [] Salvation [x] Completed spiritual assessment [] Other: Impact on Illness or Injury [] Angry [] Fearful [] Anxious [] Often cries [] Exhaustion [] Unable to work [] Unable to attend adventist [] Unable to walk/stand [] Unable to read [] Unable to drive [] Unable to eat/drink [] Unable to sleep [] Unable to be with family [] Patient intubated [] Other: Summary Time spent with patient 5 vmin
[2025-05-06 11:47] VITALS: BP 135/80; PULSE 93; RESP 16; TEMP 36.9; O2SAT 94
[2025-05-06 15:17] VITALS: BP 135/80; PULSE 93; RESP 16; TEMP 36.9; O2SAT 94
--- NOTE | 2025-05-07 09:36 | P.PN_ITS ---
Subjective 2 Subjective: Left breast packing changed - hemostatic NAEON Vitals/I&O/Wt Last Vital Signs Temp 98.5 F 05/06/25 15:17 Pulse 93 05/06/25 15:17 Resp 16 05/06/25 15:17 BP 135/80 05/06/25 15:17 Pulse Ox 94 05/06/25 15:17 O2 Del Method Room Air 05/06/25 11:47 Weight last 48 hrs Weight 189 lb 5 oz Weight 190 lb 9.6 oz Weight 190 lb Physical Exam 2 Narrative: rrr unlabored breaathing ra left breast packign changed. hemostasis confirmed. Data 05/06/25 05:06 Micro: Microbiology 05/05/25 14:00 Anaerobic Culture - Preliminary Breast - #2 05/05/25 14:00 Gram Stain - Final Breast - #1 Abscess Culture - Preliminary A&P Assessment and plan 1. Hematoma of left breast: Plan: 60 yo female s/p I&D left breast hematoma. Packing changed. Wound hemostatic. Cleared for discharge PDMP PDMP Reviewed: Last Reviewed 05/05/25 15:15 EST by Chuck Connor MD Attestations 2 Medical Necessity Statement*: wound care Coding Level of Care Code 16334 Diagnoses Hematoma of left breast N64.89
--- NOTE | 2025-05-07 09:37 | PM.DCS ---
Discharge Providers Date of Admission: 05/05/25 15:43 Date of Discharge: May 07, 2025 Attending Provider at Admission: Chuck Connor MD Attending Provider at Discharge: Chuck Connor MD Primary Care Provider: Joselito Sylvester DO Diagnoses at Discharge Discharge Diagnosis 1. Hematoma of left breast: Reason for Visit Reason for Visit: [id number] Hospital Course Hospital Course 60yo female s/p I&D left breast hematoma (dog bite). Patient stayed overnight for wound care. POD1 doing well. Cleared for discharge. Patient to finish course of PO antibiotics. Follow up in clinic in 1 week. Daily packing changes. Physical Exam Narrative: rrr unlabored breathing ra Left breast packing changed. Adequate hemostasis abdomen soft, nt, nd Discharge Data Studies Completed and Pending Pending at discharge Category Date Time Status Abscess Culture and Gram Stain Routine Lab 05/05/25 14:00 Results Anaerobic Culture Routine Lab 05/05/25 14:00 Results Laboratory Results WBC 7.25 10^3/uL (3.29-11.43) 05/06/25 05:06 RBC 4.42 10^6/uL (3.85-5.65) 05/06/25 05:06 Hgb 12.90 g/dL (11.27-16.99) 05/06/25 05:06 Hct 39.3 % (36-47) 05/06/25 05:06 MCV 88.9 fl (85-98) 05/06/25 05:06 MCH 29.2 pg (27-33) 05/06/25 05:06 MCHC 32.8 g/dL (30-55) 05/06/25 05:06 RDW 14.4 % (12.1-15.1) 05/06/25 05:06 Plt Count 255 10^3/cmm (157-399) 05/06/25 05:06 MPV 9.5 fL (7.4-10.4) 05/06/25 05:06 Neut % (Auto) 77.4 % 05/06/25 05:06 Lymph % (Auto) 18.2 % 05/06/25 05:06 [place] % (Auto) 3.9 % 05/06/25 05:06 Eos % (Auto) 0.0 % 05/06/25 05:06 Baso % (Auto) 0.1 % 05/06/25 05:06 Neut # (Auto) 5.61 10^3/uL (1.8-7.7) 05/06/25 05:06 Lymph # (Auto) 1.3 10^3/uL (0.8-4.8) 05/06/25 05:06 [place] # (Auto) 0.3 10^3/uL (0.2-0.9) 05/06/25 05:06 Eos # (Auto) 0.0 10^3/uL (0.0-0.8) 05/06/25 05:06 Baso # (Auto) 0.0 10^3/uL (0.0-0.1) 05/06/25 05:06 Nucleated RBC % (auto) 0 % 05/06/25 05:06 Nucleated RBCs # 0.0 /100WBC 05/06/25 05:06 Vitals Last Vital Signs Temp 98.5 F 05/06/25 15:17 Pulse 93 05/06/25 15:17 Resp 16 05/06/25 15:17 BP 135/80 05/06/25 15:17 Pulse Ox 94 05/06/25 15:17 O2 Del Method Room Air 05/06/25 11:47 Discharge Plan Discharge Patient Disposition: Home Health Service Condition: Stable Prescriptions: New oxycodone 5 mg tablet 5 mg PO Q6H PRN (Reason: pain) 10 Days Qty: 30 0RF Continued Excedrin Migraine 250-250-65 mg tablet 2 tab PO Q6H PRN (Reason: Headache) duloxetine [Cymbalta] 60 mg capsule,delayed release(DR/EC) 60 mg PO DAILY Qty: 30 11RF trazodone 100 mg tablet 300 mg PO .HS PRN (Reason: insomnia) Qty: 90 11RF valsartan-hydrochlorothiazide 160-12.5 mg tablet 1 tab PO DAILY ibuprofen 200 mg capsule 200 mg PO Q6H PRN (Reason: Pain) pantoprazole 20 mg tablet,delayed release (DR/EC) 20 mg PO DAILY hydroxyzine HCl 50 mg tablet 50 mg PO QID PRN (Reason: insomnia) Qty: 120 2RF duloxetine 30 mg capsule,delayed release(DR/EC) 30 mg PO DAILY Qty: 30 11RF Rx Instructions: Take with 60 mg for total of 90 mg. estradiol 0.01 % (0.1 mg/gram) cream 1 g vaginal DAILY Qty: 42.5 3RF Rx Instructions: once daily for 14 days and then apply twice weekly amoxicillin-pot clavulanate 875-125 mg tablet 1 tab PO BID 7 Days Qty: 14 0RF Emgality Pen 120 mg/mL pen injector 120 mg SUBCUT ONCE Qty: 1 11RF Rx Instructions: Administer according to package directions once monthly amlodipine 5 mg tablet 5 mg PO DAILY metoprolol tartrate 50 mg tablet 50 mg PO BID epinephrine [EpiPen 2-Shree] 0.3 mg/0.3 mL auto-injector 0.3 mg IM Q15M PRN (Reason: anaphylaxis) Qty: 2 0RF Rx Instructions: not to exceed 6 doses per episode amoxicillin-pot clavulanate 875-125 mg tablet 1 tab PO BID Qty: 14 0RF Discontinued hydrocodone-acetaminophen 5-325 mg tablet 1 tab PO Q6H PRN (Reason: pain) Qty: 14 0RF Discharge Order = DC NOW: Discharge Order (Routine); Ordered 05/06/25 Ordered By: Chuck Connor Referrals: [facility] [Outside] Chuck Connor MD [Physician, General Surgery] - 05/15/25 11:40 am Referral Note: Joselito Sylvester DO [Primary Care Provider, [facility]] - 05/12/25 10:20 am Discharge Diet: Usual diet Discharge Activity: Limit activity as instructed Patient Instructions: Oxycodone, Rapid Release (By mouth), Acute Wound Care (DC), Opioid Safety, Post Anesthesia Care, Patient Portal & Leilani Instructions Activity Restrictions/Additional Instructions: 1. No heavy exercise or lifting greater than 10lbs for 6 weeks. 2. No pools, saunas, bathtubs for 2 weeks. Ok to shower the day following surgery. Ok to remove any dressings you may have the day following surgery. Continue daily packing changes with nu gauze. Call the office if you have any questions. 3. Do not drive if taking narcotics. 4. You may take over the counter tylenol 650mg every 6 hrs and ibuprofen 400mg every 6 hrs as needed for 5 days in addition to the oxycodone. 5. Follow-up in clinic in 2 weeks. 6. Call the office if you have any concerns or questions. Call the office if you experience worsening abdominal pain or fever (temperature greater than 101.5 Fahrenheit) Discharge Attestations Time Spent in Discharge Care*: greater than 30 min Status at Discharge: Cognitive status at discharge: cognitively intact, Behavioral status at discharge: cooperative, Quality Metrics Clinical Quality Measures [ No reported AMI, CVA or VTE this stay] Coding Level of Care Code Acute Code for Chg Fwd Diagnoses Hematoma of left breast N64.89
== END 2025-05-06 15:18 | disposition home health service (06) ==
LOC: MEDSURG 15:43
PROVIDERS: Admitting Provider Student in an Organized Health Care Education/Training Program; PCP Electrodiagnostic Medicine; Visit Provider Student in an Organized Health Care Education/Training Program
PROC: 0HC5XZZ Extirpation of Matter from Chest Skin, External Approach (ICD-10-PCS; CPT 10140; principal; 2025-05-05 13:05)
DX: N64.89 Other specified disorders of breast (principal); K21.9 Gastro-esophageal reflux disease without esophagitis; Z79.82 Long term (current) use of aspirin; Z79.891 Long term (current) use of opiate analgesic; I25.10 Atherosclerotic heart disease of native coronary artery without angina pectoris; I47.10 Supraventricular tachycardia, unspecified; Z86.73 Personal history of transient ischemic attack (TIA), and cerebral infarction without residual deficits; E78.5 Hyperlipidemia, unspecified; I10 Essential (primary) hypertension; Z80.3 Family history of malignant neoplasm of breast; Z80.49 Family history of malignant neoplasm of other genital organs; Z80.0 Family history of malignant neoplasm of digestive organs
CPT/HCPCS: 10140; 36415; 85025; 87070; 87075; 87205; G0378; J1100; J2250; J2405; J2543; J2704; J3010; J7030; J9999

== ENCOUNTER → 2025-05-15 11:30 | Outpatient (BNVA) | payer MEDICARE, MEDICAID, SELFPAY ==
[2025-05-01 10:35] VITALS: BP 135/88; BMI 31.7
== END ==
PROVIDERS: PCP Electrodiagnostic Medicine; Visit Provider Student in an Organized Health Care Education/Training Program
DX: S20.02XA Contusion of left breast, initial encounter (principal); X58.XXXA Exposure to other specified factors, initial encounter; Z98.890 Other specified postprocedural states
CPT/HCPCS: 99024

== ENCOUNTER → 2025-05-27 12:33 | Outpatient (BNVA) | payer MEDICARE, MEDICAID, SELFPAY ==
[2025-05-01 10:35] VITALS: BP 135/88; BMI 31.7
== END ==
PROVIDERS: PCP Electrodiagnostic Medicine; Visit Provider Physician Assistant
DX: M65.341 Trigger finger, right ring finger (principal)
CPT/HCPCS: 99213

== ENCOUNTER 2025-06-05 15:46 | Emergency (ER) | payer MEDICARE, MEDICAID, SELFPAY ==
[2025-05-01 10:35] VITALS: BP 135/88; BMI 31.7
[2025-06-05 15:50] VITALS: BP 147/91; PULSE 73; RESP 18; TEMP 36.6; O2SAT 96
--- OUTSIDE RECORDS SUMMARY | 2025-06-05 15:52 | XMS_ITS | Encounter Summary ---
Author Organization [facility] Address [address] [place] [address] Care Team Providers Care Steersman Name Role Phone Non-Staff, Physician Primary Care Provider Unava ilable Encounter Details Date Type Department Care Team (Latest Contact Info) Description 11/03/2000 Outpatient Historical [facility] Harley Petersen MD [address] [place] [address] Hemorrhage of gastrointestinal tract, unspecified (Primary Dx) Social History Tobacco Use Types Packs/Day Years Used Date Smoking Tobacco: Never Assessed Comments Unknown Sex and Gender Information Value Date Recorded Sex Assigned at Not on file Legal Sex 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
--- OUTSIDE RECORDS SUMMARY | 2025-06-05 15:52 | XMS_ITS | Encounter Summary ---
Author Organization [facility] Address [address] [place] [address] Care Team Providers Care Seaming Machine Operator Name Role Phone Non-Staff, Physician Primary Care Provider Unava ilable Encounter Details Date Type Department Care Team (Latest Contact Info) Description 03/13/2000 Outpatient Historical [facility] Santana Serrano NO ADDRESS ON FILE Gynecologic examination (Primary Dx); Special screening for malignant neoplasms of other sites; Dysmenorrhea; Hypertrophy of uterus Social History Tobacco Use Types Packs/Day Years Used Date Smoking Tobacco: Never Assessed Comments Unknown Sex and Gender Information Value Date Recorded Sex Assigned at Not on file 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
--- OUTSIDE RECORDS SUMMARY | 2025-06-05 15:52 | XMS_ITS | Encounter Summary ---
Author Organization 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
--- OUTSIDE RECORDS SUMMARY | 2025-06-05 15:52 | XMS_ITS | Encounter Summary ---
Author Organization [facility] Address [address] [place] [address] Care Team Providers Care Community Manager Name Role Phone Non-Staff, Physician Primary Care Provider Unava ilable Encounter Details Date Type Department Care Team (Late st Contact Info) Description 01/25/2007 Inpatient Historical [facility] Ann Mejia MD [address] [facility] [address] [place] [address] Paroxysmal Supraventricular Tachycardia (Primary Dx) Social History Tobacco Use Types Packs/Day Years Used Date Smoking Tobacco: Never Assessed Comments Unknown Sex and Gender Information Value Date Recorded Sex Assigned at Not on file Legal Sex Female 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 Gender Identity Not on file Sexual Orientation [...] Goal INR 3.0; range 2.5 - 3.5 POST-ID Goal INR 2.5; range 2.0 - 3.0 [...] MD HEMATOLOGY ORDERABLES Edited Performing Organization Address [facility] Phone Number INTERFACE SYSTEM Refer [...] MD CHEMISTRY ORDERABLES Edited Performing Organization Address [facility] Co de Phone Number INTERFACE SYSTEM Refer to clinic/hospital department documented in this encounter Visit Diagnoses Diagnosis Paroxysmal supraventricular tachycardia- Primary documented in this encounter Care Teams Community Manager Relationship Specialty Start Date End Date Non-Staff, Physician NO ADDRESS ON FILE PCP - General 07/09/14 documented as of this encounter
--- OUTSIDE RECORDS SUMMARY | 2025-06-05 15:52 | XMS_ITS | Clinical Summary ---
Author Organization [facility] Address [address] [place]: Epic Prelude ADT [place] [address] Care Team Providers Care Genetics Physician Name Role Phone Non-Staff, Physician Primary [...] on file Legal Sex Female 1:10 AM FORENSIC EXAMINER Gender Identity Not on file Sexual Orientation Not on file Last Filed Vital Signs Vital Sign Reading Time Taken Comments Blood Pressure 112/80 04/26/2024 3:05 PM FORENSIC EXAMINER Pulse 56 07/22/2014 1:45 PM FORENSIC EXAMINER Temperature 36.9 C (98.5 F) 07/07/2014 8:58 PM FORENSIC EXAMINER Respiratory Rate 15 07/07/2014 8:58 PM FORENSIC EXAMINER Oxygen Saturation - - Inhaled Oxygen Concentration - - Weight 91.2 kg (201 lb) 04/26/2024 3:05 PM FORENSIC EXAMINER Height 167.6 cm (5' 6 ) 04/26/2024 3:05 PM FORENSIC EXAMINER Body Mass Index 32.44 04/26/2024 3:05 PM FORENSIC EXAMINER Plan of Treatment Upcoming Encounters Date Type Department Care Team (Late st Contact Info) Description 04/24/2026 1:00 PM FORENSIC EXAMINER Office Visit [facility] Neuro[facility] [address] [place] [address] Patricio Christianson MD [address] [place] [address] Health Maintenance Due Date Last [...] 1-dose 75+ series) 2038 Insurance MEDICAID [facility] Care Teams Genetics Physician Relationship Specialty Start Date End Date Non-Staff, Physician NO ADDRESS ON FILE PCP - General 07/09/14
--- OUTSIDE RECORDS SUMMARY | 2025-06-05 15:52 | XMS_ITS | Encounter Summary ---
Author Organization [facility] Address [address] [place] [address] Care Team Providers Care Respiratory Care Program Director Name Role Phone Non-Staff, Physician Primary Care Provider Unava ilable Encounter Details Date Type Department Care Team (Latest Contact Info) Description 04/22/2002 Outpatient Historical [facility] Pal Russell MD [address] [place] [address] SYMPTOMATIC FEMALE CLIMACTERIC STATE (Primary Dx); Pure hypercholesterolem Social History Tobacco Use Types Packs/Day Years Used Date Smoking Tobacco: Never Assessed Comments Unknown Sex and Gender Information Value Date Recorded Sex Assigned at Not on file Legal 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
--- OUTSIDE RECORDS SUMMARY | 2025-06-05 15:52 | XMS_ITS | Encounter Summary ---
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 Gender Identity Not on file Sexual [...] - 5.1 mmol/L 09/09/2013 11:20 PM CDT [facility] Blood specimen (specimen) 09/09/2013 6:47 PM CDT 09/09/2013 10:21 PM CDT us Carmen Cleaning NP CHEMISTRY ORDERABLES Final R esult [facility] CLIA # [id number] [address] [place] [address] [address] [place] [address] documented in this encounter Visit Diagnoses Diagnosis Sick Other unknown and unspecified cause of morbidity or mortality documented in this encounter Care Teams Saturator Relationship Specialty Start Date End Date Non-Staff, Physician NO ADDRESS ON FILE PCP - General 07/09/14 documented as of this encounter
--- OUTSIDE RECORDS SUMMARY | 2025-06-05 15:52 | XMS_ITS | Encounter Summary ---
Author Organization [facility] Address [address] [place] [address] Care Team Providers Care Fire Control Technician Name Role Phone Non-Staff, Physician Primary Care Provider Unava ilable Encounter Details Date Type Department Care Team (Latest Contact Info) Description 12/21/2000 Outpatient Historical [facility] Harley Petersen MD [address] [place] [address] Constipation (Primary Dx); Allergic rhinitis, cause unspecified Social History Tobacco Use Types Packs/Day Years Used Date Smoking Tobacco: Never Assessed Comments Unknown Sex and Gender Information Value Date Recorded Sex Assigned at Not on file Legal Sex Female 2:46 AM RN TRAUMA Gender Identity Not on file Sexual Orientation Not on file documented as of this encounter Plan of Treatment Not on file documented as of this encounter Visit Diagnoses Diagnosis Constipation- Primary Allergic rhinitis, cause unspecified documented in this encounter Care Teams Fire Control Technician Relationship Specialty Start Date End Date Non-Staff, Physician NO ADDRESS ON FILE PCP - General 07/09/14 documented as of this encounter
--- OUTSIDE RECORDS SUMMARY | 2025-06-05 15:52 | XMS_ITS | Encounter Summary ---
Author Organization [facility] Address [address] [place] [address] Care Team Providers Care Field Marketer Name Role Phone Non-Staff, Physician Primary Care Provider Unava ilable Encounter Details Date Type Department Care Team (Latest Contact Info) Description 05/15/2001 Outpatient Historical [facility] Pal Russell MD [address] [place] [address] HEADACHE (Primary Dx); VOMITING ALONE Social History Tobacco Use Types Packs/Day Years Used Date Smoking Tobacco: Never Assessed Comments Unknown Sex and Gender Information Value Date Recorded Sex Assigned at Not on file 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
--- OUTSIDE RECORDS SUMMARY | 2025-06-05 15:52 | XMS_ITS | Encounter Summary ---
Author Organization [facility] Address [address] [place] [address] Care Team Providers Care Balloon Artist Name Role Phone Non-Staff, Physician Primary Care Provider Unava ilable Encounter Details Date Type Department Care Team (Latest Contact Info) Description 04/15/2002 Outpatient [facility] Oral [facility] Maxillo Surgery[address] [place] [address] Chace Meeks, RON NO ADDRESS ON FILE SURGERY FOLLOWUP, UNSPEC (Primary Dx) Social History Tobacco Use Types Packs/Day Years Used Date Smoking Tobacco: Never Assessed Comments Unknown Sex and Gender Information Value Date Recorded Sex Assigned at Not on file 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
--- OUTSIDE RECORDS SUMMARY | 2025-06-05 15:52 | XMS_ITS | Continuity of Care Document ---
Author Organization KYLE Ann [facility] Selam, Hitesh, [facility] ([facility]) Address [address] [place] [address] Care Team Providers Care Bark Tanner Name Role Phone JOHN SYLVESTER Primary Care Provider Unavailabl e Assessment Encounter Date Assessment Date Assessment LastModified by Organization Details LastModified Time 04/24/2025 04/24/2025 Document scribed by Ryan Huitron Clothes Ironer. I was present during interview and exam. I have reviewed and agree with above documentation . Dr. John Sylvester. [email or web address] Not available 04/24/2025 12:11:14 Plan of Treatment Reminders Order Date Submit Date Provider Last Modified By Organization Details Last Modified Time Details Appointments None recorded. Lab None recorded. Referral None recorded. Procedures None recorded. Surgeries None recorded. Imaging None recorded. Medication Orders amoxicillin 875 mg-potassiu m clavulanate 125 mg tablet 2024 025 [facility]/Pharmacy #[id number], [address] [facility], [facility] [address], [place], [address], 5 05:01:59 Bactrim DS 800 mg-160 mg tablet 2024 025 [facility]/Pharmacy #[id number], [address] [facility], [facility] [address], [place], [address], 5 05:01:59 Patient TargetsNo targets recorded. Patient InstructionsNo instructions recorded. Reason for Referral None Reported. Problems Name Problem SNOMED Code Status Onset Date Resolution Date Notes Provider Name and Address Organization Details Recorded Time Gastroeso phageal reflux disease 251100971 Active 2022 GERD (GASTROES OPHAGEAL REFLUX DISEASE) Katherineparas Burtaddison elliott [facility] 5 10:55:43 Degenerat ion of intervert ebral disc 35640562 Active 2022 Degenerat margarita Disc Disease Katherine elliott, [facility] 5 10:55:44 Completed stroke 19031290 Active 2022 Katherine elliott [facility] 5 10:55:44 Essential hypertens ion 25124191 Active 2022 Katherine Kari elliott [facility] 5 10:55:44 Carpal tunnel syndrome of right wrist 538792316422 108 Active 2022 Katherine elliott [facility] 5 10:55:44 Chronic headache disorder 131137624 Active 2022 Katherine elliott [facility] 5 10:55:44 Polymyalg ia rheumatic a 99132433 Active 2022 Katherine elliott [facility] 5 10:55:44 Excessive daytime sleepines s - normal night sleep 660431431 Active 2022 Katherine elliott [facility] 5 10:55:43 Atypical chest pain 718726459 Active 2022 Katherine elliott [facility] 5 10:55:43 Epigastri c pain 20695520 Active 2022 Katherine elliott [facility] 5 10:55:44 Obstructi ve sleep apnea syndrome 14687508 Active 2022 Katherineparas Burtaddison elliott, [facility] LMariella[facility]. 5 10:55:[address] pylori gastroint estinal tract infection 379588695 Active 2023 Katherineparas Burte [facility], [facility], LSaritaL.CS[facility]ita 5 10:55:44 Intracran ial meningiom a 021471871 Active 2023 Katherineyadiel Pierce [facility], [facility] 5 10:55:44 Ileitis 48024328 Active 2023 Katherine Pierce [facility] 5 10:55:44 Hypokalem ia 79438915 Active 2023 Katherineyadiel Pierce [facility], [facility] 5 10:55:44 Contact dermatiti s 10741814 Active 2023 Katherine Pierce [facility] 5 10:55:44 Thyroid nodule 394922393 Active 2023 Katherine Pierce [facility] 5 10:55:43 Spontaneo us ecchymosi s 077571316 Active 2023 Katherine Pierce [facility], [facility] 5 10:55:44 Screening for malignant neoplasm of colon Active 2023 Katherine Pierce [facility] 5 10:55:44 Acute blepharit is 48976445 Active 2023 Katherine elliott [facility] 5 10:55:44 Fibrosis of lung 83713658 Active 2024 Ryan elliott [facility] 5 11:14:35 Trigger finger of right hand 358773415555 64728 Active 2024 Ryan elliott [facility] 5 11:27:09 Dog bite - wound 151363988 Active [address], [address], [facility] 5 14:08:14 Hematoma 241800583 Active [address], [address], [facility] 5 14:08:16 Hematoma of left breast 912490737769 86842 Active 2024 Ryan Raymonliliya elliott [facility] 11:52:49 Problem Notes None recorded. Procedures Surgical History Date Name Laterality Status Provider Name and Address Organization Details Recorded Time Tonsillectomy completed Michelle Cano [facility] 02/09/2024 15:14:53 Hysterectomy completed Michelle Cano [facility] 02/09/2024 15:15:01 Cholecystectomy completed Michelle Cano [facility] 02/09/2024 15:15:12 Carpal Tunnel Surgery completed Michelle Cano [facility] 02/09/2024 15:15:39 Imaging Results None recorded. Procedure Notes None recorded. Medical Equipment None Reported. Allergies Allergen ID Allergen Name Allergen Category Reaction Reaction Severity Criticality Documentation Date Start Date Code Code System Note Provider Name and Address Organization Details Recorded Time 1800 tramadol medicatio n Not available Not available Not available 09/28/2022 98408 RxNorm MIGUEL ANGEL CEDEÑO earl, [facility] 3 16:24:24 09822 tramadol hydrochlo ride medicatio n Not available Not available Not available 01/07/2023 15722 RxNorm Barb Chaudhry earl, [facility] 4 08:02:50 Medications Name Sig [...] for cough 01/20 completed DM/ky; Recorded 08/17/19 23 12:50PM by Meagan Powersic al Summary; Refill Quantity [...] ne 5 mg-acetam inophen 325 mg tablet TAKE 1 TABLET BY MOUTH EVERY 6 HOURS NEEDED FOR PAIN active Not Available Not Available No t Available sucralfat e 1 gram tablet TAKE 1 [...] BY MOUTH EVERY DAY IN THE MORNING active Not Available Not Available No t Available erythromy rick 5 mg/gram (0.5 %) eye [...] Not Available Not Available No t Available estradiol 0.01% (0.1 mg/gram) vaginal cream INSERT 1 GRAM VAGINALL Y EVERY DAY FOR 14 DAYS, THEN APPLY TWICE WEEKLY active Not Available Not Available No t Available albuterol sulfate HFA 90 mcg/actua tion aerosol inhaler INHALE 2 PUFFS BY MOUTH EVERY DAY active Not Available Not Available No t Available ondansetr on 4 mg disintegr ating tablet TAKE 1 TABLET BY MOUTH EVERY 6 HOURS NEEDED FOR NAUSEA AND VOMITING 03/12 completed Not Available Not Available Not Available cefdinir 300 mg capsule Take 1 capsule twice a day by oral route for 7 days. 2024 active Not Available Not Available Not Avai lable amoxicill in 875 mg-potass ium clavulana te 125 mg tablet Take 1 tablet twice a day by oral route for 7 days. 05/08 completed Not Available Not Available Not Available oxycodone 5 mg tablet TAKE ONE TABLET BY MOUTH EVERY 6 HOURS NEEDED FOR PAIN active Not Available Not Available No t Available Bactrim DS 800 mg-160 mg tablet Take 1 tablet twice a day by oral route for 7 days. 05/08 completed Not Available Not Available Not Available [...] times daily 01/20 completed DM/sd; Recorded 06/27/19 12:35PM by Waleska Sandoval Historic al Summary; Refill Quantity : 0; Not Available Not Available Not Available cholecalc iferol (vitamin D3) 1,250 mcg (50,000 unit) capsule TAKE ONE CAPSULE BY MOUTH EVERY WEEK 02/08 completed Not Available Not Available Not Available amlodipin e besylate (bulk) daily 01/20 completed DM/sd; Recorded 06/27/19 12:33PM by Meagan Ashleyic al Summary; Refill [...] Not Available Not Available No t Available Nurte ODT 75 mg disintegr ating tablet Dissolve ONE tablet by mouth once as needed for migraine headache , do not exceed ONE tablet in a 24 hour period. active Not Available Not Available No t Available Vitals Date Recorded Body height Body mass index (BMI) Body weight Oxygen saturation Heart rate Respiratory rate Systolic And Diastolic Provider Name and Address Organization Details Last Updated DateTime 5 167.64 cm 31.6 kg/m2 91851.1 g 97 % 76 /min 18 /min 122/74 mm[Hg] ERICKSON CORREA [facility], [facility] 5 12:04:41 Date Recorded Body height Body mass index (BMI) Body weight Oxygen saturation Heart rate Respiratory rate Systolic And Diastolic Provider Name and Address Organization Details Last Updated DateTime 5 167.64 cm 31.7 kg/m2 01761.1 5 g 97 % 75 /min 18 /min 126/80 mm[Hg] ERICKSON CORREA [facility] 5 13:17:02 Date Recorded Body height Body mass index (BMI) Body weight Respiratory rate Oxygen saturation Heart rate Systolic And Diastolic Provider Name and Address Organization Details Last Updated DateTime 5 167.64 cm 31.2 kg/m2 03057.4 3 g 18 /min 98 % 76 /min 110/80 mm[Hg] Katherine Pierce [facility] 5 11:31:33 Social History Question Answer Notes LastModified by [employer] Details LastModified Time Tobacco Smoking Status Never Smoker Becky Doug elliott [facility] 12/07/2023 18:17:41 What Was The Date Of Your Most Recent Tobacco Screening? 01/17/2025 [email or web address] Information not available 01/17/2025 Sex: Unknown Functional Status Question Answer Note LastModified by [employer] Details LastModified Time Do you use any illicit or recreational drugs? No [email or web address] Information not available 02/07/2023 Do you or have you ever used any other forms of tobacco or nicotine? No Information not available 02/07/2023 What is your level of alcohol consumption? None Information not available 02/07/2023 Mental Status None recorded. Family History Nothing Reported. Medical History No medical history recorded. Gynecological HistoryNo gynecological history recorded. Obstetrics History GPAL:G 0 P 0 0 0 0 Immunizations Vaccine Type Date Status Note Provider Nam e and Address Organization Details Recorded Time pneumococcal polysaccharide PPV23 3 completed Katherine elliott [facility] 04/17/2024 11:19:17 Tdap 3 completed Katherine elliott [facility] 04/17/2024 11:19:17 Rabies - IM fibroblast culture 5 completed Not Available [facility] 05/27/2025 15:48:29 Rabies - IM fibroblast culture 5 completed Not Available [facility] 05/27/2025 15:48:29 Rabies - IM fibroblast culture 5 completed Not Available [facility] 05/27/2025 15:48:29 Rabies - IM fibroblast culture 5 completed Not Available [facility] 05/27/2025 15:48:29 Tdap 4 completed John Sylvester DO [address] [place] [address], [phone], [facility], Hitesh 09/23/2023 19:37:42 Past Encounters Encounter ID Performer Location Encounter Start Date Encounter Closed Date Diagnosis/Indication Diagnosis SNOMED-CT Code Diagnosis ICD10 Code Diagnosis IMO Codes Diagnosis Note [id number] John Sylvester DO [facility] ([facility]) [address] [place] [address] 04/24/2025 11:39:52 05/13/2025 12:15:03 Dog bite - wound 653761757 W54.0XXD [id number] 04/24/25: Counseled will add another 7 days of Augmentin, 7 days Bactrim, concerned for resistance . Counseled if top breast wound with increased redness/ tenderness / swelling RTC, we may need to drain it. F/u 5 days for recheck. Suture removed from right wrist, continue with sutures in place to left breast. Health Concerns Section Related Observation LastModified by Organization Detai ls LastModified Time None Recorded Concern Status LastModified by Organization Details LastModified Time None Recorded Payers Encounter Date Sequence Insurance Name Policy Number Policy Muse Covered Member ID Muse Member ID Guarantor Name 04/24/2025 2 [place] Jessica Moon [id number] Jessica Moon 04/24/2025 1 [employer] - [employer] (MEDICARE REPLACEMENT/ ADVANTAGE - HMO) [id number] Jessica Moon [id number] Jessica Moon Notes Date Note Type Note Provider Name and Address Organization Details Recorded Time 04/24/2025 text/html ROS as noted in the HPI Pt presents for ER f/u. Patient was seen at [facility] ER on 04/17/25 for dog bite. She had been feeding the dog peanut butter and ran out and the dog came at her, biting her right wrist and left breast. Sutures placed in ER. Started on Augmentin. She checked with Vet, dog not updated on Rabies Vax in 4 years, returned to ER for Rabies PEP, started.Dog has since been put down. She is currently on Augmentin, tolerating well. She had white/ yellow dc 2 days ago, nothing since.She reports the area of the bite at the left breast seems to feel different, like it's hard. John Sylvester DO [address] [place] [address], [phone], [facility] 05/12/2025 14:09:49 04/29/2025 text/html ROS as noted in the HPI Patient presents visit today for 1 week f/u for dog bite with laceration to left breast and right arm.right arm healing well. but left breast still with mod/severe pain. dull ache. radiation up to chest.no drainage. no fevers or chills. she has finished abx. she finished her rabies vaccination. John Sylvester DO [address] [place] [address], [phone], [facility] 04/29/2025 14:08:22 05/12/2025 text/html ROS as noted in the HPI Pt presents for hospital f/u Admitted 05/05-:Hospi demi [id number] female s/p I&D left breast hematoma (dog bite). Patient stayed overnight for wound care. POD1 doing well. Cleared for discharge. Patient to finish course of PO antibiotics. Follow up in clinic in 1 week. Daily packing changes.Prescript ions:Newoxycodone 5 mg tablet5 mg PO Q6H PRN (Reason: pain) 10 Days Qty: 30 0RFReferrals:[facility] [Outside]Elvia Connor MD [Physician, General Surgery] - 05/15/25 11:40 amReferral Note:Taylor DO [Primary Care Provider, [facility]] - 05/12/25 10:20 am She admits that it is very sore and not as bad.She is having to pack the wound daily, HH is monitoring, measuring, seems to be improving. She has finished abx tx. John Sylvester, [address], [address], [facility] 05/12/2025 13:48:43 OBGyn Episode No OBEpisode recorded.
--- OUTSIDE RECORDS SUMMARY | 2025-06-05 15:52 | XMS_ITS | Encounter Summary ---
Author Organization [facility] Address [address] [place] [address] Care Team Providers Care Maintenance Service Technician Name Role Phone Non-Staff, Physician Primary Care Provider Unava ilable Encounter Details Date Type Department Care Team (Latest Contact Info) Description 11/13/2006 Outpatient Historical [facility]- [place] [address] [place] [address] Ann Mejia MD [address] [facility] [address] [place] [address] Paroxysmal Supraventricular Tachycardia (Primary Dx); Overweight Social History Tobacco Use Types Packs/Day Years Used Date Smoking Tobacco: Never Assessed Comments Unknown Sex and Gender Information Value Date Recorded Sex Assigned at Not on file 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
--- OUTSIDE RECORDS SUMMARY | 2025-06-05 15:52 | XMS_ITS | Encounter Summary ---
Author Organization [facility] Address [address] [facility] Attn: [place] [address] Care Team Providers Care Electric Dolly Operator Name Role Phone Non-Staff, Physician Primary Care Provider Unava ilable Encounter Details Date Type Department Care Team (Late st Contact Info) Description 11/14/2000 Outpatient Historical [place] [address] [facility] [address] [place] [address] Social History Tobacco Use Types Packs/Day Years Used Date Smoking Tobacco: Never Assessed Comments Unknown Sex and Gender Information Value Date Recorded Sex Assigned at Not on file Legal Sex Female 2:46 AM 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
--- OUTSIDE RECORDS SUMMARY | 2025-06-05 15:52 | XMS_ITS | Encounter Summary ---
Author Organization [facility] Address [address] [place] [address] Care Team Providers Care Hogshead Mat Assembler Name Role Phone Non-Staff, Physician Primary Care Provider Unava ilable Encounter Details Date Type Department Care Team (Latest Contact Info) Description 04/02/2002 Outpatient [facility] Oral and [place] Surgery[address] [place] [address] Robert Bear, PhD NO ADDRESS ON FILE SURGERY FOLLOWUP, UNSPEC (Primary Dx) Social History Tobacco Use Types Packs/Day Years Used Date Smoking Tobacco: Never Assessed Comments Unknown Sex and Gender Information Value Date Recorded Sex Assigned at Not on file 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
--- OUTSIDE RECORDS SUMMARY | 2025-06-05 15:52 | XMS_ITS | Encounter Summary ---
Author Organization [facility] Address [address] [place] [address] Care Team Providers Care Circuit Tester Name Role Phone Non-Staff, Physician Primary Care Provider Unava ilable Encounter Details Date Type Department Care Team (Latest Contact Info) Description 04/20/2001 Outpatient Historical 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
--- OUTSIDE RECORDS SUMMARY | 2025-06-05 15:52 | XMS_ITS | Encounter Summary ---
Author Organization [facility] Address [address] [place] [address] Care Team Providers Care Punch Press Feeder Name Role Phone Non-Staff, Physician Primary Care Provider Unava ilable Encounter Details Date Type Department Care Team (Latest Contact Info) Description 01/22/1999 Outpatient Historical [facility] Santana Serrano NO ADDRESS ON FILE Urinary tract infection, site not specified (Primary Dx) Social History Tobacco Use Types Packs/Day Years Used Date Smoking Tobacco: Never Assessed Comments Unknown Sex and Gender Information Value Date Recorded Sex Assigned at Not on file 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
--- OUTSIDE RECORDS SUMMARY | 2025-06-05 15:52 | XMS_ITS | Encounter Summary ---
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
--- OUTSIDE RECORDS SUMMARY | 2025-06-05 15:52 | XMS_ITS | Continuity of Care Document ---
Author Organization KYLE [facility] Selam, Hitesh, [facility] ([facility]) Address [address] [place] [address] Care Team Providers Care Epic Stork Specialists Name Role Phone JOHN DICKINSON Primary Care Provider Unavailabl e Assessment Encounter Date Assessment Date Assessment LastModified by Organization Details LastModified Time 05/12/2025 05/12/2025 Document scribed by Ryan Huitron Traffic Observer. I was present during interview and exam. I have reviewed and agree with above documentation . Dr. John Dickinson. [email or web address] Not available 05/12/2025 11:46:46 Plan of Treatment Reminders Order Date Submit Date Provider Last Modified By Organization Details Last Modified Time Details Appointments None recorded . Lab thyrotro pin, QN, serum or plasma 025 05/12/[address] [facility], [address] [facility], [place], [address], 5 10:06:51 CMP, serum or plasma 025 05/12/[address] [facility], [address] [facility], [place], [address], 5 10:06:51 lipid panel, blood 025 05/12/[address] [facility], [address] [facility] [address], [address], 5 10:06:51 CBC 025 05/12/20 25 [facility], [address], [place], [address], 5 10:06:51 Referral None recorded . Procedures None recorded . Surgeries None recorded . Imaging None recorded . Medication Orders None recorded . Patient TargetsNo targets recorded. Patient InstructionsNo instructions recorded. Reason for Referral None Reported. Problems Name Problem SNOMED Code Status Onset Date Resolution Date Notes Provider Name and Address Organization Details Recorded Time Gastroeso phageal reflux disease 340125893 Active 2022 GERD (GASTROES OPHAGEAL REFLUX DISEASE) Katherine elliott [facility] 5 10:55:43 Degenerat ion of intervert ebral disc 56852472 Active 2022 Degenerat margarita Disc Disease Katherine elliott [facility] L.L.CS[facility]ita 5 10:55:44 Completed stroke 95692478 Active 2022 Katherine elliott [facility] L.L.CS[facility]ita 5 10:55:44 Essential hypertens ion 18096109 Active 2022 Katherine elliott [facility]CS[facility] 5 10:55:44 Carpal tunnel syndrome of right wrist 017158145609 108 Active 2022 Katherine elliott [facility] L.LS[facility]ita[facility] 5 10:55:44 Chronic headache disorder 252547887 Active 2022 Katherine elliott [facility] L.LS[facility] 5 10:55:44 Polymyalg ia rheumatic a 10592284 Active 2022 Katherine elliott [facility], L.LS[facility] 5 10:55:44 Excessive daytime sleepines s - normal night sleep 168877197 Active 2022 Katherine elliott, [facility] 5 10:55:43 Atypical chest pain 371378623 Active 2022 Katherine elliott, [facility] 5 10:55:43 Epigastri c pain 77647721 Active 2022 Katherine Pierce [facility], [facility] 5 10:55:44 Obstructi ve sleep apnea syndrome 56797916 Active 2022 Katherine Pierce [facility], [facility] 5 10:55:[address] pylori gastroint estinal tract infection 632556664 Active 2023 Katherine Burte [facility], [facility] 5 10:55:44 Intracran ial meningiom a 378228932 Active 2023 Katherine Pierce [facility], [facility] 5 10:55:44 Ileitis 40434139 Active 2023 Katherine Pierce [facility], [facility] 5 10:55:44 Hypokalem ia 41993337 Active 2023 Katehrine Pierce [facility], [facility] 10:55:44 Contact dermatiti s 22626590 Active 2023 Katherine Pierce [facility], [facility] 10:55:44 Thyroid nodule 229066939 Active 2023 Katherineparas Burte [facility] 5 10:55:43 Spontaneo us ecchymosi s 961777113 Active 2023 Katherine Pierce null, [facility]CS[facility] 5 10:55:44 Screening for malignant neoplasm of colon Active 2023 Katherine elliott [facility], LSaritaLSaritaCSarita 5 10:55:44 Acute blepharit is 47643103 Active 2023 Katherine elliott [facility]CS[facility] 5 10:55:44 Fibrosis of lung 33559700 Active 2024 Ryan elliott [facility], [facility]ita 11:14:35 Trigger finger of right hand 212292493921 44807 Active 2024 Ryan elliott [facility], Antione[facility].CS[facility] 5 11:27:09 Dog bite - wound 387546450 Active [address], [address], [facility], Vicente.LSaritaCSarita 14:08:14 Hematoma 743171348 Active [address], [address], [facility], AntioneLSaritaCSarita 5 14:08:16 Hematoma of left breast 636147337273 32422 Active 2024 Ryan elliott [facility] L[facility]L.CS[facility]ita 11:52:49 Problem Notes None recorded. Procedures Surgical History Date Name Laterality Status Provider Name and Address Organization Details Recorded Time Tonsillectomy completed Michelle Cano [facility], Hitesh 02/09/2024 15:14:53 Hysterectomy completed Michelle Cano [facility], Hitesh 02/09/2024 15:15:01 Cholecystectomy completed Michelle Cano [facility], Hitesh 02/09/2024 15:15:12 Carpal Tunnel Surgery completed Michelle Jerome [facility], AntioneL[facility]eesha 02/09/2024 15:15:39 Imaging Results None recorded. Procedure Notes None recorded. Medical Equipment None Reported. Allergies Allergen ID Allergen Name Allergen Category Reaction Reaction Severity Criticality Documentation Date Start Date Code Code System Note Provider Name and Address Organization Details Recorded Time 1800 tramadol medicatio n Not available Not available Not available 09/28/2022 47141 RxNorm MIGUEL ANGEL CEDEÑO earl [facility], AntioneLKeesha 3 16:24:24 32507 tramadol hydrochlo ride medicatio n Not available Not available Not available 01/07/2023 00034 RxNorm Barb Chaudhry earl [facility], AntioneL[facility]ha 4 08:02:50 Medications Name Sig Start Date [...] as needed 01/20 completed DM/ky; Recorded 08/17/19 12:46PM by Devon Powers al Summary; Refill Quantity [...] 01/20 completed DM/sd; Recorded 06/27/19 12:35PM by Devon Ashley al Summary; Refill Quantity : 0; Not [...] Not Available Not Available No t Available Nurtec ODT 75 mg disintegr ating tablet Dissolve [...] Updated DateTime 5 167.64 cm 31.2 kg/m2 73606.4 3 g 18 /min 98 % 76 /min 110/80 mm[Hg] Katherine Burte [facility] 5 11:31:33 Social History Question Answer Notes LastModified by Organizat ion Details LastModified Time Tobacco Smoking Status Never Smoker [facility] 12/07/2023 18:17:41 What Was The Date Of Your Most Recent Tobacco Screening? 01/17/2025 [email or web address] Information not available 01/17/2025 Sex: Unknown Functional Status Question Answer Note LastModified by Organizat ion Details LastModified Time Do you use any illicit or recreational drugs? No [email or web address] Information not available 02/07/2023 Do you or have you ever used any other forms of tobacco or nicotine? No Information not available 02/07/2023 What is your level of alcohol consumption? None [email or web address] Information not available 02/07/2023 Mental Status None recorded. Family History Nothing Reported. Medical History No medical history recorded. Gynecological HistoryNo gynecological history recorded. Obstetrics History GPAL:G 0 P 0 0 0 0 Immunizations Vaccine Type Date Status Note Provider Nam e and Address Organization Details Recorded Time pneumococcal polysaccharide PPV23 3 completed Katherine elliott [facility] 04/17/2024 11:19:17 Tdap 3 completed Katherine elliott [facility] 04/17/2024 11:19:17 Rabies - IM fibroblast culture 5 completed Not Available [facility] 05/27/2025 15:48:29 Rabies - IM fibroblast culture 5 completed Not Available [facility] 05/27/2025 15:48:29 Rabies - IM fibroblast culture 5 completed Not Available [facility] 05/27/2025 15:48:29 Rabies - IM fibroblast culture 5 completed [facility] 05/27/2025 15:48:29 Tdap 4 completed John Dickinson DO [address] [place] [address], [phone], [facility], Hitesh 09/23/2023 19:37:42 Past Encounters Encounter ID Performer Location Encounter Start Date Encounter Closed Date Diagnosis/Indication Diagnosis SNOMED-CT Code Diagnosis ICD10 Code Diagnosis IMO Codes Diagnosis Note [id number] John Dickinson DO [facility] ([facility]) [address] [place] [phone] 04/24/2025 11:39:52 05/13/2025 12:15:03 Dog bite - wound 818238478 W54.0XXD [id number] 04/24/25: Counseled will add another 7 days of Augmentin, 7 days Bactrim, concerned for resistance . Counseled if top breast wound with increased redness/ tenderness / swelling RTC, we may need to drain it. F/u 5 days for recheck. Suture removed from right wrist, continue with sutures in place to left breast. [id number] John Dickinson DO [facility] ([facility]) [address] [place] [phone] 04/29/2025 12:24:42 04/29/2025 15:30:29 Dog bite - wound 778383628 W54.0XXD [id number] 04/29/25: significan t and unimproved pain with concern for hematoma and possible infection. Referral to Gen Surg for possible I&D breast hematoma unresolved . suture to remain intact for now.: Counseled will add another 7 days of Augmentin, 7 days Bactrim, concerned for resistance . Counseled if top breast wound with increased redness/ tenderness / swelling RTC, we may need to drain it. F/u 5 days for recheck. Suture removed from right wrist, continue with sutures in place to left breast. Hematoma 768175571 T14.8 XXA [id number] 04/29/25: concern for abscess, concern for need for evacuation , referral to Gen Surg, will try Dr. Blas. [id number] John Dickinson DO [facility] ([facility]) [address] [place] [id number] 05/12/2025 11:01:17 05/14/2025 12:01:11 Hematoma of left breast 7445596274 1592321 N64.89 [id number] 05/12/25: S/p dog bite, s/p I&D, improving, continue with HHC, packing changes, f/u with Gen Surg as scheduled on 05/15/25, no need for further abx at this time. Thyroid nodule 168960367 E04.[address] Meza, Thyroid US 03/07/24. Bx scheduled 04/17/24. Essential hypertension 51866320 I10 Tolerating Valsartan HCTZ, continue current treatment. Continue amlodipine and metoprolol . Monitor blood pressure and heart rate. Health Concerns Section Related Observation LastModified by Organization Detai ls LastModified Time None Recorded Concern Status LastModified by Organization Details LastModified Time None Recorded Payers Encounter Date Sequence Insurance Name Policy Number Policy Muse Covered Member ID Muse Member ID Guarantor Name 05/12/2025 2 [place] Jessica [facility] [id number] [facility] 05/12/2025 1 [employer] - [employer] (MEDICARE REPLACEMENT/ ADVANTAGE - HMO) [id number] [facility] [id number] [facility] Notes Date Note Type Note Provider Name and Address Organization Details Recorded Time 05/12/2025 text/html ROS as noted in the HPI Pt presents for hospital f/u Admitted 05/05-:Hospi demi [id number] female s/p I&D left breast hematoma (dog bite). Patient stayed overnight for wound care. POD1 doing well. Cleared for discharge. Patient to finish course of PO antibiotics. Follow up in clinic in 1 week. Daily packing changes.Prescript ions:Newoxycodone 5 mg tablet5 mg PO Q6H PRN (Reason: pain) 10 Days Qty: 30 0RFReferrals:[facility] [Outside]Elvia Connor MD [Physician, General Surgery] - 05/15/25 11:40 amReferral Note:Taylor DO [Primary Care Provider, Family Practice] - 05/12/25 10:20 am She admits that it is very sore and not as bad.She is having to pack the wound daily, HH is monitoring, measuring, seems to be improving. She has finished abx tx. John Dickinson, DO [address] [place] [address], [phone], [facility], Hitesh 05/12/2025 13:48:43 OBGyn Episode No OBEpisode recorded.
--- OUTSIDE RECORDS SUMMARY | 2025-06-05 15:52 | XMS_ITS | Encounter Summary ---
Author Organization [facility] Address [address] [place] [address] Care Team Providers Care Product Marketing Specialist Name Role Phone Non-Staff, Physician Primary Care Provider Unava ilable Encounter Details Date Type Department Care Team (Latest Contact Info) Description 03/26/2002 Outpatient Historical [facility] Oral and Maxillo Surgery[address] [place] [address] Robert Bear, PhD NO ADDRESS ON FILE TOOTH POSITION ANOMALY (Primary Dx); UNSPEC DENTAL CARIES Social History Tobacco Use Types Packs/Day Years Used Date Smoking Tobacco: Never Assessed Comments Unknown Sex and Gender Information Value Date Recorded Sex Assigned at Not on file Legal Sex Female 2:46 AM POLE MAKER Gender Identity Not on file Sexual Orientation Not on file documented as of this encounter Plan of Treatment Not on file documented as of this encounter Visit Diagnoses Diagnosis 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
--- OUTSIDE RECORDS SUMMARY | 2025-06-05 15:52 | XMS_ITS | Encounter Summary ---
Author Organization [facility] Address [address] [place] [address] Care Team Providers Care Immigration Manager Name Role Phone Non-Staff, Physician Primary Care Provider Unava ilable Encounter Details Date Type Department Care Team (Latest Contact Info) Description 04/02/2002 Outpatient Historical [facility] Pal Russell MD [address] [place] [address] Pure hypercholesterolem (Primary Dx); SURGERY FOLLOWUP, UNSPEC Social History Tobacco Use Types Packs/Day Years Used Date Smoking Tobacco: Never Assessed Comments Unknown Sex and Gender Information Value Date Recorded Sex Assigned at Not on file Legal Sex Female 2:46 AM BEE RANCHER Gender Identity Not on file Sexual Orientation Not on file documented as of this encounter Plan of Treatment Not on file documented as of this encounter Visit Diagnoses Diagnosis Pure hypercholesterolem- Primary Pure hypercholesterolemia Follow-up examination, following unspecified surgery documented in this encounter Care Teams Immigration Manager Relationship Specialty Start Date End Date Non-Staff, Physician NO ADDRESS ON FILE PCP - General 07/09/14 documented as of this encounter
--- OUTSIDE RECORDS SUMMARY | 2025-06-05 15:52 | XMS_ITS | Encounter Summary ---
Author Organization [facility] Address [address] [place] [address] Care Team Providers Care Decorator Inspector Name Role Phone Non-Staff, Physician Primary Care Provider Unava ilable Encounter Details Date Type Department Care Team (Latest Contact Info) Description 03/24/2000 Outpatient Historical [facility] Santana Serrano NO ADDRESS ON FILE Endometriosis, site unspecified (Primary Dx); Dyspepsia and other specified disorders of function of stomach Social History Tobacco Use Types Packs/Day Years Used Date Smoking Tobacco: Never Assessed Comments Unknown Sex and Gender Information Value Date Recorded Sex Assigned at Not on file Legal Sex Female 

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
--- OUTSIDE RECORDS SUMMARY | 2025-06-05 15:52 | XMS_ITS | Encounter Summary ---
Author Organization [facility] Address [address] [place] [address] Care Team Providers Care Machinist Set Up Name Role Phone Non-Staff, Physician Primary Care Provider Unava ilable Encounter Details Date Type Department Care Team (Late st Contact Info) Description 08/05/2013 Ancillary Orders [facility] Laboratory Services [place] [address] [place] [address] Sick Social History Tobacco Use Types Packs/Day Years Used Date Smoking Tobacco: Never Assessed Comments Unknown Sex and Gender Information Value Date Recorded Sex Assigned at Not on file Legal Sex Female 2:46 AM ORTHOTIC FITTER Gender Identity Not on file Sexual Orientation Not on file documented as of this encounter Plan of Treatment Not on file documented as of this encounter Procedures Procedure Name Priority Date/Time Associated Diagnosis Comments LIPID PANEL Routine 08/05/2013 8:07 PM ORTHOTIC FITTER Sick [ICD-9-CM] COMPREHENSIVE METABOLIC PANEL Routine 08/05/2013 8:07 PM ORTHOTIC FITTER Sick [ICD-9-CM] documented in this encounter Results * (ABNORMAL) LIPID PANEL (08/05/2013 8:07 PM ORTHOTIC FITTER) CHOLESTEROL 268(H) 130 - 200 mg/dL 08/05/2013 9:32 PM ORTHOTIC FITTER [facility] [place] TRIGLYCERIDE 95 30 - 200 mg/dL 08/05/2013 9:32 PM ORTHOTIC FITTER [facility] [place] HDL 54 35 - 80 mg/dL 08/05/2013 9:32 PM [facility] [place] LDL CALCULATED 195(H) 0 - 100 mg/dL 08/05/2013 9:32 PM [facility] [employer] [facility] Blood specimen (specimen) Collection / Unknown 08/05/2013 8:07 PM ORTHOTIC FITTER 08/05/2013 9:06 PM ORTHOTIC FITTER Located Within [facility] LABORATORY SERVICES - [place] - 08/05/2013 9:32 PM ORTHOTIC FITTER TOTAL CHOLESTEROL mg/dL Desirable <200 Borderline high 200-239 High >=240 TRIGLYCERIDES mg/dL Normal <150 Borderline high 150-199 High 200-499 Very high >=500 HDL CHOLESTEROL mg/dL Low <40 Normal 40-60 Desirable >60 LDL CHOLESTEROL mg/dL Optimal <100 Low risk 100-129 Borderline high 130-159 High 160-189 Very high >=190 Based on AHA/NCEP Guidelines Radha Pathak [facility] CHEMISTRY ORDERABLES Final Resu lt [facility] [employer] [place] CLIA # [id number] [address] [address] * COMPREHENSIVE METABOLIC PANEL (08/05/2013 8:07 PM ORTHOTIC FITTER) SODIUM 138 136 - 145 mmol/L 08/05/2013 9:32 PM [facility] [employer] [facility] [place] POTASSIUM 3.8 3.5 - 5.1 mmol/L 08/05/2013 9:32 PM [facility] [employer] [facility] CHLORIDE 101 98 - 107 mmol/L 08/05/2013 9:32 PM [facility] [employer] [facility] CO2 31 21 - 32 mmol/L 08/05/2013 9:32 PM [facility] [employer] [facility] CALCIUM 9.2 8.5 - 10.1 mg/dL 08/05/2013 9:32 PM [facility] [employer] [facility] [place] BUN 9 7 - 18 mg/dL 08/05/2013 9:32 PM [facility] [employer] [facility] CREATININE 0.70 0.60 - 1.30 mg/dL 08/05/2013 9:32 PM [facility] [employer] [facility] GLUCOSE 102 74 - 106 mg/dL 08/05/2013 9:32 PM [facility] [employer] [facility] TOTAL PROTEIN 7.9 6.4 - 8.2 g/dL 08/05/2013 9:32 PM [facility] [employer] ALBUMIN 4.3 3.4 - 5.0 g/dL 08/05/2013 9:32 PM [facility] BILIRUBIN TOTAL 0.5 0.2 - 1.0 mg/dL 08/05/2013 9:32 PM [facility] ALKALINE PHOSPHATASE 136 50 - 136 U/L 08/05/2013 9:32 PM [facility] AST 22 15 - 37 U/L 08/05/2013 9:32 PM [facility] ALT 34 30 - 65 U/L 08/05/2013 9:32 PM [facility] GFR >60 >=60 mL/min/1.7 3 sq meter 08/05/2013 9:32 PM [facility] Comment: eGFR has not been validated for [...] mL/min/1.7 3 sq meter 08/05/2013 9:32 PM [facility] Blood specimen (specimen) Collection / Unknown 08/05/2013 8:07 PM ORTHOTIC FITTER 08/05/2013 9:06 PM ORTHOTIC FITTER us Radha Pathak MECHANICAL INTERN CHEMISTRY ORDERABLES Final Resu lt [facility] Se[facility]BL[facility]SS [facility] [id number] [address] [place] [id number] documented in this encounter Visit Diagnoses Diagnosis Sick Other unknown and unspecified cause of morbidity or mortality documented in this encounter Care Teams Machinist Set Up Relationship Specialty Start Date End Date Non-Staff, Physician NO ADDRESS ON FILE PCP - General 07/09/14 documented as of this encounter
--- OUTSIDE RECORDS SUMMARY | 2025-06-05 15:52 | XMS_ITS | Encounter Summary ---
Author Organization [facility] Address [address] [place] [address] Care Team Providers Care Farm Appraiser Name Role Phone Non-Staff, Physician Primary Care Provider Unava ilable Encounter Details Date Type Department Care Team (Latest Contact Info) Description 03/14/2002 Outpatient Historical [facility] Oral and Maxillo Surgery[address] [place] [address] Robert Bear, PhD NO ADDRESS ON FILE TOOTH POSITION ANOMALY (Primary Dx) Social History Tobacco Use Types Packs/Day Years Used Date Smoking Tobacco: Never Assessed Comments Unknown Sex and Gender Information Value Date Recorded Sex Assigned at Not on file Legal Sex Female 2:46 AM PATTERN FITTER Gender Identity Not on file Sexual Orientation Not on file documented as of this encounter Plan of Treatment Not on file documented as of this encounter Visit Diagnoses Diagnosis 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
--- OUTSIDE RECORDS SUMMARY | 2025-06-05 15:52 | XMS_ITS | Encounter Summary ---
Author Organization [facility] Address [address] [place] [address] Care Team Providers Care Customer Relations Representative Name Role Phone Non-Staff, Physician Primary Care Provider Unava ilable Encounter Details Date Type Department Care Team (Latest Contact Info) Description 11/16/2001 Outpatient Historical [facility] Pal Russell MD [address] [place] [address] Pure hypercholesterolem (Primary Dx); Dietary surveil/mitochondrial disorders counselor Social History Tobacco Use Types Packs/Day Years Used Date Smoking Tobacco: Never Assessed Comments Unknown Sex and Gender Information Value Date Recorded Sex Assigned at Not on file Legal Sex Female 2:46 AM BEREAVEMENT COORDINATOR Gender Identity Not on file Sexual Orientation Not on file documented as of this encounter Plan of Treatment Not on file documented as of this encounter Visit Diagnoses Diagnosis Pure hypercholesterolem- Primary Pure hypercholesterolemia Dietary surveil/mitochondrial disorders counselor Dietary surveillance and counseling documented in this encounter Care Teams Customer Relations Representative Relationship Specialty Start Date End Date Non-Staff, Physician NO ADDRESS ON FILE PCP - General 07/09/14 documented as of this encounter
--- OUTSIDE RECORDS SUMMARY | 2025-06-05 15:52 | XMS_ITS | Encounter Summary ---
Author Organization [facility] Address [address] [place] [address] Care Team Providers Care Rf Technician Name Role Phone Non-Staff, Physician Primary Care Provider Unava ilable Encounter Details Date Type Department Care Team (Latest Contact Info) Description 04/16/2001 Outpatient Historical [facility] Pal Russell MD [address] [place] [address] ACUTE SINUSITIS NOS (Primary Dx); LOWER LEG INJURY NOS; POSTMENOPAUSAL HORMONAL REPLACMT Social History Tobacco Use Types Packs/Day Years Used Date Smoking Tobacco: Never Assessed Comments Unknown Sex and Gender Information Value Date Recorded Sex Assigned at Not on file Legal Sex Female 2:46 AM INJECTION MOLDING 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
--- OUTSIDE RECORDS SUMMARY | 2025-06-05 15:52 | XMS_ITS | Encounter Summary ---
Author Organization [facility] Address [address] [place] [address] Care Team Providers Care Contract Graphic Designer Name Role Phone Non-Staff, Physician Primary Care Provider Unava ilable Encounter Details Date Type Department Care Team (Latest Contact Info) Description 03/16/2001 Outpatient Historical [facility] Pal Russell MD [address] [place] [address] Injury, other and unspecified, knee, leg, ankle, and foot (Primary Dx) Social History Tobacco Use Types Packs/Day Years Used Date Smoking Tobacco: Never Assessed Comments Unknown Sex and Gender Information Value Date Recorded Sex Assigned at Not on file 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
--- OUTSIDE RECORDS SUMMARY | 2025-06-05 15:52 | XMS_ITS | Encounter Summary ---
Author Organization [facility] Address [address] [place] [address] Care Team Providers Care Health Safety Manager Name Role Phone Non-Staff, Physician Primary Care Provider Unava ilable Encounter Details Date Type Department Care Team (Latest Contact Info) Description 08/09/1999 Outpatient Historical [facility] Santana Serrano NO ADDRESS ON FILE Urinary tract infection, site not specified (Primary Dx); Premenstrual tension Social History Tobacco Use Types Packs/Day Years Used Date Smoking Tobacco: Never Assessed Comments Unknown Sex and Gender Information Value Date Recorded Sex Assigned at Not on file 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
--- OUTSIDE RECORDS SUMMARY | 2025-06-05 15:52 | XMS_ITS | Encounter Summary ---
Author Organization [facility] Address [address] [place] [address] Care Team Providers Care Editorial Writer Name Role Phone Non-Staff, Physician Primary Care Provider Unava ilable Encounter Details Date Type Department Care Team (Latest Contact Info) Description 02/25/2002 Outpatient Historical [facility] Wan, Jonh Antunez MD [address] [address] SURGERY FOLLOWUP, UNSPEC (Primary Dx) Social History Tobacco Use Types Packs/Day Years Used Date Smoking Tobacco: Never Assessed Comments Unknown Sex and Gender Information Value Date Recorded Sex Assigned at Not on file 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
--- OUTSIDE RECORDS SUMMARY | 2025-06-05 15:52 | XMS_ITS | Encounter Summary ---
Author Organization [facility] Address [address] [place] [address] Care Team Providers Care Hogshead Head Matcher Name Role Phone Non-Staff, Physician Primary Care Provider Unava ilable Encounter Details Date Type Department Care Team (Latest Contact Info) Description 04/12/2002 Outpatient [facility] [place] [address] Robert Bear, PhD NO ADDRESS ON FILE SURGERY FOLLOWUP, UNSPEC (Primary Dx) Social History Tobacco Use Types Packs/Day Years Used Date Smoking Tobacco: Never Assessed Comments Unknown Sex and Gender Information Value Date Recorded Sex Assigned at Not on file 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
--- OUTSIDE RECORDS SUMMARY | 2025-06-05 15:53 | XMS_ITS | Encounter Summary ---
Author Organization [facility] Address [address] [place] [address] Care Team Providers Care Retort Fireman Name Role Phone Non-Staff, Physician Primary Care Provider Unava ilable Encounter Details Date Type Department Care Team (Late st Contact Info) Description 11/17/2014 Lab Requisition [facility] [place] [address] [place] [address] Adonis Campos, NO ADDRESS ON FILE Sick Social History Tobacco Use Types Packs/Day Years Used Date Smoking Tobacco: Never Smokeless Tobacco: Never Alcohol Use Standard Drinks/Week Comments Yes 0 (1 standard drink = 0.6 oz pur e alcohol) rare Comments No Sex and Gender Information Value Date Recorded Sex Assigned at Not on file 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 Blood specimen (specimen) Collection / Unknown 11/17/2014 10:30 PM CDT 11/18/2014 3:16 PM CDT Adonis Campos DO CHEMISTRY ORDERABLES Final Resu lt Performing Organization Address City/[facility]/ZIP Co de Phone Number [facility] CLIA# [id number] [address] [place] [address] CLIA# [id number] [address] [place] [address] * TSH (11/17/2014 10:30 PM CDT) Pathologist [facility] TSH 2.17 0.30 - 4.80 uIU/mL 11/17/2014 11:56 PM CDT [facility] Blood 11/17/2014 10:3 0 PM CDT 11/17/2014 10:30 PM CDT Adonis Campos DO CHEMISTRY ORDERABLES Final Resu lt [facility] [employer] [facility] CLIA # [id number] [address] [id number] * RHEUMATOID FACTOR (11/17/2014 10:30 PM CDT) [facility] RF TITER <10.0 0.0 - 15.0 IU/mL 11/18/2014 9:19 PM CDT [facility] Blood specimen (specimen) 11/17/2014 10:30 PM CDT 11/17/2014 10:30 PM CDT Adonis Campos DO CHEMISTRY ORDERABLES Final Resu lt Performing Organization Address [facility]/ZIP Co de Phone Number [facility] CLIA# [id number] [address] [place], [place] [id number] [place] [address] [employer] [facility] CLIA# [id number] [address] [place] [address] * DNA AUTOABS DOUBLE STRANDED (11/17/2014 10:30 PM CDT) [facility] DNA ABS Negative Negative 11/19/2014 1:26 PM CDT [facility] Blood specimen (specimen) 11/17/2014 10:30 PM CDT 11/17/2014 10:30 PM CDT Adonis Campos DO CHEMISTRY ORDERABLES Final Resu lt Performing Organization Address [facility]/ZIP Co de Phone Number [facility] CLIA# [id number] [address] [place] [address] [facility] CLIA# [id number] [address] [place] [address] * (ABNORMAL) BASIC METABOLIC PANEL (11/17/2014 10:30 PM CDT) [facility] SODIUM 144 136 - 145 mmol/L 11/17/2014 11:56 PM CDT [facility] POTASSIUM 3.6 3.5 - 5.1 mmol/L 11/17/2014 11:56 PM CDT [facility] CHLORIDE 106 98 - 107 mmol/L 11/17/2014 11:56 PM CDT [facility] CO2 29 21 - 32 mmol/L 11/17/2014 11:56 PM CDT [facility] CALCIUM 8.4(L) 8.5 - 10.1 mg/dL 11/17/2014 11:56 PM T [facility] BUN 17 7 - 18 mg/dL 11/17/2014 11:56 PM T [facility] CREATININE 0.94 0.60 - 1.30 mg/dL 11/17/2014 11:56 PM T [facility] GLUCOSE 119(H) 74 - 106 mg/dL 11/17/2014 11:56 PM [facility] GFR >60 >=60 mL/min/1.7 3 sq meter 11/17/2014 11:56 PM T [facility] Comment: eGFR has not been validated [...] 3 sq meter 11/17/2014 11:56 PM CDT [facility] [employer] [facility] ANION GAP 9(L) 12 - 20 mmol/L 11/17/2014 11:56 PM CDT [facility] [employer] [facility] Blood 11/17/2014 10:3 0 PM CDT 11/17/2014 10:30 PM CDT us Adonis Campos DO CHEMISTRY ORDERABLES Final Resu lt [facility] [employer] [facility] CLIA # [id number] [address] [address] documented in this encounter Visit Diagnoses Diagnosis Sick Other unknown and unspecified cause of morbidity or mortality documented in this encounter Care Teams Retort Fireman Relationship Specialty Start Date End Date Non-Staff, Physician NO ADDRESS ON FILE PCP - General 07/09/14 documented as of this encounter
--- OUTSIDE RECORDS SUMMARY | 2025-06-05 15:53 | XMS_ITS | Encounter Summary ---
Author Organization [facility] Address [address] [place] [address] Care Team Providers Care Carton Inspector Name Role Phone Non-Staff, Physician Primary Care Provider Unava ilable Encounter Details Date Type Department Care Team (Late st Contact Info) Description 09/15/2014 Lab Requisition [facility] [place] [address] [place] [address] Robert Cisse PA [address] [place] [address] Social History Tobacco Use Types Packs/Day Years Used Date Smoking Tobacco: Never Smokeless Tobacco: Never Alcohol Use Standard Drinks/Week Comments Yes 0 (1 standard drink = 0.6 oz pur e alcohol) rare Comments No Sex and Gender Information Value Date Recorded Sex Assigned at Not on file 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 RBC 4.78 3.93 - 5.22 M/uL 09/15/2014 11:21 PM CDT [facility] [place] HEMOGLOBIN 14.4 11.2 - 15.7 g/dL 09/15/2014 11:[address] [facility] [email or web address] [facility]ATORY SERVICES - [place] HEMATOCRIT 40.8 34.1 - 44.9 % 09/15/2014 11:[address] [facility] [employer] [facility] - [place] MCV 85.4 79.4 - 94.8 fL 09/15/2014 11:[address] [facility] [employer] [facility] [place] MCH 30.1 25.6 - 32.2 pg 09/15/2014 11:[address] [facility] [employer] [facility] - [place] MCHC 35.3 32.2 - 35.5 g/dL 09/15/2014 11:[address] [facility] [employer] [facility] [place] RDW 14.3 11.0 - 14.5 % 09/15/2014 11:[address] [facility] [employer] [facility] [place] RDW-STDEV 43.8 37.0 - 54.0 fL 09/15/2014 11:[address] [facility] [employer] [facility] [place] PLATELETS 238 163 - 337 K/uL 09/15/2014 11:[address] [facility] [employer] [facility] [place] MPV 11.5 10.0 - 14.8 fL 09/15/2014 11:21 PM T [email or web address] [facility] [place] NEUTROPHILS 48 34 - 71 % 09/15/2014 11:21 PM T [email or web address] [facility] [place] LYMPHOCYTES 40 19 - 52 % 09/15/2014 11:[address] [facility] [employer] [facility] [place] MONOCYTES 7 5 - 13 % 09/15/2014 11:[address] [facility] [employer] [facility] [place] EOSINOPHILS 5 1 - 6 % 09/15/2014 11:21 PM T [employer] [facility] [place] BASOPHILS 0 0 - 1 % 09/15/2014 11:21 PM CDT [employer] [place] NEUTROPHIL ABSOLUTE 2.90 1.56 - 6.13 K/uL 09/15/2014 11:21 PM CDT [employer] - [place] LYMPHOCYTE ABSOLUTE 2.40 1.20 - 3.40 K/uL 09/15/2014 11:[address] [facility] [employer] [facility] [place] MONOCYTE ABSOLUTE 0.40(H) 0.24 - 0.36 K/uL 09/15/2014 11:21 PM CDT [facility] [employer] [place] EOSINOPHIL ABSOLUTE 0.27 0.04 - 0.36 K/uL 09/15/2014 11:21 PM CDT [facility] [employer] [place] BASOPHILS ABSOLUTE 0.02 0.01 - 0.08 K/uL 09/15/2014 11:21 PM CDT [facility] [employer] [place] Blood 09/15/2014 10:4 8 PM CDT 09/15/2014 10:48 PM CDT Robert CALIX HEMATOLOGY ORDERABLES Final Result [facility] [place] CLIA # [id number] [address] [place] [address] documented in this encounter Visit Diagnoses Not on filedocumented in this encounter Care Teams Carton Inspector Relationship Specialty Start Date End Date Non-Staff, Physician NO ADDRESS ON FILE PCP - General 07/09/14 documented as of this encounter
--- OUTSIDE RECORDS SUMMARY | 2025-06-05 15:53 | XMS_ITS | Encounter Summary ---
Author Organization [facility] Address [address] [place] [address] Care Team Providers Care Broadcast Transmitter Operator Name Role Phone Non-Staff, Physician Primary Care Provider Unava ilable Encounter Details Date Type Department Care Team (Latest Contact Info) Description 11/02/2001 Outpatient Historical [facility] Pal Russell MD [address] [place] [address] CARDIAC DYSRHYTHMIAS NEC (Primary Dx); HYPERTENSION NOS Social History Tobacco Use Types Packs/Day Years Used Date Smoking Tobacco: Never Assessed Comments Unknown Sex and Gender Information Value Date Recorded Sex Assigned at Not on file 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
--- OUTSIDE RECORDS SUMMARY | 2025-06-05 15:53 | XMS_ITS | Continuity of Care Document ---
Author Organization [facility], [facility] ([facility]) Address [address] [place] [address] Care Team Providers Care Roustabout Pusher Name Role Phone JOHN SYLVESTER Primary Care Provider Unavailabl e Assessment Encounter Date Assessment Date Assessment LastModified by Organization Details LastModified Time 04/29/2025 04/29/2025 Document scribed by Ryan Huitron Corporate Travel Manager. I was present during interview and exam. I have reviewed and agree with above documentation . Dr. John Sylvester. [email or web address] Not available 04/29/2025 13:18:17 Plan of Treatment Reminders Order Date Submit Date Provider Last Modified By Organization Details Last Modified Time Details Appointments None recorded. Lab None recorded. Referral general surgeon referral 2024 025 [email or web address] [facility] [address] [place], [address], 13:46:40 Procedures None recorded. Surgeries None recorded. Imaging None recorded. Medication Orders None recorded. Patient TargetsNo targets recorded. Patient InstructionsNo instructions recorded. Reason for Referral General Surgeon Referral for Hematoma Referring Physician: John Sylvester, Family Medicine, Encounter Date: 04/29/2025 Problems Name Problem SNOMED Code Status Onset Date Resolution Date Notes Provider Name and Address Organization Details Recorded Time Gastroeso phageal reflux disease 062940405 Active 2022 GERD (GASTROES OPHAGEAL REFLUX DISEASE) Katherine elliott [facility] 10:55:43 Degenerat ion of intervert ebral disc 37063296 Active 2022 Degenerat margarita Disc Disease Katherine Pierce earl, [facility] 5 10:55:44 Completed stroke 04361690 Active 2022 Katherine Burte earl, [facility] 5 10:55:44 Essential hypertens ion 14848069 Active 2022 Katherine Pierce earl, [facility] 5 10:55:44 Carpal tunnel syndrome of right wrist 181502194159 108 Active 2022 Katherine Burtaddison elliott, [facility] 5 10:55:44 Chronic headache disorder 347676437 Active 2022 Katherine elliott, [facility] 5 10:55:44 Polymyalg ia rheumatic a 95097769 Active 2022 Katherineyadiel elliott, [facility] 5 10:55:44 Excessive daytime sleepines s - normal night sleep 861003070 Active 2022 Katherineparas Brutaddison elliott, [facility] 5 10:55:43 Atypical chest pain 393372363 Active 2022 Katherineparas Burtaddison elliott, [facility] 5 10:55:43 Epigastri c pain 96749777 Active 2022 Katherine elliott, [facility] 10:55:44 Obstructi ve sleep apnea syndrome 33750806 Active 2022 Katherine elliott [facility] 5 10:55:[address] pylori gastroint estinal tract infection 651541534 Active 2023 Katherineparas Burte [facility], [facility] 5 10:55:44 Intracran ial meningiom a 087925390 Active 2023 Katherine Pierce [facility], [facility] 5 10:55:44 Ileitis 43018225 Active 2023 Katherineparas Burte [facility], [facility] 5 10:55:44 Hypokalem ia 39363213 Active 2023 Katherine Pierce [facility], [facility] 5 10:55:44 Contact dermatiti s 31445592 Active 2023 Katherine Pierce [facility], [facility] 5 10:55:44 Thyroid nodule 809756961 Active 2023 Katherineparas Burte [facility], [facility] 5 10:55:43 Spontaneo us ecchymosi s 634005912 Active 2023 Katherineparas Burte [facility], [facility] 5 10:55:44 Screening for malignant neoplasm of colon Active 2023 Katherineparas Burte [facility], [facility] 5 10:55:44 Acute blepharit is 08360605 Active 2023 Katherine Pierce [facility], [facility] 5 10:55:44 Fibrosis of lung 35861336 Active 2024 Ryan Huitron [facility] 5 11:14:35 Trigger finger of right hand 743784857723 06188 Active 2024 Ryan Huitron earl [facility] 5 11:27:09 Dog bite - wound 075225022 Active 2024 John Sylvester DO [address] [place] [address], [phone], [facility] 5 14:08:14 Hematoma 511238436 Active 2024 John Sylvester DO [address] [place] [address], [phone], [facility] 5 14:08:16 Hematoma of left breast 119953130868 82024 Active 2024 Ryan Elana elliott [facility] 5 11:52:49 Problem Notes None recorded. Procedures Surgical History Date Name Laterality Status Provider Name and Address Organization Details Recorded Time Tonsillectomy completed Michelle Cano [facility] 02/09/2024 15:14:53 Hysterectomy completed Michellemónica Cano [facility] 02/09/2024 15:15:01 Cholecystectomy completed Michelle Cano [facility] 02/09/2024 15:15:12 Carpal Tunnel Surgery completed Michelle Cano [facility] 02/09/2024 15:15:39 Imaging Results None recorded. Procedure Notes None recorded. Medical Equipment None Reported. Allergies Allergen ID Allergen Name Allergen Category Reaction Reaction Severity Criticality Documentation Date Start Date Code Code System Note Provider Name and Address Organization Details Recorded Time 1800 tramadol medicatio n Not available Not available Not available 09/28/2022 04983 RxNorm MIGUEL ANGEL elliott [facility] 3 16:24:24 41919 tramadol hydrochlo ride medicatio n Not available Not available Not available 01/07/2023 64872 RxNorm Barb elliott, [place] - [facility], .LSarita. 4 08:02:50 Medications Name Sig Start Date [...] completed DM/ky; Recorded 08/17/19 23 12:50PM by Devon Powers al Summary; Refill [...] Not Available Not Available No t Available [facility] 75 mg disintegr ating tablet Dissolve [...] Updated DateTime 5 167.64 cm 31.7 kg/m2 03990.1 5 g 97 % 75 /min 18 /min 126/80 mm[Hg] ERICKSON CORREA [facility] 5 13:17:02 Social History Question Answer Notes LastModified by OrganADTZat ion Details LastModified Time Tobacco Smoking Status Never Smoker Becky elliott [facility] 12/07/2023 18:17:41 What Was The Date Of Your Most Recent Tobacco Screening? 01/17/2025 [email or web address] Information not available 01/17/2025 Sex: Unknown Functional Status Question Answer Note LastModified by OrganADTZat DrEd Online Doctor Details LastModified Time Do you use any illicit or recreational drugs? No [email or web address] Information not available 02/07/2023 Do you or have you ever used any other forms of tobacco or nicotine? No [email or web address] Information not available 02/07/2023 What is your level of alcohol consumption? None [email or web address] Information not available 02/07/2023 Mental Status None recorded. Family History Nothing Reported. Medical History No medical history recorded. Gynecological HistoryNo gynecological history recorded. Obstetrics History GPAL:G 0 P 0 0 0 0 Immunizations Vaccine Type Date Status Note Provider Nam e and Address Organization Details Recorded Time pneumococcal polysaccharide PPV23 3 completed Katherine elliott [facility] 04/17/2024 11:19:17 Tdap 3 completed Katherine elliott [facility] 04/17/2024 11:19:17 Rabies - IM fibroblast culture 5 completed Not Available [facility] 05/27/2025 15:48:29 Rabies - IM fibroblast culture 5 completed Not Available [facility] 05/27/2025 15:48:29 Rabies - IM fibroblast culture 5 completed Not Available [facility] 05/27/2025 15:48:29 Rabies - IM fibroblast culture 5 completed Not Available [facility] 05/27/2025 15:48:29 Tdap 4 completed John Sylvester DO [address] [place] [address], [phone], [facility] 09/23/2023 19:37:42 Past Encounters Encounter ID Performer Location Encounter Start Date Encounter Closed Date Diagnosis/Indication Diagnosis SNOMED-CT Code Diagnosis ICD10 Code Diagnosis IMO Codes Diagnosis Note [id number] John Sylvester DO [facility] ([facility]) [address] [place] [address] 04/24/2025 11:39:52 05/13/2025 12:15:03 Dog bite - wound 633719434 W54.0XXD [id number] 04/24/25: Counseled will add another 7 days of Augmentin, 7 days Bactrim, concerned for resistance . Counseled if top breast wound with increased redness/ tenderness / swelling RTC, we may need to drain it. F/u 5 days for recheck. Suture removed from right wrist, continue with sutures in place to left breast. [id number] John Sylvester DO [facility] ([facility]) [address] [place] [address] 04/29/2025 12:24:42 04/29/2025 15:30:29 Dog bite - wound 522863731 W54.0XXD [id number] 04/29/25: significan t and unimproved pain with [...] sutures in place to left breast. Hematoma 501366149 T14.8 XXA [id number] 04/29/25: concern for abscess, concern for need for evacuation , referral to Gen Surg, will try Dr. Blas. Health Concerns Section Related Observation LastModified by Organization Detai ls LastModified Time None Recorded Concern Status LastModified by Organization Details LastModified Time None Recorded Payers Encounter Date Sequence Insurance Name Policy Number Policy Muse Covered Member ID Muse Member ID Guarantor Name 04/29/2025 2 [place] Jessica Moon [id number] Jessica Moon 04/29/2025 1 [employer] - [place] (MEDICARE REPLACEMENT/ ADVANTAGE - HMO) [id number] Jessica Moon [id number] Jessica Moon Notes Date Note Type Note Provider Name and Address Organization Details Recorded Time 04/29/2025 text/html ROS as noted in the HPI Patient presents visit today for 1 week f/u for dog bite with laceration to left breast and right arm.right arm healing well. but left breast still with mod/severe pain. dull ache. radiation up to chest.no drainage. no fevers or chills. she has finished abx. she finished her rabies vaccination. John Sylvester DO [facility] [place], [address], [facility] [place] [facility], Hitesh 04/29/2025 14:08:22 OBGyn Episode No OBEpisode recorded.
--- OUTSIDE RECORDS SUMMARY | 2025-06-05 15:53 | XMS_ITS | Encounter Summary ---
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
--- OUTSIDE RECORDS SUMMARY | 2025-06-05 15:53 | XMS_ITS | Data Portability ---
Author Organization [facility], [facility] Address [address] [address] Care Team Providers Care Rn Clinical Quality Name Role Phone JOHN DICKINSON Primary Care Provider Unavailabl e Assessment Encounter Date Assessment Date Assessment LastModified by Organization Details LastModified Time 04/24/2025 04/24/2025 Document scribed by Ryan H[employer]ron [employer] Manager. I was present during interview and exam. I have reviewed and agree with above documentation . Dr. John Dickinson. [email or web address] Not available 04/24/2025 12:11:14 04/29/2025 04/29/2025 Document scribed by Leeroy Patterson Scribe. I was present during interview and exam. I have reviewed and agree with above documentation . Dr. John Dickinson. Not available 04/29/2025 13:18:17 05/12/2025 05/12/2025 Document scribed by Leeroy Patterson Scribe. I was present during interview and exam. I have reviewed and agree with above documentation . Dr. John Dickinson. [email or web address] Not available 05/12/2025 11:46:46 Plan of Treatment Reminders Order Date Submit Date Provider Last Modified By Organization Details Last Modified Time Details Appointments None recorded. Lab thyrotropin , QN, serum or plasma 2024 025 [email or web address] [facility], [address], [address], [place], [address], 10:06:51 CMP, serum or plasma 2024 025 [email or web address] [facility], [address], [address], [place], [address], 5 10:06:51 lipid panel, blood 2024 025 [email or web address] [facility], [address], [address], [place], [address], 5 10:06:51 CBC 2024 025 [facility], [address], [address], [place], [address], 5 10:06:51 urinalysis, dipstick 2024 025 [email or web address] ([facility]), [address] [place], [address], 5 17:34:43 culture, urine 2024 025 [facility], [address] [address], [facility] [address] [place], [address], 16:07:55 Referral general surgeon referral 2024 025 [email or web address] [address], [address] [place], [address], 5 13:46:40 Procedures None recorded. Surgeries None recorded. Imaging None recorded. Medication Orders amoxicillin 875 mg-potassiu m clavulanate 125 mg tablet 2024 025 [facility] #[id number], [address], [place], [address], 5 05:01:59 Bactrim DS 800 mg-160 mg tablet 2024 025 [facility]acy #[id number], [address], [address], [place], [address], 05:01:59 Macrobid 100 mg capsule 2024 025 [facility]acy #[id number], [address], [address], [place], [address], 05:01:56 Patient TargetsNo targets recorded. Patient InstructionsNo instructions recorded. Reason for Referral General Surgeon Referral for Hematoma Referring Physician: John Dickinson, Family Medicine, Encounter Date: 04/29/2025 Results Created Date Observation Date Name Description Value Unit Range Abnormal Flag Note LastModifiedBy Organization Detail LastModifiedTime 05/28/2005/27/2025 URINA LYSIS WITH MICRO color YELLOW Not Available [facility] [address], [place], [address], 05/28/2025 10:41:14 05/28/20 25 05/27/2025 URINA LYSIS WITH MICRO clarity CLEAR Not Available [facility] [address], [place], [address], 05/28/2025 10:41:14 05/28/20 25 05/27/2025 URINA LYSIS WITH MICRO glu NEGATI VE Not Available [facility] [address], [place], [address], 05/28/2025 10:41:14 05/28/20 25 05/27/2025 URINA LYSIS WITH MICRO bili NEGATI VE Not Available [facility] [address], [place], [address], 05/28/2025 10:41:14 05/28/20 25 05/27/2025 URINA LYSIS WITH MICRO ket NEGATI VE Not Available [facility] [address], [place], [address], 05/28/2025 10:41:14 05/28/20 25 05/27/2025 URINA LYSIS WITH MICRO S.g 1.010 1.005 - 1.025 Not Available [facility] [address], [place], [address], 05/28/2025 10:41:14 05/28/20 25 05/27/2025 URINA LYSIS WITH MICRO pH 7.0 5.0 - 7.0 Not Available [facility] [address], [place], [address], 05/28/2025 10:41:14 05/28/20 25 05/27/2025 URINA LYSIS WITH MICRO pro NEGATI VE Not Available [facility] [address] [facility] 1, [place], [address], 05/28/2025 10:41:14 05/28/20 25 05/27/2025 URINA LYSIS WITH MICRO uro 0.2 E.U./D L Not Available [facility] [address] [facility] 1, [place], [address], 05/28/2025 10:41:14 05/28/20 25 05/27/2025 URINA LYSIS WITH MICRO nit NEGATI VE Not Available [facility] [address] [facility] 1, [place], [address], 05/28/2025 10:41:14 05/28/20 25 05/27/2025 URINA LYSIS WITH MICRO blo NEGATI VE Not Available [facility] [address] [facility] 1, [place], [address], 05/28/2025 10:41:14 05/28/20 25 05/27/2025 URINA LYSIS WITH MICRO surekha 1+ Not Available [facility] [address] [facility], [place], [address], 05/28/2025 10:41:14 05/28/20 25 05/27/2025 URINA LYSIS WITH MICRO WBC 8-10 abnormal Not Available [facility] [address] [facility] 1, [place], [address], 05/28/2025 10:41:14 05/28/20 25 05/27/2025 URINA LYSIS WITH MICRO RBC NEGATI VE Not Available [facility] [address] [facility] 1, [place], [address], 05/28/2025 10:41:14 05/28/20 25 05/27/2025 URINA LYSIS WITH MICRO epi cells 3-4 abnormal Not Available [facility] [address] [facility] 1, [place], [address], 05/28/2025 10:41:14 05/28/20 25 05/27/2025 URINA LYSIS WITH MICRO bacteria NEGATI VE Not Available [facility] [address] [facility] 1, [place], [address], 05/28/2025 10:41:14 05/28/20 25 05/27/2025 URINA LYSIS WITH MICRO other NEGATI VE Not Available [facility] [address] [address], [place], [address], 05/28/2025 10:41:14 01/18/20 25 01/20/2025 CULTU RE, URINE , ROUTI NE culture, urine, routine SEE NOTE abnormal CULTU RE, URINE , ROUTI NE Micro Numbe r: [id number] Test Statu s: Final Speci men [...] lexin and lorac arbef . Not Available [facility] [address] [place], [address], 01/20/2025 16:07:55 01/18/20 25 01/17/2025 urina lysis , dipst ick Color Yellow Not Available [facility] ([facility]) [address] [place], [address], 01/17/2025 16:19:02 01/18/20 25 01/17/2025 urina lysis , dipst ick Appearance Clear Not Available [facility] ([facility]) [address] [place], [address], 01/17/2025 16:19:02 01/18/20 25 01/17/2025 urina lysis , dipst ick Blood Non-He molyze d: Trace Not Available [facility] ([facility]) [address] [place], [address], 01/17/2025 16:19:02 01/18/20 25 01/17/2025 urina lysis , dipst ick Leukocytes Small Not Available [facility] ([facility]) [address] [place] [address], [address], 01/17/2025 16:19:02 01/18/20 25 01/17/2025 urina lysis , dipst ick Nitrite negati ve Not Available [facility] ([facility]) [address] [place], [address], 01/17/2025 16:19:02 01/18/20 25 01/17/2025 urina lysis , dipst ick Urobilinogen 1 Not Available [facility] ([facility]) [address] [place], [address], 01/17/2025 16:19:02 01/18/20 25 01/17/2025 urina lysis , dipst ick Protein Negati ve Not Available [facility] ([facility]) [address] [place] [address], [address], 01/17/2025 16:19:02 01/18/20 25 01/17/2025 urina lysis , dipst ick pH 5.5 Not Available [facility] ([facility]) [address] [place], [address], 01/17/2025 16:19:02 01/18/20 25 01/17/2025 urina lysis , dipst ick Specific [place] 1.005 Not Available [facility] ( [facility]) [address] [place], [address], 01/17/2025 16:19:02 01/18/20 25 01/17/2025 urina lysis , dipst ick Ketone Negati ve Not Available [facility] ([facility]) [address] [place], [address], 01/17/2025 16:19:02 01/18/20 25 01/17/2025 urina lysis , dipst ick Bilirubin Negati ve Not Available [facility] ([facility]) [address] [place], [address], 01/17/2025 16:19:02 01/18/20 25 01/17/2025 urina lysis , dipst ick Glucose Negati ve Not Available [facility] ([facility]) [address] [place], [address], 01/17/2025 16:19:02 05/27/20 25 05/29/2025 CULTU RE, URINE , ROUTI NE culture, urine, routine SEE NOTE abnormal CULTU RE, URINE , ROUTI NE Micro Numbe r: [id number] Test Statu s: Final Speci men Sourc e: Urine , clean catch Speci men Quali ty: Adequ ate Resul t: 10,00 0-49, 000 CFU/m L of Klebs iella pneum oniae K.pne umoni ae ----- ----- ----- - INT GABI AMOX/ CLAVU LANAT E S <=2 AMP/S ULBAC SINGH S <=2 CEFAZ AMA NR 2 2 CEFEP KARIS S <=0.1 2 CEFTA ZIDIM E S <=0.5 CEFTR IAXON E S <=0.2 5 CIPRO FLOXA RICK S 0.12 GENTA MICIN S <=1 IMIPE NEM S <=0.2 5 LEVOF LOXAC IN S <=0.1 2 MEROP ENEM S <=0.2 5 NITRO FURAN TOIN R 128 PIP/T AZOBA CTAM S <=4 TRIME THOPR [...] versu s inter media te for isola kalyene with GABI < or = 4 mcg/m L requi res addit ional testi ng.) Note 2: For uncom plica angelien UTI cause d by E. coli, K. pneum oniae or P. mirab ilis: Cefaz ama is susce ptibl e if GABI <32 mcg/m L and predi cts susce ptibl e to the oral agent s cefac fer, cefdi serafin, cefpo doxim e, cefpr ozil, cefur oxime , cepha lexin and lorac arbef . Not Available [facility] [address] [place], [address], 05/29/2025 20:50:16 Result Notes None recorded. Problems Name Problem SNOMED Code Status Onset Date Resolution Date Notes Provider Name and Address Organization Details Recorded Time Gastroeso phageal reflux disease 665659406 Active 2022 GERD (GASTROES OPHAGEAL REFLUX DISEASE) Katherine elliott [facility] 10:55:43 Degenerat ion of intervert ebral disc 24582628 Active 2022 Degenerat margarita Disc Disease Katherine elliott, [facility] 5 10:55:44 Completed stroke 32866998 Active 2022 Katherine elliott, [facility] 5 10:55:44 Essential hypertens ion 75577357 Active 2022 Katherine elliott, [facility] 5 10:55:44 Carpal tunnel syndrome of right wrist 332225236387 108 Active 2022 Katherine Pierce earl, [facility] 5 10:55:44 Chronic headache disorder 304256763 Active 2022 Katherine Pierce [facility] 5 10:55:44 Polymyalg ia rheumatic a 07008155 Active 2022 Katherine Pierce [facility] 5 10:55:44 Excessive daytime sleepines s - normal night sleep 840205055 Active 2022 Katherine Pierce [facility] 5 10:55:43 Atypical chest pain 502142255 Active 2022 [facility] 5 10:55:43 Epigastri c pain 16771437 Active 2022 Katherineparas Pierce [facility], [facility] 5 10:55:44 Obstructi ve sleep apnea syndrome 25344239 Active 2022 [facility] 5 10:55:[address] pylori gastroint estinal tract infection 388240467 Active 2023 Katherineyadiel Burtaddison elliott, [facility] 5 10:55:44 Intracran ial meningiom a 370519158 Active 2023 Katherine Kari elliott, [facility] 5 10:55:44 Ileitis 79937581 Active 2023 Katherine Pierce [facility], [facility] 10:55:44 Hypokalem ia 91450331 Active 2023 Katherine elliott, [facility] 10:55:44 Contact dermatiti s 90764651 Active 2023 Katherine Pierce [facility], [facility] 5 10:55:44 Thyroid nodule 710957899 Active 2023 Katherine Pierce [facility], [facility] 5 10:55:43 Spontaneo us ecchymosi s 353164389 Active 2023 Katherine Pierce [facility], [facility] 5 10:55:44 Screening for malignant neoplasm of colon Active 2023 Katherine Pierce [facility] 5 10:55:44 Acute blepharit is 57652380 Active 2023 Katherine Pierce [facility], [facility] 5 10:55:44 Fibrosis of lung 93498871 Active 2024 [facility] 5 11:14:35 Trigger finger of right hand 511360834440 03531 Active 2024 Ryan elliott, [facility] 5 11:27:09 Dog bite - wound 762506300 Active 2024 John Dickinson [address], [address], [facility] 5 14:08:14 Hematoma 118637204 Active 2024 John Dickinson [address], [address], [facility] 5 14:08:16 Hematoma of left breast 507201652374 95236 Active [address] [facility] 11:52:49 Problem Notes None recorded. Procedures Surgical History Date Name Laterality Status Provider Name and Address Organization Details Recorded Time Tonsillectomy completed [facility] 02/09/2024 15:14:53 Hysterectomy completed [facility] 02/09/2024 15:15:01 Cholecystectomy completed [facility] 02/09/2024 15:15:12 Carpal Tunnel Surgery completed [facility] 02/09/2024 15:15:39 Imaging Results None recorded. Procedure Notes None recorded. Medical Equipment None Reported. Allergies Allergen ID Allergen Name Allergen Category Reaction Reaction Severity Criticality Documentation Date Start Date Code Code System Note Provider Name and Address Organization Details Recorded Time 1800 tramadol medicatio n Not available Not available Not available 09/28/2022 77981 RxNorm [address] [facility] 3 16:24:24 11619 tramadol hydrochlo ride medicatio n Not available Not available Not available 01/07/[address] [facility] 08:02:50 Medications Name Sig Start Date Stop [...] 01/20 completed DM/ky; Recorded 08/17/19 12:50PM by Yanira Whitehead, Historic al Summary; Refill Quantity : 0; [...] 01/20 completed DM/sd; Recorded 06/27/19 12:33PM by Devon Ashley al Summary; Refill Quantity [...] (BMI) Body weight Oxygen saturation Heart rate Body temperature Systolic And Diastolic Provider Name and Address Organization Details Last Updated DateTime 5 167.64 cm 32 kg/m2 68355.2 9 g 97 % 61 /min 98.7 [degF] 115/74 mm[Hg] Chio Rizo [facility] 5 16:28:52 Date Recorded Body height Body mass index (BMI) Body weight Oxygen saturation Heart rate Respiratory rate Systolic And Diastolic Provider Name and Address Organization Details Last Updated DateTime 5 167.64 cm 31.6 kg/m2 80887.1 g 97 % 76 /min 18 /min 122/74 mm[Hg] YANIRA WHITEHEAD [facility] 5 12:04:41 Date Recorded Body height Body mass index (BMI) Body weight Oxygen saturation Heart rate Respiratory rate Systolic And Diastolic Provider Name and Address Organization Details Last Updated DateTime 5 167.64 cm 31.7 kg/m2 20471.1 5 g 97 % 75 /min 18 /min 126/80 mm[Hg] YANIRA WHITEHEAD [facility] 5 13:17:02 Date Recorded Body height Body mass index (BMI) Body weight Respiratory rate Oxygen saturation Heart rate Systolic And Diastolic Provider Name and Address Organization Details Last Updated DateTime 5 167.64 cm 31.2 kg/m2 32162.4 3 g 18 /min 98 % 76 /min 110/80 mm[Hg] Katherine Pierce [facility] 5 11:31:33 Date Recorded Body height Body mass index (BMI) Body weight Oxygen saturation Heart rate Respiratory rate Systolic And Diastolic Provider Name and Address Organization Details Last Updated DateTime 5 167.64 cm 31.3 kg/m2 55704.9 2 g 95 % 87 /min 18 /min 126/70 mm[Hg] Katherine Pierce [facility] 5 16:20:22 Social History Question Answer Notes LastModified by Organizat Qulsar Details LastModified Time Tobacco Smoking Status Never Smoker [facility] 12/07/2023 18:17:41 What Was The Date Of Your Most Recent Tobacco Screening? 01/17/2025 [email or web address] Information not available 01/17/2025 Sex: Unknown Functional Status Question Answer Note LastModified by Organizat ion Details LastModified Time Do you use any illicit or recreational drugs? No [email or web address] Information not available 02/07/2023 Do you or have you ever used any other forms of tobacco or nicotine? No [email or web address] Information not available 02/07/2023 What is your [...] pneumococcal polysaccharide PPV23 [address] [facility] 04/17/2024 11:19:17 Tdap [address] [facility] 04/17/2024 11:19:17 Rabies - IM fibroblast culture 5 completed Not Available [facility] 05/27/2025 15:48:29 Rabies - IM fibroblast culture 5 completed Not Available [facility] 05/27/2025 15:48:29 Rabies - IM fibroblast culture 5 completed Not Available [facility] 05/27/2025 15:48:29 Rabies - IM fibroblast culture 5 completed Not Available [facility] 05/27/2025 15:48:29 Tdap 4 completed John Dickinson DO [address] [place] [address], [address], [facility] 09/23/2023 19:37:42 Past Encounters Encounter ID Performer Location Encounter Start Date Encounter Closed Date Diagnosis/Indication Diagnosis SNOMED-CT Code Diagnosis ICD10 Code Diagnosis IMO Codes Diagnosis Note [id number] GUSTABO YOU PA-C [facility] ([facility]) [address] [place] [id number] 09/28/2022 12:44:50 10/04/2022 08:31:36 Benign paroxysmal positional vertigo 894287452 H81.11 [id number] [facility] ([facility]) [address] [place] [phone] 01/20/2023 16:02:54 01/26/2023 13:54:34 Essential hypertension 43040116 I10 Pressures at home have been up and down. Yesterday reading was 118/63. Dr. Naidu discussed with her increasing her blood pressure medication . Irregular heart beat 361 314352 R00.8 Carpal bradford jose syndrome of right wrist 7561240802 52755 G56.01 currently wearing brace [id number] John Dickinson DO [facility] ([facility]) [address] [place] [id number] 02/07/2023 10:12:14 02/14/2023 12:49:25 Gastroesophageal reflux disease 408432995 K21.9 Stable. Essential hypertension 97662871 I10 Poorly controlled . Will change losartan to valsartan with hydrochlor othiazide. Continue amlodipine and metoprolol . Monitor blood pressure and heart rate. Carpal bradford jose syndrome of right wrist 7656398516 40562 G56.01 Continue with plan for referral to Dr. Ramírez, [facility] orthopedic s. Counseled on wrist brace. [id number] John Dickinson DO [facility] ([facility]) [address] [place] [address] 04/06/2023 10:29:50 04/06/2023 18:35:19 Carpal tunnel syndrome of right wrist 4290257239 [address]4446 G56.01 Scheduled for surgery with Dr. Ramírez 04/19/23. Essential hypertension 70633823 I10 Tolerating Valsartan HCTZ, continue current treatment. Continue amlodipine and metoprolol . Monitor blood pressure and heart rate. F/u 3 months. Gastroesop hageal reflux disease 311107574 K21.9 Deteriorat ing. Will start Pantoprazo le, has taken in the past and tolerated well. Will schedule EGD at [facility], last 6-7 years ago. No h/o H. Pylori. We discussed the patients' current symptoms as well as treatment options. We discussed EGD in detail using handouts and illustrati ons. The patient is agreeable to proceeding with EGD at [facility]. We discussed pre op process, risks, benefits, expectatio ns, aftercare, and other aspects of the procedure in great detail. Handouts were given and discussed. The patient provided Verbal understand ing and verbally expressed desire to proceed. We will schedule EGD at [facility]. Chronic he adache disorder 864566640 G44.89 Referral to Neurology. Sample of [facility] provided, pt to let us know if helping and will send in script when she needs it. Degenerati on of intervertebral disc 77378294 M51.9 Polymyalgi a rheumatica 40462142 M35.3 Excessive daytime sleepiness - normal night sleep 792092076 G47.19 [id number] John Dickinson DO [facility] ([facility]) [address] [place] [id number] 04/24/2023 16:18:19 04/24/2023 19:22:34 Atypical chest pain 020366560 R07.89 The pain she is describing does not appear to be chest pain or cardiac pain but epigastric abdominal pain. I reviewed hospital records, last cardiac stress test which showed no significan t coronary artery disease. Recommend we proceed with EGD. Epigastric pain 57223222 R10.13 Progressin g. The pain she is describing does not appear to be chest pain or cardiac pain but epigastric abdominal pain. I reviewed hospital records, last cardiac stress test which showed no significan t coronary artery disease. Recommend we proceed with EGD. Gastroesop hageal reflux disease 858770658 K21.9 Deteriorat ing. Proceed with EGD as scheduled this week [id number] John Dickinson DO [facility]) [address] [place] [id number] 05/03/2023 13:15:40 05/03/2023 14:20:03 Carpal tunnel syndrome of right wrist 5394670530 07805 G56.01 S/p sx with Dr. Ramírez. Counseled sutures look well, will take these out, monitor for signs of infection, be cautious, avoid overworkin g the wrist for the next couple weeks. [id number] John Dickinson DO [facility]) [address] [place] [id number] 06/07/2023 09:56:17 06/07/2023 13:23:02 Obstructive sleep apnea syndrome 38601138 G47.33 I reviewed recent sleep study results [...] Counseled patient on sleep hygiene, weight loss. [id number] John Dickinson DO [facility]) [address] [place] [id number] 08/02/2023 15:40:23 08/02/2023 16:25:59 Active or passive immunization 789965985 Z23 Cellulitis of skin 24414 1002 L03.90 left palm. Abx. Counseled. [id number] SIDDHARTHA MALDONADO [facility] ([facility]) [address] [place] [id number] 08/21/2023 16:03:56 08/21/2023 17:17:14 Abdominal pain 44201922 R10.9 Due to significan ce of pain and distention , patient referred to ED for further evaluation . Patient agreeable to go and will go via private vehicle driven by her . Patient is stable at this time. Report was called by JEWEL Merchant to SHELBI Sterling at [facility] ED. [id number] John Dickinson DO [facility] ([facility]) [address] [place] [id number] 08/29/2023 11:40:16 08/29/2023 14:05:39 Obstructive sleep apnea syndrome 34716401 G47.33 Continue CPAP, tolerating well, feels better using it. Epigastric pain 12279296 R10.13 Progressin g. The pain she is describing does not appear to be chest pain or cardiac pain but epigastric abdominal pain. I reviewed hospital records, last cardiac stress test which showed no significan t coronary artery disease. Recommend we proceed with EGD. Gastric ulcer 841165929 K25.9 I have reviewed and discussed EGD. Discussed risks vs benefits including risk of infection and bleeding, perforatio n, possible need for surgery, reaction to medication s, and sever injury or . We discussed pt requiring sedation and possible general anesthesia . Pt agrees to proceed with EGD at [facility]. Preliminar y procedure date will be 09/14/23. [id number] John Dickinson DO [facility] ([facility]) [address] [place] [phone] 5 10/12/2023 10:19:36 10/12/2023 11:19:44 Helicobacter pylori gastrointestinal tract infection [id number] B96.81 + rodriguez test with EGD 09/14/23. s/p quadrople therapy treatment. symptoms currently resolved. will get breath test today. continue PPI for at least 2 more weeks. counseled on diet Chronic he adache disorder 442078930 G44.89 pt has been referred to neurology. continue with prn edgar minor. counseled Intracrani al meningioma 263839656 D32.0 evaluated by Neurosurge ry [id number] John Dickinson DO [facility] ([facility]) [address] [place], [place] [address] 10/31/2023 11:04:59 10/31/2023 13:18:42 Hypokalemia 46515718 E87.6 2.8 from ER on 10/29/23. will repeat labs today. counseled on diet, supplement s. Ileitis 18939049 K52.[address] scan from ER on 10/29/23, appeared focal and acute. [id number] John Dickinson DO [facility] ([facility]) [address] [place], [place] [address] 11/29/2023 14:42:25 11/30/2023 09:11:42 Essential hypertension 17022502 I10 Tolerating Valsartan HCTZ, continue current treatment. Continue amlodipine and metoprolol . Monitor blood pressure and heart rate. F/u 3 months. [id number] Dwayne Luna MD [facility] ([facility]) [address] [place] [phone] 5 12/07/2023 18:14:32 12/08/2023 11:38:51 Contact dermatitis 32918169 L25.9 Exam is consistent with contact dermatitis . Recommend steroid taper. Antihistam gabrielle to help with the itch. History of anaphylaxis [id number] 7487769 Z87.892 States that she has had a history of anaphylaxi s and needs a refill on her EpiPen. [id number] JEWEL JONES [facility] ([facility]) [address] [place] [address] [phone] 5 02/09/2024 14:34:39 02/13/2024 13:32:22 Hiatal hernia 51844291 K44.9 Discussed with PCP. Agree on imaging and f/u with PCP 3-7 days after the study.If you develop increased pain, cannot get the swelling to reduce, then f/u in ER [id number] John Dickinson DO [facility] ([facility]) [address] [place] [address] [phone] 5 03/12/2024 11:50:48 03/12/2024 13:12:54 Thyroid nodule 374221554 E04.[address] Meza, Thyroid US 03/07/24. Polymyalgi a rheumatica 80113368 M35.3 Stable, following up with Neurology and Endocrinol ogy. Essential hypertension 65944893 I10 Tolerating Valsartan HCTZ, continue current treatment. Continue amlodipine and metoprolol . Monitor blood pressure and heart rate. Mesenteric lymphadenitis 33119338 I88.0 03/12/24- Reviewed and discussed ER visit, imaging. Lab today, referral to GI, pt ok with Mtn. Home. Seasonal allergy 9197623 04 J30.2 Obesity 219601612 E66.9 Counseled on diet and exercise. [id number] John Dickinson DO [facility] ([facility]) [address] [place] [address] [phone] 5 04/17/2024 10:38:29 04/20/2024 14:10:56 Thyroid nodule 082569584 E04.[address] Meza, Thyroid US 03/07/24. Bx scheduled 04/17/24. Cervical lymphadenopathy 170605211 R59.0 04/17/24- counseled will order CT neck today. F/u with me 4-[address] is done. [id number] JEWEL JONES [facility] ([facility]) [address] [place] [address] [phone] 5 04/19/2024 16:38:55 04/19/2024 16:55:15 Intermittent palpitations 293670688 R00.2 Sent to ER for work up regarding palpitatio ns that are causing pt to feel light headed. [id number] John Dickinson DO [facility] ([facility]) [address] [place] [address] [phone] 5 05/07/2024 09:50:47 05/07/2024 12:00:39 Spontaneous ecchymosis 988854891 R23.3 sigificant with no known cause. will get labs, counseled [id number] John Dickinson DO [facility] ([facility]) [address] [place] [address] [phone] 5 05/13/2024 13:41:46 05/13/2024 15:16:48 Screening for malignant neoplasm of colon 286907840 Z12.11 I have reviewed and discussed colon cancer screening options, including colonoscop y. Discussed risks vs benefits including risk of infection and bleeding, perforatio n, possible need for surgery, reaction to medication s, and sever injury or . We discussed pt requiring sedation and possible general anesthesia . Pt agrees to proceed with Colonoscop y at [facility]. Preliminar y procedure date will be 05/30/24 Obstructiv e sleep apnea syndrome 57549404 G47.33 Pt is compliant with CPAP, wearing more than 6hrs/night and missing less than 1 night/90da ys. I counseled on SHAHEEN, CPAPs, and sleep hygeine. Acute blepharitis 073709 04 H01.009 abx: topical and oral. warm compresses s. Return to office with no improvemen t or any problems. Go to ER with severe worsening or severe problems. Calcified granuloma of lung 6242842903 1941548 J84.10 one 2 CXRs, appears progressin g. Pt is very concerned. no hx of smoking. has been exposed to TB in the past. will get PPD and CT chest. counseled [id number] John Dickinson DO [facility] ([facility]) [address] [place] [address] [phone] 5 05/15/2024 15:42:08 05/16/2024 13:05:35 Herpes zoster 2951807 B02.9 05/15/24- counseled Prednisone and Acyclovir. [id number] John Dickinson DO [facility] ([facility]) [address] [place] [address] [phone] 5 10/29/2024 10:44:16 10/29/2024 15:11:33 Polymyalgia rheumatica 49834332 M35.3 Stable, following up with Neurology and Endocrinol ogy. Essential hypertension 25553330 I10 Tolerating Valsartan HCTZ, continue current treatment. Continue amlodipine and metoprolol . Monitor blood pressure and heart rate. Fibrosis of lung 6056109 [address] chest and PPD May 2024. Intracrani al meningioma 537074247 D32.0 evaluated by Neurosurge ry Severe rec urrent major depression without psychotic features 51692643 F33.2 8602283 Taking Duloxetine 50mg daily. Gastroesop hageal reflux disease 618747257 K21.9 Continue Pantoprazo le. Obstructiv e sleep apnea syndrome 51272853 G47.33 Pt is compliant with CPAP, wearing more than 6hrs/night and missing less than 1 night/90da ys. I counseled on SHAHEEN, CPAPs, and sleep hygeine. Body mass index 30+ - obesity 938939075 E66.9 [id number] Counseled on diet and exercise, to follow no sugar/ no gluten diet. Thyroid nodule 646790647 E04.[address] Meza, Thyroid US 03/07/24. Bx scheduled 04/17/24. 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 Screening for malignant neoplasm of colon 691618358 Z12.11 I have reviewed and discussed colon cancer screening options, including colonoscop y. Discussed risks vs benefits including risk of infection and bleeding, perforatio n, possible need for surgery, reaction to medication s, and sever injury or . We discussed pt requiring sedation and possible general anesthesia . Pt agrees to proceed with Colonoscop y at [facility]. Preliminar y procedure date will be Pt to use Mag Citrate prep. Trigger fi nger of right hand [id number] 2679129 M65.30 233783801 10/29/24: Referral to Dr. Ramírez. Cancer cer vix screening status 432271907 Z12.4 770374 Referral to Nancy Gudino with [facility] for PAP. [id number] JEWEL ANDERSON [facility] ([facility]) [address] [place] [address] 11/17/2024 13:36:44 11/18/2024 15:46:06 Dysuria 88325932 R30.0 04309 Acute urin clary tract infection 294598842 N39.0 718486 Discussed to take antibiotic as prescribed until [...] concernsPa tient verbalized understand ing of plan. [id number] JEWEL JONES [facility] ([facility]) [address] [place], [place] [phone] 01/17/2025 16:17:11 01/17/2025 17:29:59 Dysuria 77671968 R30.0 77500 UA results reviewed and discussed with pt. We will start antibiotic s. Pt will increase oral fluids. Return to office with no improvemen t or any problems. Go to ER with severe worsening or severe problems.W e will obtain urine culture [id number] John Dickinson DO [facility] ([facility]) [address] [place], [place] [phone] 04/24/2025 11:39:52 05/13/2025 12:15:03 Dog bite - wound 575917490 W54.0XXD 2078350 04/24/25: Counseled will add another 7 days of Augmentin, 7 days Bactrim, concerned for resistance . Counseled if top breast wound with increased redness/ tenderness / swelling RTC, we may need to drain it. F/u 5 days for recheck. Suture removed from right wrist, continue with sutures in place to left breast. [id number] John Dickinson DO [facility] ([facility]) [address] [place] [phone] 5 04/29/2025 12:24:42 04/29/2025 15:30:29 Dog bite - wound 376656357 W54.0XXD 0048768 04/29/25: significan t and unimproved pain with [...] sutures in place to left breast. Hematoma 858704832 T14.8 XXA 495261 04/29/25: concern for abscess, concern for need for evacuation , referral to Gen Surg, will try Dr. Blas. [id number] John Dickinson DO [facility] ([facility]) [address] [place] [phone] 5 05/12/2025 11:01:17 05/14/2025 12:01:11 Hematoma of left breast 9441960118 2260183 N64.89 8689122368 05/12/25: S/p dog bite, s/p I&D, improving, continue with HHC, packing changes, f/u with Gen Surg as scheduled on 05/15/25, no need for further abx at this time. Thyroid nodule 699657719 E04.[address] Meza, Thyroid US 03/07/24. Bx scheduled 04/17/24. Essential hypertension 35920831 I10 Tolerating Valsartan HCTZ, continue current treatment. [...] Member ID Guarantor Name 10/29/2024 1 [employer] [id number] Jessica L Red [id number] Jessica L Red 10/29/2024 2 [place] Jessica L Red [id number] Jessica L Red 10/29/2024 4 [place] Jessica L Red [id number] Jessica L Red 05/13/2025 [place] [facility] (INSTITUTIONA L) Jessica L Red [id number] Jessica L Red 05/26/2025 1 [employer] - PR[place] (MEDICARE REPLACEMENT/A DVANTAGE - HMO) [id number] Jessica L Red [id number] Jessica L Red 10/29/2024 2 [employer] [place]MEDICA[place]AC[place] - [place]) [id number] Jessica L Red [id number] Jessica L Red 05/26/2025 2 [place] Jessica L Red [id number] Jessica L Red Notes Date Note Type Note Provider Name and Address Organization Details Recorded Time 01/17/2025 text/html ROS as noted in the HPI walk inx3 days urinary urgency and burning. denies fever, abd pain, or back pain. states she has a sebaceous cyst to her inner thigh that recently ruptured. wondering if the drainage caused her UTI JEWEL JONES [address] [place], [address], [facility] 01/17/2025 18:07:13 04/24/2025 text/html ROS as noted in the HPI Pt presents for ER f/u. Patient was seen at [facility] ER on 04/17/25 for dog bite. She [...] to feel different, like it's hard. John Dickinson DO [address] [place], [address], [facility] 05/12/2025 14:09:49 04/29/2025 text/html ROS as noted in the HPI Patient presents visit today for 1 week f/u for dog bite with laceration to left breast and right arm.right arm healing well. but left breast still with mod/severe pain. dull ache. radiation up to chest.no drainage. no fevers or chills. she has finished abx. she finished her rabies vaccination. John Dickinson DO [address] [place] [address], [phone], [facility] 04/29/2025 14:08:22 05/12/2025 text/html ROS as noted in the HPI Pt presents for hospital f/u Admitted 05/05-:Hosp ital [id number] female s/p I&D left breast hematoma (dog bite). Patient stayed overnight for wound care. POD1 doing well. Cleared for discharge. Patient to finish course of PO antibiotics. Follow up in clinic in 1 week. Daily packing changes.Prescrip tions:Newoxycodo ne 5 mg tablet5 mg PO Q6H PRN (Reason: pain) 10 Days Qty: 30 0RFReferrals:[facility] [Outside]Chuck Connor MD [Physician, General Surgery] - 05/15/25 11:40 amReferral Note:Arguello DO [Primary Care Provider, Family Practice] - 05/12/25 10:20 am She admits that it is very sore and not as bad.She is having to pack the wound daily, HH is monitoring, measuring, seems to be improving. She has finished abx tx. John Dickinson DO [address] [place] [address], [phone], [facility] 05/12/2025 13:48:43 05/27/2025 text/html Pt presents for UTI sx and abd pain She started having sx 3 days ago. She c/o urinary frequency/urgenc y and burning. She denies fever or chills She also has had abd pain under her ribs for over 2 months and has more discomfort on the right side Not Available Not Available Not Available OBGyn Episode No OBEpisode recorded.
--- OUTSIDE RECORDS SUMMARY | 2025-06-05 15:53 | XMS_ITS | Encounter Summary ---
Author Organization [facility] Address [address] [place] [address] Care Team Providers Care Powder Coater Name Role Phone Non-Staff, Physician Primary Care Provider Unava ilable Reason for Referral * Outpatient Services (Routine) - Closed Specialty Diagnoses / Procedures Referred By Contac t Referred To Contact Radiology Diagnoses Chest pain Mitral valve prolapse Procedures ECHO COMPLETE Adonis Campos DO [facility] [address] [facility] [address] [place] [address] Phone: tel: fax: Referral ID Status Reason Start Date Expiration Date V isits Requested Visits Authorized [id number] Closed [facility] CTS to Schedule (SGF) 07/08/2014 08/08/2015 1 1 GER DISH Encounter Details Date Type Department Care Team (Latest Contact Info) Description 07/08/2014 Ancillary Orders [facility] Centralized Scheduling [address] [facility] [address] [place] [address] Adonis Campos DO NO ADDRESS [...] file Legal Sex Female 2: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 Gender Identity Not on file Sexual Orientation Not on file documented as of this encounter Plan of Treatment Not on file documented as of this encounter Results * ECHO COMPLETE (07/09/2014 11:02 AM [facility]) EJECTION FRACTION 65 INTERFACE SYSTEM 07/09/2014 10:2 9 AM [facility] Narrative INTERFACE SYSTEM - 07/09/2014 11:58 AM [facility] Radiology Services - Echocardiology [address] [facility] [address] [place] [address] Transthoracic Echocardiography Patient: Jessica Moon Study ID: [id number] Gender: F : 1965 Age: 49 Room: [...] [facility] Radiology Services - Echocardiology [address] [place] [address] Transthoracic Echocardiography Patient: Jessica Moon Study ID: [id number] Gender: F : 1965 Age: 49 Room: [...] disorders documented in this encounter Care Teams Powder Coater Relationship Specialty Start Date End Date Non-Staff, Physician NO ADDRESS ON FILE PCP - General 07/09/14 documented as of this encounter
--- OUTSIDE RECORDS SUMMARY | 2025-06-05 15:53 | XMS_ITS | Encounter Summary ---
Author Organization [facility] Address [address] [place] [address] Care Team Providers Care Special Inspector Name Role Phone Non-Staff, Physician Primary Care Provider Unava ilable Encounter Details Date Type Department Care Team (Latest Contact Info) Description 05/29/2001 Outpatient Historical [facility] Pal Russell MD [address] [place] [address] HEADACHE (Primary Dx); TMJ arthralgia Social History Tobacco Use Types Packs/Day Years Used Date Smoking Tobacco: Never Assessed Comments Unknown Sex and Gender Information Value Date Recorded Sex Assigned at Not on file 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
--- OUTSIDE RECORDS SUMMARY | 2025-06-05 15:53 | XMS_ITS | Clinical Summary ---
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 Gender Identity Not on file Sexual Orientation Not on file Last Filed Vital Signs Vital Sign Reading Time Taken Comments Blood Pressure 100/68 07/22/2014 1:45 PM NETWORK SUPPORT TECHNICIAN Pulse 56 07/22/2014 1:45 PM NETWORK SUPPORT TECHNICIAN Temperature 36.9 C (98.5 F) 07/07/2014 8:58 PM NETWORK SUPPORT TECHNICIAN Respiratory Rate 15 07/07/2014 8:58 PM NETWORK SUPPORT TECHNICIAN Oxygen Saturation 97% 07/07/2014 8:58 PM NETWORK SUPPORT TECHNICIAN Inhaled Oxygen Concentration - - Weight 86.6 kg (191 lb) 07/22/2014 1:45 PM NETWORK SUPPORT TECHNICIAN Height 167.6 cm (5' 6 ) 07/22/2014 1:45 PM NETWORK SUPPORT TECHNICIAN Body Mass Index 30.83 07/22/2014 1:45 PM NETWORK SUPPORT TECHNICIAN Plan of Treatment Health Maintenance Due Date [...] - 1-dose 75+ series) 2038 Care Teams Medical Records Clerk Relationship Specialty Start Date End Date Non-Staff, Physician NO ADDRESS ON FILE PCP - General 07/09/14
--- OUTSIDE RECORDS SUMMARY | 2025-06-05 15:53 | XMS_ITS | Encounter Summary ---
Author Organization [facility] Address [address] [place] [address] Care Team Providers Care Trekking Guide Name Role Phone Non-Staff, Physician Primary Care Provider Unava ilable Encounter Details Date Type Department Care Team (Late st Contact Info) Description 07/14/2014 Lab Requisition [facility] Laboratory Services [place] [address] [place] [address] Georgia Aguillon, SUPERVISOR INDUSTRIAL GARMENT [address] [place] [address] Social History Tobacco Use Types Packs/Day Years Used Date Smoking Tobacco: Never Alcohol Use Standard Drinks/Week Comments Yes 0 (1 standard drink = 0.6 oz pur e alcohol) rare Comments No Sex and Gender Information Value Date Recorded Sex Assigned at Not on file 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 Gender Identity Not on file Sexual Orientation Not on file documented as of this encounter Plan of Treatment Not on file documented as of this encounter Procedures Procedure Name Priority Date/Time Associated Diagnosis Comments SEDIMENTATION RATE Routine 07/14/2014 11 :13 PM PROFESSOR OF THEATER TROPONIN Routine 07/14/2014 11:13 PM PROFESSOR OF THEATER documented in this encounter Results * TROPONIN (07/14/2014 11:13 PM PROFESSOR OF THEATER) TROPONIN I <0.02 <=0.06 ng/mL 07/15/2014 12:44 AM PROFESSOR OF THEATER [facility] Comment: Troponin I assay performed on [...] cardiac surgery/defibrillation. Blood 07/14/2014 11:1 3 PM PROFESSOR OF THEATER 07/14/2014 11:13 PM PROFESSOR OF THEATER Georgia Aguillon [facility] CHEMISTRY ORDERABLES Final Result Performing Organization Address [facility]/ZIP Co de Phone Number [facility] [id number] [address] [place] [id number] * SEDIMENTATION RATE (07/14/2014 11:13 PM PROFESSOR OF THEATER) ESR (SEDIMENTATION RATE) 7 0 - 30 mm/Hr 07/14/2014 11:52 PM PROFESSOR OF THEATER [facility] Blood 07/14/2014 11:1 3 PM PROFESSOR OF THEATER 07/14/2014 11:13 PM PROFESSOR OF THEATER [place] [employer] [place] [facility] HEMATOLOG[facility] ORDERABLES Final Result Performing Organization Address City/[facility] Co de Phone Number [facility] [email or web address] [facility] CLIA # [id number] [address] [place] [address] documented in this encounter Visit Diagnoses Not on filedocumented in this encounter Care Teams Trekking Guide Relationship Specialty Start Date End Date Non-Staff, Physician NO ADDRESS ON FILE PCP - General 07/09/14 documented as of this encounter
--- OUTSIDE RECORDS SUMMARY | 2025-06-05 15:53 | XMS_ITS | Encounter Summary ---
Author Organization [facility] Address [address] [place] [address] Care Team Providers Care Gum Sprayer Name Role Phone Non-Staff, Physician Primary Care Provider Unava ilable Encounter Details Date Type Department Care Team (Latest Contact Info) Description 09/06/2001 Outpatient Historical [facility] Pal Russell MD [address] [place] [address] HYPERTENSION NOS (Primary Dx); POSTMENOPAUSAL HORMONAL REPLACMT Social History Tobacco Use Types Packs/Day Years Used Date Smoking Tobacco: Never Assessed Comments Unknown Sex and Gender Information Value Date Recorded Sex Assigned at Not on file Legal 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
--- OUTSIDE RECORDS SUMMARY | 2025-06-05 15:53 | XMS_ITS | Encounter Summary ---
Author Organization [facility] Address [address] [place] [address] Care Team Providers Care Inspector Material Disposition Name Role Phone Non-Staff, Physician Primary Care Provider Unava ilable Encounter Details Date Type Department Care Team (Late st Contact Info) Description 11/10/2014 Lab Requisition [facility] Laboratory Services [place] [address] [place] [address] Dejon Franks DO NO ADDRESS ON FILE Social History Tobacco Use Types Packs/Day Years Used Date Smoking Tobacco: Never Smokeless Tobacco: Never Alcohol Use Standard Drinks/Week Comments Yes 0 (1 standard drink = 0.6 oz pur e alcohol) rare Comments No Sex and Gender Information Value Date Recorded Sex Assigned at Not on file 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 Blood specimen (specimen) 11/10/2014 9:00 PM CDT 11/10/2014 11:49 PM CDT us Dejon Franks DO CHEMISTRY ORDERABLES Final R esult Performing Organization Address [facility] Co de Phone Number [facility] CLIA# [id number] [address] [place] [phone] [facility] CLIA# [id number] [address] [place] [address] * SEDIMENTATION RATE (11/10/2014 9:00 PM CDT) Pathologist [facility] ESR (SEDIMENTATION RATE) 6 0 - 30 mm/Hr 11/11/2014 12:51 AM CDT [facility] Blood 11/10/2014 9:00 PM CDT 11/10/2014 11:49 PM CDT us Dejon Franks DO HEMATOLOGY ORDERABLES Final Result Performing Organization Address [facility] Co de Phone Number [facility] CLIA # [id number] [address] [place] [address] * (ABNORMAL) MELBA SCREEN W/REFLEX (11/10/2014 9:00 PM CDT) MELBA Positive(A ) Negative 11/12/2014 1:29 PM CDT [facility] Blood specimen (specimen) 11/10/2014 9:00 PM CDT 11/10/2014 11:49 PM CDT us Dejon Franks DO CHEMISTRY ORDERABLES Final R esult Performing Organization Address City/[facility]/ZIP Co de Phone Number [facility] CLIA# [id number] [address] [place] [address] [id number] [address] [place] [address] documented in this encounter Visit Diagnoses Not on filedocumented in this encounter Care Teams Inspector Material Disposition Relationship Specialty Start Date End Date Non-Staff, Physician NO ADDRESS ON FILE PCP - General 07/09/14 documented as of this encounter
--- OUTSIDE RECORDS SUMMARY | 2025-06-05 15:53 | XMS_ITS | Encounter Summary ---
Author Organization [facility] Address [address] [place] [address] Care Team Providers Care Frog Shaker Name Role Phone Non-Staff, Physician Primary Care Provider Unava ilable Encounter Details Date Type Department Care Team (Latest Contact Info) Description 03/10/2000 Outpatient Historical [facility] Harley Petersen MD [address] [place] [address] Unspecified disorder resulting from impaired renal function (Primary Dx); Metrorrhagia Social History Tobacco Use Types Packs/Day Years Used Date Smoking Tobacco: Never Assessed Comments Unknown Sex and Gender Information Value Date Recorded Sex Assigned at Not on file 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
--- OUTSIDE RECORDS SUMMARY | 2025-06-05 15:53 | XMS_ITS | Encounter Summary ---
Author Organization [facility] Address [address] [place] [address] Care Team Providers Care Manager Cardiac Name Role Phone Non-Staff, Physician Primary Care Provider Unava ilable Reason for Referral * Outpatient Services (Routine) - Closed Specialty Diagnoses / Procedures Referred By Contac t Referred To Contact Radiology Diagnoses Recurrent cystitis Procedures US RENAL AND BLADDER Adonis Campos DO [facility] [address] [facility] [address] [place] [address] Phone: tel: fax: Referral ID Status Reason Start Date Expiration Date V isits Requested Visits Authorized [id number] Closed [facility] CTS to Schedule (SGF) 02/10/2015 03/12/2016 1 1 Encounter Details Date Type Department Care Team (Latest Contact Info) Description 02/10/2015 Ancillary Orders [facility] Centralized Scheduling [address] [facility] [address] [place] [address] Adonis Campos DO NO ADDRESS [...] on file Legal Sex Female 2:46 AM CAR HOP Gender Identity Not on file Sexual Orientation [...] unspecified documented in this encounter Care Teams Manager Cardiac Relationship Specialty Start Date End Date Non-Staff, Physician NO ADDRESS ON FILE PCP - General 07/09/14 documented as of this encounter
--- NOTE | 2025-06-05 16:12 | CTR_ITS ---
PROCEDURE INFORMATION: Exam: CT Abdomen And Pelvis With Contrast Exam date and time: 06/05/2025 4:49 PM Age: 60 years old Clinical indication: Abdominal pain; Epigastric; Prior surgery; Surgery date: 6+ months; Surgery type: Gb, hyster, appy; Additional info: Epigastric pain into back, HX of pancreatitis TECHNIQUE: Imaging protocol: Computed tomography of the abdomen and pelvis with contrast. Radiation optimization: All CT scans at this facility use at least one of these dose optimization techniques: automated exposure control; mA and/or kV adjustment per patient size (includes targeted exams where dose is matched to clinical indication); or iterative reconstruction. Contrast material: OMNIPAQUE 350; Contrast volume: 100 ml; Contrast route: INTRAVENOUS (IV); COMPARISON: CT abdomen pelvis w con* [id number] 02/29/2024 6:14 PM RADIATION DOSE METRICS: Total DLP (mGy-cm): 812.77 FINDINGS: Lower chest : Heart size is normal. Some atelectatic changes posteroinferior lower lobes possibly dependent atelectasis. This appears more prominent posterior medially in the right. Small peripheral consolidation can not be excluded. Liver: Normal. No mass. Gallbladder and biliary ducts: Status post cholecystectomy. No ductal dilation. Pancreas: Normal. No ductal dilation. Spleen: Normal. No splenomegaly. Adrenal glands: Normal. No mass. Kidneys and ureters: 6.2 mm simple appearing cyst inferior pole right kidney. No follow-up imaging recommended.Benign simple renal cyst requiring no follow-up. (Reference: Carmelo) References: Carmelo SG, et al. Bosniak Classification of Cystic Renal Masses, Version 2019: An Update Proposal and Needs Assessment. Radiology. 2019;292(2):475-488. Stomach and bowel: Stomach and small bowel unremarkable. Some mild diverticulosis of the descending and sigmoid colon. Moderate amount of fecal material cecum and ascending colon. Milder elsewhere. Appendix: Previous appendectomy. Intraperitoneal space: Unremarkable. No free air. No significant fluid collection. Vasculature: Mild atherosclerosis. No abdominal aortic aneurysm. Lymph nodes: Unremarkable. No enlarged lymph nodes. Urinary bladder: Underdistended urinary bladder. Borderline wall thickening without perivesical stranding probably related to underdistention. Correlate for UTI. Some mild submucosal fatty infiltration. Reproductive: Hysterectomy. Bones/joints: Mild degenerative changes. Possible hemangiomas T10, T11, L4. Soft tissues: Unremarkable. CT/CT abdomen pelvis w con* [id number] IMPRESSION: 1. Some probable asymmetric dependent atelectasis lower lobes. Can not rule out mild consolidation posteromedial right lower lobe. 2. Status post cholecystectomy, appendectomy, and hysterectomy. 3. Uncomplicated mild diverticulosis of the descending and sigmoid colon. 4. Borderline wall thickening of the urinary bladder probably due to underdistention of the correlate for UTI. 5. Pancreas unremarkable. Probable hemangiomas bodies of T10, T11 and L4.
--- NOTE | 2025-06-05 16:12 | ECG_ITS ---
[facility] Test Date: 2025-06-05 Pat Name: Jessica Moon Department: Room: Gender: Female Deputy Court Clerk: : [id number] Requested By: Raheem Tucker Order Number: [id number] Deny MD: EL IGLESIAS Measurements Intervals [place] Rate: 64 P: 48 IN: 189 QRS: 10 QRSD: 97 T: 21 QT: 438 QTc: 453 Interpretive Statements SINUS RHYTHM Compared to ECG 04/19/2024 17:59:32 No significant changes Electronically Signed On 06-08-2025 23:26:00 CHOIR TEACHER by EL IGLESIAS [email or web address]
[2025-06-05 16:19] LABS: Hematocrit 42.0 % (36-47); Hemoglobin 14.30 g/dL (11.27-16.99); Mean Corpuscular HGB Conc 34.0 g/dL (30-55); Mean Corpuscular Hemoglobin 29.2 pg (27-33); Mean Corpuscular Volume 85.7 fl (85-98); Nucleated Red Blood Cells % 0 %; Platelet Count 239 10^3/cmm (157-399); Red Blood Count 4.90 10^6/uL (3.85-5.65); White Blood Count 5.86 10^3/uL (3.29-11.43)
--- NOTE | 2025-06-05 16:22 | W.ED.ABDPA2 ---
HPI - Abdominal Pain General: Chief Complaint: Abdominal Pain Stated Complaint: abd pain Time Seen by Provider: 06/05/25 15:50 Source: patient Mode of arrival: ambulatory Limitations: no limitations History of Present Illness: Patient is a 60-year-old female with past medical history of reported pancreatitis presenting to the emergency department complaining of upper abdominal pain for the past couple of days. Tells me that the symptoms are similar with her prior episodes of pancreatitis, states that she has been having profuse diarrhea and that it appears oily in the toilet bowl. States that the pain radiates into her back, has been constant since onset. States that she has had her gallbladder out, does not drink alcohol, and is unable to report to me what her prior incidence of pancreatitis was caused from. She states that she was also not hospitalized at that time. She is not having any nausea or vomiting at this time, no fevers or chills, no chest pain or shortness of breath. No specific alleviating or exacerbating factors to the pain. Her vitals are stable at this time. She is denying need for pain or nausea medications. MD elicited complaint: abdominal pain Pertinent past history: other (Pancreatitis) Onset (ago): day(s) Pain Consistency: constant Location: Epigastric Severity: similar to previous episodes Radiation: back Associated Symptoms: Reports change in stool character and diarrhea; Denies bloating, chills, constipation, dysuria, fever(s), hematochezia, nausea and vomiting Related Data Home Medications ?Medication ?Instructions ?Recorded ?Confirmed amlodipine 5 mg tablet 5 mg PO DAILY 08/25/19 05/27/25 metoprolol tartrate 50 mg tablet 50 mg PO BID 08/25/19 05/27/25 ibuprofen 200 mg capsule 200 mg PO Q6H PRN Pain 03/21/23 05/27/25 valsartan 160 1 tab PO DAILY 03/21/23 05/27/25 mg-hydrochlorothiazide 12.5 mg tablet bpxgyrh-wnyocgvsauadv-exdxzjud 250 2 tab PO Q6H PRN Headache 03/12/24 05/27/25 mg-250 mg-65 mg tablet (Excedrin Migraine) pantoprazole 20 mg tablet,delayed 20 mg PO DAILY 04/25/24 05/27/25 release Previous Rx's ?Medication ?Instructions ?Recorded epinephrine 0.3 mg/0.3 mL 0.3 mg (0.3 mL) IM Q15M PRN 12/08/21 injection, auto-injector (EpiPen anaphylaxis #2 ea 2-Shree) duloxetine 60 mg capsule,delayed 60 mg PO DAILY #30 caps 10/25/24 release (Cymbalta) trazodone 100 mg tablet 300 mg (3 x 100 mg) PO .HS PRN 10/25/24 insomnia #90 tabs estradiol 0.01% (0.1 mg/gram) 1 g vaginal DAILY #42.5 grams 12/10/24 vaginal cream galcanezumab-gnlm 120 mg/mL 120 mg SUBCUT ONCE #1 mL 12/11/24 subcutaneous pen injector (Emgality Pen) duloxetine 30 mg capsule,delayed 30 mg PO DAILY #30 caps 01/24/25 release hydroxyzine HCl 50 mg tablet 50 mg PO QID PRN insomnia #120 tabs 01/24/25 Allergies Allergy/AdvReac Type Severity Reaction Status Date / Time adhesive Allergy ALGY-Rash Verified 06/05/25 15:54 tramadol (From Ultram) Allergy ALGY-Hives Verified 06/05/25 15:54 Review of Systems General: Reports: 10 or more systems reviewed and unremarkable except in HPI and below Const: Denies: fever(s), chills, change in appetite, change in weight or diaphoresis ENMT: Denies: throat pain or hoarseness Card: Denies: chest pain, palpitations or lightheadedness Resp: Denies: dyspnea, productive cough or wheezing GI: Reports: abdominal pain, diarrhea and change in stool character; Denies: nausea, vomiting, constipation, bloating or hematochezia : Denies: flank pain, difficulty voiding, dysuria, urinary frequency or urinary urgency Musc: Reports: back pain; Denies: neck pain Skin/Breast: Denies: rash or new lesions Neuro: Denies: headache(s) or dizziness PFSH ED PFSH: Medical History Psychiatric care Cervical pain Low vitamin D level Carotid artery stenosis Bilateral less than 50% from February 2019 SVT (supraventricular tachycardia) CVA (cerebral vascular accident) Hyperlipidemia HTN (hypertension) Surgical History History of partial hysterectomy S/P ablation of atrial fibrillation Family History Mother Breast cancer Uterine cancer Diabetes Hyperlipidemia Sister Breast cancer Grandmother Breast cancer Brother Colon cancer Hyperlipidemia Father Heart disease Hypertension Denies family history of Ovarian cancer Thyroid disease Stroke Social History Smoking and tobacco/nicotine status: never used tobacco/nicotine Alcohol intake: never Substance/Drug Use: never Adopted: No Caregiver/support person: No Lives independently: Yes Household members: other Details: son lives with her Housing: House Marital status: Legally Number of children: 6 Highest education level completed: High School Graduate service: No Current occupational status: disabled Pets and animals: Yes Pets & animals: dog(s) and farm animals Farm Animals: chicken/turkey/other poultry Leisure activites: reading and other Leisure activities details: knitting, and TV Sexually active: Yes Do you think of yourself as: Straight/Heterosexual Current gender identity: Female Khloe/Presybeterian: Jain Special khloe needs: No Agree to transfusion: Yes Female Reproductive History: Para: 6 Spontaneous abortions: No Physical Exam Const: COMMON NORMALS: no acute distress, average body habitus, patient oriented x3, no limitations, healthy appearing, alert and well nourished GENERAL APPEARANCE: cooperative and comfortable ORIENTATION/CONSCIOUSNESS: Yes awake OTHER: Nontoxic-appearing Neck/C-Spine: COMMON NORMALS: full ROM, supple and no meningeal signs Resp: COMMON NORMALS: normal respiratory effort, No retractions, No use of accessory muscles and clear to auscultation bilaterally AUSCULTATION: clear to auscultation bilaterally, no crackles, no rales, no rhonchi and no wheezes Cardio: COMMON NORMALS: regular rate, regular rhythm, No gallops present (Cardio), No clicks present (Cardio), No murmurs present (Cardio) and No rub (Cardio) RATE: regular rate RHYTHM: regular rhythm GI: COMMON NORMALS: Normal to inspection, nondistended, normoactive bowel sounds present, Soft to palpation, No hepatosplenomegaly present and no masses AUSCULTATION: Yes normoactive bowel sounds PALPATION: Yes Soft to palpation, No Guarding due to palpation present (GI), No Rigid due to palpation and Yes No hepatosplenomegaly present RECTAL EXAM: deferred OTHER: Epigastric tenderness to palpation. Negative Gomez Khalil sign, negative [place] sign. Extremity: COMMON NORMALS: normal to inspection and full ROM Neuro: COMMON NORMALS: patient oriented x3, moves all extremities, no focal motor deficits and no sensory deficits noted SENSORIUM/ORIENTATION: Yes alert MENINGEAL SIGNS: Yes no meningeal signs Psych: COMMON NORMALS: mental status grossly normal, cooperative and speech normal SPEECH: Yes normal speech Skin: COMMON NORMALS: no rashes or lesions noted GENERAL SKIN EXAM: no rashes or lesions noted Course Vital Signs: Vital signs: Vital Signs Temperature 97.9 F 06/05/25 15:50 Pulse Rate 73 06/05/25 15:50 Respiratory Rate 18 06/05/25 15:50 Blood Pressure 147/91 06/05/25 15:50 Pulse Oximetry 96 06/05/25 15:50 MDM - Abdominal Pain Medical Decision Making Patient presented with complaints of epigastric abdominal pain for a few days associate with diarrhea. Physical exam positive for reproducible tenderness palpation of the epigastrium, but no flank bruising, distended abdomen, and clinically she appeared well and nontoxic. Vitals have been stable. Reports a history of pancreatitis, and did note to me that the symptoms were similar. Lipase is normal, no leukocytosis and metabolic panel is all unremarkable. Urinalysis showing no infection. Abdomen/pelvis CT showing no pancreatitis, no other explanation for her acute pain. They had commented on probable dependent atelectasis, she is not complaining of shortness of breath or coughing so this is very likely not anything respiratory. No fevers or other symptoms of illness. She is allowed discharge home, likely this could be viral gastroenteritis with her reported diarrhea and she is to treat symptomatically, advance her diet as tolerated, and return with any new or worsening. Patient agrees with this plan at this time. Lab Data 06/05/25 16:00 06/05/25 16:00 Labs/Radiology: Radiology Impressions Abdomen/Pelvis CT 06/05/25 16:12 IMPRESSION: 1. Some probable asymmetric dependent atelectasis lower lobes. Can not rule out mild consolidation posteromedial right lower lobe. 2. Status post cholecystectomy, appendectomy, and hysterectomy. 3. Uncomplicated mild diverticulosis of the descending and sigmoid colon. 4. Borderline wall thickening of the urinary bladder probably due to underdistention of the correlate for UTI. 5. Pancreas unremarkable. Probable hemangiomas bodies of T10, T11 and L4. Laboratory Results WBC 5.86 10^3/uL (3.29-11.43) 06/05/25 16:00 RBC 4.90 10^6/uL (3.85-5.65) 06/05/25 16:00 Hgb 14.30 g/dL (11.27-16.99) 06/05/25 16:00 Hct 42.0 % (36-47) 06/05/25 16:00 MCV 85.7 fl (85-98) 06/05/25 16:00 MCH 29.2 pg (27-33) 06/05/25 16:00 MCHC 34.0 g/dL (30-55) 06/05/25 16:00 RDW 13.8 % (12.1-15.1) 06/05/25 16:00 Plt Count 239 10^3/cmm (157-399) 06/05/25 16:00 MPV 9.8 fL (7.4-10.4) 06/05/25 16:00 Neut % (Auto) 59.5 % 06/05/25 16:00 Lymph % (Auto) 30.0 % 06/05/25 16:00 Jessamine % (Auto) 6.8 % 06/05/25 16:00 Eos % (Auto) 2.9 % 06/05/25 16:00 Baso % (Auto) 0.5 % 06/05/25 16:00 Neut # (Auto) 3.48 10^3/uL (1.8-7.7) 06/05/25 16:00 Lymph # (Auto) 1.8 10^3/uL (0.8-4.8) 06/05/25 16:00 Jessamine # (Auto) 0.4 10^3/uL (0.2-0.9) 06/05/25 16:00 Eos # (Auto) 0.2 10^3/uL (0.0-0.8) 06/05/25 16:00 Baso # (Auto) 0.0 10^3/uL (0.0-0.1) 06/05/25 16:00 Nucleated RBC % (auto) 0 % 06/05/25 16:00 Nucleated RBCs # 0.0 /100WBC 06/05/25 16:00 Sodium 143 mmol/L (136-145) 06/05/25 16:00 Potassium 3.7 mmol/L (3.5-5.1) 06/05/25 16:00 Chloride 106 mmol/L (98-107) 06/05/25 16:00 Carbon Dioxide 25 mmol/L (22-29) 06/05/25 16:00 Anion Gap 15.7 (5-19) 06/05/25 16:00 BUN 14 mg/dL (8-23) 06/05/25 16:00 Creatinine 0.8 mg/dL (0.5-0.9) 06/05/25 16:00 GFR Calculation 72.7 mL/min (90-130) L 06/05/25 16:00 Glucose 101 mg/dL (65-115) 06/05/25 16:00 Calculated Osmolality 297 mOsm/kg (285-295) H 06/05/25 16:00 Calcium 9.0 mg/dL (8.5-10.5) 06/05/25 16:00 Total Bilirubin 0.3 mg/dL (0.15-1.2) 06/05/25 16:00 AST 15 U/L (0-32) 06/05/25 16:00 ALT 18 U/L (0-33) 06/05/25 16:00 Alkaline Phosphatase 85 U/L (35-105) 06/05/25 16:00 Total Protein 6.2 g/dL (6.6-8.7) L 06/05/25 16:00 Albumin 4.2 g/dL (3.5-5.2) 06/05/25 16:00 Globulin 2.0 g/dL (1.3-4.6) 06/05/25 16:00 Lipase 33 U/L (13-60) 06/05/25 16:00 Urine Color Yellow (Yellow) 06/05/25 16: Urine Appearance Clear (CLEAR) 06/05/25 16: Urine pH 5.5 (5-7) 06/05/25 16: Ur Specific Orange 1.025 (1.005-1.030) 06/05/25 16: Urine Protein Trace (Negative) A 06/05/25 16:28 Urine Glucose (UA) Negative (Normal) 06/05/25 16:28 Urine Ketones Trace (Negative) 06/05/25 16:28 Urine Blood Negative (Negative) 06/05/25 16:28 Urine Nitrate Negative (Negative) 06/05/25 16:28 Urine Bilirubin Negative (Negative) 06/05/25 16:28 Urine Urobilinogen 1.0 mg/dL (Negative) 06/05/25 16:28 Ur Leukocyte Esterase Negative (Negative) 06/05/25 16:28 Urine RBC 0-2 /hpf (0-2) 06/05/25 16:28 Urine WBC 0-5 /hpf (0-5) 06/05/25 16:28 Ur Squamous Epith Cells 6-10 /hpf (0-5) 06/05/25 16:28 Amorphous Sediment Not Reportable 06/05/25 16:28 Urine Bacteria None seen /hpf (NONE) 06/05/25 16:28 Hyaline Casts 1.65 /lpf 06/05/25 16:28 All radiology interpretation(s) finalized by discharge Discharge Plan Discharge Patient Disposition: Home Clinical Impression: Abdominal pain Qualifiers: Abdominal location: epigastric Qualified Code(s): R10.13 - Epigastric pain Condition: Stable Prescriptions: No Action Excedrin Migraine 250-250-65 mg tablet 2 tab PO Q6H PRN (Reason: Headache) duloxetine [Cymbalta] 60 mg capsule,delayed release(DR/EC) 60 mg PO DAILY Qty: 30 11RF trazodone 100 mg tablet 300 mg PO .HS PRN (Reason: insomnia) Qty: 90 11RF valsartan-hydrochlorothiazide 160-12.5 mg tablet 1 tab PO DAILY ibuprofen 200 mg capsule 200 mg PO Q6H PRN (Reason: Pain) pantoprazole 20 mg tablet,delayed release (DR/EC) 20 mg PO DAILY hydroxyzine HCl 50 mg tablet 50 mg PO QID PRN (Reason: insomnia) Qty: 120 2RF duloxetine 30 mg capsule,delayed release(DR/EC) 30 mg PO DAILY Qty: 30 11RF Rx Instructions: Take with 60 mg for total of 90 mg. estradiol 0.01 % (0.1 mg/gram) cream 1 g vaginal DAILY Qty: 42.5 3RF Rx Instructions: once daily for 14 days and then apply twice weekly Emgality Pen 120 mg/mL pen injector 120 mg SUBCUT ONCE Qty: 1 11RF Rx Instructions: Administer according to package directions once monthly amlodipine 5 mg tablet 5 mg PO DAILY metoprolol tartrate 50 mg tablet 50 mg PO BID epinephrine [EpiPen 2-Shree] 0.3 mg/0.3 mL auto-injector 0.3 mg IM Q15M PRN (Reason: anaphylaxis) Qty: 2 0RF Rx Instructions: not to exceed 6 doses per episode Discharge Orders: Discharge ED (Routine); Ordered 06/05/25 Ordered By: Raheem Quiñones Referrals: Joselito Sylvester DO [Primary Care Provider, Family Practice] Patient Instructions: Patient Portal & [facility] Instructions Activity Restrictions/Additional Instructions: Discharge Instructions: Epigastric Abdominal Pain with Diarrhea Your Diagnosis You were evaluated today for epigastric (upper middle) abdominal pain with diarrhea. Your blood work, urine test, and CT scan were all normal. Based on your symptoms, you likely have viral gastroenteritis (a stomach virus). This is a self-limited condition that typically improves on its own within a few days. Home Care Instructions Hydration: - Drink plenty of fluids to replace what you're losing through diarrhea - Oral rehydration solutions (such as Pedialyte, CeraLyte, or Enfalyte) are best for replacing fluids and electrolytes - Drink small amounts frequently rather than large amounts at once - Avoid apple juice, Gatorade, and soft drinks as these are not ideal for rehydration - Aim to drink enough so that you are urinating regularly and your urine is light yellow Diet: - Resume eating a normal diet as soon as you can tolerate it (within 4-6 hours if possible) - Start with bland, mfta-so-ojegsi foods if needed - There is no need to follow a special diet - eat what you can tolerate - Early return to normal eating helps speed recovery Symptom Relief: - You may take loperamide (Imodium) for diarrhea relief if needed - Do not take loperamide if you develop fever or bloody diarrhea - You may take bismuth subsalicylate (Pepto-Bismol) for symptom relief - Continue any medications prescribed for nausea if given Activity: - Rest as needed - You may return to normal activities as you feel able - Wash your hands frequently to prevent spreading illness to others When to Return to the Emergency Department Seek immediate medical attention if you develop any of the following: - Severe or worsening abdominal pain, especially if it becomes sharp or localized to one area - Fever (temperature over 100.4?F or 38?C) - Bloody or black stools - Persistent vomiting that prevents you from keeping down fluids - Signs of dehydration: - Decreased urination or dark urine - Dizziness or lightheadedness when standing - Extreme weakness - Dry mouth and tongue - Confusion - Bilious (green) vomiting - Abdominal rigidity or severe tenderness - Symptoms that worsen or do not improve within 3-5 days Follow-Up Care - Follow up with your primary care doctor in 3-5 days if symptoms persist - If you develop new or concerning symptoms before then, return to the emergency department - Most cases of viral gastroenteritis resolve within 3-7 days Important Reminders - Your symptoms are likely due to a viral infection that will improve with time and supportive care - Antibiotics are not helpful for viral gastroenteritis - Stay well-hydrated - this is the most important part of your treatment - Practice good hand hygiene to prevent spreading the illness to others If you have any questions or concerns, please contact your primary care physician or return to the emergency department. Print Language: Mongolian Coding Level of Care Code ED Customer Marketing Manager for Jossue Mitchell
[2025-06-05 16:31] LABS: Alanine Aminotransferase 18 U/L (0-33); Albumin Level 4.2 g/dL (3.5-5.2); Alkaline Phosphatase 85 U/L (35-105); Anion Gap 15.7 (5-19); Aspartate Amino Transferase 15 U/L (0-32); Blood Urea Nitrogen 14 mg/dL (8-23); Calcium 9.0 mg/dL (8.5-10.5); Carbon Dioxide 25 mmol/L (22-29); Chloride 106 mmol/L (98-107); Globulin 2.0 g/dL (1.3-4.6); Glucose 101 mg/dL (65-115); Lipase 33 U/L (13-60); Osmolality Calculated 297 mOsm/kg (285-295); Potassium 3.7 mmol/L (3.5-5.1); Sodium 143 mmol/L (136-145); Total Protein 6.2 g/dL (6.6-8.7)
[2025-06-05 16:37] LABS: Glucose Urine UA Negative (Normal); Nitrate Urine Negative (Negative); Specific Gravity, Urine 1.025 (1.005-1.030)
[2025-06-05 16:42] LABS: Add Urine Microscopic? YES
[2025-06-05] MEDS: iohexol 350 mg/mL 500 mL Btl (per mL) IV (16:46)
[2025-06-05 19:20] VITALS: BP 138/95; PULSE 73; RESP 15; TEMP 37; O2SAT 94
== END 2025-06-05 19:22 | disposition home or self-care (01) ==
PROVIDERS: Emergency Provider Physician Assistant; PCP Electrodiagnostic Medicine
DX: R10.13 Epigastric pain (principal); E78.5 Hyperlipidemia, unspecified; I10 Essential (primary) hypertension; Z86.73 Personal history of transient ischemic attack (TIA), and cerebral infarction without residual deficits
CPT/HCPCS: 36415; 74177; 80053; 81001; 83690; 85025; 93005; 99285